=== PATIENT | female | born 1955 | race Caucasian/White ===

== ENCOUNTER 2017-05-23 03:43 | Inpatient (IN) | payer MEDICARE, BC ==
[2017-05-23] MEDS ORDERED: PROVENTIL 2.5 MG/3 ML NEB IH ONE ×2 (04:10→04:13)
[2017-05-23] MEDS ORDERED: Zithromax 500 MG/ 250 ML NaCl Premix 500 MG/250 ML IVPB IV STA (04:13)
[2017-05-23] MEDS ORDERED: Robitussin-Dm Syrup PO ONE (04:13)
[2017-05-23] MEDS ORDERED: Sodium Chloride 0.9% 1000 ML 1,000 ML IV SCH (04:15)
--- NOTE | 2017-05-23 04:19 | ERPHSYRPT ---
- History of Present Illness Time Seen by Provider: 05/23/17 04:05 Source: patient Exam Limitations: no limitations Physician History: FOR THE PAST 4 DAYS PT HAS HAD A NON-PRODUCTIVE COUGH; FOR THE PAST 2 DAYS SHORTNESS OF AIR, NAUSEA, DECREASED APPETITE, SINUS PRESSURE AND EARACHES. Allergies/Adverse Reactions: codeine Allergy (Verified 05/23/17 04:52) Nausea ceftriaxone [From Rocephin] Adverse Reaction (Verified 05/23/17 04:39) states it made her go out of her head Home Medications: Aspirin 81 mg PO DAILY 03/19/14 [History] Atenolol [Tenormin] 0 mg PO BID 03/19/14 [History] Olmesartan Medoxomil [Benicar] 0 mg PO DAILY 03/19/14 [History] Pregabalin [Lyrica] 75 mg PO DAILY 03/19/14 [History] Simvastatin [Zocor] 40 mg PO DAILY 03/19/14 [History] Clonidine HCl 0.1 mg [Catapres 0.1 MG] 0.1 mg PO BID 02/04/16 [History] Hx Tetanus, Diphtheria Vaccination/Date Given: No Hx Influenza Vaccination/Date Given: No Hx Pneumococcal Vaccination/Date Given: No - Review of Systems Ears, Nose, & Throat: Ear Pain, Other (SINUS PRESSURE) Respiratory: Cough, Dyspnea Abdominal/Gastrointestinal: Nausea, Appetite Changes (DECREASED) Endocrine: No Excessive Sweating All Other Systems: Reviewed and Negative - Past Medical History Pertinent Past Medical History: Yes Neurological History: Peripheral Neuropathy, Other ENT History: Cataracts Cardiac History: High Cholesterol, Hypertension Respiratory History: COPD Endocrine Medical History: No Pertinent History Musculoskeletal History: Arthritis GI Medical History: No Pertinent History History: No Pertinent History Psycho-Social History: Depression Female Reproductive Disorders: No Pertinent History Other Medical History: BRAIN ANURISM, skin cancers - Past Surgical History Past Surgical History: Yes Neuro Surgical History: Brain Shunt Cardiac: No Pertinent History Respiratory: No Pertinent History Gastrointestinal: Cholecystectomy Genitourinary: No Pertinent History Musculoskeletal: No Pertinent History Female Surgical History: Hysterectomy - Social History Smoking Status: Current every day smoker How long have you smoked: YRS Exposure to second hand smoke: Yes Drug Use: none Patient Lives Alone: No - Nursing Vital Signs Nursing Vital Signs: Initial Vital Signs Temperature 98.2 F 05/23/17 04:07 Pulse Rate 78 05/23/17 04:07 Respiratory Rate 24 05/23/17 04:07 Blood Pressure 130/77 05/23/17 04:07 O2 Sat by Pulse Oximetry 95 05/23/17 04:07 Pain Scale Pain Intensity 0 - Physical Exam General Appearance: alert Eye Exam: PERRL/EOMI Ears, Nose, Throat Exam: hearing grossly normal, normal pharynx Neck Exam: normal inspection Respiratory Exam: respiratory distress (MILD), wheezing Cardiovascular/Chest Exam: normal heart sounds Abdominal/Gastrointestinal Exam: soft, normal bowel sounds Extremity Exam: normal inspection, No pedal edema Peripheral Pulses Exam: dorsalis-pedis (R): 2+, dorsalis-pedis (L): 2+ Neurologic Exam: alert, cooperative Skin Exam: warm, dry SpO2 Interpretation: normal SpO2: 95 Oxygen Delivery: Room Air - Course Nursing assessment & vital signs reviewed: Yes EKG Interpreted by Me: RATE (72), Sinus Rhythm, Left [place] Deviation, NORMAL INTERVALS - Radiology Exams Chest X-ray Interpretation: Interpreted by me, No Pneumonia Ordered Tests: Active Orders 24 hr Category Date Time Status Car Stower STAT Care 05/23/17 04:12 Active EKG-ER Only STAT Care 05/23/17 04:11 Active IV Insertion STAT Care 05/23/17 04:11 Active Oxygen-ED Only NASAL CANNULA 2 lpm Care 05/23/17 04:11 Active Pulse Oximetry (ED) STAT Care 05/23/17 04:11 Active CHEST 2 VIEWS (PA AND LAT) Stat Exams 05/23/17 04:11 Taken AMYLASE Stat Lab 05/23/17 04:20 Completed BLOOD CULTURE Stat Lab 05/23/17 04:36 Received CBC W DIFF Stat Lab 05/23/17 04:20 Completed CMP Stat Lab 05/23/17 04:20 Completed CULTURE,SPUTUM Stat Lab 05/23/17 04:13 Uncollected D-DIMER QUANTITATION Stat Lab 05/23/17 04:50 Completed LIPASE Stat Lab 05/23/17 04:20 Completed MAGNESIUM Stat Lab 05/23/17 04:20 Completed NT PRO BNP Stat Lab 05/23/17 04:20 Completed TROPONIN Q3H Lab 05/23/17 04:20 Completed TROPONIN Q3H Lab 05/23/17 07:15 Ordered TROPONIN Q3H Lab 05/23/17 10:15 Ordered TROPONIN Q3H Lab 05/23/17 13:15 Ordered TROPONIN Q3H Lab 05/23/17 16:15 Ordered Respiratory Nebulizer STAT RT 05/23/17 04:14 Active Medication Summary Generic Name Dose Route Start Last Admin Trade Name Freq PRN Reason Stop Dose Admin Sodium Chloride 1,000 mls @ 100 mls/hr 05/23/17 04:15 05/23/17 04:33 Sodium Chloride 0.9% 1000 Ml IV 06/22/17 04:14 100 mls/hr .Q10H ESTELA Administration Discontinued Medications Generic Name Dose Route Start Last Admin Trade Name Freq PRN Reason Stop Dose Admin Albuterol Sulfate Confirm 05/23/17 04:10 Proventil 2.5 Mg/3 Ml Neb Administered 05/23/17 04:11 Dose 2.5 mg IH .STK-MED ONE Albuterol Sulfate 2.5 mg 05/23/17 04:13 05/23/17 04:10 Proventil 2.5 Mg/3 Ml Neb IH 05/23/17 04:14 2.5 mg STAT ONE Administration Guaifenesin/Dextromethorphan 10 ml 05/23/17 04:13 05/23/17 04:48 Robitussin-Dm Syrup PO 05/23/17 04:14 10 ml STAT ONE Administration Ceftriaxone Sodium/Dextrose 1 g in 50 mls @ 100 mls/hr 05/23/17 04:13 04:41 Rocephin 1 Gm-D5w 50 Ml Bag IV 05/23/17 04:42 Not Given STAT STA Azithromycin 500 mg in 250 mls @ 250 mls/hr 05/23/17 04:13 05/23/17 04:33 Zithromax 500 Mg/ 250 Ml Nacl Premix IV 05/23/17 05:12 250 mls/hr STAT STA Administration Azithromycin Confirm 05/23/17 04:23 Zithromax 500 Mg/ 250 Ml Nacl Premix Administered 05/23/17 04:24 Dose 500 mg in 250 mls @ ud IV .STK-MED ONE Ceftriaxone Sodium/Dextrose Confirm 05/23/17 04:24 Rocephin 1 Gm-D5w 50 Ml Bag Administered 05/23/17 04:25 Dose 1 g in 50 mls @ ud IV .STK-MED ONE Magnesium Sulfate/Dextrose 100 mls @ 200 mls/hr 05/23/17 05:36 05/23/17 05:53 Magnesium 1 Gm / 100 Ml D5w IV 05/23/17 06:05 200 mls/hr STAT ONE Administration Magnesium Sulfate/Dextrose Confirm 05/23/17 05:48 Magnesium 1 Gm / 100 Ml D5w Administered 05/23/17 05:49 Dose 100 mls @ ud IV .STK-MED ONE Levalbuterol HCl 1.25 mg 05/23/17 05:53 05/23/17 05:55 Xopenex 1.25 Mg/0.5 Ml Ud Nebule IH 05/23/17 05:54 1.25 mg STAT ONE Administration Levalbuterol HCl Confirm 05/23/17 05:54 Xopenex 1.25 Mg/0.5 Ml Ud Nebule Administered 05/23/17 05:55 Dose 1.25 mg IH .STK-MED ONE Methylprednisolone Sodium Succinate 125 mg 05/23/17 05:33 05/23/17 05:39 Solu-Medrol 125 Mg IV 05/23/17 05:34 125 mg STAT ONE Administration Methylprednisolone Sodium Succinate Confirm 05/23/17 05:36 Solu-Medrol 125 Mg Administered 05/23/17 05:37 Dose 125 mg .ROUTE .STK-MED ONE Sodium Chloride Confirm 05/23/17 05:54 Sodium Chloride 3 Ml Ud Nebules Administered 05/23/17 05:55 Dose 3 ml IH .STK-MED ONE Lab/Rad Data: Laboratory Result Diagrams 05/23/17 04:20 05/23/17 04:20 Laboratory Results 05/23/17 05/23/17 05/23/17 Range/Units 04:50 04:20 04:20 WBC (4.0-10.5) K/mm3 RBC (4.1-5.4) M/mm3 Hgb (12.0-16.0) gm/dl Hct (35-47) % MCV (78-100) fl MCH (26-32) pg MCHC (32-36) g/dl RDW (11.5-14.0) % Plt Count (150-450) K/mm3 MPV (6-9.5) fl Gran % (36.0-66.0) % Lymphocytes % (24.0-44.0) % Monocytes % (0.0-12.0) % Eosinophils % (0.00-5.0) % Basophils % (0.0-0.4) % Basophils # (0-0.4) D-Dimer 346 (0-500) ng/mL Sodium 132 L (136-145) mEq/L Potassium 3.7 (3.5-5.1) mEq/L Chloride 96 L (98-107) mEq/L Carbon Dioxide 23.8 (21-32) mEq/L Anion Gap 15.6 H (5-15) MEQ/L BUN 13 (9-20) mg/dL Creatinine 1.06 (0.55-1.30) mg/dl Estimated GFR 56 ML/MIN Glucose 114 H (70-110) MG/DL Calcium 9.4 (8.5-10.1) mg/dL Magnesium 1.6 L (1.8-2.4) mg/dL Total Bilirubin 0.30 (0.2-1.0) mg/dL AST 32 (15-37) U/L ALT 31 (12-78) U/L Alkaline Phosphatase 128 H (46-116) U/L Troponin I < 0.017 (0.000-0.056) ng/ml NT-Pro-B Natriuret Pep 82 (0-125) pg/ml Serum Total Protein 8.1 (6.4-8.2) gm/dL Albumin 3.9 (3.4-5.0) g/dL Amylase 43 (25-115) U/L Lipase 103 (73-393) U/L 05/23/ Range/Units 04:20 WBC 12.5 H (4.0-10.5) K/mm3 RBC 4.53 (4.1-5.4) M/mm3 Hgb 13.8 (12.0-16.0) gm/dl Hct 40.6 (35-47) % MCV 89.6 (78-100) fl MCH 30.5 (26-32) pg MCHC 34.0 (32-36) g/dl RDW 13.2 (11.5-14.0) % Plt Count 234 (150-450) K/mm3 MPV 10.5 H (6-9.5) fl Gran % 78.3 H (36.0-66.0) % Lymphocytes % 11.8 L (24.0-44.0) % Monocytes % 9.5 (0.0-12.0) % Eosinophils % 0.2 (0.00-5.0) % Basophils % 0.2 (0.0-0.4) % Basophils # 0.02 (0-0.4) D-Dimer (0-500) ng/mL Sodium (136-145) mEq/L Potassium (3.5-5.1) mEq/L Chloride (98-107) mEq/L Carbon Dioxide (21-32) mEq/L Anion Gap (5-15) MEQ/L BUN (9-20) mg/dL Creatinine (0.55-1.30) mg/dl Estimated GFR ML/MIN Glucose (70-110) MG/DL Calcium (8.5-10.1) mg/dL Magnesium (1.8-2.4) mg/dL Total Bilirubin (0.2-1.0) mg/dL AST (15-37) U/L ALT (12-78) U/L Alkaline Phosphatase (46-116) U/L Troponin I (0.000-0.056) ng/ml NT-Pro-B Natriuret Pep (0-125) pg/ml Serum Total Protein (6.4-8.2) gm/dL Albumin (3.4-5.0) g/dL Amylase (25-115) U/L Lipase (73-393) U/L - Progress Discussed with Dr.: Graces (OBS - [id number]) - Departure Time of Disposition: 06:34 Departure Disposition: Home Clinical Impression: BRONCHITIS, COPD, PN, HTN, ARTHRITIS, DEPRESSION, HX BRAIN ANEURYSM Condition: Stable Critical Care Time: No Referrals: MARY GRACE BARRY, [facility]AR[facility] ATTENDANT [Primary Care Provider] -
[2017-05-23] MEDS ORDERED: Sodium Chloride 0.9% 1000 ML 1,000 ML ONE (04:23)
[2017-05-23] MEDS ORDERED: Zithromax 500 MG/ 250 ML NaCl Premix 500 MG/250 ML IVPB IV ONE (04:23)
[2017-05-23] MEDS ORDERED: ROCEPHIN 1 Gm-D5w 50 ml Bag** 1 G/50 ML IVPB IV ONE (04:24)
[2017-05-23] MEDS: ROCEPHIN 1 Gm-D5w 50 ml Bag** 1 G/50 ML IVPB IV STA ×2 (04:33→04:41)
[2017-05-23 04:39] LABS: BASOPHIL % 0.2 % (0.0-0.4); Eosinophil % 0.2 % (0.00-5.0); Granulocytes % 78.3 % (36.0-66.0); Lymphocytes % 11.8 % (24.0-44.0); Mean Cell Volume 89.6 fl (78-100); Mean Corpuscular Hemoglobin 30.5 pg (26-32); Mean Platelet Volume 10.5 fl (6-9.5); Monocytes % 9.5 % (0.0-12.0); Platelet Count 234 K/mm3 (150-450); Red Blood Count 4.53 M/mm3 (4.1-5.4); Red Cell Distribution Width 13.2 % (11.5-14.0); White Blood Count 12.5 K/mm3 (4.0-10.5)
[2017-05-23 05:12] LABS: ALBUMIN 3.9 g/dL (3.4-5.0); ANION GAP 15.6 MEQ/L (5-15); BILIRUBIN,TOTAL 0.3 mg/dL (0.2-1.0); Carbon Dioxide 23.8 mEq/L (21-32); MAGNESIUM 1.6 mg/dL (1.8-2.4); Potassium 3.7 mEq/L (3.5-5.1); Total Protein 8.1 gm/dL (6.4-8.2)
[2017-05-23] MEDS ORDERED: solu-MEDROL 125 MG IV ONE (05:33)
[2017-05-23] MEDS ORDERED: solu-MEDROL 125 MG ONE (05:36)
[2017-05-23] MEDS ORDERED: Magnesium 1 Gm / 100 Ml D5W*** 100 ML IV ONE ×2 (05:36→05:48)
[2017-05-23] MEDS ORDERED: Xopenex 1.25 MG/0.5 ML UD NEBULE IH ONE ×2 (05:53→05:54)
[2017-05-23] MEDS ORDERED: Sodium Chloride 3 ML UD NEBULES IH ONE (05:54)
[2017-05-23] MEDS ORDERED: PROVENTIL 2.5 MG/3 ML NEB IH PRN (08:04)
[2017-05-23] MEDS ORDERED: Phenergan 25 MG INJ IV PRN (08:04)
[2017-05-23] MEDS ORDERED: solu-MEDROL 125 MG IV SCH (08:04)
[2017-05-23] MEDS ORDERED: TYLENOL 325 MG PO PRN (08:04)
--- NOTE | 2017-05-23 09:11 | XRAY ---
Indication: Short of breath. Comparison: None PA/lateral chest hyperinflated and clear. Heart and mediastinal structures within normal limits. Bony thorax intact with minimal degenerative changes. Query left sided ventricular shunt catheter versus external tubing. Impression: Nonacute hyperinflated chest.
[2017-05-23] MEDS: Levofloxacin 500MG/100ML D5W 500 MG/100 ML BAG IV SCH (09:32)
[2017-05-23] MEDS: Lyrica 25 MG PO SCH (09:33)
[2017-05-23] MEDS: ECOTRIN 81 MG PO SCH (09:33)
[2017-05-23] MEDS: Benicar 20 MG PO SCH (09:34)
[2017-05-23] MEDS: Catapres 0.1 MG PO SCH (09:34)
[2017-05-23] MEDS: MAG-OX 400 PO SCH (09:34)
[2017-05-23] MEDS: TENORMIN 50 MG PO SCH ×2 (09:38→21:06)
[2017-05-23] MEDS ORDERED: Zithromax 500 MG/ 250 ML NaCl Premix 500 MG/250 ML IVPB IV SCH (10:00)
[2017-05-23] MEDS ORDERED: ATENOLOL 25 MG PO SCH (10:00)
[2017-05-23] MEDS ORDERED: NON-FORMULARY ITEM (Aspirin [Aspirin] 81 MG) PO SCH (10:00)
[2017-05-23] MEDS ORDERED: OLMESARTAN MEDOXOMIL 5 MG PO SCH (10:00)
[2017-05-23] MEDS: DUONEB 0.5-3 MG/3 ml Neb IH SCH ×5 (10:30→23:08)
[2017-05-23] MEDS: solu-MEDROL 40 MG IV SCH ×2 (12:15→17:36)
--- NOTE | 2017-05-23 15:57 | PCM.HP ---
History of Present Illness - Chief Complaint Chief Complaint: Bronchitis, COPD History of Present Illness: is a 62 year old female who sees a provider in [place] who was admitted through the ER for COPD exacerbation. She had 3 days of dry cough and subjective fever with appetite decrease. She does smoke 1 PPD. - Review of Systems Constitutional: Fever Respiratory: Cough, Short Of Breath Abdominal/Gastrointestinal: Appetite Changes Musculoskeletal: Joint Pain (arthritis hx) Psychological: No Anxiety, No Depression, No Suicidal Ideations All Other Systems: Reviewed and Negative Medications & Allergies Home Medications: Home Medication List Aspirin 81 mg PO DAILY 03/19/14 [History Confirmed 05/23/17] Atenolol [Tenormin] 25 mg PO BID 03/19/14 [History Confirmed 05/23/17] Olmesartan Medoxomil [Benicar] 5 mg PO DAILY 03/19/14 [History Confirmed ] Pregabalin [Lyrica] 75 mg PO DAILY 03/19/14 [History Confirmed 05/23/17] Simvastatin [Zocor] 40 mg PO HS 03/19/14 [History Confirmed 05/23/17] Clonidine HCl 0.1 mg [Catapres 0.1 MG] 0.1 mg PO DAILY 02/04/16 [History Confirmed 05/23/17] Allergies/Adverse Reactions: Allergies Allergy/AdvReac Type Severity Reaction Status Date / Time codeine Allergy Nausea Verified 05/23/17 04:52 ceftriaxone [From Rocephin] AdvReac Verified 05/23/17 04:39 - Past Medical History Past Medical History: Yes Neurological History: Peripheral Neuropathy, Other ENT History: Cataracts Cardiac History: High Cholesterol, Hypertension Respiratory History: COPD Endocrine Medical History: No Pertinent History Musculoskelatal History: Arthritis GI Medical History: No Pertinent History History: No Pertinent History Pyscho-Social History: Depression Reproductive Disorders: No Pertinent History Comment: BRAIN ANEURYSM, skin cancers - Female History Hx Last Menstrual Period: menopause Are you now?: No - Past Surgical History Past Surgical History: Yes Neuro Surgical History: Brain Shunt Cardiac History: No Pertinent History Respiratory Surgery: No Pertinent History GI Surgical History: Cholecystectomy Genitourinary Surgical Hx: No Pertinent History Musculskeletal Surgical Hx: No Pertinent History Female Surgical History: Hysterectomy - Social History Smoking Status: Current every day smoker How long have you smoked: YRS Exposure to second hand smoke: Yes Alcohol: None Drug Use: none - Physical Exam Vital Signs: Vital Signs - 24 hr Temp Pulse Resp BP BP Pulse Ox 05/23/17 13:52 85 22 94 L 05/23/17 12:10 93 L 05/23/17 11:25 98.1 F 82 18 99/57 93 L 05/23/17 11:00 93 L 05/23/17 10:48 72 24 90 L 05/23/17 09:38 89 133/80 05/23/17 08:13 98.3 F 89 18 133/80 90 L 05/23/17 08:04 98.3 F 89 18 133/80 90 L 05/23/17 07:16 76 18 118/80 92 L 05/23/17 06:58 78 16 108/78 93 L 05/23/17 06:34 95 05/23/17 06:21 76 24 110/70 92 L 05/23/17 06:08 84 36 H 110/70 93 L 05/23/17 06:05 85 36 H 94 L 05/23/17 05:55 36 H 92 L 05/23/17 05:19 72 24 120/68 94 L 05/23/17 05:18 93 L 05/23/17 04:20 24 93 L 05/23/17 04:14 75 26 H 93 L 05/23/17 04:07 98.2 F 78 24 130/77 95 Oxygen-Last 24 hours O2 Percentage 2 Liters = 28% O2 Percentage 2 Liters = 28% O2 Percentage 2 Liters = 28% O2 Percentage 2 Liters = 28% O2 Percentage 2 Liters = 28% O2 Percentage 2 Liters = 28% O2 Percentage 2 Liters = 28% O2 Percentage 2 Liters = 28% General Appearance: no apparent distress, alert Neurologic Exam: oriented x 3, cooperative Eye Exam: eyes nml inspection Ears, Nose, Throat Exam: moist mucous membranes Neck Exam: normal inspection, non-tender, No lymphadenopathy Respiratory Exam: rhonchi (scattered bilat), wheezing (throughout) Cardiovascular Exam: regular rate/rhythm, normal heart sounds, No murmur Extremity Exam: No pedal edema, No swelling Skin Exam: normal color, warm, dry Results - Labs Lab/Micro Results: Lab Results-Last 24 Hours 05/23/17 05/23/17 Range/Units 10:10 13:22 Troponin I < 0.017 < 0.017 (0.000-0.056) ng/ml - Other Procedures and Tests Respiratory Therapy 05/23/17 10:34 Respiratory Nebulizer UD 05/23/17 11:00 Respiratory Nebulizer Q4H 05/23/17 15:00 Flutter Therapy UD Assessment/Plan (1) COPD exacerbation Current Visit: Yes Status: Acute Assessment & Plan: On IV levaquin. Will add IV steroid as she is wheezing. She has no nebulizer medicine at home, will keep this in mind at discharge. Code(s): J44.1 - CHRONIC OBSTRUCTIVE PULMONARY DISEASE W (ACUTE) EXACERBATION (2) Tobacco abuse Current Visit: Yes Status: Acute Assessment & Plan: she refused nicotine patch. Code(s): Z72.0 - TOBACCO USE
[2017-05-23] MEDS: Sodium Chloride 0.9% 1000 ML 1,000 ML IV SCH (16:31)
[2017-05-23] MEDS: ZOCOR 20MG PO SCH (21:06)
[2017-05-23] MEDS ORDERED: NON-FORMULARY ITEM (Simvastatin [Zocor] 40 MG) PO SCH (22:00)
[2017-05-24] MEDS: solu-MEDROL 40 MG IV SCH ×5 (00:17→23:30)
[2017-05-24] MEDS: Sodium Chloride 0.9% 1000 ML 1,000 ML IV SCH ×3 (00:32→21:02)
[2017-05-24] MEDS: DUONEB 0.5-3 MG/3 ml Neb IH SCH ×6 (03:37→22:37)
[2017-05-24 06:06] LABS: Mean Cell Volume 91.3 fl (78-100); Mean Corpuscular Hemoglobin 31.2 pg (26-32); Mean Platelet Volume 10.4 fl (6-9.5); Platelet Count 248 K/mm3 (150-450); Red Blood Count 3.91 M/mm3 (4.1-5.4); Red Cell Distribution Width 13.5 % (11.5-14.0)
[2017-05-24 06:24] LABS: ALBUMIN 3.2 g/dL (3.4-5.0); ALKALINE PHOSPHATASE 100 U/L (46-116); ANION GAP 15.4 MEQ/L (5-15); BLOOD UREA NITROGEN 9 mg/dL (9-20); CHLORIDE 104 mEq/L (98-107); Carbon Dioxide 22.8 mEq/L (21-32); Glucose 150 MG/DL (70-110); MAGNESIUM 1.9 mg/dL (1.8-2.4); SGOT/AST 22 U/L (15-37); SGPT/ALT 27 U/L (12-78); SODIUM 138 mEq/L (136-145); Total Protein 7.1 gm/dL (6.4-8.2)
[2017-05-24 06:28] LABS: White Blood Count 25.7 K/mm3 (4.0-10.5)
--- NOTE | 2017-05-24 08:40 | PCM.NOTE ---
Date and Time: 05/24/17833 Subjective Assessment: Pt feeling much better. Still coughing and on 3 L O2 per NC. breathing is better. roopa po. - Review of Systems Constitutional: No Fever Ears, Nose, & Throat: Throat Pain Respiratory: Cough Objective Exam General Appearance: no apparent distress, alert Neurologic Exam: oriented x 3, cooperative Skin Exam: normal color, warm, dry Respiratory Exam: diminished breath sounds, No crackles/rales, No rhonchi, No wheezing Cardiovascular Exam: regular rate/rhythm, normal heart sounds, No murmur Extremity Exam: No pedal edema, No swelling Back Exam: normal inspection OBJECTIVE DATA Vital Signs: Vital Signs - 24 hr Temp Pulse Resp BP BP Pulse Ox 05/24/17 08:00 22 05/24/17 07:16 97.7 F 95 H 22 117/59 95 05/24/17 07:00 95 05/24/17 06:40 91 H 24 94 L 05/24/17 04:00 97.9 F 87 34 H 106/53 90 L 05/24/17 03:30 80 18 98 05/24/17 00:00 97.8 F 83 34 H 110/63 92 L 05/23/17 23:00 89 20 95 05/23/17 21:06 101 H 108/57 05/23/17 20:10 98.3 F 105 H 24 108/59 95 05/23/17 20:00 95 05/23/17 19:17 97 H 20 95 05/23/17 16:51 96 H 24 92 L 05/23/17 16:00 98.2 F 90 16 113/62 94 L 05/23/17 13:52 85 22 94 L 05/23/17 12:10 93 L 05/23/17 11:25 98.1 F 82 18 99/57 93 L 05/23/17 11:00 93 L 05/23/17 10:48 72 24 90 L 05/23/17 09:38 89 133/80 Oxygen-Last 24 hours O2 Percentage 3 Liters = 32% O2 Percentage 3 Liters = 32% O2 Percentage 3 Liters = 32% Oxygen Flowrate (L/min)-RT 3 Oxygen Flowrate (L/min)-RT 3 Oxygen Flowrate (L/min)-RT 4 Pain Assessment - Last Documented Pain Scale Used 0-10 Pain Scale Intake and Output: Intake & Output 05/21/17 05/22/17 05/23/17 05/24/17 11:59 11:59 11:59 11:59 Intake Total 0 2574 Output Total 900 Balance 0 1674 Weight 81.873 kg 84.368 kg Lab Results: Lab Results-Last 24 Hours 05/23/17 05/23/17 05/23/17 Range/Units 10:10 13:22 16:10 WBC (4.0-10.5) K/mm3 RBC (4.1-5.4) M/mm3 Hgb (12.0-16.0) gm/dl Hct (35-47) % MCV (78-100) fl MCH (26-32) pg MCHC (32-36) g/dl RDW (11.5-14.0) % Plt Count (150-450) K/mm3 MPV (6-9.5) fl Sodium (136-145) mEq/L Potassium (3.5-5.1) mEq/L Chloride (98-107) mEq/L Carbon Dioxide (21-32) mEq/L Anion Gap (5-15) MEQ/L BUN (9-20) mg/dL Creatinine (0.55-1.30) mg/dl Estimated GFR ML/MIN Glucose (70-110) MG/DL Calcium (8.5-10.1) mg/dL Magnesium (1.8-2.4) mg/dL Total Bilirubin (0.2-1.0) mg/dL AST (15-37) U/L ALT (12-78) U/L Alkaline Phosphatase (46-116) U/L Troponin I < 0.017 < 0.017 < 0.017 (0.000-0.056) ng/ml Serum Total Protein (6.4-8.2) gm/dL Albumin (3.4-5.0) g/dL 05/24/17 05/24/17 Range/Units 05:42 05:42 WBC 25.7 H* (4.0-10.5) K/mm3 RBC 3.91 L (4.1-5.4) M/mm3 Hgb 12.2 (12.0-16.0) gm/dl Hct 35.7 (35-47) % MCV 91.3 (78-100) fl MCH 31.2 (26-32) pg MCHC 34.2 (32-36) g/dl RDW 13.5 (11.5-14.0) % Plt Count 248 (150-450) K/mm3 MPV 10.4 H (6-9.5) fl Sodium 138 (136-145) mEq/L Potassium 4.0 (3.5-5.1) mEq/L Chloride 104 (98-107) mEq/L Carbon Dioxide 22.8 (21-32) mEq/L Anion Gap 15.4 H (5-15) MEQ/L BUN 9 (9-20) mg/dL Creatinine 0.96 (0.55-1.30) mg/dl Estimated GFR > 60 ML/MIN Glucose 150 H (70-110) MG/DL Calcium 9.3 (8.5-10.1) mg/dL Magnesium 1.9 (1.8-2.4) mg/dL Total Bilirubin 0.20 (0.2-1.0) mg/dL AST 22 (15-37) U/L ALT 27 (12-78) U/L Alkaline Phosphatase 100 (46-116) U/L Troponin I (0.000-0.056) ng/ml Serum Total Protein 7.1 (6.4-8.2) gm/dL Albumin 3.2 L (3.4-5.0) g/dL Assessment/Plan (1) COPD exacerbation Current Visit: Yes Status: Acute Assessment & Plan: Doing better. Still on O2, will need continued IV abx and O2 - if can wean off oxygen may get to go home tomorrow or Sunday. Code(s): J44.1 - CHRONIC OBSTRUCTIVE PULMONARY DISEASE W (ACUTE) EXACERBATION (2) Tobacco abuse Current Visit: Yes Status: Acute Code(s): Z72.0 - TOBACCO USE
[2017-05-24] MEDS: Lyrica 25 MG PO SCH (09:06)
[2017-05-24] MEDS: TENORMIN 50 MG PO SCH ×2 (09:08→21:03)
[2017-05-24] MEDS: Benicar 20 MG PO SCH (09:10)
[2017-05-24] MEDS: MAG-OX 400 PO SCH (09:11)
[2017-05-24] MEDS: Catapres 0.1 MG PO SCH (09:11)
[2017-05-24] MEDS: ECOTRIN 81 MG PO SCH (09:11)
[2017-05-24] MEDS: Levofloxacin 500MG/100ML D5W 500 MG/100 ML BAG IV SCH (09:13)
[2017-05-24 09:31] LABS: BAND 11 % (0.0-2.0); Platelet Estimate NORMAL (NORMAL); Total Cells Counted 100
[2017-05-24] MEDS ORDERED: FLUCELVAX QUAD 2017-2018 SYR IM ONE (10:00)
[2017-05-24] MEDS ORDERED: Robitussin-Dm Syrup PO PRN (13:26)
[2017-05-24] MEDS: ZOCOR 20MG PO SCH (21:03)
[2017-05-25] MEDS: DUONEB 0.5-3 MG/3 ml Neb IH SCH ×6 (02:39→23:24)
[2017-05-25] MEDS: solu-MEDROL 40 MG IV SCH ×3 (05:40→18:27)
--- NOTE | 2017-05-25 06:31 | PCM.NOTE ---
Date and Time: 05/25/17627 Subjective Assessment: is feeling much better but breathing still very tight can't cough anything up she tried to go off the O2 but dropped last night and was short of breath and had to put back on today no vomiting tolerating po wel. Objective Exam General Appearance: no apparent distress Neurologic Exam: alert, oriented x 3, cooperative Skin Exam: warm, dry, No rash Ears, Nose, Throat Exam: moist mucous membranes Neck Exam: non-tender, supple Respiratory Exam: diminished breath sounds, prolonged expirations, wheezing Cardiovascular Exam: regular rate/rhythm, normal heart sounds Gastrointestinal/Abdomen Exam: soft, normal bowel sounds, tenderness, No distention Extremity Exam: normal inspection, No pedal edema OBJECTIVE DATA Vital Signs: Vital Signs - 24 hr Temp Pulse Resp BP BP Pulse Ox 05/25/17 04:00 98.1 F 87 18 132/62 89 L 05/25/17 03:00 91 L 05/25/17 02:39 84 18 97 05/25/17 00:00 20 05/24/17 23:58 97.8 F 89 20 116/55 92 L 05/24/17 23:00 91 L 05/24/17 22:39 87 20 93 L 05/24/17 21:03 87 130/60 05/24/17 19:59 26 H 05/24/17 19:51 97.8 F 87 20 130/60 93 L 05/24/17 19:00 92 L 05/24/17 18:38 78 20 93 L 05/24/17 16:00 97.5 F 86 20 124/62 96 05/24/17 15:15 84 20 94 L 05/24/17 14:58 93 L 05/24/17 12:48 97.7 F 84 18 118/62 93 L 05/24/17 12:00 97.7 F 88 22 117/59 93 L 05/24/17 11:11 88 22 93 L 05/24/17 11:00 95 05/24/17 09:41 68 20 95 05/24/17 09:08 95 H 117/59 05/24/17 08:00 22 05/24/17 07:16 97.7 F 95 H 22 117/59 95 05/24/17 07:00 95 05/24/17 06:40 91 H 24 94 L Oxygen-Last 24 hours O2 Percentage 2 Liters = 28% O2 Percentage 2 Liters = 28% O2 Percentage 3 Liters = 32% Pain Assessment - Last Documented Pain Scale Used 0-10 Pain Scale Intake and Output: Intake & Output 05/22/17 05/23/17 05/24/17 05/25/17 11:59 11:59 11:59 11:59 Intake Total 0 2814 3132 Output Total 1500 350 Balance 0 1314 2782 Weight 81.873 kg 84.368 kg Lab Results: Lab Results-Last 24 Hours 05/24/17 Range/Units 05:42 WBC 25.7 H* (4.0-10.5) K/mm3 RBC 3.91 L (4.1-5.4) M/mm3 Hgb 12.2 (12.0-16.0) gm/dl Hct 35.7 (35-47) % MCV 91.3 (78-100) fl MCH 31.2 (26-32) pg MCHC 34.2 (32-36) g/dl RDW 13.5 (11.5-14.0) % Plt Count 248 (150-450) K/mm3 MPV 10.4 H (6-9.5) fl Segmented Neutrophils 76 H (36.0-66.0) % Band Neutrophils 11 H (0.0-2.0) % Lymphocytes (Manual) 9 L (24-44) % Monocytes (Manual) 4 (0.0-12.0) % Differential Comment NORMAL Platelet Estimate NORMAL (NORMAL) Multi-Disciplinary Progress Notes: Multi-Disciplinary Progress Notes 05/24/17 09:00 (created 05/24/17 09:46) Case Management Note by Dee Sorto CONTINUES TO PLAN TO RETURN HOME TO PRE EPISODIC LEVEL OF FNX. INDEPENDENT WITH ALL ADL'S. AT HOME TO ASSIST IF NEEDED. WILL FOLLOW FOR ALL DC NEEDS. Initialized on 05/24/17 09:46 - END OF NOTE Assessment/Plan (1) COPD exacerbation Current Visit: Yes Status: Acute Assessment & Plan: still requiring O2 she doesnt want to have to be on at home very tight lungs with very little airmovement still continue iv steroid continue levoquin stop the iv fluids wean O2 as tolerated discussed if unable could trial short coarse of home O2 Code(s): J44.1 - CHRONIC OBSTRUCTIVE PULMONARY DISEASE W (ACUTE) EXACERBATION (2) Acute hypoxemic respiratory failure Current Visit: Yes Status: Acute Code(s): J96.01 - ACUTE RESPIRATORY FAILURE WITH HYPOXIA (3) Essential hypertension Current Visit: Yes Status: Acute Code(s): I10 - ESSENTIAL (PRIMARY) HYPERTENSION
[2017-05-25 06:49] LABS: Mean Cell Volume 92.6 fl (78-100); Mean Platelet Volume 11.3 fl (6-9.5); Platelet Count 215 K/mm3 (150-450); Red Blood Count 3.77 M/mm3 (4.1-5.4); Red Cell Distribution Width 14.1 % (11.5-14.0)
[2017-05-25 06:56] LABS: Mean Corpuscular Hemoglobin 30.7 pg (26-32)
[2017-05-25 06:57] LABS: White Blood Count 29.2 K/mm3 (4.0-10.5)
[2017-05-25 07:05] LABS: ANION GAP 15.6 MEQ/L (5-15); BLOOD UREA NITROGEN 11 mg/dL (9-20); CHLORIDE 108 mEq/L (98-107); Carbon Dioxide 21.3 mEq/L (21-32); Glucose 135 MG/DL (70-110); SODIUM 141 mEq/L (136-145)
[2017-05-25 07:25] LABS: ANISOCYTOSIS 1+; BAND 14 % (0.0-2.0); Metamyelocyte 2 %; Platelet Estimate NORMAL (NORMAL); Polychromasia RARE; Total Cells Counted 100
[2017-05-25] MEDS: TENORMIN 50 MG PO SCH ×2 (09:49→21:19)
[2017-05-25] MEDS: Lyrica 25 MG PO SCH (09:49)
[2017-05-25] MEDS: ECOTRIN 81 MG PO SCH (09:49)
[2017-05-25] MEDS: Levofloxacin 500MG/100ML D5W 500 MG/100 ML BAG IV SCH (09:49)
[2017-05-25] MEDS: Catapres 0.1 MG PO SCH (09:52)
[2017-05-25] MEDS: Benicar 20 MG PO SCH (09:52)
[2017-05-25] MEDS: MAG-OX 400 PO SCH (09:52)
[2017-05-25] MEDS: ZOCOR 20MG PO SCH (21:20)
[2017-05-26] MEDS: solu-MEDROL 40 MG IV SCH ×2 (00:19→05:23)
[2017-05-26] MEDS: DUONEB 0.5-3 MG/3 ml Neb IH SCH ×2 (03:14→06:40)
[2017-05-26 07:28] VITALS: BP 139/79; PULSE 84
[2017-05-26 07:44] VITALS: O2SAT 92
[2017-05-26] MEDS: Levofloxacin 500MG/100ML D5W 500 MG/100 ML BAG IV SCH (08:20)
[2017-05-26] MEDS: Lyrica 25 MG PO SCH (08:21)
[2017-05-26] MEDS: TENORMIN 50 MG PO SCH (08:21)
[2017-05-26] MEDS: MAG-OX 400 PO SCH (08:22)
[2017-05-26] MEDS: ECOTRIN 81 MG PO SCH (08:22)
[2017-05-26] MEDS: Benicar 20 MG PO SCH (08:22)
[2017-05-26] MEDS: Catapres 0.1 MG PO SCH (08:22)
[2017-05-26 08:41] LABS: BASOPHIL % 0.1 % (0.0-0.4); Granulocytes % 93.5 % (36.0-66.0); Lymphocytes % 3.5 % (24.0-44.0); Mean Cell Volume 92.4 fl (78-100); Mean Corpuscular Hemoglobin 30.7 pg (26-32); Mean Platelet Volume 10.2 fl (6-9.5); Monocytes % 2.9 % (0.0-12.0); Platelet Count 259 K/mm3 (150-450); Red Blood Count 3.94 M/mm3 (4.1-5.4)
[2017-05-26 08:47] LABS: Carbon Dioxide 23.9 mEq/L (21-32)
[2017-05-26 09:08] LABS: White Blood Count 26.6 K/mm3 (4.0-10.5)
[2017-05-26 09:13] LABS: BAND 1 % (0.0-2.0); Total Cells Counted 100
[2017-05-26 09:15] LABS: Platelet Estimate NORMAL (NORMAL); Toxic Granulation 1+
[2017-05-26 09:16] LABS: Poikilocytosis 1+
--- NOTE | 2017-05-26 09:56 | PCM.DS ---
Discharge Summary Date of Admission: 05/24/17 08:34 Date of Discharge: 05/26/17 Admitting Physician: YANCI MOCK Primary Care Provider: MARY GRACE BARRY Allergies Allergies codeine Allergy (Verified 05/23/17 04:52) Nausea ceftriaxone [From Rocephin] Adverse Reaction (Verified 05/23/17 04:39) states it made her go out of her head Hospital Summary - Hospital Course Hospital Course: she presented with acute copd exacerbation and acute hypoxemic respiratory failure and significant luekocytosis and bandemia. She was treated with nebs, levoquin and iv steroids. She continued to require O2 and weaned slowly on the iv steroids with severity of symptoms. She was feeling better ambulating well tolerating at times without O2 but still needing with exertion and she had overnight pulse ox with desaturations qualified for HOme O2 that she may not need once improved further. WIll complete steroids and levoquin as outpatient. Instruction on proper use of albuterol inhaler as well. follow up as outpatient. Discussed repeat cbc with the significant leukocytosis but despite this is clinically much improved. - Vitals & Intake/Output Vital Signs: Vital Signs Temperature 98.9 F 05/26/17 07:00 Pulse Rate 84 05/26/17 07:00 Respiratory Rate 18 05/26/17 07:00 Blood Pressure 139/79 05/26/17 07:00 O2 Sat by Pulse Oximetry 92 L 05/26/17 07:00 Oxygen-Last Documented O2 Percentage 2 Liters = 28% Intake & Output: Intake & Output 05/23/17 05/24/17 05/25/17 05/26/17 11:59 11:59 11:59 11:59 Intake Total 240 3132 1590 Output Total 600 1050 750 Balance -360 2082 840 Weight 88.451 kg - Lab Result Diagrams: 05/26/17 08:30 05/26/17 08:30 Lab Results-Last 24 Hrs: Lab Results-Last 24 Hours 05/26/17 05/26/17 Range/Units 08:30 08:30 WBC 26.6 H* (4.0-10.5) K/mm3 RBC 3.94 L (4.1-5.4) M/mm3 Hgb 12.1 (12.0-16.0) gm/dl Hct 36.4 (35-47) % MCV 92.4 (78-100) fl MCH 30.7 (26-32) pg MCHC 33.2 (32-36) g/dl RDW 14.0 (11.5-14.0) % Plt Count 259 (150-450) K/mm3 MPV 10.2 H (6-9.5) fl Gran % 93.5 H (36.0-66.0) % Lymphocytes % 3.5 L (24.0-44.0) % Monocytes % 2.9 (0.0-12.0) % Eosinophils % 0.0 (0.00-5.0) % Basophils % 0.1 (0.0-0.4) % Segmented Neutrophils 89 H (36.0-66.0) % Band Neutrophils 1 (0.0-2.0) % Lymphocytes (Manual) 7 L (24-44) % Monocytes (Manual) 3 (0.0-12.0) % Basophils # 0.02 (0-0.4) Differential Comment ABNORMAL Toxic Granulation 1+ Platelet Estimate NORMAL (NORMAL) Poikilocytosis 1+ Rouleaux 1+ Sodium 139 (136-145) mEq/L Potassium 4.0 (3.5-5.1) mEq/L Chloride 104 (98-107) mEq/L Carbon Dioxide 23.9 (21-32) mEq/L Anion Gap 15.0 (5-15) MEQ/L BUN 14 (9-20) mg/dL Creatinine 1.05 (0.55-1.30) mg/dl Estimated GFR 57 ML/MIN Glucose 150 H (70-110) MG/DL Calcium 9.8 (8.5-10.1) mg/dL Discharge Exam General Appearance: no apparent distress, alert Neurologic Exam: alert, oriented x 3, cooperative, normal mood/affect, nml cerebellar function, sensation nml, No motor deficits Skin Exam: normal color, warm, dry Eye Exam: PERRL, EOMI, eyes nml inspection Ears, Nose, Throat Exam: normal ENT inspection, pharynx normal, moist mucous membranes Neck Exam: normal inspection, non-tender, supple, full range of motion Respiratory Exam: wheezing, No respiratory distress, No crackles/rales Cardiovascular Exam: regular rate/rhythm, normal heart sounds Gastrointestinal/Abdomen Exam: soft, No tenderness, No mass Extremity Exam: normal inspection, normal range of motion Back Exam: normal inspection, normal range of motion, No CVA tenderness, No vertebral tenderness Pelvic Exam: deferred Rectal Exam: deferred Final Diagnosis/Problem List - Final Discharge Diagnosis/Problem (1) COPD exacerbation Status: Acute (2) Acute hypoxemic respiratory failure Status: Acute (3) Essential hypertension Status: Acute - Discharge Disposition: Home, Self-Care Condition: Stable Prescriptions: New Prednisone 20 mg [Deltasone 20 mg] 20 mg PO DAILY #10 tablet Levofloxacin 500 mg PO DAILY #4 tablet Albuterol Sulfate [Proair Hfa] 2 gm IH Q4H PRN #1 [id number] PRN Reason: Shortness Of Breath Continue Olmesartan Medoxomil [Benicar] 5 mg PO DAILY Simvastatin [Zocor] 40 mg PO HS Atenolol [Tenormin] 25 mg PO BID Aspirin 81 mg PO DAILY Pregabalin [Lyrica] 75 mg PO DAILY Clonidine HCl 0.1 mg [Catapres 0.1 MG] 0.1 mg PO DAILY Instructions: Chronic Obstructive Pulmonary Disease Additional Instructions: home O2 at night 2L nc and in day as needed Follow up with: YANCI MOCK [ACTIVE STAFF] - 06/08/17 11:15 am Forms: Discharge Instructions
== END 2017-05-26 11:00 | disposition home or self-care (01) | DRG 190 ==
LOC: ED 03:43 → MED SURG 08:02 → OBSVTOIN 05-24 08:34
PROVIDERS: ADMIT Family Medicine; ATTEND Family Medicine
DX: J44.1 Chronic obstructive pulmonary disease with (acute) exacerbation (principal); J96.01 Acute respiratory failure with hypoxia; I10 Essential (primary) hypertension; G62.9 Polyneuropathy, unspecified; M19.90 Unspecified osteoarthritis, unspecified site; Z85.828 Personal history of other malignant neoplasm of skin; Z72.0 Tobacco use
CPT/HCPCS: 36000; 36415; 71020; 80048; 80053; 82150; 83690; 83735; 83880; 84484; 85025; 85379; 87040; 87070; 93005; 93041; 93268; 94640; 94667; 94760; 94762; 96360; 96361; 96365; 96374; 99285; G0008; G0378; J0456; J0696; J1956; J2920; J2930; J3475; A9270-GY

== ENCOUNTER 2017-05-27 05:24 | Emergency (ER) | payer MEDICARE, BC ==
[2017-05-27] MEDS ORDERED: DUONEB 0.5-3 MG/3 ml Neb IH ONE ×4 (05:47→08:00)
[2017-05-27] MEDS ORDERED: solu-MEDROL 125 MG IV ONE (05:51)
[2017-05-27] MEDS ORDERED: Zosyn 3.375GM/100 Ml D5W 3.375 GM/100 ML IVPB IV STA (05:51)
--- NOTE | 2017-05-27 05:51 | ERPHSYRPT ---
- History of Present Illness Source: patient, family Exam Limitations: no limitations Timing/Duration: today Activities at Onset: none Severity of Dyspnea-Max: moderate Severity of Dyspnea-Current: moderate Possible Cause: chronic episodes Modifying Factors: Improves With: albuterol nebulizer Associated Symptoms: anxiety, cough, wheezing Hx Tetanus, Diphtheria Vaccination/Date Given: No Hx Influenza Vaccination/Date Given: No Hx Pneumococcal Vaccination/Date Given: No <LEEANN RENAE - Last Filed: 05/27/17 07:01> <MILKA MOYER - Last Filed: 05/27/17 09:03> - History of Present Illness Time Seen by Provider: 05/27/17 05:47 Physician History: pt is 62 year old female who just got out of hospital here for COPD exacerbation with wheezing - denies hx of heart problems; (LEEANN RENAE) Allergies/Adverse Reactions: codeine Allergy (Verified 05/27/17 05:53) Nausea ceftriaxone [From Rocephin] Adverse Reaction (Verified 05/27/17 05:53) states it made her go out of her head Home Medications: Aspirin 81 mg PO DAILY 03/19/14 [History] Atenolol [Tenormin] 25 mg PO BID 03/19/14 [History] Olmesartan Medoxomil [Benicar] 5 mg PO DAILY 03/19/14 [History] Pregabalin [Lyrica] 75 mg PO DAILY 03/19/14 [History] Simvastatin [Zocor] 40 mg PO HS 03/19/14 [History] Clonidine HCl 0.1 mg [Catapres 0.1 MG] 0.1 mg PO DAILY 02/04/16 [History] - Review of Systems Constitutional: No Fever, No Chills Eyes: No Symptoms Ears, Nose, & Throat: No Symptoms Respiratory: Cough, Dyspnea, Wheezing Cardiac: No Chest Pain, No Edema, No Syncope Abdominal/Gastrointestinal: No Abdominal Pain, No Nausea, No Vomiting, No Diarrhea Genitourinary Symptoms: No Dysuria Musculoskeletal: No Back Pain, No Neck Pain Skin: No Symptoms, No Rash Neurological: No Dizziness, No Focal Weakness, No Sensory Changes Psychological: No Symptoms Endocrine: No Symptoms All Other Systems: Reviewed and Negative <LEEANN RENAE - Last Filed: 05/27/17 07:01> - Past Medical History Pertinent Past Medical History: Yes Neurological History: Peripheral Neuropathy, Other ENT History: Cataracts Cardiac History: High Cholesterol, Hypertension Respiratory History: COPD Endocrine Medical History: No Pertinent History Musculoskeletal History: Arthritis GI Medical History: No Pertinent History History: No Pertinent History Psycho-Social History: Depression Female Reproductive Disorders: No Pertinent History Other Medical History: BRAIN ANEURYSM, skin cancers - Past Surgical History Past Surgical History: Yes Neuro Surgical History: Brain Shunt Cardiac: No Pertinent History Respiratory: No Pertinent History Gastrointestinal: Cholecystectomy Genitourinary: No Pertinent History Musculoskeletal: No Pertinent History Female Surgical History: Hysterectomy - Social History Smoking Status: Current every day smoker How long have you smoked: YRS Exposure to second hand smoke: Yes Drug Use: none Patient Lives Alone: No <LEEANN RENAE - Last Filed: 05/27/17 07:01> - Physical Exam General Appearance: mild distress, alert Eye Exam: PERRL/EOMI Neck Exam: normal inspection, supple Respiratory Exam: airway intact, rhonchi, wheezing Cardiovascular/Chest Exam: normal heart sounds, regular rate/rhythm Abdominal/Gastrointestinal Exam: soft, No tenderness, No distention, No mass Rectal Exam: deferred Extremity Exam: non-tender, normal range of motion, normal inspection, no calf tenderness, no pedal edema Neurologic Exam: alert, oriented x 3, cooperative, spinner iron II-XII nml as tested, sensation nml, No motor deficits Skin Exam: normal color, warm, No dry <LEEANN RENAE - Last Filed: 05/27/17 07:01> - Physical Exam SpO2 Interpretation: normal <JOÃOMILKA - Last Filed: 05/27/17 09:03> - Nursing Vital Signs Nursing Vital Signs: Initial Vital Signs Temperature 97.9 F 05/27/17 05:40 Pulse Rate 86 05/27/17 05:40 Respiratory Rate 24 05/27/17 05:40 Blood Pressure 155/87 05/27/17 05:40 O2 Sat by Pulse Oximetry 96 05/27/17 05:40 Pain Scale Pain Intensity 0 - Course Nursing assessment & vital signs reviewed: Yes EKG Interpreted by Me: Sinus Rhythm, NORMAL AXIS, Non-specific ST Changes, Other (poor r wavwe progression) - Radiology Exams Chest X-ray Interpretation: Reviewed by me, Infiltrates <LEEANN RENAE - Last Filed: 05/27/17 07:01> Ordered Tests: Active Orders 24 hr Category Date Time Status Weight Tester STAT Care 05/27/17 05:52 Active Clean Catch Urine Specimen STAT Care 05/27/17 05:51 Active EKG-ER Only STAT Care 05/27/17 05:51 Active IV Insertion STAT Care 05/27/17 05:51 Active IV Insertion-2nd Peripheral STAT Care 05/27/17 07:21 Active Oxygen-ED Only NASAL CANNULA 5 lpm Care 05/27/17 05:51 Active CHEST 1 VIEW (PORTABLE) Stat Exams 05/27/17 05:52 Taken CHEST WITH CONTRAST [CT] Stat Exams 05/27/17 06:34 Taken CBC W DIFF Stat Lab 05/27/17 05:55 Completed CMP Stat Lab 05/27/17 05:55 Completed D-DIMER QUANTITATION Stat Lab 05/27/17 05:55 Completed Lactic Acid Stat Lab 05/27/17 06:00 Completed Manual Differential NC Stat Lab 05/27/17 05:55 Completed NT PRO BNP Stat Lab 05/27/17 05:55 Completed TROPONIN Q3H Lab 05/27/17 05:55 Completed TROPONIN Q3H Lab 05/27/17 09:00 Ordered TROPONIN Q3H Lab 05/27/17 12:00 Ordered TROPONIN Q3H Lab 05/27/17 15:00 Ordered TROPONIN Q3H Lab 05/27/17 18:00 Ordered UA W/ MICROSCOPIC Stat Lab 05/27/17 07:15 Completed Respiratory Nebulizer STAT RT 05/27/17 05:57 Completed Respiratory Nebulizer STAT RT 05/27/17 07:58 Completed Medication Summary Generic Name Dose Route Start Last Admin Trade Name Freq PRN Reason Stop Dose Admin Albuterol/Ipratropium 3 ml 05/27/17 11:00 05/27/17 08:55 Duoneb 0.5-3 Mg/3 Ml Neb IH 06/26/17 10:59 3 ml Q4HRT ESTELA Administration Magnesium Sulfate/Dextrose 100 mls @ 100 mls/hr 05/27/17 06:00 05/27/17 06:20 Magnesium 1 Gm / 100 Ml D5w IV 05/27/17 07:59 100 mls/hr Q1H ESTELA Administration Sodium Chloride 1,000 mls @ 50 mls/hr 05/27/17 06:00 05/27/17 06:05 Sodium Chloride 0.9% 1000 Ml IV 06/26/17 05:59 50 mls/hr .Q20H ESTELA Administration Discontinued Medications Generic Name Dose Route Start Last Admin Trade Name Ayush PRN Reason Stop Dose Admin Albuterol/Ipratropium Confirm 05/27/17 05:47 Duoneb 0.5-3 Mg/3 Ml Neb Administered 05/27/17 05:48 Dose 3 ml IH .STK-MED ONE Albuterol/Ipratropium 3 ml 05/27/17 05:51 05/27/17 05:50 Duoneb 0.5-3 Mg/3 Ml Neb IH 05/27/17 05:52 3 ml STAT ONE Administration Albuterol/Ipratropium Confirm 05/27/17 07:47 Duoneb 0.5-3 Mg/3 Ml Neb Administered 05/27/17 07:48 Dose 3 ml IH .STK-MED ONE Albuterol/Ipratropium 3 ml 05/27/17 08:00 05/27/17 08:01 Duoneb 0.5-3 Mg/3 Ml Neb IH 05/27/17 08:01 3 ml STAT ONE Administration Budesonide 0.5 mg 05/27/17 07:58 05/27/17 07:59 Pulmicort 0.5 Mg/2 Ml Respules IH 05/27/17 07:59 0.5 mg STAT ONE Administration Piperacillin Sod/Tazobactam Sod 3.375 gm in 100 mls @ 200 mls/hr 05/27/17 05: 51 05/27/17 06:06 Zosyn 3.375gm/100 Ml D5w IV 05/27/17 06:20 200 mls/hr STAT STA Administration Piperacillin Sod/Tazobactam Sod Confirm 05/27/17 06:02 Zosyn 3.375gm/100 Ml D5w Administered 05/27/17 06:03 Dose 3.375 gm in 100 mls @ ud IV .STK-MED ONE Lorazepam 1 mg 05/27/17 06:18 05/27/17 06:22 Ativan 1 Mg PO 05/27/17 06:19 1 mg STAT ONE Administration Lorazepam Confirm 05/27/17 06:21 Ativan 1 Mg Administered 05/27/17 06:22 Dose 1 mg .ROUTE .STK-MED ONE Methylprednisolone Sodium Succinate 125 mg 05/27/17 05:51 05/27/17 06:06 Solu-Medrol 125 Mg IV 05/27/17 05:52 125 mg STAT ONE Administration Methylprednisolone Sodium Succinate Confirm 05/27/17 06:03 Solu-Medrol 125 Mg Administered 05/27/17 06:04 Dose 125 mg .ROUTE .STK-MED ONE Lab/Rad Data: Laboratory Result Diagrams 05/27/17 05:55 05/27/17 05:55 Laboratory Results 05/27/17 05/27/17 05/27/17 Range/Units 07:15 06:00 05:55 WBC (4.0-10.5) K/mm3 RBC (4.1-5.4) M/mm3 Hgb (12.0-16.0) gm/dl Hct (35-47) % MCV (78-100) fl MCH (26-32) pg MCHC (32-36) g/dl RDW (11.5-14.0) % Plt Count (150-450) K/mm3 MPV (6-9.5) fl Segmented Neutrophils (36.0-66.0) % Lymphocytes (Manual) (24-44) % Monocytes (Manual) (0.0-12.0) % Differential Comment Platelet Estimate (NORMAL) Poikilocytosis D-Dimer 785 H* (0-500) ng/mL Sodium (136-145) mEq/L Potassium (3.5-5.1) mEq/L Chloride (98-107) mEq/L Carbon Dioxide (21-32) mEq/L Anion Gap (5-15) MEQ/L BUN (9-20) mg/dL Creatinine (0.55-1.30) mg/dl Estimated GFR ML/MIN Glucose (70-110) MG/DL Lactic Acid 1.2 (0.4-2.0) Calcium (8.5-10.1) mg/dL Total Bilirubin (0.2-1.0) mg/dL AST (15-37) U/L ALT (12-78) U/L Alkaline Phosphatase (46-116) U/L Troponin I (0.000-0.056) ng/ml NT-Pro-B Natriuret Pep (0-125) pg/ml Serum Total Protein (6.4-8.2) gm/dL Albumin (3.4-5.0) g/dL Ur Collection Type CCMS Urine Color YELLOW (YELLOW) Urine Appearance CLEAR (CLEAR) Urine pH 5.0 (5-6) Ur Specific [place] 1.010 (1.005-1.025) Urine Protein NEGATIVE (Negative) Urine Ketones NEGATIVE (NEGATIVE) Urine Blood 5-10 (0-5) Jeremy/ul Urine Nitrite NEGATIVE (NEGATIVE) Urine Bilirubin NEGATIVE (NEGATIVE) Urine Urobilinogen NORMAL (0-1) mg/dL Ur Leukocyte Esterase NEGATIVE (NEGATIVE) Urine Microscopic RBC 0-2 (0-2) /HPF Urine Microscopic WBC 0-2 (0-5) /HPF Ur Epithelial Cells FEW (FEW) /HPF Urine Bacteria RARE (NEGATIVE) /HPF Urine Mucus SLIGHT (NEGATIVE) /HPF Urine Culture Reflexed NO (NO) Urine Glucose NEGATIVE (NEGATIVE) mg/dL Specimen Received 0715 05/27/17 05/27/17 05/27/17 05/27/17 Range/Units 05:55 05:55 05:55 WBC 18.0 H (4.0-10.5) K/mm3 RBC 4.09 L (4.1-5.4) M/mm3 Hgb 12.6 (12.0-16.0) gm/dl Hct 37.4 (35-47) % MCV 91.4 (78-100) fl MCH 30.8 (26-32) pg MCHC 33.7 (32-36) g/dl RDW 13.8 (11.5-14.0) % Plt Count 265 (150-450) K/mm3 MPV 10.2 H (6-9.5) fl Segmented Neutrophils 86 H (36.0-66.0) % Lymphocytes (Manual) 8 L (24-44) % Monocytes (Manual) 6 (0.0-12.0) % Differential Comment ABNORMAL Platelet Estimate NORMAL (NORMAL) Poikilocytosis 1+ D-Dimer (0-500) ng/mL Sodium 140 (136-145) mEq/L Potassium 3.3 L (3.5-5.1) mEq/L Chloride 103 (98-107) mEq/L Carbon Dioxide 29.0 (21-32) mEq/L Anion Gap 10.8 (5-15) MEQ/L BUN 17 (9-20) mg/dL Creatinine 0.98 (0.55-1.30) mg/dl Estimated GFR > 60 ML/MIN Glucose 83 (70-110) MG/DL Lactic Acid (0.4-2.0) Calcium 10.1 (8.5-10.1) mg/dL Total Bilirubin 0.40 (0.2-1.0) mg/dL AST 32 (15-37) U/L ALT 40 (12-78) U/L Alkaline Phosphatase 108 (46-116) U/L Troponin I < 0.017 (0.000-0.056) ng/ml NT-Pro-B Natriuret Pep 1798 H (0-125) pg/ml Serum Total Protein 7.0 (6.4-8.2) gm/dL Albumin 3.3 L (3.4-5.0) g/dL Ur Collection Type Urine Color (YELLOW) Urine Appearance (CLEAR) Urine pH (5-6) Ur Specific [place] (1.005-1.025) Urine Protein (Negative) Urine Ketones (NEGATIVE) Urine Blood (0-5) Jeremy/ul Urine Nitrite (NEGATIVE) Urine Bilirubin (NEGATIVE) Urine Urobilinogen (0-1) mg/dL Ur Leukocyte Esterase (NEGATIVE) Urine Microscopic RBC (0-2) /HPF Urine Microscopic WBC (0-5) /HPF Ur Epithelial Cells (FEW) /HPF Urine Bacteria (NEGATIVE) /HPF Urine Mucus (NEGATIVE) /HPF Urine Culture Reflexed (NO) Urine Glucose (NEGATIVE) mg/dL Specimen Received - Progress Progress: improved, re-examined Air Movement: good Blood Culture(s) Obtained: No Antibiotics given: Yes Counseled pt/family regarding: lab results, diagnosis, need for follow-up, rad results <LEEANN RENAE - Last Filed: 05/27/17 07:01> <MILKA MOYER - Last Filed: 05/27/17 09:03> - Progress Progress Note: 05/27/17 07:01 pt improved after initiation of treatment- discussed pending results - CT PE prot with Dr. Moyer who is assuming care and will make final dispo - (LEEANN RENAE) 05/27/17 08:34 Patient CAT scan of the chest for pulmonary embolism protocol is negative, but it is showing remain soft pneumonia. Patient is already on antibiotic at home, which she was prescribed just yesterday when she was discharged from this hospital. Patient was given pro-air inhaler and oxygen at home. But it appears that patient is benefiting more from the bronchodilator treatments with the nebulizer, so we will make an arrangements with nebulizer machine and DuoNeb nebulizer solution which she should use every 4 hours for next 24 hours and then every 6 hours. She is strongly advised to quit smoking and use oxygen at home. Verbalize instructions understood and family is also made aware of patient condition and laboratory data as well as the CAT scan report. (MILKA MOYER) - Departure Critical Care Time: No <LEEANN RENAE - Last Filed: 05/27/17 07:01> - Departure Time of Disposition: 08:45 Departure Disposition: Home Critical Care Time: Yes Critical Care Time(excluding separately billable procedures): 30-74 minutes <MILKA MOYER - Last Filed: 05/27/17 09:03> - Departure Clinical Impression: COPD exacerbation Pneumonia Qualifiers: Pneumonia type: due to unspecified organism Laterality: unspecified laterality Lung location: unspecified part of lung Qualified Code(s): J18.9 - Pneumonia, unspecified organism Condition: Stable Referrals: MARY GRACE BARRY FNP [Primary Care Provider] - Instructions: Chronic Obstructive Pulmonary Disease, Pneumonia -- Adult, Quit Smoking Additional Instructions: Patient CAT scan of the chest for pulmonary embolism protocol is negative, but it is showing remains of pneumonia. Patient is already on antibiotic at home, which she was prescribed just yesterday when she was discharged from this hospital. Patient was given pro-air inhaler and oxygen at home. But it appears that patient is benefiting more from the bronchodilator treatments with the nebulizer, so we will make an arrangements with nebulizer machine and DuoNeb nebulizer solution which she should use every 4 hours for next 24 hours and then every 6 hours. She is strongly advised to quit smoking and use oxygen at home. Verbalize instructions understood and family is also made aware of patient condition and laboratory data as well as the CAT scan report. Please follow the instructions given to you. Please take your medication as prescribed if given. If symptoms recur or get worse, come back to the emergency room if you cannot reach your primary care physician, or call your primary care physician for an appointment. Again if your symptoms get worse, come back to the emergency room. Thanks for visiting emergency room, and let us take care of you. Prescriptions: Lorazepam 1 mg [Ativan 1 MG] 1 mg PO QIDPRN PRN #30 tablet PRN Reason: Anxiety Albuterol/Ipratropium 3ml Neb* [DUONEB 0.5-3 MG/3 ml Neb] 3 ml IH Q4H #60 ampul.neb Nebulizer and Compressor [Easy Air Compressor Nebulizer] 1 each UD #1 each
[2017-05-27] MEDS ORDERED: Sodium Chloride 0.9% 1000 ML 1,000 ML IV SCH (06:00)
[2017-05-27] MEDS ORDERED: Sodium Chloride 0.9% 1000 ML 1,000 ML ONE (06:02)
[2017-05-27] MEDS ORDERED: Zosyn 3.375GM/100 Ml D5W 3.375 GM/100 ML IVPB IV ONE (06:02)
[2017-05-27] MEDS ORDERED: Magnesium 1 Gm / 100 Ml D5W*** 100 ML IV ONE ×2 (06:03→06:12)
[2017-05-27] MEDS ORDERED: solu-MEDROL 125 MG ONE (06:03)
[2017-05-27] MEDS: Magnesium 1 Gm / 100 Ml D5W*** 100 ML IV SCH ×2 (06:05→06:20)
[2017-05-27 06:07] LABS: Mean Cell Volume 91.4 fl (78-100); Mean Corpuscular Hemoglobin 30.8 pg (26-32); Mean Platelet Volume 10.2 fl (6-9.5); Platelet Count 265 K/mm3 (150-450); Red Blood Count 4.09 M/mm3 (4.1-5.4); Red Cell Distribution Width 13.8 % (11.5-14.0)
[2017-05-27] MEDS ORDERED: Ativan 1 MG PO ONE (06:18)
[2017-05-27 06:21] LABS: Total Cells Counted 100
[2017-05-27] MEDS ORDERED: Ativan 1 MG ONE (06:21)
[2017-05-27 06:22] LABS: Platelet Estimate NORMAL (NORMAL); Poikilocytosis 1+
[2017-05-27 06:30] LABS: ALBUMIN 3.3 g/dL (3.4-5.0); ALKALINE PHOSPHATASE 108 U/L (46-116); ANION GAP 10.8 MEQ/L (5-15); BLOOD UREA NITROGEN 17 mg/dL (9-20); CHLORIDE 103 mEq/L (98-107); Glucose 83 MG/DL (70-110); Potassium 3.3 mEq/L (3.5-5.1); SGOT/AST 32 U/L (15-37); SGPT/ALT 40 U/L (12-78); SODIUM 140 mEq/L (136-145)
[2017-05-27 07:31] LABS: Bilirubin NEGATIVE (NEGATIVE); Collection Type CCMS; Glucose NEGATIVE (NEGATIVE); Leukocyte Esterase NEGATIVE (NEGATIVE)
[2017-05-27 07:32] LABS: COMPLETE URINE MICROSCOPIC? YES
[2017-05-27] MEDS ORDERED: PULMICORT 0.5 MG/2 ML RESPULES IH ONE (07:58)
[2017-05-27 08:27] LABS: ADD URINE CULTURE? NO (NO); Bacteria RARE /HPF (NEGATIVE); Epithelial Cells FEW /HPF (FEW); Mucus SLIGHT /HPF (NEGATIVE); WBC 0-2 /HPF (0-5)
--- NOTE | 2017-05-27 09:00 | XRAY ---
Indication: Short of breath and cough. Elevated d-dimer. Multiple contiguous axial images obtained through the chest using 80 cc Isovue 370 contrast and PE protocol. Comparison: None There is satisfactory opacification of the pulmonary arteries. However respiration artifact limits evaluation of the more distal lobar/segmental branches. No filling defect or pulmonary embolus in the central pulmonary arteries. Heart is not enlarged. Aorta minimally calcified without aneurysm/dissection. No pathologic mediastinal/hilar lymphadenopathy. Examination of the lung parenchyma demonstrates mild diffuse patchy air space opacities bilaterally. No consolidation or effusion. Incidental right lower lobe bullae. Bony thorax intact with minimal degenerative changes throughout the spine. There is incompletely visualized left-sided anterior ventricular shunt catheter. Limited upper abdomen demonstrates mild fatty liver and cholecystectomy. Impression: 1. Respiration artifact. No large central PE. 2. Diffuse bilateral patchy airspace disease. 3. Fatty liver. Comment: Preliminary interpretation was made by C. No discrepancy. CTDI 22.48
--- NOTE | 2017-05-27 09:02 | XRAY ---
Indication: Short of breath. Comparison: May 23, 2017. Portable chest now demonstrates subtle diffuse patchy bilateral airspace disease without consolidation or large effusion. Heart is not enlarged. Stable left-sided shunt catheter.
[2017-05-27 09:22] VITALS: BP 147/98; PULSE 97; O2SAT 98
[2017-05-27] MEDS ORDERED: DUONEB 0.5-3 MG/3 ml Neb IH SCH (11:00)
== END 2017-05-27 09:28 | disposition home or self-care (01) ==
LOC: ED 05:24
DX: J18.9 Pneumonia, unspecified organism (principal); J44.1 Chronic obstructive pulmonary disease with (acute) exacerbation; I10 Essential (primary) hypertension; E78.00 Pure hypercholesterolemia, unspecified; Z79.899 Other long term (current) drug therapy
CPT/HCPCS: 36000; 36415; 71010; 71260; 80053; 81000; 83605; 83880; 84484; 85025; 85379; 93005; 93041; 94640; 96360; 96361; 96365; 96366; 96367; 96374; 99284; J2543; J2930; J3475; A9270-GY

== ENCOUNTER 2019-08-04 10:02 | Observation (INO) | payer MEDICARE, BC ==
[2019-08-04] MEDS ORDERED: DUONEB 0.5-3 MG/3 ml Neb IH ONE ×2 (10:21→10:25)
[2019-08-04] MEDS ORDERED: TYLENOL 325 MG PO ONE (10:24)
[2019-08-04] MEDS ORDERED: Levofloxacin 500MG/100ML D5W 500 MG/100 ML BAG IV STA (10:24)
[2019-08-04] MEDS ORDERED: solu-MEDROL 125 MG IV ONE (10:28)
[2019-08-04] MEDS ORDERED: Magnesium Sulfate 1 GM/2 ML VIAL IV ONE (10:30)
--- NOTE | 2019-08-04 10:34 | ERPHSYRPT ---
- History of Present Illness Time Seen by Provider: 08/04/19 10:22 Source: patient Exam Limitations: no limitations Patient Subjective Stated Complaint: Pt states "I have been having trouble breathing for a couple of days, I went to [facility] care because I have been coughing up stuff and they sent me here." Triage Nursing Assessment: Pt presented alert and oriented X 3, skin pwd Pt ambulates with an upright steady gait, able to speak in clear full sentneces pt tachypneic, audible wheezes, lung sounds, rhonchi, wheezes throughout bilat. Physician History: kknown case of COPD, continues to smoke pack a day. Complains of cough with shortness of breath and fever over the last 2-3 days. Went to urgent care and they sent her here. Timing/Duration: day(s) (3) Activities at Onset: none Severity of Dyspnea-Max: mild Severity of Dyspnea-Current: moderate Possible Cause: frequent episodes Modifying Factors: Improves With: activity, coughing, deep breath, exertion, lying down Associated Symptoms: fever, wheezing, painful breathing, productive cough, tightness, No muscle spasms hands International travel in last 2 weeks: No Allergies/Adverse Reactions: codeine Allergy (Verified 05/27/17 05:53) Nausea ceftriaxone [From Rocephin] Adverse Reaction (Verified 05/27/17 05:53) states it made her go out of her head Home Medications: Aspirin 81 mg PO DAILY 03/19/14 [History] Atenolol [Tenormin] 25 mg PO BID 03/19/14 [History] Pregabalin [Lyrica] 75 mg PO DAILY 03/19/14 [History] Simvastatin [Zocor] 40 mg PO HS 03/19/14 [History] Clonidine HCl 0.1 mg [Catapres 0.1 MG] 0.1 mg PO DAILY 02/04/16 [History] Hx Tetanus, Diphtheria Vaccination/Date Given: Yes Hx Influenza Vaccination/Date Given: Yes Hx Pneumococcal Vaccination/Date Given: No Immunizations Up to Date: Yes - Review of Systems Constitutional: Fever, Chills, Malaise Eyes: No Symptoms Ears, Nose, & Throat: No Symptoms Respiratory: Cough, Dyspnea, Dyspnea on Exertion (ZAPATA), Wheezing Cardiac: No Chest Pain, No Edema, No Syncope Abdominal/Gastrointestinal: No Abdominal Pain, No Nausea, No Vomiting, No Diarrhea Genitourinary Symptoms: No Dysuria Musculoskeletal: No Back Pain, No Neck Pain Skin: No Rash Neurological: No Dizziness, No Focal Weakness, No Sensory Changes Psychological: No Symptoms Endocrine: No Symptoms All Other Systems: Reviewed and Negative - Past Medical History Pertinent Past Medical History: Yes Neurological History: Peripheral Neuropathy, Other ENT History: Cataracts Cardiac History: High Cholesterol, Hypertension Respiratory History: COPD Endocrine Medical History: No Pertinent History Musculoskeletal History: Arthritis GI Medical History: No Pertinent History History: No Pertinent History Psycho-Social History: Depression Female Reproductive Disorders: No Pertinent History Other Medical History: BRAIN ANEURYSM, skin cancers - Past Surgical History Past Surgical History: Yes Neuro Surgical History: Brain Shunt Cardiac: No Pertinent History Respiratory: No Pertinent History Gastrointestinal: Cholecystectomy Genitourinary: No Pertinent History Musculoskeletal: No Pertinent History Female Surgical History: Hysterectomy - Social History Smoking Status: Current every day smoker How long have you smoked: years Exposure to second hand smoke: Yes Drug Use: none Patient Lives Alone: No - Female History Hx Now: No - Nursing Vital Signs Nursing Vital Signs: Initial Vital Signs Temperature 99.1 F 08/04/19 10:12 Pulse Rate 86 08/04/19 10:12 Respiratory Rate 26 H 08/04/19 10:12 Blood Pressure 164/108 08/04/19 10:12 O2 Sat by Pulse Oximetry 88 L 08/04/19 10:12 Pain Scale Pain Intensity 0 - Physical Exam General Appearance: no apparent distress, alert Eye Exam: PERRL/EOMI Neck Exam: normal inspection, supple Respiratory Exam: diminished breath sounds, accessory muscle use, rhonchi, wheezing Cardiovascular/Chest Exam: normal heart sounds, regular rate/rhythm Abdominal/Gastrointestinal Exam: soft, No tenderness, No distention, No mass Extremity Exam: non-tender, normal range of motion, normal inspection, no calf tenderness, no pedal edema Neurologic Exam: alert, oriented x 3, cooperative, manager wealth management II-XII nml as tested, sensation nml, No motor deficits Skin Exam: normal color, warm, No dry SpO2 Interpretation: hypoxic SpO2: 88 O2 Delivery: Room Air Ordered Tests: Active Orders 24 hr Category Date Time Status Cardiographer STAT Care 08/04/19 10:24 Active EKG-ER Only STAT Care 08/04/19 10:24 Active Oxygen-ED Only Nasal Cannula 4 lpm Care 08/04/19 10:24 Active CHEST 1 VIEW (PORTABLE) Stat Exams 08/04/19 10:24 Completed BLOOD CULTURE Stat Lab 08/04/19 10:24 Ordered CBC W DIFF Stat Lab 08/04/19 10:40 Completed CMP Stat Lab 08/04/19 10:40 Completed CULTURE,SPUTUM Stat Lab 08/04/19 Uncollected Lactic Acid Stat Lab 08/04/19 10:44 Completed MAGNESIUM Stat Lab 08/04/19 10:40 Completed TROPONIN Q3H Lab 08/04/19 10:40 Completed TROPONIN Q3H Lab 08/04/19 13:30 Ordered TROPONIN Q3H Lab 08/04/19 16:30 Ordered TROPONIN Q3H Lab 08/04/19 19:30 Ordered TROPONIN Q3H Lab 08/04/19 22:30 Ordered Peak Expiratory Flow Rate ONCE RT 08/04/19 10:27 Active Respiratory Therapy Assessment DAILY RT 08/04/19 10:27 Active Medication Summary Discontinued Medications Generic Name Dose Route Start Last Admin Trade Name Freq PRN Reason Stop Dose Admin Acetaminophen 650 mg 08/04/19 10:24 08/04/19 11:17 Tylenol 325 Mg PO 08/04/19 10:25 650 mg STAT ONE Administration Acetaminophen Confirm 08/04/19 11:13 Tylenol 325 Mg Administered 08/04/19 11:14 Dose 650 mg .ROUTE .STK-MED ONE Albuterol/Ipratropium 3 ml 08/04/19 10:21 08/04/19 10:26 Duoneb 0.5-3 Mg/3 Ml Neb IH 08/04/19 10:22 3 ml STAT ONE Administration Albuterol/Ipratropium Confirm 08/04/19 10:25 Duoneb 0.5-3 Mg/3 Ml Neb Administered 08/04/19 10:26 Dose 3 ml IH .STK-MED ONE Levofloxacin/Dextrose 500 mg in 100 mls @ 100 mls/hr 08/04/19 10:24 08/04/19 11:17 Levofloxacin 500mg/100ml D5w IV 08/04/19 11:23 100 mls/hr STAT STA 100 mls/hr Administration Levofloxacin/Dextrose Confirm 08/04/19 11:13 Levofloxacin 500mg/100ml D5w Administered 08/04/19 11:14 Dose 500 mg in 100 mls @ ud IV .STK-MED ONE Sodium Chloride Confirm 08/04/19 11:24 Sodium Chloride 0.9% 50 Ml Administered 08/04/19 11:25 Dose 50 mls @ ud IV .STK-MED ONE Magnesium Sulfate 1 gm 08/04/19 10:30 08/04/19 11:18 Magnesium Sulfate 1 Gm/2 Ml Vial IV 08/04/19 10:31 1 gm ONCE ONE Administration Magnesium Sulfate Confirm 08/04/19 11:13 Magnesium Sulfate 1 Gm/2 Ml Vial Administered 08/04/19 11:14 Dose 1 gm .ROUTE .STK-MED ONE Methylprednisolone Sodium Succinate 125 mg 08/04/19 10:28 08/04/19 11:17 Solu-Medrol 125 Mg IV 08/04/19 10:29 125 mg STAT ONE Administration Methylprednisolone Sodium Succinate Confirm 08/04/19 11:13 Solu-Medrol 125 Mg Administered 08/04/19 11:14 Dose 125 mg .ROUTE .STK-MED ONE Lab/Rad Data: Laboratory Result Diagrams 08/04/19 10:40 08/04/19 10:40 Laboratory Results 08/04/19 08/04/19 08/04/19 Range/Units 10:44 10:40 10:40 WBC (4.0-10.5) K/mm3 RBC (4.1-5.4) M/mm3 Hgb (12.0-16.0) gm/dl Hct (35-47) % MCV (78-100) fl MCH (26-32) pg MCHC (32-36) g/dl RDW (11.5-14.0) % Plt Count (150-450) K/mm3 MPV (6-9.5) fl Gran % (36.0-66.0) % Eos # (Auto) (0-0.5) Absolute Lymphs (auto) (1.0-4.6) Absolute Monos (auto) (0.0-1.3) Lymphocytes % (24.0-44.0) % Monocytes % (0.0-12.0) % Eosinophils % (0.00-5.0) % Basophils % (0.0-0.4) % Absolute Granulocytes (1.4-6.9) Basophils # (0-0.4) Sodium (137-145) mmol/L Potassium (3.5-5.1) mmol/L Chloride (98-107) mmol/L Carbon Dioxide (22-30) mmol/L Anion Gap (5-15) MEQ/L BUN (7-17) mg/dL Creatinine (0.52-1.04) mg/dL Estimated GFR ML/MIN Glucose (74-106) mg/dL Lactic Acid 1.0 (0.4-2.0) Calcium (8.4-10.2) mg/dL Magnesium (1.6-2.3) mg/dL Total Bilirubin (0.2-1.3) mg/dL AST (14-36) U/L ALT (0-35) U/L Alkaline Phosphatase (38-126) U/L Troponin I 0.016 (0.000-0.034) ng/mL Serum Total Protein (6.3-8.2) g/dL Albumin (3.5-5.0) g/dL Group A Strep Antibody NEGATIVE (NEGATIVE) 08/04/19 08/04/19 Range/Units 10:40 10:40 WBC 22.7 H (4.0-10.5) K/mm3 RBC 4.21 (4.1-5.4) M/mm3 Hgb 13.3 (12.0-16.0) gm/dl Hct 39.3 (35-47) % MCV 93.3 (78-100) fl MCH 31.6 (26-32) pg MCHC 33.8 (32-36) g/dl RDW 13.3 (11.5-14.0) % Plt Count 269 (150-450) K/mm3 MPV 10.4 H (6-9.5) fl Gran % 86.3 H (36.0-66.0) % Eos # (Auto) 0.02 (0-0.5) Absolute Lymphs (auto) 1.69 (1.0-4.6) Absolute Monos (auto) 1.36 H (0.0-1.3) Lymphocytes % 7.5 L (24.0-44.0) % Monocytes % 6.0 (0.0-12.0) % Eosinophils % 0.1 (0.00-5.0) % Basophils % 0.1 (0.0-0.4) % Absolute Granulocytes 19.56 H (1.4-6.9) Basophils # 0.02 (0-0.4) Sodium 137 (137-145) mmol/L Potassium 3.3 L (3.5-5.1) mmol/L Chloride 100 (98-107) mmol/L Carbon Dioxide 30 (22-30) mmol/L Anion Gap 10.2 (5-15) MEQ/L BUN 13 (7-17) mg/dL Creatinine 0.85 (0.52-1.04) mg/dL Estimated GFR > 60.0 ML/MIN Glucose 117 H (74-106) mg/dL Lactic Acid (0.4-2.0) Calcium 10.2 (8.4-10.2) mg/dL Magnesium 1.4 L (1.6-2.3) mg/dL Total Bilirubin 0.40 (0.2-1.3) mg/dL AST 22 (14-36) U/L ALT 17 (0-35) U/L Alkaline Phosphatase 121 (38-126) U/L Troponin I (0.000-0.034) ng/mL Serum Total Protein 8.2 (6.3-8.2) g/dL Albumin 4.3 (3.5-5.0) g/dL Group A Strep Antibody (NEGATIVE) - Progress Progress: improved Air Movement: fair Progress Note: Admitted Blood Culture(s) Obtained: Yes Antibiotics given: Yes Discussed with : Other (Dr. Pacheco) Will see patient in: hospital (observation) Counseled pt/family regarding: lab results, diagnosis, need for follow-up, rad results, smoking cessation - Departure Departure Disposition: Observation Clinical Impression: COPD exacerbation Condition: Fair Critical Care Time: No Referrals: SHAW MORALES [Primary Care Provider] -
--- NOTE | 2019-08-04 10:58 | XRAY ---
Indication: Fever and cough. Comparison: May 27, 2017. Portable chest is clear. Heart is not enlarged. Bony thorax intact again with mild degenerative changes, minimal scoliosis, and left-sided shunt catheter. Impression: Nonacute chest with chronic features.
[2019-08-04 10:59] LABS: Absolute Neutrophil Ct (ANC) 19.56 (1.4-6.9); BASOPHIL % 0.1 % (0.0-0.4); Basophil (Absolute #) 0.02 (0-0.4); Eosinophil % 0.1 % (0.00-5.0); Eosinophil (Absolute #) 0.02 (0-0.5); Hematocrit 39.3 % (35-47); Hemoglobin 13.3 gm/dl (12.0-16.0); Lymphocyte (Absolute #) 1.69 (1.0-4.6); Lymphocytes % 7.5 % (24.0-44.0); Mean Cell Volume 93.3 fl (78-100); Mean Corpuscular Hemoglobin 31.6 pg (26-32); Mean Corpuscular Hgb Concent. 33.8 g/dl (32-36); Mean Platelet Volume 10.4 fl (6-9.5); Monocyte (Absolute #) 1.36 (0.0-1.3); Neutrophil % 86.3 % (36.0-66.0); Platelet Count 269 K/mm3 (150-450); Red Blood Count 4.21 M/mm3 (4.1-5.4); Red Cell Distribution Width 13.3 % (11.5-14.0); White Blood Count 22.7 K/mm3 (4.0-10.5)
[2019-08-04 11:11] LABS: ALBUMIN 4.3 g/dL (3.5-5.0); ALKALINE PHOSPHATASE 121 U/L (38-126); ANION GAP 10.2 MEQ/L (5-15); BLOOD UREA NITROGEN 13 mg/dL (7-17); CHLORIDE 100 mmol/L (98-107); Calcium 10.2 mg/dL (8.4-10.2); Carbon Dioxide 30 mmol/L (22-30); Creatinine 1 0.85 mg/dL (0.52-1.04); Glucose 117 mg/dL (74-106); MAGNESIUM 1.4 mg/dL (1.6-2.3); Potassium 3.3 mmol/L (3.5-5.1); SGOT/AST 22 U/L (14-36); SGPT/ALT 17 U/L (0-35); SODIUM 137 mmol/L (137-145); Total Protein 8.2 g/dL (6.3-8.2)
[2019-08-04] MEDS ORDERED: Magnesium Sulfate 1 GM/2 ML VIAL ONE (11:13)
[2019-08-04] MEDS ORDERED: TYLENOL 325 MG ONE (11:13)
[2019-08-04] MEDS ORDERED: solu-MEDROL 125 MG ONE (11:13)
[2019-08-04] MEDS ORDERED: Levofloxacin 500MG/100ML D5W 500 MG/100 ML BAG IV ONE (11:13)
[2019-08-04] MEDS: DUONEB 0.5-3 MG/3 ml Neb IH SCH ×2 (14:19→19:14)
[2019-08-04] MEDS: solu-MEDROL 125 MG IV SCH ×2 (19:46→23:55)
[2019-08-04] MEDS ORDERED: DUONEB 0.5-3 MG/3 ml Neb IH PRN (21:02)
[2019-08-04] MEDS ORDERED: PROVENTIL COMMON CANISTER IH PRN (21:05)
[2019-08-04] MEDS ORDERED: PRISTIQ ER PO SCH (22:00)
[2019-08-04] MEDS ORDERED: Catapres 0.1 MG PO SCH (22:00)
[2019-08-04] MEDS: TENORMIN 50 MG PO SCH (22:25)
[2019-08-05] MEDS: solu-MEDROL 125 MG IV SCH ×2 (05:52→11:59)
[2019-08-05] MEDS: DUONEB 0.5-3 MG/3 ml Neb IH SCH ×3 (06:54→14:54)
[2019-08-05] MEDS: TENORMIN 50 MG PO SCH (09:54)
[2019-08-05] MEDS ORDERED: LEVOFLOXACIN 750MG/150ML D5W 750 MG/150 ML BAG IV SCH (10:00)
[2019-08-05] MEDS ORDERED: THERAGRAN MULTIVITAMIN PO SCH (10:00)
[2019-08-05] MEDS ORDERED: ZYLOPRIM 100 MG PO SCH (10:00)
[2019-08-05] MEDS ORDERED: hydroDIURIL 25 MG PO SCH (10:00)
[2019-08-05] MEDS ORDERED: Cozaar 50 MG PO SCH (10:00)
[2019-08-05] MEDS ORDERED: ECOTRIN 81 MG PO SCH (10:00)
[2019-08-05] MEDS ORDERED: MEDICATION INTERVENTION MC SCH (11:30)
[2019-08-05] MEDS ORDERED: LYRICA 75 MG CAP PO SCH (11:30)
--- NOTE | 2019-08-05 16:42 | PCM.SSS ---
History of Present Illness - Chief Complaint Chief Complaint: COPD exac History of Present Illness: is a 64 year old female is a current smoker with Hx COPD,HTN, remote Hx brain aneurysm and brain shunt and Depression presented to ER with SOB and cough x 2-3 days. She is a current smoker and has a nebulizer and inhalers at home but wheezing and cough were not improving. CXR showed presence of shunt , no infiltrate. WBC 22,000 but negative influenza A&B and negative Strep screen. - Review of Systems Constitutional: Chills, Weakness Eyes: No Symptoms Ears, Nose, & Throat: Other (nasal congestion) Respiratory: Cough, Short Of Breath, Wheezing Cardiac: No Symptoms Abdominal/Gastrointestinal: No Symptoms Genitourinary Symptoms: No Symptoms Musculoskeletal: No Symptoms Skin: No Symptoms Neurological: No Symptoms Psychological: No Symptoms Endocrine: No Symptoms Medications & Allergies Home Medications: Home Medication List Aspirin 81 mg PO DAILY 03/19/14 [History Confirmed 08/04/19] Atenolol [Tenormin] 50 mg PO BID 03/19/14 [History Confirmed 08/04/19] Pregabalin [Lyrica] 75 mg PO DAILY 03/19/14 [History Confirmed 08/04/19] Clonidine HCl 0.1 mg [Catapres 0.1 MG] 0.1 mg PO QHS 02/04/16 [History Confirmed 08/04/19] Albuterol Sulfate [Proair Hfa] 2 gm IH Q4H PRN #1 hfa.aer.ad 05/26/17 [Rx Confirmed 08/04/19] Allopurinol 100 mg [Zyloprim 100 mg] 100 mg PO DAILY 08/04/19 [History Confirmed 08/04/19] Aripiprazole [Abilify] 2 mg PO QHS 08/04/19 [History Confirmed 08/04/19] Calcium Carbonate [Calcium] 600 mg PO QHS 08/04/19 [History Confirmed 08/04/19] Desvenlafaxine Succinate [Pristiq] 100 mg PO QHS 08/04/19 [History Confirmed ] Hydrochlorothiazide 25 mg [hydroDIURIL 25 MG] 12.5 mg PO DAILY 08/04/19 [ History Confirmed 08/04/19] Losartan Potassium [Cozaar] 100 mg PO DAILY 08/04/19 [History Confirmed 08/04/19 ] Multivitamin [Multivitamins] 1 each PO DAILY 08/04/19 [History Confirmed ] Albuterol/Ipratropium 3ml Neb* [DUONEB 0.5-3 MG/3 ml Neb] 3 ml IH Q4H #60 ampul.neb 08/05/19 [Rx] Levofloxacin [Levaquin] 500 mg PO DAILY 5 Days #5 tablet 08/05/19 [Rx] Methylprednisolone Packet [Medrol Dosepack] 4 mg PO DAILY 6 Days #1 packet 08/05/19 [Rx] Allergies/Adverse Reactions: Allergies Allergy/AdvReac Type Severity Reaction Status Date / Time codeine Allergy Nausea Verified 05/27/17 05:53 ceftriaxone [From Rocephin] AdvReac Verified 05/27/17 05:53 - Past Medical History Past Medical History: Yes Neurological History: Peripheral Neuropathy, Other ENT History: Cataracts Cardiac History: High Cholesterol, Hypertension Respiratory History: Bronchitis, COPD, Pneumonia Endocrine Medical History: No Pertinent History Musculoskelatal History: Arthritis GI Medical History: No Pertinent History History: No Pertinent History Pyscho-Social History: Depression Reproductive Disorders: No Pertinent History Comment: BRAIN ANEURYSM, skin cancer-- nose - Female History Are you now?: No - Past Surgical History Past Surgical History: Yes Neuro Surgical History: Brain Shunt Cardiac History: No Pertinent History Respiratory Surgery: No Pertinent History GI Surgical History: Cholecystectomy Genitourinary Surgical Hx: No Pertinent History Musculskeletal Surgical Hx: No Pertinent History Female Surgical History: Hysterectomy - Social History Smoking Status: Current every day smoker How long have you smoked: years Exposure to second hand smoke: Yes Alcohol: None Drug Use: none - Physical Exam Vital Signs: Vital Signs - 24 hr Temp Pulse Resp BP BP Pulse Ox 08/05/19 14:55 80 16 08/05/19 13:43 98 08/05/19 13:00 97.6 F 73 18 127/58 94 L 08/05/19 11:24 94 L 08/05/19 10:47 84 24 97 08/05/19 09:54 72 08/05/19 06:57 67 18 97 08/05/19 05:00 97.6 F 76 20 115/55 94 L 08/05/19 00:57 98 F 86 22 137/64 96 08/05/19 00:35 75 18 95 08/04/19 22:25 80 102/56 08/04/19 21:00 98.3 F 80 20 101/55 93 L 08/04/19 19:19 77 20 94 L Oxygen-Last 24 hours O2 Percentage 4 Liters = 36% O2 Percentage 4 Liters = 36% O2 Percentage 4 Liters = 36% Results - Labs Lab/Micro Results: Lab Results-Last 24 Hours 08/04/19 08/04/19 08/04/19 Range/Units 16:30 19:30 22:30 Troponin I 0.012 < 0.012 0.014 (0.000-0.034) ng/mL Microbiology 08/04/19 11:30 Gram Stain - Final Sputum - Expectorant Sputum Culture - Preliminary POSSIBLE HAEMOPHILUS SPECIES. SENT TO REFERENCE LAB FOR IDENTIFICATION FINAL REPORT TO FOLLOW - Radiology Impressions Radiology Exams & Impressions: Radiology Procedures Category Date Time Status CHEST 1 VIEW (PORTABLE) Stat Exams 08/04/19 10:24 Completed - Other Procedures and Tests Respiratory Therapy 08/04/19 19:00 Respiratory MDI UD 08/04/19 19:43 Flutter Therapy UD Assessment/Plan (1) COPD exacerbation Current Visit: Yes Status: Acute Assessment & Plan: improved on IV Levaquin and IV solumedrol-will continue po. Code(s): J44.1 - CHRONIC OBSTRUCTIVE PULMONARY DISEASE W (ACUTE) EXACERBATION (2) Essential hypertension Current Visit: No Status: Chronic Assessment & Plan: continue present meds Code(s): I10 - ESSENTIAL (PRIMARY) HYPERTENSION (3) Hypomagnesemia Current Visit: No Status: Acute Assessment & Plan: OTC 200mg tab daily Code(s): E83.42 - HYPOMAGNESEMIA Hospital Summary - Hospital Course Hospital Course: Patient was admitted with acute exacerbation COPD and responded quickly to IV solumedrol and IV Levofloxin and neb treatments with Duoneb. She was weaned off O2 and able to walk without desaturating ,O2 remained at 98% with ambulation.She is discharged to follow up with her PCP but can call if any problems over the Holiday. - Vitals & Intake/Output Vital Signs: Vital Signs Temperature 97.6 F 08/05/19 13:00 Pulse Rate 80 08/05/19 14:55 Respiratory Rate 16 08/05/19 14:55 Blood Pressure 127/58 08/05/19 13:00 O2 Sat by Pulse Oximetry 98 08/05/19 13:43 Oxygen-Last Documented O2 Percentage 4 Liters = 36% Intake & Output: Intake & Output 08/03/19 08/04/19 08/05/19 08/06/19 11:59 11:59 11:59 11:59 Intake Total 1200 240 Output Total 1500 200 Balance -300 40 Weight 77.111 kg 76 kg - Lab Result Diagrams: 08/04/19 10:40 08/04/19 10:40 Lab Results-Last 24 Hrs: Lab Results-Last 24 Hours 08/04/19 08/04/19 08/04/19 Range/Units 16:30 19:30 22:30 Troponin I 0.012 < 0.012 0.014 (0.000-0.034) ng/mL Micro Results-Entire Visit: Microbiology 08/04/19 11:30 Gram Stain - Final Sputum - Expectorant Sputum Culture - Preliminary POSSIBLE HAEMOPHILUS SPECIES. SENT TO REFERENCE LAB FOR IDENTIFICATION FINAL REPORT TO FOLLOW - Radiology Exams Ordered Rad Exams-Entire Visit: Radiology Procedures Category Date Time Status CHEST 1 VIEW (PORTABLE) Stat Exams 08/04/19 10:24 Completed - Procedures and Test Procedures and Tests throughout Hospitalization: Therapy Orders & Screens 08/04/19 10:27 Peak Expiratory Flow Rate ONCE Comment: Reason For Exam: Respiratory Therapy Assessment DAILY Comment: 08/04/19 12:57 Oxygen Nasal Cannula 3 lpm Comment: Respiratory Therapy Consult ROUTINE Comment: Reason For Exam: 08/04/19 14:41 Smoking Cessation Education ONCE Comment: Diagnosis: COPD exac Smoking Status: Current every day smoker How long have you smoked: years Approximately how many cigarettes per day: 1 PPD Do you dip or chew tobacco: No 08/04/19 19:00 Respiratory MDI UD Comment: JEVON 100/25 HS Diagnosis: COPD exac 08/04/19 19:43 Flutter Therapy UD Comment: Diagnosis: COPD exac - Discharge Disposition: Home, Self-Care Condition: Good Prescriptions: New Levofloxacin [Levaquin] 500 mg PO DAILY 5 Days #5 tablet Methylprednisolone Packet [Medrol Dosepack] 4 mg PO DAILY 6 Days #1 packet Continue Atenolol [Tenormin] 50 mg PO BID Aspirin 81 mg PO DAILY Pregabalin [Lyrica] 75 mg PO DAILY Clonidine HCl 0.1 mg [Catapres 0.1 MG] 0.1 mg PO QHS Albuterol Sulfate [Proair Hfa] 2 gm IH Q4H PRN #1 hfa.aer.ad PRN Reason: Shortness Of Breath Hydrochlorothiazide 25 mg [hydroDIURIL 25 MG] 12.5 mg PO DAILY Multivitamin [Multivitamins] 1 each PO DAILY Losartan Potassium [Cozaar] 100 mg PO DAILY Desvenlafaxine Succinate [Pristiq] 100 mg PO QHS Calcium Carbonate [Calcium] 600 mg PO QHS Aripiprazole [Abilify] 2 mg PO QHS Allopurinol 100 mg [Zyloprim 100 mg] 100 mg PO DAILY Albuterol/Ipratropium 3ml Neb* [DUONEB 0.5-3 MG/3 ml Neb] 3 ml IH Q4H #60 ampul.neb Instructions: Exacerbation of COPD (DC) Additional Instructions: MAKE A 1 WEEK FOLLOW UP WITH FAMILY DR Jt MORALES. Follow up with: SHAW MORALES [Primary Care Provider] - 1 Week
--- NOTE | 2019-08-05 17:26 | PCM.DCORD ---
- Discharge Disposition: Home, Self-Care Condition: Good Prescriptions: New Levofloxacin [Levaquin] 500 mg PO DAILY 5 Days #5 tablet Methylprednisolone Packet [Medrol Dosepack] 4 mg PO DAILY 6 Days #1 packet Continue Atenolol [Tenormin] 50 mg PO BID Aspirin 81 mg PO DAILY Pregabalin [Lyrica] 75 mg PO DAILY Clonidine HCl 0.1 mg [Catapres 0.1 MG] 0.1 mg PO QHS Albuterol Sulfate [Proair Hfa] 2 gm IH Q4H PRN #1 hfa.aer.ad PRN Reason: Shortness Of Breath Hydrochlorothiazide 25 mg [hydroDIURIL 25 MG] 12.5 mg PO DAILY Multivitamin [Multivitamins] 1 each PO DAILY Losartan Potassium [Cozaar] 100 mg PO DAILY Desvenlafaxine Succinate [Pristiq] 100 mg PO QHS Calcium Carbonate [Calcium] 600 mg PO QHS Aripiprazole [Abilify] 2 mg PO QHS Allopurinol 100 mg [Zyloprim 100 mg] 100 mg PO DAILY Albuterol/Ipratropium 3ml Neb* [DUONEB 0.5-3 MG/3 ml Neb] 3 ml IH Q4H #60 ampul.neb Additional Instructions: MAKE A 1 WEEK FOLLOW UP WITH FAMILY DR Jt MORALES. Follow up with: SHAW MORALES [Primary Care Provider] - 1 Week
[2019-08-05 17:46] VITALS: BP 111/56; PULSE 77; O2SAT 93
[2019-08-05] MEDS ORDERED: Calcium 500MG W/Vit D Tablet PO SCH (22:00)
[2019-08-05] MEDS ORDERED: NON-FORMULARY ITEM (Aripiprazole [Abilify] 2 MG) PO SCH (22:00)
[2019-08-05] MEDS ORDERED: PATIENT OWN MEDICATION IH SCH (22:00)
[2019-08-05] MEDS ORDERED: NON-FORMULARY ITEM (Calcium Carbonate [Calcium] 600 MG) PO SCH (22:00)
[2019-08-06] MEDS ORDERED: Lyrica 25 MG PO SCH (10:00)
== END 2019-08-05 17:51 | disposition home or self-care (01) ==
LOC: ED 10:02 → MED SURG 12:50
PROVIDERS: ADMIT Family Medicine; ATTEND Family Medicine
DX: J44.1 Chronic obstructive pulmonary disease with (acute) exacerbation (principal); I10 Essential (primary) hypertension; E83.42 Hypomagnesemia; E78.00 Pure hypercholesterolemia, unspecified; Z79.899 Other long term (current) drug therapy
CPT/HCPCS: 36000; 36415; 71045; 80053; 83605; 83735; 84484; 85025; 87040; 87070; 87077; 87651; 93005; 93041; 94150; 94640; 94667; 94760; 96365; 96374; 96375; 99285; G0378; J1956; J2930; J3475; A9270-GY

== ENCOUNTER 2020-03-22 02:15 | Inpatient (IN) | payer MEDICARE, BC ==
--- NOTE | 2020-03-22 02:20 | ERPHSYRPT ---
- History of Present Illness Time Seen by Provider: 03/22/20 02:20 Source: patient Exam Limitations: no limitations Physician History: This is a 64-year-old female who was discharged from [facility] today after having a ileostomy takedown and re-anastomosis. Patient has no cardiac history but noticed her heart racing today and some chest pressure that is mild. Patient does have a history of hypertension. She states that she did not receive any of her blood pressure medicine during her hospitalization. She has no primary cardiac disease as far she knows. She does not have significant abdominal pain. Her abdominal pain is only mild postsurgical abdominal pain. Timing/Duration: today Activities at Onset: none Quality: pressure Location: substernal, central Chest Pain Radiation: no radiation Severity of Pain-Max: none Severity of Pain-Current: none Nitro Today/Relief: no nitro taken today Aspirin Treatment Today: no aspirin today Associated Symptoms: shortness of breath (Mild) Prior Chest Pain/Cardiac Workup: no prior chest pain, recently seen/treated, recent hospitalization Allergies/Adverse Reactions: codeine Allergy (Verified 03/22/20 03:22) Nausea ceftriaxone [From Rocephin] Adverse Reaction (Verified 03/22/20 03:22) states it made her go out of her head Home Medications: Aspirin 81 mg PO DAILY 03/19/14 [History] Atenolol [Tenormin] 50 mg PO BID 03/19/14 [History] Pregabalin [Lyrica] 75 mg PO DAILY 03/19/14 [History] Clonidine HCl 0.1 mg [Catapres 0.1 MG] 0.1 mg PO QHS 02/04/16 [History] Allopurinol 100 mg [Zyloprim 100 mg] 100 mg PO DAILY 08/04/19 [History] Aripiprazole [Abilify] 2 mg PO QHS 08/04/19 [History] Calcium Carbonate [Calcium] 600 mg PO QHS 08/04/19 [History] Desvenlafaxine Succinate [Pristiq] 100 mg PO QHS 08/04/19 [History] Hydrochlorothiazide 25 mg [hydroDIURIL 25 MG] 12.5 mg PO DAILY 08/04/19 [History] Losartan Potassium [Cozaar] 100 mg PO DAILY 08/04/19 [History] Multivitamin [Multivitamins] 1 each PO DAILY 08/04/19 [History] Hx Tetanus, Diphtheria Vaccination/Date Given: Yes Hx Influenza Vaccination/Date Given: Yes Hx Pneumococcal Vaccination/Date Given: No Travel Risk - International Travel Have you traveled outside of the country in past 3 weeks: No - Coronavirus Screening Are you exhibiting any of the following symptoms?: No Close contact with a COVID-19 positive Pt in past 14-21 Days: No - Review of Systems Constitutional: No Symptoms Eyes: No Symptoms Ears, Nose, & Throat: No Symptoms Respiratory: Dyspnea (Mild) Cardiac: Palpitations, No Chest Pain Abdominal/Gastrointestinal: Abdominal Pain (Mild postsurgical), No Nausea, No Vomiting, No Diarrhea Genitourinary Symptoms: No Symptoms Musculoskeletal: No Symptoms Skin: No Symptoms Neurological: No Symptoms Psychological: No Symptoms Endocrine: No Symptoms Hematologic/Lymphatic: No Symptoms Immunological/Allergic: No Symptoms All Other Systems: Reviewed and Negative - Past Medical History Pertinent Past Medical History: Yes Neurological History: Peripheral Neuropathy, Other ENT History: Cataracts Cardiac History: High Cholesterol, Hypertension Respiratory History: Bronchitis, COPD, Pneumonia Endocrine Medical History: No Pertinent History Musculoskeletal History: Arthritis GI Medical History: No Pertinent History History: No Pertinent History Psycho-Social History: Depression Female Reproductive Disorders: No Pertinent History Other Medical History: BRAIN ANEURYSM, skin cancer-- nose - Past Surgical History Past Surgical History: Yes Neuro Surgical History: Brain Shunt Cardiac: No Pertinent History Respiratory: No Pertinent History Gastrointestinal: Cholecystectomy Genitourinary: No Pertinent History Musculoskeletal: No Pertinent History Female Surgical History: Hysterectomy - Social History Smoking Status: Current every day smoker How long have you smoked: years Exposure to second hand smoke: Yes Drug Use: none Patient Lives Alone: No - Nursing Vital Signs Nursing Vital Signs: Initial Vital Signs Temperature 98.8 F 03/22/20 02:31 Pulse Rate 119 H 03/22/20 02:31 Respiratory Rate 18 03/22/20 02:31 Blood Pressure 114/85 03/22/20 02:31 O2 Sat by Pulse Oximetry 98 03/22/20 02:31 Pain Scale Pain Intensity 5 - Physical Exam General Appearance: mild distress, alert, anxiety Eye Exam: PERRL/EOMI, eyes nml inspection Ears, Nose, Throat Exam: normal ENT inspection, moist mucous membranes Neck Exam: normal inspection, non-tender, supple, full range of motion Respiratory Exam: normal breath sounds, lungs clear, airway intact, No chest tenderness, No respiratory distress Cardiovascular Exam: tachycardia Gastrointestinal/Abdomen Exam: soft, normal bowel sounds, tenderness (Mild at incision site) Pelvic Exam: not done Rectal Exam: not done Back Exam: normal inspection, normal range of motion, No CVA tenderness, No vertebral tenderness Extremity Exam: normal inspection Neurologic Exam: alert, oriented x 3, cooperative, mathematical technician II-XII nml as tested, normal mood/affect, nml cerebellar function, nml station & gait, sensation nml Skin Exam: normal color, warm, dry Lymphatic Exam: No adenopathy SpO2 Interpretation: normal O2 Delivery: Room Air - Course Nursing assessment & vital signs reviewed: Yes EKG Interpreted by Me: RATE (120), Sinus Tach, NORMAL AXIS, NORMAL INTERVALS, N ORMAL QRS, Other (Comparison EKG May 2017 shows normal sinus rhythm. Today's EKG there is sinus tachycardia which is new.) Ordered Tests: Active Orders 24 hr Category Date Time Status Director Of Outreach STAT Care 03/22/20 02:32 Active EKG-ER Only STAT Care 03/22/20 02:31 Active IV Insertion STAT Care 03/22/20 02:31 Active Pulse Oximetry (ED) STAT Care 03/22/20 02:31 Active CHEST WITH CONTRAST [CT] Stat Exams 03/22/20 03:22 Taken AMYLASE Stat Lab 03/22/20 02:45 Completed AMYLASE Stat Lab 03/22/20 06:09 Ordered BLOOD CULTURE Stat Lab 03/22/20 06:55 Ordered CBC W DIFF Stat Lab 03/22/20 02:45 Completed CMP Stat Lab 03/22/20 02:45 Completed D-DIMER QUANTITATIVE Stat Lab 03/22/20 02:45 Completed LIPASE Stat Lab 03/22/20 02:45 Completed LIPASE Stat Lab 03/22/20 06:09 Ordered Lactic Acid Stat Lab 03/22/20 02:31 Completed MAGNESIUM Stat Lab 03/22/20 02:45 Completed NT PRO BNP Stat Lab 03/22/20 02:45 Completed PROTIME WITH INR Stat Lab 03/22/20 02:45 Completed TROPONIN Q3H Lab 03/22/20 02:45 Completed TROPONIN Q3H Lab 03/22/20 05:33 Completed TROPONIN Q3H Lab 03/22/20 08:45 Ordered TROPONIN Q3H Lab 03/22/20 11:45 Ordered TROPONIN Q3H Lab 03/22/20 14:45 Ordered UA W/RFX UR CULTURE Stat Lab 03/22/20 03:45 Completed Respiratory Therapy Assessment DAILY RT 03/22/20 03:52 Active Transfer Order Routine Transfer 03/22/20 Ordered Medication Summary Generic Name Dose Route Start Last Admin Trade Name Ayush PRN Reason Stop Dose Admin Meropenem 1 g/ Sodium Chloride 100 mls @ 200 mls/hr 03/22/20 06:55 IV 03/22/20 07:24 STAT ONE Discontinued Medications Generic Name Dose Route Start Last Admin Trade Name Ayush PRN Reason Stop Dose Admin Acetaminophen 650 mg 03/22/20 05:03 03/22/20 05:18 Tylenol 325 Mg PO 03/22/20 05:04 650 mg STAT STA Administration Acetaminophen Confirm 03/22/20 05:17 Tylenol 325 Mg Administered 03/22/20 05:18 Dose 650 mg .ROUTE .STK-MED ONE Albuterol/Ipratropium 3 ml 03/22/20 03:23 03/22/20 03:30 Duoneb 0.5-3 Mg/3 Ml Neb IH 03/22/20 03:24 3 ml STAT ONE Administration Albuterol/Ipratropium Confirm 03/22/20 03:27 Duoneb 0.5-3 Mg/3 Ml Neb Administered 03/22/20 03:28 Dose 3 ml IH .STK-MED ONE Furosemide 40 mg 03/22/20 03:28 03/22/20 03:30 Lasix 40 Mg/4 Ml IV 03/22/20 03:29 40 mg STAT ONE Administration Furosemide Confirm 03/22/20 03:28 Lasix 40 Mg/4 Ml Administered 03/22/20 03:29 Dose 40 mg .ROUTE .STK-MED ONE Sodium Chloride 1,000 mls @ 999 mls/hr 03/22/20 02:31 03/22/20 04:16 Sodium Chloride 0.9% 1000 Ml IV 03/22/20 03:31 0 mls/hr .Q1H1M STA Infusion Sodium Chloride Confirm 03/22/20 02:43 Sodium Chloride 0.9% 1000 Ml Administered 03/22/20 02:44 Dose 1,000 mls @ ud .ROUTE .STK-MED ONE Magnesium Sulfate/Dextrose 100 mls @ 200 mls/hr 03/22/20 03:24 03/22/20 03:30 Magnesium 1 Gm / 100 Ml D5w IV 03/22/20 03:53 200 mls/hr STAT ONE Administration Magnesium Sulfate/Dextrose Confirm 03/22/20 03:28 Magnesium 1 Gm / 100 Ml D5w Administered 03/22/20 03:29 Dose 100 mls @ ud IV .STK-MED ONE Metoprolol Tartrate 2.5 mg 03/22/20 06:09 03/22/20 06:19 Lopressor 5 Mg/5 Ml Injection IV 03/22/20 06:10 2.5 mg STAT ONE Administration Metoprolol Tartrate Confirm 03/22/20 06:18 Lopressor 5 Mg/5 Ml Injection Administered 03/22/20 06:19 Dose 5 mg IV .STK-MED ONE Lab/Rad Data: Laboratory Result Diagrams 03/22/20 02:45 03/22/20 02:45 Laboratory Results 03/22/20 03/22/20 03/22/20 Range/Units 05:33 05:32 03:45 WBC (4.0-10.5) K/mm3 RBC (4.1-5.4) M/mm3 Hgb (12.0-16.0) gm/dl Hct (35-47) % MCV (78-100) fl MCH (26-32) pg MCHC (32-36) g/dl RDW (11.5-14.0) % Plt Count (150-450) K/mm3 MPV (7.5-11.0) fl Gran % (36.0-66.0) % Eos # (Auto) (0-0.5) Absolute Lymphs (auto) (1.0-4.6) Absolute Monos (auto) (0.0-1.3) Lymphocytes % (24.0-44.0) % Monocytes % (0.0-12.0) % Eosinophils % (0.00-5.0) % Basophils % (0.0-0.4) % Absolute Granulocytes (1.4-6.9) Basophils # (0-0.4) PT (9.95-12.35) SECONDS INR (0.8-3.0) D-Dimer (215-500) ng/mL Sodium (137-145) mmol/L Potassium (3.5-5.1) mmol/L Chloride (98-107) mmol/L Carbon Dioxide (22-30) mmol/L Anion Gap (5-15) MEQ/L BUN (7-17) mg/dL Creatinine (0.52-1.04) mg/dL Estimated GFR ML/MIN Glucose (74-106) mg/dL Lactic Acid (0.4-2.0) Calcium (8.4-10.2) mg/dL Magnesium (1.6-2.3) mg/dL Total Bilirubin (0.2-1.3) mg/dL AST (14-36) U/L ALT (0-35) U/L Alkaline Phosphatase (38-126) U/L Troponin I 0.025 (0.000-0.034) ng/mL NT-Pro-B Natriuret Pep (0-900) pg/mL Serum Total Protein (6.3-8.2) g/dL Albumin (3.5-5.0) g/dL Amylase (30-110) U/L Lipase (23-300) U/L Urine Color YELLOW (YELLOW) Urine Appearance SLIGHTLY CLOUDY (CLEAR) Urine pH 5.0 (5-6) Ur Specific [place] 1.006 (1.005-1.025) Urine Protein NEGATIVE (Negative) Urine Ketones NEGATIVE (NEGATIVE) Urine Blood SMALL (0-5) Jeremy/ul Urine Nitrite NEGATIVE (NEGATIVE) Urine Bilirubin NEGATIVE (NEGATIVE) Urine Urobilinogen NEGATIVE (0-1) mg/dL Ur Leukocyte Esterase NEGATIVE (NEGATIVE) Urine WBC (Auto) NONE (0-5) /HPF Urine RBC (Auto) NONE (0-2) /HPF U Epithel Cells (Auto) NONE (FEW) /HPF Urine Bacteria (Auto) NONE (NEGATIVE) /HPF Urine Culture Reflexed NO (NO) Urine Glucose NEGATIVE (NEGATIVE) mg/dL SARS-CoV-2 (PCR) NEGATIVE (NEGATIVE) 03/22/20 03/22/20 03/22/20 Range/Units 02:45 02:45 02:45 WBC (4.0-10.5) K/mm3 RBC (4.1-5.4) M/mm3 Hgb (12.0-16.0) gm/dl Hct (35-47) % MCV (78-100) fl MCH (26-32) pg MCHC (32-36) g/dl RDW (11.5-14.0) % Plt Count (150-450) K/mm3 MPV (7.5-11.0) fl Gran % (36.0-66.0) % Eos # (Auto) (0-0.5) Absolute Lymphs (auto) (1.0-4.6) Absolute Monos (auto) (0.0-1.3) Lymphocytes % (24.0-44.0) % Monocytes % (0.0-12.0) % Eosinophils % (0.00-5.0) % Basophils % (0.0-0.4) % Absolute Granulocytes (1.4-6.9) Basophils # (0-0.4) PT 14.2 H (9.95-12.35) SECONDS INR 1.25 (0.8-3.0) D-Dimer 4633 H* (215-500) ng/mL Sodium 132 L (137-145) mmol/L Potassium 3.8 (3.5-5.1) mmol/L Chloride 107 (98-107) mmol/L Carbon Dioxide 20 L (22-30) mmol/L Anion Gap 9.4 (5-15) MEQ/L BUN 13 (7-17) mg/dL Creatinine 0.81 (0.52-1.04) mg/dL Estimated GFR > 60.0 ML/MIN Glucose 107 H (74-106) mg/dL Lactic Acid (0.4-2.0) Calcium 9.6 (8.4-10.2) mg/dL Magnesium 1.5 L (1.6-2.3) mg/dL Total Bilirubin 0.50 (0.2-1.3) mg/dL AST 34 (14-36) U/L ALT 17 (0-35) U/L Alkaline Phosphatase 86 (38-126) U/L Troponin I 0.020 (0.000-0.034) ng/mL NT-Pro-B Natriuret Pep 1940 H (0-900) pg/mL Serum Total Protein 6.1 L (6.3-8.2) g/dL Albumin 3.3 L (3.5-5.0) g/dL Amylase 60 (30-110) U/L Lipase 37 (23-300) U/L Urine Color (YELLOW) Urine Appearance (CLEAR) Urine pH (5-6) Ur Specific [place] (1.005-1.025) Urine Protein (Negative) Urine Ketones (NEGATIVE) Urine Blood (0-5) Jeremy/ul Urine Nitrite (NEGATIVE) Urine Bilirubin (NEGATIVE) Urine Urobilinogen (0-1) mg/dL Ur Leukocyte Esterase (NEGATIVE) Urine WBC (Auto) (0-5) /HPF Urine RBC (Auto) (0-2) /HPF U Epithel Cells (Auto) (FEW) /HPF Urine Bacteria (Auto) (NEGATIVE) /HPF Urine Culture Reflexed (NO) Urine Glucose (NEGATIVE) mg/dL SARS-CoV-2 (PCR) (NEGATIVE) 03/22/20 03/22/20 Range/Units 02:45 02:31 WBC 19.8 H (4.0-10.5) K/mm3 RBC 3.28 L (4.1-5.4) M/mm3 Hgb 10.0 L (12.0-16.0) gm/dl Hct 29.8 L (35-47) % MCV 90.9 (78-100) fl MCH 30.5 (26-32) pg MCHC 33.6 (32-36) g/dl RDW 14.2 H (11.5-14.0) % Plt Count 266 (150-450) K/mm3 MPV 9.8 (7.5-11.0) fl Gran % 85.1 H (36.0-66.0) % Eos # (Auto) 0.13 (0-0.5) Absolute Lymphs (auto) 1.42 (1.0-4.6) Absolute Monos (auto) 1.34 H (0.0-1.3) Lymphocytes % 7.2 L (24.0-44.0) % Monocytes % 6.8 (0.0-12.0) % Eosinophils % 0.7 (0.00-5.0) % Basophils % 0.2 (0.0-0.4) % Absolute Granulocytes 16.86 H (1.4-6.9) Basophils # 0.03 (0-0.4) PT (9.95-12.35) SECONDS INR (0.8-3.0) D-Dimer (215-500) ng/mL Sodium (137-145) mmol/L Potassium (3.5-5.1) mmol/L Chloride (98-107) mmol/L Carbon Dioxide (22-30) mmol/L Anion Gap (5-15) MEQ/L BUN (7-17) mg/dL Creatinine (0.52-1.04) mg/dL Estimated GFR ML/MIN Glucose (74-106) mg/dL Lactic Acid 0.9 (0.4-2.0) Calcium (8.4-10.2) mg/dL Magnesium (1.6-2.3) mg/dL Total Bilirubin (0.2-1.3) mg/dL AST (14-36) U/L ALT (0-35) U/L Alkaline Phosphatase (38-126) U/L Troponin I (0.000-0.034) ng/mL NT-Pro-B Natriuret Pep (0-900) pg/mL Serum Total Protein (6.3-8.2) g/dL Albumin (3.5-5.0) g/dL Amylase (30-110) U/L Lipase (23-300) U/L Urine Color (YELLOW) Urine Appearance (CLEAR) Urine pH (5-6) Ur Specific [place] (1.005-1.025) Urine Protein (Negative) Urine Ketones (NEGATIVE) Urine Blood (0-5) Jeremy/ul Urine Nitrite (NEGATIVE) Urine Bilirubin (NEGATIVE) Urine Urobilinogen (0-1) mg/dL Ur Leukocyte Esterase (NEGATIVE) Urine WBC (Auto) (0-5) /HPF Urine RBC (Auto) (0-2) /HPF U Epithel Cells (Auto) (FEW) /HPF Urine Bacteria (Auto) (NEGATIVE) /HPF Urine Culture Reflexed (NO) Urine Glucose (NEGATIVE) mg/dL SARS-CoV-2 (PCR) (NEGATIVE) - Progress Progress: improved, re-examined Air Movement: good Progress Note: 03/22/20 06:[address] Willett who is covering for hospitalist admission. I reviewed the patient history, condition, laboratory data, CAT scan reviewed results with him. He accepts the patient for admission. We will give a dose of intravenous antibiotics low rate IV fluids. We will place her on a monitored bed 03/22/20 06:52 CAT scan of the chest with intravenous contrast reveals no pulmonary emboli and no pneumonia present. Blood Culture(s) Obtained: Yes Antibiotics given: Yes Discussed with : David Will see patient in: hospital (full admit) Counseled pt/family regarding: lab results, diagnosis, need for follow-up, rad results - Departure Departure Disposition: In-patient Admission Clinical Impression: Congestive heart failure, Leukocytosis, Shortness of breath, Hypomagnesemia Condition: Fair Critical Care Time: Yes Critical Care Time(excluding separately billable procedures): Critical 30-74 mins Referrals: SHAW MORALES [Primary Care Provider] - Instructions: Heart Failure
[2020-03-22] MEDS ORDERED: Sodium Chloride 0.9% 1000 ML 1,000 ML IV STA (02:31)
[2020-03-22] MEDS ORDERED: Sodium Chloride 0.9% 1000 ML 1,000 ML ONE (02:43)
[2020-03-22 02:53] LABS: Absolute Neutrophil Ct (ANC) 16.86 (1.4-6.9); BASOPHIL % 0.2 % (0.0-0.4); Basophil (Absolute #) 0.03 (0-0.4); Eosinophil % 0.7 % (0.00-5.0); Eosinophil (Absolute #) 0.13 (0-0.5); Hematocrit 29.8 % (35-47); Lymphocyte (Absolute #) 1.42 (1.0-4.6); Lymphocytes % 7.2 % (24.0-44.0); Mean Cell Volume 90.9 fl (78-100); Mean Corpuscular Hemoglobin 30.5 pg (26-32); Mean Corpuscular Hgb Concent. 33.6 g/dl (32-36); Mean Platelet Volume 9.8 fl (7.5-11.0); Monocyte (Absolute #) 1.34 (0.0-1.3); Monocytes % 6.8 % (0.0-12.0); Neutrophil % 85.1 % (36.0-66.0); Platelet Count 266 K/mm3 (150-450); Red Blood Count 3.28 M/mm3 (4.1-5.4); Red Cell Distribution Width 14.2 % (11.5-14.0); White Blood Count 19.8 K/mm3 (4.0-10.5)
[2020-03-22 03:00] LABS: INR 1.25 (0.8-3.0); PROTIME 14.2 SECONDS (9.95-12.35)
[2020-03-22 03:13] LABS: ALBUMIN 3.3 g/dL (3.5-5.0); ALKALINE PHOSPHATASE 86 U/L (38-126); AMYLASE 60 U/L (30-110); ANION GAP 9.4 MEQ/L (5-15); BLOOD UREA NITROGEN 13 mg/dL (7-17); CHLORIDE 107 mmol/L (98-107); Calcium 9.6 mg/dL (8.4-10.2); Carbon Dioxide 20 mmol/L (22-30); Creatinine 1 0.81 mg/dL (0.52-1.04); Glucose 107 mg/dL (74-106); LIPASE 37 U/L (23-300); MAGNESIUM 1.5 mg/dL (1.6-2.3); NT PRO BNP 1940 pg/mL (0-900); Potassium 3.8 mmol/L (3.5-5.1); SGOT/AST 34 U/L (14-36); SGPT/ALT 17 U/L (0-35); SODIUM 132 mmol/L (137-145); Total Protein 6.1 g/dL (6.3-8.2)
[2020-03-22] MEDS ORDERED: DUONEB 0.5-3 MG/3 ml Neb IH ONE ×2 (03:23→03:27)
[2020-03-22] MEDS ORDERED: Magnesium 1 Gm / 100 Ml D5W*** 100 ML IV ONE ×2 (03:24→03:28)
[2020-03-22] MEDS ORDERED: Lasix 40 MG/4 ML IV ONE ×2 (03:28→09:00)
[2020-03-22] MEDS ORDERED: Lasix 40 MG/4 ML ONE (03:28)
[2020-03-22 04:07] LABS: Appearance SLIGHTLY CLOUDY (CLEAR); Bilirubin NEGATIVE (NEGATIVE); Blood SMALL Ery/ul (0-5); Glucose NEGATIVE (NEGATIVE); Ketones NEGATIVE (NEGATIVE); Leukocyte Esterase NEGATIVE (NEGATIVE); Nitrite NEGATIVE (NEGATIVE); Protein,Urine Dip NEGATIVE (Negative); Specific Gravity 1.006 (1.005-1.025); Urobilinogen NEGATIVE mg/dL (0-1)
[2020-03-22] MEDS ORDERED: TYLENOL 325 MG PO STA (05:03)
[2020-03-22] MEDS ORDERED: TYLENOL 325 MG ONE (05:17)
[2020-03-22] MEDS ORDERED: LOPRESSOR 5 MG/5 ML INJECTION IV ONE ×2 (06:09→06:18)
[2020-03-22] MEDS ORDERED: Merrem 1 GM 1 G in Sodium Chloride 100ML MINI-BAG PLUS 100 ML IV ONE (06:55)
[2020-03-22 07:06] LABS: AMYLASE 61 U/L (30-110); LIPASE 28 U/L (23-300)
[2020-03-22] MEDS ORDERED: Zofran 4 MG/2 ML VIAL IV PRN (08:08)
[2020-03-22] MEDS ORDERED: TYLENOL 325 MG PO PRN (08:08)
--- NOTE | 2020-03-22 08:45 | XRAY ---
Indication: Shoulder breath and tachycardia. Status post bowel surgery March 21, 2020. Elevated d-dimer. Multiple contiguous axial images obtained through the chest using 80 cc Isovue 370 contrast and PE protocol. Comparison: May 27, 2017. There is satisfactory opacification of the pulmonary arteries to include the lobar and segmental branches. Mild respiration artifact limits evaluation of the more distal lobar and segmental branches. No filling defect or pulmonary embolus. Heart is not enlarged. Aorta is normal in course and caliber again with minimal calcifications. No pathologic mediastinal/hilar lymphadenopathy. Lungs inflated with new minimal bibasilar subsegmental atelectasis/scarring. Stable right lower lobe bullae. No suspicious pulmonary mass, infiltrate, or effusion. Bony thorax intact again with mild degenerative changes throughout the spine. Limited upper abdomen now demonstrates mild air distended small/large bowel loops with fluid leveling either enterocolitis versus postoperative ileus. New tiny fluid left abdomen with stranding presumed related to recent surgery. New 1 cm left mid renal cortical cyst. Stable mild fatty liver, cholecystectomy, and ventricular shunt catheter. Impression: 1. Negative pulmonary embolus. No acute cardiopulmonary abnormalities. 2. New mild air distended bowel loops with fluid leveling, enterocolitis versus postoperative ileus. 3. New tiny left abdomen free fluid/stranding presumed related to recent surgery. 4. New left renal cyst. 5. Stable right lower lobe bullae and fatty liver. Comment: Preliminary interpretation was made by [facility]. No critical discrepancy.
[2020-03-22] MEDS: Merrem 1 GM 1 G in Sodium Chloride 100ML MINI-BAG PLUS 100 ML IV SCH ×3 (08:47→21:19)
[2020-03-22] MEDS: Sodium Chloride 0.9% 1000 ML 1,000 ML IV SCH (08:48)
[2020-03-22] MEDS: ENOXAPARIN SODIUM SQ SCH (09:16)
[2020-03-22] MEDS: Lasix 20 MG/2 ML IV SCH ×2 (09:18→16:40)
[2020-03-22] MEDS ORDERED: Ventolin Hfa MDI IH PRN (10:06)
[2020-03-22] MEDS ORDERED: VENTOLIN COMMON CANISTER IH PRN (10:09)
[2020-03-22] MEDS: DUONEB 0.5-3 MG/3 ml Neb IH SCH ×3 (10:16→19:01)
--- NOTE | 2020-03-22 11:31 | XRAY ---
Indication: Status post large bowel resection March 21, 2020. Multiple contiguous axial images obtained through the abdomen and pelvis without contrast as ordered. Comparison: None. CT PE study reported earlier today. Noncontrasted stomach and bowel loops appear nonobstructed. Partial resection of the ascending colon with adjacent mesenteric induration/stranding presumed postoperative. Anastomosis appears grossly intact. There is also overlying right lower quadrant abdominal postsurgical changes with cutaneous brandt. Very tiny abdomen/pelvic free fluid either postsurgical or related to ventricular shunt catheter terminating right midabdomen. No walled off fluid collection or free air. Residual contrast in the system related to CT PE study performed earlier in the day. No suspicious renal mass, hydronephrosis, or hydroureter. [place] balloon catheter tip in the urinary bladder. Previous cholecystectomy and hysterectomy. Remaining liver, pancreas, spleen, adrenal glands, kidneys, ureters, and bladder are unremarkable. Moderate scattered aortoiliac calcifications. No AAA or pathologic retroperitoneal lymphadenopathy. Osseous structures intact with mild degenerative changes throughout the thoracolumbar spine including 1-2 mm L5 spondylolisthesis. Impression: 1. Status post partial resection ascending colon with adjacent mesenteric and abdominal wall postsurgical changes. 2. Tiny abdomen/pelvic free fluid either postsurgical or related to ventricular shunt catheter in situ. No walled off fluid collection or free air. 3. Incidental mild multilevel degenerative spondylosis and minimal grade 1 L5 spondylolisthesis.
[2020-03-22] MEDS: ECOTRIN 81 MG PO SCH (11:39)
--- NOTE | 2020-03-22 15:36 | HP ---
CHIEF COMPLAINT: Shortness of breath. HISTORY OF PRESENT ILLNESS: The patient is a 65 year old white female who presented to the emergency room complaining of shortness of breath. The patient had recently been in [facility] in [place] for colostomy takedown. She apparently was discharged from the hospital within the last 24 hours. She presented to our emergency room with the above complaints. The patient was found to be tachycardic and dyspneic on her initial presentation. She did have a COVID test which was negative. PAST MEDICAL/SURGICAL HISTORY: Significant for peripheral neuropathy, hyperlipidemia, hypertension, chronic obstructive pulmonary disease, depression. She previously had a brain aneurysm approximately ten years ago. She had a hysterectomy. HOME MEDICATIONS: Include Albuterol PRN, Allopurinol 100 mg a day, Abilify 2 mg at night, aspirin 81 mg a day, Tenormin 50 mg b.i.d., calcium 600 mg at night, clonidine 0.1 mg at night, Pristiq 100 mg a night, hydroDIURIL 27 mg daily, losartan 100 mg daily, MVI daily, Lyrica 75 mg daily, Crestor 20 mg a day. ALLERGIES: CODEINE. CEFTRIAXONE. SOCIAL HISTORY: Smoker. She is and living with her presently who she reports has macular degeneration. PHYSICAL EXAMINATION: The patient's vital signs in the emergency room on admission showed temperature 98.8F, pulse 119, blood pressure 114/85, respiratory rate was noted to be 18. O2 saturation was 98%. HEENT: Normocephalic, atraumatic. Pupils equal round reactive to light. Extraocular movements intact. Oropharynx is pink and moist. NECK: Supple without lymphadenopathy, thyromegaly or JVD. CHEST: Revealed bibasilar crackles otherwise is clear. HEART: Currently regular rate and rhythm without significant murmurs, rubs or gallops. ABDOMEN: Soft, evidence of recent surgery. There are still brandt in the right lower quadrant of her abdomen from the recent colostomy takedown. Her original surgery was for history of diverticulosis. EXTREMITIES: Currently without cyanosis, clubbing or edema. NEUROLOGIC: The patient is somewhat slow in answering questions. Reports that she has short term memory problems. There are no focal deficits noted. LAB DATA AND TESTS: COVID-19 test was negative. Amylase and lipase were normal. Lactic acid 0.9. Her white count was noted to be 19,800, hemoglobin 10.0, PLT count 266,000. There was left shift with 85.1% granulocytes. D-dimer was significantly elevated at 4,633. CT of the chest was negative. Troponin was 0.020. She had a metabolic panel showing glucose of 107, BUN 13, creatinine 0.81. Sodium slightly low at 132. Her total protein was somewhat low at 6.1. Magnesium 1.5. Her ProBNP was elevated at 1,940. Repeat troponin was 0.025. UA was essentially normal with specific gravity 1.006. Her reported CT of the chest was negative for pulmonary emboli, mild air distended loops of the bowel with fluid leveling, tiny left abdominal free fluid likely related to recent surgery. ASSESSMENT: A patient with dyspnea, appears to be in heart failure currently. She received Lasix in the emergency room and had 1400 cc out. The patient also has elevated white count concerning for possible developing infection. She will be placed on IV antibiotics empirically. Blood cultures have already been obtained. We will also obtain tele-cardiology consult. The patient's EKG showed sinus tachycardia, a lot of baseline interference is present but no obvious acute ST-T wave changes are noted. Her axis appears to be borderline with left axis deviation but no interventricular conduction delay.
[2020-03-22 19:15] LABS: 027 TOX PROD PRESUMPTIVE NEGATIVE (NEGATIVE); TOXIGENIC C. DIFF ORG NEGATIVE (NEGATIVE)
[2020-03-22] MEDS: PRISTIQ ER PO SCH (21:18)
[2020-03-22] MEDS: Abilify 10 MG PO SCH (21:19)
[2020-03-22] MEDS: TENORMIN 50 MG PO SCH (21:33)
[2020-03-22] MEDS ORDERED: NON-FORMULARY ITEM (Aripiprazole [Abilify] 2 MG) PO SCH (22:00)
[2020-03-22] MEDS ORDERED: NON-FORMULARY ITEM (Desvenlafaxine Succinate [Pristiq] 100 MG) PO SCH (22:00)
[2020-03-23 04:29] LABS: Absolute Neutrophil Ct (ANC) 12.08 (1.4-6.9); BASOPHIL % 0.2 % (0.0-0.4); Basophil (Absolute #) 0.03 (0-0.4); Eosinophil % 1.2 % (0.00-5.0); Eosinophil (Absolute #) 0.18 (0-0.5); Hematocrit 28.2 % (35-47); Hemoglobin 9.4 gm/dl (12.0-16.0); Lymphocyte (Absolute #) 1.42 (1.0-4.6); Lymphocytes % 9.6 % (24.0-44.0); Mean Cell Volume 90.7 fl (78-100); Mean Corpuscular Hemoglobin 30.2 pg (26-32); Mean Corpuscular Hgb Concent. 33.3 g/dl (32-36); Mean Platelet Volume 9.8 fl (7.5-11.0); Monocyte (Absolute #) 1.02 (0.0-1.3); Monocytes % 6.9 % (0.0-12.0); Neutrophil % 82.1 % (36.0-66.0); Platelet Count 265 K/mm3 (150-450); Red Blood Count 3.11 M/mm3 (4.1-5.4); Red Cell Distribution Width 14.6 % (11.5-14.0); White Blood Count 14.7 K/mm3 (4.0-10.5)
[2020-03-23 04:51] LABS: ALBUMIN 3.4 g/dL (3.5-5.0); ALKALINE PHOSPHATASE 90 U/L (38-126); ANION GAP 10.2 MEQ/L (5-15); BLOOD UREA NITROGEN 12 mg/dL (7-17); CHLORIDE 105 mmol/L (98-107); Calcium 9.3 mg/dL (8.4-10.2); Carbon Dioxide 24 mmol/L (22-30); Creatinine 1 0.89 mg/dL (0.52-1.04); Glucose 97 mg/dL (74-106); NT PRO BNP 2080 pg/mL (0-900); SGOT/AST 25 U/L (14-36); SGPT/ALT 16 U/L (0-35); SODIUM 136 mmol/L (137-145); Total Protein 6.3 g/dL (6.3-8.2)
[2020-03-23] MEDS: Merrem 1 GM 1 G in Sodium Chloride 100ML MINI-BAG PLUS 100 ML IV SCH ×3 (05:58→21:14)
[2020-03-23] MEDS: POTASSIUM CHLORIDE 20 mEq IN WATER 100ML 20 MEQ/100 ML BAG IV SCH ×2 (06:58→08:46)
[2020-03-23] MEDS: TENORMIN 50 MG PO SCH ×3 (07:16→21:15)
[2020-03-23] MEDS: Sodium Chloride 0.9% 1000 ML 1,000 ML IV SCH ×2 (07:48→21:14)
[2020-03-23] MEDS: DUONEB 0.5-3 MG/3 ml Neb IH SCH ×4 (08:12→18:37)
[2020-03-23] MEDS: ECOTRIN 81 MG PO SCH (09:29)
[2020-03-23] MEDS: Lasix 20 MG/2 ML IV SCH ×2 (09:29→16:11)
[2020-03-23] MEDS: ENOXAPARIN SODIUM SQ SCH (09:29)
[2020-03-23] MEDS ORDERED: NON-FORMULARY ITEM (Aspirin [Aspirin] 81 MG) PO SCH (10:00)
--- NOTE | 2020-03-23 13:39 | ECHO ---
Transthoracic echocardiographic examination and color Doppler was done on 03/22/2020. INDICATION: Shortness of breath. IMPRESSION: 1) NO REGIONAL WALL MOTION ABNORMALITY. ESTIMATED GLOBAL LEFT VENTRICULAR EJECTION FRACTION BETWEEN 60 AND 70%. 2) TRACE TRICUSPID REGURGITATION. RIGHT VENTRICULAR SYSTOLIC PRESSURE OF 17 MM OF MERCURY. 3) LEFT VENTRICULAR HYPERTROPHY. The left ventricle is visualized and demonstrated adequate motion of all the segments. Estimated global left ventricular ejection fraction around 60-70%. There is concentric left ventricular hypertrophy. The mitral valve is seen and this opens adequately. There is no significant mitral regurgitation. Left atrium is normal. The aortic valve opens adequately. There is no significant gradient across the left ventricular outflow tract. The right side chambers are normal. There is trace tricuspid regurgitation. The right ventricular systolic pressure of 17 mm of [place].
--- NOTE | 2020-03-23 14:08 | CONS ---
CONSULT DATE: 03/22/2020 HISTORY: This is a 64 year old female who was seen because of acute shortness of breath. The patient was admitted on 03/22/2020 with her presenting with acute shortness of breath. The patient recently had a colostomy takedown at [facility]. A few hours after discharge while at home she started to become very short of breath for which reason she presented to the emergency room of [facility]. She was given IV Lasix which resulted in prompt resolution of most of her congestive symptoms. She remained tachycardic. Her D-dimer was elevated and CT scan of the chest with pulmonary embolism protocol was negative for pulmonary embolism. Her serial troponin I are within normal limits. She states she had some chest tightness during the episodes of shortness of breath. She has never had myocardial infarction or previous heart failure. 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 She denies any paroxysmal nocturnal dyspnea. No orthopnea. No peripheral edema. No syncopal attacks. CARDIAC RISK FACTORS: Negative for diabetes. Positive for hypertension. She smokes. She has hyperlipidemia. FAMILY HISTORY: Negative for premature coronary artery disease. PAST SURGICAL HISTORY: Colostomy and colostomy takedown. Hysterectomy. Cholecystectomy. She also had coiling of a brain aneurysm down about eleven years ago. REVIEW OF SYSTEMS: POUNDMASTER: She has history of brain aneurysm. No chronic headache. RESPIRATORY: She has chronic obstructive lung disease. GI: No history of peptic ulcer. She has a history of diverticulitis. : Negative for dysuria or hematuria. PERIPHERAL VASCULAR: No history of deep venous thrombosis. No claudication. MUSCULOSKELETAL: She has some joint disorder. SKIN: No active dermatological problems. HEMATOLOGY: No blood dyscrasia. ALLERGIES: CODEINE. CEFTRIAXONE. ROCEPHIN. MEDICATIONS: DuoNeb, aspirin, Pritiq, subcu Lovenox, Meropenem. Her home medications included Allopurinol, Abilify, Atenolol, clonidine, hydrochlorothiazide/losartan, multivitamin, Lyrica, rosuvastatin. 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 She has no significant alcohol intake. PHYSICAL EXAMINATION: Her blood pressure is 115/85 with heart rate of 119, respirations about 18. GENERAL: The patient is an elderly female who is alert, oriented, who is not in any form of distress. HEENT: Unremarkable. NECK: No significant JVD. No carotid bruits. CHEST: The breath sounds are diminished. No significant rhonchi or wheezing. CARDIAC: Heart tones are somewhat distant. The rhythm is regular. There is audible gallop. ABDOMEN: Soft with normal bowel sounds. EXTREMITIES: There is no significant edema with decreased distal pulses. LAB DATA AND DIAGNOSTIC TESTS: The GFR is greater than 60. ProBNP is 1,940. Troponin I is 0.02. CBC showed white count of 19,000 with hemoglobin 10.0, PLT 266,000. Lactic acid is 0.9. ASSESSMENT AND PLAN: 1) Acute shortness of breath possibilities include acute diastolic heart failure, COPD exacerbation, sepsis. 2) Need to rule out ischemic event although the troponin I has been in the normal range. We are going to go ahead and schedule her for coronary calcium score to assess plaque burden as she as multiple cardiac risk factors. So far there has been no evidence of any acute ischemic events. EKG did not show any significant ST-T segment changes. Will resume her beta blockers titrated to control heart rate and blood pressure. I will follow up with you.
[2020-03-23] MEDS: PRISTIQ ER PO SCH (21:14)
[2020-03-23] MEDS: Abilify 10 MG PO SCH (21:15)
[2020-03-24] MEDS: DUONEB 0.5-3 MG/3 ml Neb IH SCH ×2 (05:29→10:20)
[2020-03-24 05:30] LABS: Hematocrit 29.5 % (35-47); Hemoglobin 9.7 gm/dl (12.0-16.0); Mean Cell Volume 91.6 fl (78-100); Mean Corpuscular Hemoglobin 30.1 pg (26-32); Mean Corpuscular Hgb Concent. 32.9 g/dl (32-36); Platelet Count 326 K/mm3 (150-450); Red Blood Count 3.22 M/mm3 (4.1-5.4); Red Cell Distribution Width 14.7 % (11.5-14.0); White Blood Count 11.2 K/mm3 (4.0-10.5)
[2020-03-24 05:44] LABS: ANION GAP 8.4 MEQ/L (5-15); BLOOD UREA NITROGEN 10 mg/dL (7-17); CHLORIDE 104 mmol/L (98-107); Calcium 9.4 mg/dL (8.4-10.2); Carbon Dioxide 28 mmol/L (22-30); Creatinine 1 0.76 mg/dL (0.52-1.04); Glucose 87 mg/dL (74-106); SODIUM 138 mmol/L (137-145)
[2020-03-24] MEDS: Merrem 1 GM 1 G in Sodium Chloride 100ML MINI-BAG PLUS 100 ML IV SCH (06:18)
[2020-03-24] MEDS: POTASSIUM CHLORIDE 20 mEq IN WATER 100ML 20 MEQ/100 ML BAG IV SCH ×2 (08:03→10:56)
[2020-03-24] MEDS ORDERED: TENORMIN 50 MG PO SCH (10:00)
[2020-03-24] MEDS: ECOTRIN 81 MG PO SCH (10:11)
[2020-03-24] MEDS: Lasix 20 MG/2 ML IV SCH (10:13)
[2020-03-24] MEDS: ENOXAPARIN SODIUM SQ SCH (10:20)
[2020-03-24 12:35] VITALS: BP 109/60; PULSE 83; O2SAT 96
--- NOTE | 2020-03-24 13:21 | DS ---
DISCHARGE DIAGNOSES: 1) CONGESTIVE HEART FAILURE. 2) LEUKOCYTOSIS. 3) HYPOKALEMIA. 4) RECENT BOWEL SURGERY. HISTORY: The patient is a 64 year old white female who presented to the emergency room with increasing shortness of breath. She was diagnosed with congestive heart failure and admitted to our facility. HOSPITAL COURSE: The patient was admitted. After IV Lasix the patient diuresed nicely. She received a second dose which continued her diuresis. Her shortness of breath resolved. The patient was noted to have a significantly elevated white count. She had been released within the past couple of days from [facility] in [place] for reanastomosis surgery. 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 During the patient's hospital stay she was somewhat hypokalemic and received IV potassium on a couple different occasions. She was seen in consultation by Dr. Loving our storeperson who suggested she start on Atenolol and to get a calcium score done. The patient's labs did show her ProBNP to be elevated. By the day of discharge her glucose was 87, BUN 10, creatinine 0.76, potassium 3.0 prior to a potassium rider of 40 mEq. Her liver enzymes were normal. Her white count initially greater than 19,000 was down to 11,200 on IV Merrem. At the time of discharge was placed on Augmentin 875 twice a day to complete a seven day course. She has been placed on Atenolol 25 mg daily by the storeperson. She will receive potassium 10 mEq t.i.d. due to her tendency to be hypokalemia with her Lasix to 40 mg daily. She is to continue use of her home medications and be seen by her primary care physician in the next week. She has a follow up to see Dr. Loving who wished her to have a calcium score as an outpatient. She did have CT-angiography of the chest due to elevated D-dimer during her stay which was negative but they could not use this for the calcium score. The patient also had echocardiogram during her stay showing ejection fraction of 60-70% and left ventricular hypertrophy otherwise appeared to be normal.
== END 2020-03-24 13:56 | disposition home or self-care (01) | DRG 293 ==
LOC: ED 02:15 → MED SURG 07:52
PROVIDERS: ADMIT Family Medicine; ATTEND Family Medicine
DX: I50.9 Heart failure, unspecified (principal); I10 Essential (primary) hypertension; E78.5 Hyperlipidemia, unspecified; J44.9 Chronic obstructive pulmonary disease, unspecified; Z98.890 Other specified postprocedural states; D72.829 Elevated white blood cell count, unspecified; E87.6 Hypokalemia; E78.00 Pure hypercholesterolemia, unspecified; I51.7 Cardiomegaly; I95.9 Hypotension, unspecified; Z79.899 Other long term (current) drug therapy
CPT/HCPCS: 36415; 51702; 71260; 74176; 80048; 80053; 81001; 82150; 83605; 83690; 83735; 83880; 84132; 84484; 85025; 85027; 85379; 85610; 87040; 87493; 93005; 93041; 93306; 94150; 94640; 94762; 96360; 96365; 96374; 96375; 99291; U0003; 36000; 94760; 99285; J1650; J1940; J3475; J3480; A9270-GY

== ENCOUNTER 2020-12-11 05:47 | Inpatient (IN) | payer MEDICARE, BC ==
[2020-12-11] MEDS ORDERED: solu-MEDROL 125 MG IV ONE (05:51)
[2020-12-11] MEDS ORDERED: PROVENTIL 2.5 MG/3 ML NEB IH ONE ×4 (05:51→08:33)
[2020-12-11] MEDS ORDERED: Sodium Chloride 0.9% 1000 ML 1,000 ML IV SCH (06:00)
[2020-12-11 06:21] LABS: Absolute Neutrophil Ct (ANC) 8.24 (1.4-6.9); BASOPHIL % 0.1 % (0.0-0.4); Basophil (Absolute #) 0.01 (0-0.4); Eosinophil % 0.1 % (0.00-5.0); Eosinophil (Absolute #) 0.01 (0-0.5); Hematocrit 41.7 % (35-47); Lymphocyte (Absolute #) 1.27 (1.0-4.6); Mean Cell Volume 94.3 fl (78-100); Mean Corpuscular Hemoglobin 31.7 pg (26-32); Mean Corpuscular Hgb Concent. 33.6 g/dl (32-36); Mean Platelet Volume 10.5 fl (7.5-11.0); Monocyte (Absolute #) 1.02 (0.0-1.3); Monocytes % 9.7 % (0.0-12.0); Neutrophil % 78.1 % (36.0-66.0); Platelet Count 191 K/mm3 (150-450); Red Blood Count 4.42 M/mm3 (4.1-5.4); Red Cell Distribution Width 13.4 % (11.5-14.0); White Blood Count 10.6 K/mm3 (4.0-10.5)
[2020-12-11 06:27] LABS: INR 1.14 (0.8-3.0); PROTIME 12.9 SECONDS (9.95-12.35)
[2020-12-11] MEDS ORDERED: DUONEB 0.5-3 MG/3 ml Neb IH ONE (06:28)
[2020-12-11] MEDS ORDERED: solu-MEDROL 125 MG ONE (06:28)
[2020-12-11] MEDS ORDERED: Sodium Chloride 0.9% 1000 ML 1,000 ML ONE (06:28)
--- NOTE | 2020-12-11 06:35 | ERPHSYRPT ---
- History of Present Illness Source: patient Exam Limitations: no limitations Patient Subjective Stated Complaint: pt c/o sob, can't catch breath Triage Nursing Assessment: pt c/o sob, "having trouble catching my breath". Pt states been sob x3 days off and on, but got much worse at 5am this morning. Pt sleeps in reclining chair. Pt took albuterol neb tx at home prior to coming to ER. Wheezes and rhonchi noted to lungs bilat ant and post. Timing/Duration: day(s) (2) Activities at Onset: activity Severity of Dyspnea-Max: moderate Severity of Dyspnea-Current: moderate Possible Cause: frequent episodes Modifying Factors: Improves With: albuterol nebulizer, exertion, lying down Associated Symptoms: cough, wheezing, chills, productive cough, tightness Hx Tetanus, Diphtheria Vaccination/Date Given: No Hx Influenza Vaccination/Date Given: Yes Hx Pneumococcal Vaccination/Date Given: Yes Immunizations Up to Date: No <LEONARDA LANGSTON - Last Filed: 12/11/20 06:39> <MINNIE RODRIGUES - Last Filed: 12/11/20 12:06> - History of Present Illness Time Seen by Provider: 12/11/20 06:00 Physician History: Patient is a 65-year-old female who has COPD and continues to smoke. She is not on home O2 she became more short of breath 2 days ago her shortness of breath is much worse at night she cannot lay flat she does have a history of CHF as well as her COPD. She has noticed no increase in her body weight she had chills yesterday but no definite fever or sweats she has increased sputum production and coughing. (LEONARDA LANGSTON) Allergies/Adverse Reactions: codeine Allergy (Verified 12/11/20 06:00) Nausea ceftriaxone [From Rocephin] Adverse Reaction (Verified 12/11/20 06:00) states it made her go out of her head Home Medications: Aspirin 81 mg PO DAILY 03/19/14 [History] Pregabalin [Lyrica] 75 mg PO DAILY 03/19/14 [History] Clonidine HCl 0.1 mg [Catapres 0.1 MG] 0.1 mg PO QHS 02/04/16 [History] Allopurinol 100 mg [Zyloprim 100 mg] 100 mg PO DAILY 08/04/19 [History] Aripiprazole [Abilify] 2 mg PO QHS 08/04/19 [History] Calcium Carbonate [Calcium] 600 mg PO QHS 08/04/19 [History] Multivitamin [Multivitamins] 1 each PO DAILY 08/04/19 [History] Rosuvastatin Calcium [Crestor] 20 mg PO QHS 03/22/20 [History] Atenolol 25 mg PO BID 12/11/20 [History] Venlafaxine HCl ER 75 mg [Effexor XR 75 MG] 150 mg PO DAILY 12/11/20 [History] Travel Risk - International Travel Have you traveled outside of the country in past 3 weeks: No - Coronavirus Screening Are you exhibiting any of the following symptoms?: Yes Symptoms: Cough: New Onset, Shortness of Breath Close contact with a COVID-19 positive Pt in past 14-21 Days: No - Vaccine Status Have you recieved a Covid-19 vaccination: Yes 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 - Vaccination Dates Date of 2cond Vaccination (if applicable): 11/16/20 <LEONARDA LANGSTON - Last Filed: 12/11/20 06:39> - Review of Systems Constitutional: Chills, No Fever Eyes: No Symptoms Ears, Nose, & Throat: No Symptoms Respiratory: Cough, Dyspnea, Other (Orthopnea) Cardiac: Orthopnea, No Chest Pain, No Edema, No Syncope Abdominal/Gastrointestinal: No Abdominal Pain, No Nausea, No Vomiting, No Diarrhea Genitourinary Symptoms: No Dysuria Musculoskeletal: No Back Pain, No Neck Pain Skin: No Rash Neurological: No Dizziness, No Focal Weakness, No Sensory Changes Psychological: No Symptoms Endocrine: No Symptoms All Other Systems: Reviewed and Negative <LEONARDA LANGSTON - Last Filed: 12/11/20 06:39> - Past Medical History Pertinent Past Medical History: Yes Neurological History: Peripheral Neuropathy, Other ENT History: Cataracts Cardiac History: High Cholesterol, Hypertension Respiratory History: Bronchitis, COPD, Pneumonia Endocrine Medical History: No Pertinent History Musculoskeletal History: Arthritis GI Medical History: Diverticulitis, Diverticulosis, Gallbladder Disease History: No Pertinent History Psycho-Social History: Depression Female Reproductive Disorders: No Pertinent History Other Medical History: BRAIN ANEURYSM, skin cancer-- nose - Past Surgical History Past Surgical History: Yes Neuro Surgical History: Brain Shunt Cardiac: No Pertinent History Respiratory: No Pertinent History Gastrointestinal: Bowel Surgery, Cholecystectomy Genitourinary: No Pertinent History Musculoskeletal: No Pertinent History Female Surgical History: Hysterectomy Other Surgical History: ileostomy and ileostomy reversal - Social History Smoking Status: Current every day smoker How long have you smoked: 47 yrs Exposure to second hand smoke: Yes Drug Use: none Patient Lives Alone: No <RUSSELLMARIA ANTONIALEONARDA - Last Filed: 12/11/20 06:39> - Physical Exam General Appearance: moderate distress Eye Exam: PERRL/EOMI Ears, Nose, Throat Exam: hearing grossly normal, normal ENT inspection Neck Exam: normal inspection, supple Respiratory Exam: respiratory distress, accessory muscle use, prolonged e xpirations, crackles/rales, rhonchi, wheezing Cardiovascular/Chest Exam: normal heart sounds, regular rate/rhythm Abdominal/Gastrointestinal Exam: soft, normal bowel sounds, No tenderness, No guarding Rectal Exam: deferred Extremity Exam: non-tender, normal range of motion, normal inspection, no calf tenderness, no pedal edema Peripheral Pulses Exam: carotid (R): 2+, carotid (L): 2+ Neurologic Exam: alert, oriented x 3, cooperative, 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 nml as tested, sensation nml, No motor deficits Skin Exam: normal color, warm, No dry SpO2 Interpretation: normal SpO2: 94 O2 Delivery: Room Air <LEONARDA LANGSTON - Last Filed: 12/11/20 06:39> - Nursing Vital Signs Nursing Vital Signs: Initial Vital Signs Temperature 98.0 F 12/11/20 05:50 Pulse Rate 102 H 12/11/20 05:50 Respiratory Rate 24 12/11/20 05:50 Blood Pressure 127/81 12/11/20 05:50 O2 Sat by Pulse Oximetry 93 L 12/11/20 05:50 Pain Scale Pain Intensity 2 - Course Nursing assessment & vital signs reviewed: Yes EKG Interpreted by Me: RATE (90), Sinus Rhythm, Left Hazen Deviation, NORMAL QRS, Non-specific ST Changes <RUSSELLMARIA ANTONIALEONARDA Last Filed: 12/11/20 06:39> Ordered Tests: Active Orders 24 hr Category Date Time Status EKG-ER Only STAT Care 12/11/20 05:51 Active IV Insertion STAT Care 12/11/20 05:51 Active Pulse Oximetry (ED) STAT Care 12/11/20 05:51 Active CHEST 1 VIEW (PORTABLE) Stat Exams 12/11/20 05:52 Completed CHEST WITH CONTRAST [CT] Stat Exams 12/11/20 06:41 Completed CBC W DIFF Stat Lab 12/11/20 06:10 Completed CMP Stat Lab 12/11/20 06:10 Completed D-DIMER QUANTITATIVE Stat Lab 12/11/20 06:10 Completed INFLUENZA A+B MIKE Stat Lab 12/11/20 06:10 Completed Lactic Acid Stat Lab 12/11/20 05:51 Completed MAGNESIUM Stat Lab 12/11/20 06:10 Completed NT PRO BNP Stat Lab 12/11/20 06:10 Completed PROTIME WITH INR Stat Lab 12/11/20 06:10 Completed TROPONIN Q3H Lab 12/11/20 06:10 Completed TROPONIN Q3H Lab 12/11/20 09:05 Completed TROPONIN Q3H Lab 12/11/20 12:00 Ordered TROPONIN Q3H Lab 12/11/20 15:00 Ordered TROPONIN Q3H Lab 12/11/20 18:00 Ordered UA W/RFX UR CULTURE Stat Lab 12/11/20 10:50 Completed Respiratory Therapy Assessment DAILY RT 12/11/20 06:48 Active Transfer Order Routine Transfer 12/11/20 Ordered Medication Summary Generic Name Dose Route Start Last Admin Trade Name Freq PRN Reason Stop Dose Admin Sodium Chloride 1,000 mls @ 50 mls/hr 12/11/20 06:00 12/11/20 06:31 Sodium Chloride 0.9% 1000 Ml IV 01/10/21 05:59 50 mls/hr .Q20H ESTELA Administration Discontinued Medications Generic Name Dose Route Start Last Admin Trade Name Freq PRN Reason Stop Dose Admin Albuterol Sulfate 2.5 mg 12/11/20 05:51 12/11/20 06:40 Proventil 2.5 Mg/3 Ml Neb IH 12/11/20 05:52 2.5 mg STAT ONE Administration Albuterol Sulfate Confirm 12/11/20 06:29 Proventil 2.5 Mg/3 Ml Neb Administered 12/11/20 06:30 Dose 2.5 mg IH .STK-MED ONE Albuterol Sulfate Confirm 12/11/20 08:16 Proventil 2.5 Mg/3 Ml Neb Administered 12/11/20 08:17 Dose 2.5 mg IH .STK-MED ONE Albuterol Sulfate 2.5 mg 12/11/20 08:33 12/11/20 08:20 Proventil 2.5 Mg/3 Ml Neb IH 12/11/20 08:34 2.5 mg STAT ONE Administration Albuterol/Ipratropium Confirm 12/11/20 06:28 Duoneb 0.5-3 Mg/3 Ml Neb Administered 12/11/20 06:29 Dose 3 ml IH .STK-MED ONE Methylprednisolone Sodium Succinate 125 mg 12/11/20 05:51 12/11/20 06:30 Solu-Medrol 125 Mg IV 12/11/20 05:52 125 mg STAT ONE Administration Methylprednisolone Sodium Succinate Confirm 12/11/20 06:28 Solu-Medrol 125 Mg Administered 12/11/20 06:29 Dose 125 mg .ROUTE .STK-MED ONE Lab/Rad Data: Laboratory Result Diagrams 12/11/20 06:10 12/11/20 06:10 Laboratory Results 12/11/20 12/11/20 12/11/20 Range/Units 10:50 09:39 09:05 WBC (4.0-10.5) K/mm3 RBC (4.1-5.4) M/mm3 Hgb (12.0-16.0) gm/dl Hct (35-47) % MCV (78-100) fl MCH (26-32) pg MCHC (32-36) g/dl RDW (11.5-14.0) % Plt Count (150-450) K/mm3 MPV (7.5-11.0) fl Gran % (36.0-66.0) % Eos # (Auto) (0-0.5) Absolute Lymphs (auto) (1.0-4.6) Absolute Monos (auto) (0.0-1.3) Lymphocytes % (24.0-44.0) % Monocytes % (0.0-12.0) % Eosinophils % (0.00-5.0) % Basophils % (0.0-0.4) % Absolute Granulocytes (1.4-6.9) Basophils # (0-0.4) PT (9.95-12.35) SECONDS INR (0.8-3.0) D-Dimer (215-500) ng/mL Sodium (137-145) mmol/L Potassium (3.5-5.1) mmol/L Chloride (98-107) mmol/L Carbon Dioxide (22-30) mmol/L Anion Gap (5-15) MEQ/L BUN (7-17) mg/dL Creatinine (0.52-1.04) mg/dL Estimated GFR ML/MIN Glucose (74-106) mg/dL Lactic Acid (0.4-2.0) Calcium (8.4-10.2) mg/dL Magnesium (1.6-2.3) mg/dL Total Bilirubin (0.2-1.3) mg/dL AST (14-36) U/L ALT (0-35) U/L Alkaline Phosphatase (38-126) U/L Troponin I < 0.012 (0.000-0.034) ng/mL NT-Pro-B Natriuret Pep (0-900) pg/mL Serum Total Protein (6.3-8.2) g/dL Albumin (3.5-5.0) g/dL Urine Color YELLOW Urine Appearance CLEAR Urine pH 5.0 Ur Specific [place] >1.060 Urine Protein NEGATIVE Urine Ketones TRACE Urine Blood NEGATIVE Urine Nitrite NEGATIVE Urine Bilirubin NEGATIVE Urine Urobilinogen NEGATIVE Ur Leukocyte Esterase NEGATIVE Urine WBC (Auto) 0-2 Urine RBC (Auto) 0-2 U Hyaline Cast (Auto) U Epithel Cells (Auto) RARE Urine Bacteria (Auto) NONE SEEN U Non-Squamous Epi Cells Calcium Oxalate [place] Leucine Crystals Cystine Crystals Uric Acid Cryst (Auto) Triple Phos Crystals Amorphous Crystals Fatty Casts Granular Casts (Auto) Waxy Casts (Auto) RBC Casts (Auto) WBC Casts Urine Mucus (Auto) SLIGHT U Trichomonas (Auto) Urine Yeast (Auto) Ur Yeast w Hyphae Urine Yeast (Budding) Urine Sperm (Auto) Ur Oval Fat Bodies Auto Urine Culture Reflexed NO Urine Glucose NEGATIVE Influenza Type A Ag NEGATIVE (NEGATIVE) Influenza Type B Ag NEGATIVE (NEGATIVE) RSV (PCR) NEGATIVE (Negative) SARS-CoV-2 (PCR) NEGATIVE (NEGATIVE) 12/11/20 12/11/20 12/11/20 Range/Units 06:25 06:10 06:10 WBC (4.0-10.5) K/mm3 RBC (4.1-5.4) M/mm3 Hgb (12.0-16.0) gm/dl Hct (35-47) % MCV (78-100) fl MCH (26-32) pg MCHC (32-36) g/dl RDW (11.5-14.0) % Plt Count (150-450) K/mm3 MPV (7.5-11.0) fl Gran % (36.0-66.0) % Eos # (Auto) (0-0.5) Absolute Lymphs (auto) (1.0-4.6) Absolute Monos (auto) (0.0-1.3) Lymphocytes % (24.0-44.0) % Monocytes % (0.0-12.0) % Eosinophils % (0.00-5.0) % Basophils % (0.0-0.4) % Absolute Granulocytes (1.4-6.9) Basophils # (0-0.4) PT 12.9 H (9.95-12.35) SECONDS INR 1.14 (0.8-3.0) D-Dimer 625 H* (215-500) ng/mL Sodium (137-145) mmol/L Potassium (3.5-5.1) mmol/L Chloride (98-107) mmol/L Carbon Dioxide (22-30) mmol/L Anion Gap (5-15) MEQ/L BUN (7-17) mg/dL Creatinine (0.52-1.04) mg/dL Estimated GFR ML/MIN Glucose (74-106) mg/dL Lactic Acid (0.4-2.0) Calcium (8.4-10.2) mg/dL Magnesium (1.6-2.3) mg/dL Total Bilirubin (0.2-1.3) mg/dL AST (14-36) U/L ALT (0-35) U/L Alkaline Phosphatase (38-126) U/L Troponin I 0.014 (0.000-0.034) ng/mL NT-Pro-B Natriuret Pep (0-900) pg/mL Serum Total Protein (6.3-8.2) g/dL Albumin (3.5-5.0) g/dL Urine Color Cancelled Urine Appearance Cancelled Urine pH Cancelled Ur Specific [place] Cancelled Urine Protein Cancelled Urine Ketones Cancelled Urine Blood Cancelled Urine Nitrite Cancelled Urine Bilirubin Cancelled Urine Urobilinogen Cancelled Ur Leukocyte Esterase Cancelled Urine WBC (Auto) Cancelled Urine RBC (Auto) Cancelled U Hyaline Cast (Auto) Cancelled U Epithel Cells (Auto) Cancelled Urine Bacteria (Auto) Cancelled U Non-Squamous Epi Cells Cancelled Calcium Oxalate [place] Cancelled Leucine Crystals Cancelled Cystine Crystals Cancelled Uric Acid Cryst (Auto) Cancelled Triple Phos Crystals Cancelled Amorphous Crystals Cancelled Fatty Casts Cancelled Granular Casts (Auto) Cancelled Waxy Casts (Auto) Cancelled RBC Casts (Auto) Cancelled WBC Casts Cancelled Urine Mucus (Auto) Cancelled U Trichomonas (Auto) Cancelled Urine Yeast (Auto) Cancelled Ur Yeast w Hyphae Cancelled Urine Yeast (Budding) Cancelled Urine Sperm (Auto) Cancelled Ur Oval Fat Bodies Auto Cancelled Urine Culture Reflexed Cancelled Urine Glucose Cancelled Influenza Type A Ag (NEGATIVE) Influenza Type B Ag (NEGATIVE) RSV (PCR) (Negative) SARS-CoV-2 (PCR) (NEGATIVE) 12/11/20 12/11/20 12/11/20 Range/Units 06:10 06:10 06:10 WBC 10.6 H (4.0-10.5) K/mm3 RBC 4.42 (4.1-5.4) M/mm3 Hgb 14.0 (12.0-16.0) gm/dl Hct 41.7 (35-47) % MCV 94.3 (78-100) fl MCH 31.7 (26-32) pg MCHC 33.6 (32-36) g/dl RDW 13.4 (11.5-14.0) % Plt Count 191 (150-450) K/mm3 MPV 10.5 (7.5-11.0) fl Gran % 78.1 H (36.0-66.0) % Eos # (Auto) 0.01 (0-0.5) Absolute Lymphs (auto) 1.27 (1.0-4.6) Absolute Monos (auto) 1.02 (0.0-1.3) Lymphocytes % 12.0 L (24.0-44.0) % Monocytes % 9.7 (0.0-12.0) % Eosinophils % 0.1 (0.00-5.0) % Basophils % 0.1 (0.0-0.4) % Absolute Granulocytes 8.24 H (1.4-6.9) Basophils # 0.01 (0-0.4) PT (9.95-12.35) SECONDS INR (0.8-3.0) D-Dimer (215-500) ng/mL Sodium 135 L (137-145) mmol/L Potassium 3.8 (3.5-5.1) mmol/L Chloride 103 (98-107) mmol/L Carbon Dioxide 24 (22-30) mmol/L Anion Gap 11.6 (5-15) MEQ/L BUN 19 H (7-17) mg/dL Creatinine 1.13 H (0.52-1.04) mg/dL Estimated GFR 51.7 ML/MIN Glucose 117 H (74-106) mg/dL Lactic Acid (0.4-2.0) Calcium 9.6 (8.4-10.2) mg/dL Magnesium 1.9 (1.6-2.3) mg/dL Total Bilirubin 0.30 (0.2-1.3) mg/dL AST 36 (14-36) U/L ALT 23 (0-35) U/L Alkaline Phosphatase 121 (38-126) U/L Troponin I (0.000-0.034) ng/mL NT-Pro-B Natriuret Pep 140 (0-900) pg/mL Serum Total Protein 7.7 (6.3-8.2) g/dL Albumin 4.4 (3.5-5.0) g/dL Urine Color Urine Appearance Urine pH Ur Specific [place] Urine Protein Urine Ketones Urine Blood Urine Nitrite Urine Bilirubin Urine Urobilinogen Ur Leukocyte Esterase Urine WBC (Auto) Urine RBC (Auto) U Hyaline Cast (Auto) U Epithel Cells (Auto) Urine Bacteria (Auto) U Non-Squamous Epi Cells Calcium Ox[place] Leucine Crystals Cystine Crystals Uric Acid Cryst (Auto) Triple Phos Crystals Amorphous Crystals Fatty Casts Granular Casts (Auto) Waxy Casts (Auto) RBC Casts (Auto) WBC Casts Urine Mucus (Auto) U Trichomonas (Auto) Urine Yeast (Auto) Ur Yeast w Hyphae Urine Yeast (Budding) Urine Sperm (Auto) Ur Oval Fat Bodies Auto Urine Culture Reflexed Urine Glucose Influenza Type A Ag NEGATIVE (NEGATIVE) Influenza Type B Ag NEGATIVE (NEGATIVE) RSV (PCR) (Negative) SARS-CoV-2 (PCR) (NEGATIVE) 12/11/20 Range/Units 05:51 WBC (4.0-10.5) K/mm3 RBC (4.1-5.4) M/mm3 Hgb (12.0-16.0) gm/dl Hct (35-47) % MCV (78-100) fl MCH (26-32) pg MCHC (32-36) g/dl RDW (11.5-14.0) % Plt Count (150-450) K/mm3 MPV (7.5-11.0) fl Gran % (36.0-66.0) % Eos # (Auto) (0-0.5) Absolute Lymphs (auto) (1.0-4.6) Absolute Monos (auto) (0.0-1.3) Lymphocytes % (24.0-44.0) % Monocytes % (0.0-12.0) % Eosinophils % (0.00-5.0) % Basophils % (0.0-0.4) % Absolute Granulocytes (1.4-6.9) Basophils # (0-0.4) PT (9.95-12.35) SECONDS INR (0.8-3.0) D-Dimer (215-500) ng/mL Sodium (137-145) mmol/L Potassium (3.5-5.1) mmol/L Chloride (98-107) mmol/L Carbon Dioxide (22-30) mmol/L Anion Gap (5-15) MEQ/L BUN (7-17) mg/dL Creatinine (0.52-1.04) mg/dL Estimated GFR ML/MIN Glucose (74-106) mg/dL Lactic Acid 1.2 (0.4-2.0) Calcium (8.4-10.2) mg/dL Magnesium (1.6-2.3) mg/dL Total Bilirubin (0.2-1.3) mg/dL AST (14-36) U/L ALT (0-35) U/L Alkaline Phosphatase (38-126) U/L Troponin I (0.000-0.034) ng/mL NT-Pro-B Natriuret Pep (0-900) pg/mL Serum Total Protein (6.3-8.2) g/dL Albumin (3.5-5.0) g/dL Urine Color Urine Appearance Urine pH Ur Specific [place] Urine Protein Urine Ketones Urine Blood Urine Nitrite Urine Bilirubin Urine Urobilinogen Ur Leukocyte Esterase Urine WBC (Auto) Urine RBC (Auto) U Hyaline Cast (Auto) U Epithel Cells (Auto) Urine Bacteria (Auto) U Non-Squamous Epi Cells Calcium [place] Leucine Crystals Cystine Crystals Uric Acid Cryst (Auto) Triple Phos Crystals Amorphous Crystals Fatty Casts Granular Casts (Auto) Waxy Casts (Auto) RBC Casts (Auto) WBC Casts Urine Mucus (Auto) U Trichomonas (Auto) Urine Yeast (Auto) Ur Yeast w Hyphae Urine Yeast (Budding) Urine Sperm (Auto) Ur Oval Fat Bodies Auto Urine Culture Reflexed Urine Glucose Influenza Type A Ag (NEGATIVE) Influenza Type B Ag (NEGATIVE) RSV (PCR) (Negative) SARS-CoV-2 (PCR) (NEGATIVE) - Progress Progress: improved, re-examined Air Movement: fair Blood Culture(s) Obtained: No Antibiotics given: No Discussed with DrJohnny: Chente Counseled pt/family regarding: lab results, diagnosis, need for follow-up, rad results <MINNIE RODRIGUES - Last Filed: 12/11/20 12:06> - Progress Progress Note: 12/11/20 08:42 CAT scan of the chest with contrast shows no pulmonary emboli. There is moderate patchy groundglass opacities scattered throughout both lungs especially in the upper lobes. Medical decision making: This patient presents with shortness of breath. Her room air oxygen saturation levels are running 89 to 90 to 93%. After treatments she still states that she is a little short of breath but improved. The CAT scan of the chest with contrast shows patchy groundglass opacities scattered throughout the lungs. My plan for her is to contact our hospitalist and place her in observation. We will obtain a rapid Covid test to determine if her condition and radiographic findings might be related to COVID-19 infection. I will contact Dr. Nazario and discuss with him further. He is the hospitalist on- call. 12/11/20 09:[address] Nazario. I reviewed the patient history, condition, radiographic and laboratory results. He agrees with placing the patient in observation. Will wait for the rapid Covid test result to determine which floor the patient is placed on 2. (MINNIE RODRIGUES) <LEONARDA LANGSTON - Last Filed: 12/11/20 06:39> - Departure Departure Disposition: Observation Critical Care Time: No <MINNIE RODRIGUES - Last Filed: 12/11/20 12:06> - Departure Clinical Impression: Bilateral pulmonary infiltrates on chest x-ray, Shortness of breath, Hypoxia Condition: Stable Referrals: SHAW MORALES [Primary Care Provider] -
[2020-12-11 06:39] LABS: INFLUENZA A NEGATIVE (NEGATIVE); INFLUENZA B NEGATIVE (NEGATIVE)
[2020-12-11 06:40] LABS: ALBUMIN 4.4 g/dL (3.5-5.0); ANION GAP 11.6 MEQ/L (5-15); BILIRUBIN,TOTAL 0.3 mg/dL (0.2-1.3); Calcium 9.6 mg/dL (8.4-10.2); Creatinine 1 1.13 mg/dL (0.52-1.04); EST GLOMERULAR FILTRATION RATE 51.7 ML/MIN; MAGNESIUM 1.9 mg/dL (1.6-2.3); Potassium 3.8 mmol/L (3.5-5.1); Total Protein 7.7 g/dL (6.3-8.2)
--- NOTE | 2020-12-11 08:40 | XRAY ---
Indication: Short of breath. Comparison: August 04, 2019. Portable chest remains clear. Heart and mediastinal structures within normal limits. Bony thorax intact again with left-sided shunt tubing. Impression: Continued nonacute chest with chronic features.
--- NOTE | 2020-12-11 08:48 | XRAY ---
Indication: Short of breath. Elevated d-dimer. CHF and COPD. Multiple contiguous images obtained through the chest using 80 cc Isovue 370 contrast and PE protocol. Comparison: March 22, 2020. There is satisfactory opacification of the pulmonary arteries to include the lobar and segmental branches. No pulmonary embolus. Heart is not enlarged. Aorta remains minimally arteriosclerotic without aneurysm/dissection. No pathologic mediastinal/hilar lymphadenopathy. Lungs demonstrates new subtle patchy groundglass airspace opacities bilaterally without consolidation/effusion. Elsewhere stable scattered fibrosis/scarring and right lower lobe bullae. Bony thorax intact again with mild degenerative changes throughout the spine and left ventriculoperitoneal shunt tubing. Limited upper abdomen again demonstrates mild fatty liver, small left renal cyst, and cholecystectomy clips. Impression: 1. Continued negative pulmonary embolus. 2. New diffuse bilateral patchy groundglass airspace disease. 3. Again chronic findings including right lower lobe bullae, fatty liver, left renal cyst, and chronic bony findings. Comment: Preliminary interpretation was made by [facility]. No critical discrepancy.
[2020-12-11 10:58] LABS: INFLUENZA A NEGATIVE (NEGATIVE); INFLUENZA B NEGATIVE (NEGATIVE); RESPIRATORY SYNCTIAL VIRUS NEGATIVE (Negative)
[2020-12-11 11:25] LABS: Appearance CLEAR (CLEAR); Bilirubin NEGATIVE (NEGATIVE); Blood NEGATIVE Ery/ul (0-5); Epithelial Cells RARE /HPF (FEW); Glucose NEGATIVE (NEGATIVE); Ketones TRACE (NEGATIVE); Leukocyte Esterase NEGATIVE (NEGATIVE); Mucus SLIGHT /HPF (NEGATIVE); Nitrite NEGATIVE (NEGATIVE); Protein,Urine Dip NEGATIVE (Negative); RBC 0-2 /HPF (0-2); Specific Gravity >1.060 (1.005-1.025); Urobilinogen NEGATIVE mg/dL (0-1); WBC 0-2 /HPF (0-5)
[2020-12-11 11:28] LABS: Bacteria NONE SEEN /HPF (NEGATIVE)
[2020-12-11] MEDS ORDERED: Zofran 4 MG/2 ML VIAL IV PRN (12:30)
[2020-12-11] MEDS ORDERED: Levofloxacin 500MG/100ML D5W 500 MG/100 ML BAG IV STA (12:30)
[2020-12-11] MEDS ORDERED: TYLENOL 325 MG PO PRN (12:30)
[2020-12-11] MEDS: DUONEB 0.5-3 MG/3 ml Neb IH SCH ×3 (14:18→23:16)
[2020-12-11] MEDS: solu-MEDROL 125 MG IV SCH ×2 (14:47→21:18)
[2020-12-11] MEDS ORDERED: MEDICATION INTERVENTION MC SCH (15:15)
[2020-12-11] MEDS: Klor Con 10 MEQ PO SCH ×2 (15:29→21:22)
[2020-12-11] MEDS: ECOTRIN 81 MG PO SCH (15:29)
[2020-12-11] MEDS: LYRICA 75 MG CAP PO SCH (15:30)
[2020-12-11] MEDS: Acidophilus TABLET PO SCH (15:30)
[2020-12-11] MEDS: Effexor XR 75 MG PO SCH (15:30)
[2020-12-11] MEDS: TENORMIN 50 MG PO SCH ×2 (15:31→21:19)
[2020-12-11] MEDS: Lasix 40 MG PO SCH (15:32)
[2020-12-11] MEDS: ZYLOPRIM 100 MG PO SCH (15:32)
[2020-12-11] MEDS: ENOXAPARIN SODIUM SQ SCH (15:39)
[2020-12-11] MEDS: ZOCOR 20MG PO SCH (21:18)
[2020-12-11] MEDS: Catapres 0.1 MG PO SCH (21:19)
[2020-12-11] MEDS: Calcium 500MG W/Vit D Tablet PO SCH (21:19)
[2020-12-11] MEDS ORDERED: NON-FORMULARY ITEM (Calcium Carbonate [Calcium] 600 MG) PO SCH (22:00)
[2020-12-11] MEDS ORDERED: NON-FORMULARY ITEM (Aripiprazole [Abilify] 2 MG) PO SCH (22:00)
[2020-12-11] MEDS ORDERED: NON-FORMULARY ITEM (Atenolol [Atenolol] 25 MG) PO SCH (22:00)
[2020-12-11] MEDS ORDERED: NON-FORMULARY ITEM (Rosuvastatin Calcium [Crestor] 20 MG) PO SCH (22:00)
[2020-12-12] MEDS: DUONEB 0.5-3 MG/3 ml Neb IH SCH ×5 (03:19→23:34)
[2020-12-12] MEDS: Sodium Chloride 0.9% 1000 ML 1,000 ML IV SCH ×2 (03:23→20:11)
[2020-12-12] MEDS ORDERED: Lasix 40 MG/4 ML IV ONE ×2 (03:36→23:49)
[2020-12-12] MEDS: solu-MEDROL 125 MG IV SCH ×4 (05:56→23:35)
[2020-12-12 06:43] LABS: Absolute Neutrophil Ct (ANC) 13.71 (1.4-6.9); Basophil (Absolute #) 0 (0-0.4); Eosinophil (Absolute #) 0 (0-0.5); Hematocrit 39.3 % (35-47); Hemoglobin 13.1 gm/dl (12.0-16.0); Lymphocyte (Absolute #) 0.43 (1.0-4.6); Lymphocytes % 2.9 % (24.0-44.0); Mean Cell Volume 94.5 fl (78-100); Mean Corpuscular Hemoglobin 31.5 pg (26-32); Mean Corpuscular Hgb Concent. 33.3 g/dl (32-36); Monocytes % 4.1 % (0.0-12.0); Platelet Count 206 K/mm3 (150-450); Red Blood Count 4.16 M/mm3 (4.1-5.4); Red Cell Distribution Width 13.4 % (11.5-14.0); White Blood Count 14.7 K/mm3 (4.0-10.5)
[2020-12-12 06:58] LABS: ALBUMIN 4.1 g/dL (3.5-5.0); ANION GAP 13.9 MEQ/L (5-15); BILIRUBIN,TOTAL 0.1 mg/dL (0.2-1.3); Calcium 9.9 mg/dL (8.4-10.2); Creatinine 1 1.12 mg/dL (0.52-1.04); EST GLOMERULAR FILTRATION RATE 52.2 ML/MIN; Potassium 3.6 mmol/L (3.5-5.1); Total Protein 7.2 g/dL (6.3-8.2)
[2020-12-12] MEDS ORDERED: Lyrica 25 MG PO SCH (10:00)
[2020-12-12] MEDS ORDERED: NON-FORMULARY ITEM (Multivitamin [Multivitamins] 1 EACH) PO SCH (10:00)
[2020-12-12] MEDS ORDERED: NON-FORMULARY ITEM (Aspirin [Aspirin] 81 MG) PO SCH (10:00)
[2020-12-12] MEDS ORDERED: LACTOBACILLUS ACIDOPHILUS PO SCH (10:00)
[2020-12-12] MEDS: Effexor XR 75 MG PO SCH (10:58)
[2020-12-12] MEDS: Klor Con 10 MEQ PO SCH ×2 (10:59→21:34)
[2020-12-12] MEDS: Acidophilus TABLET PO SCH (10:59)
[2020-12-12] MEDS: Lasix 40 MG PO SCH (10:59)
[2020-12-12] MEDS: THERAGRAN MULTIVITAMIN PO SCH (10:59)
[2020-12-12] MEDS: TENORMIN 50 MG PO SCH ×2 (10:59→21:32)
[2020-12-12] MEDS: ECOTRIN 81 MG PO SCH (11:00)
[2020-12-12] MEDS: LYRICA 75 MG CAP PO SCH (11:00)
[2020-12-12] MEDS: ZYLOPRIM 100 MG PO SCH (11:01)
[2020-12-12 11:35] LABS: Slide Review 1 YES
[2020-12-12] MEDS: PROVENTIL 2.5 MG/3 ML NEB IH PRN (11:36)
[2020-12-12] MEDS: LEVOFLOXACIN 750MG/150ML D5W 750 MG/150 ML BAG IV SCH (12:37)
[2020-12-12] MEDS: ENOXAPARIN SODIUM SQ SCH (16:18)
[2020-12-12] MEDS: Calcium 500MG W/Vit D Tablet PO SCH (21:32)
[2020-12-12] MEDS: ZOCOR 20MG PO SCH (21:32)
[2020-12-12] MEDS: PATIENT OWN MEDICATION PO SCH (21:34)
[2020-12-12] MEDS: Catapres 0.1 MG PO SCH (21:34)
[2020-12-13] MEDS: DUONEB 0.5-3 MG/3 ml Neb IH SCH ×4 (04:48→19:13)
[2020-12-13] MEDS: solu-MEDROL 125 MG IV SCH ×3 (05:05→18:27)
[2020-12-13 05:41] LABS: Hematocrit 39.5 % (35-47); Hemoglobin 13.1 gm/dl (12.0-16.0); Mean Cell Volume 94.7 fl (78-100); Mean Corpuscular Hemoglobin 31.4 pg (26-32); Mean Corpuscular Hgb Concent. 33.2 g/dl (32-36); Mean Platelet Volume 11.5 fl (7.5-11.0); Platelet Count 216 K/mm3 (150-450); Red Blood Count 4.17 M/mm3 (4.1-5.4); Red Cell Distribution Width 13.6 % (11.5-14.0); White Blood Count 23.3 K/mm3 (4.0-10.5)
[2020-12-13 05:57] LABS: ANION GAP 14.4 MEQ/L (5-15); Creatinine 1 1.2 mg/dL (0.52-1.04); EST GLOMERULAR FILTRATION RATE 48.2 ML/MIN; Potassium 3.8 mmol/L (3.5-5.1)
--- NOTE | 2020-12-13 09:02 | XRAY ---
Indication: COPD. Comparison: December 11, 2020. Portable chest unchanged again hyperinflated and clear with left shunt tubing. Heart not enlarged. No new/acute abnormalities.
[2020-12-13] MEDS: TENORMIN 50 MG PO SCH ×2 (09:51→21:12)
[2020-12-13] MEDS: THERAGRAN MULTIVITAMIN PO SCH (09:52)
[2020-12-13] MEDS: ZYLOPRIM 100 MG PO SCH (09:52)
[2020-12-13] MEDS: LYRICA 75 MG CAP PO SCH (09:52)
[2020-12-13] MEDS: Lasix 40 MG PO SCH (09:53)
[2020-12-13] MEDS: Klor Con 10 MEQ PO SCH ×2 (09:53→21:12)
[2020-12-13] MEDS: ECOTRIN 81 MG PO SCH (09:53)
[2020-12-13] MEDS: Effexor XR 75 MG PO SCH (09:53)
[2020-12-13] MEDS: Acidophilus TABLET PO SCH (09:53)
[2020-12-13] MEDS: LEVOFLOXACIN 750MG/150ML D5W 750 MG/150 ML BAG IV SCH (14:28)
[2020-12-13] MEDS: ENOXAPARIN SODIUM SQ SCH (14:31)
[2020-12-13] MEDS: Mucinex 600MG ER Tabs PO SCH (21:11)
[2020-12-13] MEDS: ZOCOR 20MG PO SCH (21:11)
[2020-12-13] MEDS: Calcium 500MG W/Vit D Tablet PO SCH (21:12)
[2020-12-13] MEDS: PATIENT OWN MEDICATION PO SCH (21:13)
[2020-12-13] MEDS: Catapres 0.1 MG PO SCH (21:13)
[2020-12-14] MEDS: solu-MEDROL 125 MG IV SCH ×2 (00:01→05:58)
[2020-12-14] MEDS: DUONEB 0.5-3 MG/3 ml Neb IH SCH ×3 (00:44→13:17)
[2020-12-14] MEDS: PROVENTIL 2.5 MG/3 ML NEB IH PRN ×2 (03:44→11:04)
[2020-12-14] MEDS: Effexor XR 75 MG PO SCH (09:06)
[2020-12-14] MEDS: Mucinex 600MG ER Tabs PO SCH (09:06)
[2020-12-14] MEDS: Lasix 40 MG PO SCH (09:06)
[2020-12-14] MEDS: ECOTRIN 81 MG PO SCH (09:06)
[2020-12-14] MEDS: Acidophilus TABLET PO SCH (09:06)
[2020-12-14] MEDS: THERAGRAN MULTIVITAMIN PO SCH (09:06)
[2020-12-14] MEDS: Klor Con 10 MEQ PO SCH (09:06)
[2020-12-14] MEDS: LYRICA 75 MG CAP PO SCH (09:06)
[2020-12-14] MEDS: ZYLOPRIM 100 MG PO SCH (09:06)
[2020-12-14] MEDS: TENORMIN 50 MG PO SCH (09:10)
[2020-12-14] MEDS ORDERED: DELTASONE 20 MG PO SCH (10:00)
[2020-12-14] MEDS: LEVOFLOXACIN 750MG/150ML D5W 750 MG/150 ML BAG IV SCH (13:37)
[2020-12-14] MEDS: ENOXAPARIN SODIUM SQ SCH (15:11)
[2020-12-14 16:12] VITALS: BP 129/71; PULSE 76; O2SAT 96
== END 2020-12-14 16:20 | disposition home or self-care (01) | DRG 192 ==
LOC: ED 05:47 → MED SURG 12:24 → OBSVTOIN 12-12 10:30
PROVIDERS: ADMIT Family Medicine; ATTEND Family Medicine
DX: J44.1 Chronic obstructive pulmonary disease with (acute) exacerbation (principal); I10 Essential (primary) hypertension; E78.00 Pure hypercholesterolemia, unspecified; F17.200 Nicotine dependence, unspecified, uncomplicated; Z79.899 Other long term (current) drug therapy; Z20.828 Contact with and (suspected) exposure to other viral communicable diseases
CPT/HCPCS: 0241U; 36000; 36415; 71045; 71046; 71260; 80048; 80053; 81001; 83605; 83735; 83880; 84484; 85025; 85027; 85379; 85610; 87400; 93005; 93041; 94640; 94667; 94668; 94760; 96374; 99285; G0378; J1940; J1956; J2930; J7609; A9270-GY

== ENCOUNTER 2022-12-29 06:00 | Day surgery (SDC) | payer MEDICARE ==
[2022-12-29] MEDS ORDERED: DUONEB 0.5-3 MG/3 ml Neb IH ONE ×2 (07:04→07:08)
[2022-12-29] MEDS ORDERED: Lactated Ringers 1,000 ML IV ONE (07:08)
[2022-12-29] MEDS ORDERED: Lactated Ringers 1,000 ML IV SCH (07:30)
[2022-12-29] MEDS ORDERED: DIPRIVAN 200 MG/20 ML IV ONE (07:54)
[2022-12-29] MEDS ORDERED: Xylocaine-Mpf 2% 5 Ml Vial ONE (07:54)
[2022-12-29] MEDS ORDERED: Ephedrine Sulfate 50 MG/ML ONE (08:17)
[2022-12-29 09:05] VITALS: BP 110/67; PULSE 74; O2SAT 92
--- NOTE | 2022-12-29 09:05 | OP ---
SURGERY DATE/TIME: 12/29/2022 0811 PREOPERATIVE DIAGNOSIS: History of colon polyps and partial sigmoid colectomy for diverticulosis. POSTOPERATIVE DIAGNOSIS: Small polyp in the transverse colon and normal exam otherwise status post partial sigmoid colectomy. PROCEDURE: Colonoscopy with cold forceps biopsy. SURGEON: Dr. Willett. ANESTHESIA: MAC. Medications given by anesthesia department. HISTORY: The patient is a 67-year-old white female who presents now for repeat colonoscopy. She reports she had polyps removed previously. She also reports history of sigmoid colectomy for diverticulosis. The patient was felt the need to have re-evaluation due to history of polyps. She otherwise understands the procedure and decided to have the procedure performed. The patient was appraised of the risks of the procedure including the risk of perforation, phlebitis, untoward reaction to medication, bleeding and missed lesions. DESCRIPTION OF PROCEDURE: The patient was given the medications by the anesthesia department. She had continuous pulse oximetry, ECG monitoring and intermittent blood pressure monitoring during the examination. She was placed in the left lateral decubitus position. A digital rectal examination was performed and revealed normal anal sphincter tone and no masses. The flexible Olympus pediatric colonoscope was used to intubate the rectum. A view of the colon was developed sequentially to the cecum. Upon insertion and withdrawal, there was one small polyp in the transverse colon which was biopsied and destroyed using passage of cold forceps. There was also noted scattered diverticula in the area of anastomosis where it was evaluated and found to be normal in the low sigmoid colon area. The scope was removed from the patient who tolerated the procedure well and sent back to OP recovery in good condition. The prep was noted to be fair to good.
== END 2022-12-29 09:08 | disposition home or self-care (01) ==
LOC: SDC 06:00
PROVIDERS: ATTEND Family Medicine
DX: Z09 Encounter for follow-up examination after completed treatment for conditions other than malignant neoplasm (principal); Z90.49 Acquired absence of other specified parts of digestive tract; K57.30 Diverticulosis of large intestine without perforation or abscess without bleeding; D12.3 Benign neoplasm of transverse colon
CPT/HCPCS: 93005; 94640; J2704; A9270-GY

== ENCOUNTER 2023-05-27 07:30 | Inpatient (IN) | payer MEDICARE ==
--- NOTE | 2023-05-27 07:52 | ERPHSYRPT ---
- History of Present Illness Time Seen by Provider: 05/27/23 07:52 Source: patient, EMS Exam Limitations: no limitations Patient Subjective Stated Complaint: C/O SOB that started yesterday morning up waking up that has progessively become worse. Patient states she has a pr oductive cough at home; yellow sputum. Triage Nursing Assessment: Patient arrived by ambulance. 02 sats on 02 @ 2L per N/C 92%, oxygen increased to 3L per N/C and 02 sats increased to 95%. She is alert and oriented. SOB noted. Cough is moist and non-productive during assessm ent. Lungs sound coarse with inspiration and rhonchi noted with expiration; RT called to assess patient. No dependent edema noted; patient reports history of CHF. MONICA ADAN. Physician History: The patient presents with a recent exacerbation of shortness of breath, which began on Sunday morning after spending time outdoors and being exposed to coughing grandchildren. The patient describes feeling "raunchy" upon waking up on Sunday and has experienced increasing shortness of breath since then. The patient denies any swelling in her legs and reports no fever or chills, but does mention having a cough that produces a small amount of yellow phlegm. The patient has a history of COPD and has been using albuterol at least twice a day, which is more frequent than their usual usage. They have been monitoring their oxygen levels at home, which have been running at 88-89, lower than their typical low 90s range. The patient uses supplemental oxygen at night due to drop ping oxygen levels during sleep. She does still smoke cigarettes. No CP reported today. Timing/Duration: yesterday Activities at Onset: rest Severity of Dyspnea-Max: moderate Severity of Dyspnea-Current: moderate Possible Cause: illness exposure Modifying Factors: Improves With: albuterol inhaler, coughing, oxygen. Worsens With: activity, exertion Associated Symptoms: constant, cough, wheezing, productive cough, No chest pain/discomfort, No edema, No fever, No ankle swelling, No chills, No hemoptysis, No heart racing, No leg swelling Allergies/Adverse Reactions: codeine Allergy (Mild, Verified 05/27/23 07:35) Nausea ceftriaxone [From Rocephin] Adverse Reaction (Intermediate, Verified 05/27/23 07:35) states it made her go out of her head vancomycin Adverse Reaction (Unknown, Verified 05/27/23 07:35) confusion Home Medications: Aspirin 81 mg PO DAILY 03/19/14 [History] Pregabalin [Lyrica] 75 mg PO DAILY 03/19/14 [History] Clonidine HCl 0.1 mg [Clonidine 0.1 mg Tablet] 0.1 mg PO QHS 02/04/16 [History] Allopurinol 100 mg [Zyloprim 100 mg] 100 mg PO DAILY 08/04/19 [History] Calcium Carbonate [Calcium] 600 mg PO QHS 08/04/19 [History] Multivitamin [Multivitamins] 1 each PO DAILY 08/04/19 [History] Rosuvastatin Calcium [Crestor] 20 mg PO QHS 03/22/20 [History] Potassium Chloride [Klor-Con 10] 10 meq PO BID 12/11/20 [History] Venlafaxine HCl ER 75 mg [Effexor XR 75 MG] 150 mg PO DAILY 12/11/20 [History] ARIPiprazole [Abilify] 5 mg PO QHS 12/12/20 [History] Buspirone HCl 5 mg [Buspar 5 mg] 15 mg PO BID 12/28/22 [History] Famotidine 20 mg [Pepcid 20 MG] 40 mg PO HS 12/28/22 [History] Losartan Potassium [Cozaar] 25 mg PO DAILY 12/28/22 [History] Albuterol 8 gm Mdi Hfa [Ventolin Hfa MDI] 1 puff PO Q4HPRN PRN 05/27/23 [History] Fluticasone/Umeclidin/Vilanter [Trelegy Ellipta 100-62.5-25] 1 puff PO DAILY [History] Metoprolol Succinate 100 mg [Toprol Xl 100 MG] 1 tab PO HS 05/27/23 [History] Varenicline Tartrate [Chantix] 1 tab PO BID 05/27/23 [History] Hx Tetanus, Diphtheria Vaccination/Date Given: Yes Hx Influenza Vaccination/Date Given: Yes Hx Pneumococcal Vaccination/Date Given: Yes Immunizations Up to Date: Yes Travel Risk - International Travel Have you traveled outside of the country in past 3 weeks: No - Coronavirus Screening Are you exhibiting any of the following symptoms?: Yes Symptoms: Cough: New Onset, Shortness of Breath - Vaccine Status Have you recieved a Covid-19 vaccination: Yes [employer]: Moderna - Vaccination Dates Date of 2cond Vaccination (if applicable): 11/16/20 - Review of Systems All Other Systems: Reviewed and Negative (Per HPI) - Past Medical History Pertinent Past Medical History: Yes Neurological History: Stroke ENT History: Cataracts Cardiac History: High Cholesterol, Hypertension Respiratory History: CHF, COPD Endocrine Medical History: No Pertinent History Musculoskeletal History: Osteoarthritis GI Medical History: Diverticulitis, Diverticulosis, Gallbladder Disease, Other History: No Pertinent History Psycho-Social History: Depression Female Reproductive Disorders: No Pertinent History Other Medical History: BRAIN ANEURYSM 2009, STM LOSS. - Past Surgical History Past Surgical History: Yes Neuro Surgical History: Brain Shunt Cardiac: No Pertinent History Respiratory: No Pertinent History Gastrointestinal: Bowel Surgery, Cholecystectomy Genitourinary: No Pertinent History Musculoskeletal: No Pertinent History Female Surgical History: Hysterectomy Other Surgical History: ileostomy and ileostomy reversal - Social History Smoking Status: Current every day smoker How long have you smoked: 40 years Exposure to second hand smoke: Yes Drug Use: none Patient Lives Alone: No - Nursing Vital Signs Nursing Vital Signs: Initial Vital Signs Temperature 98.4 F 05/27/23 07:31 Pulse Rate 86 05/27/23 07:31 Respiratory Rate 29 H 05/27/23 07:31 Blood Pressure 176/88 05/27/23 07:31 O2 Sat by Pulse Oximetry 92 L 05/27/23 07:31 Pain Scale Pain Intensity 0 - Physical Exam General Appearance: mild distress Eye Exam: eyes nml inspection Ears, Nose, Throat Exam: hearing grossly normal, normal ENT inspection, nasal congestion Neck Exam: normal inspection, supple, full range of motion Respiratory Exam: airway intact, rhonchi, wheezing, No respiratory distress Cardiovascular/Chest Exam: normal heart sounds, regular rate/rhythm, No murmur, No edema Extremity Exam: normal inspection, normal capillary refill, no pedal edema, No swelling Neurologic Exam: alert, oriented x 3, cooperative Skin Exam: normal color, warm, dry SpO2 Interpretation: borderline oxygenation SpO2: 95 O2 Delivery: Nasal Cannula (3L) - Course Nursing assessment & vital signs reviewed: Yes EKG Interpreted by Me: RATE (83), Sinus Rhythm, NORMAL INTERVALS, NORMAL ST-T - Radiology Exams Chest X-ray Interpretation: Interpreted by me, No Pneumonia, No Pneumothorax, No Infiltrates, Other (HORSE TRAINER shunt noted) Ordered Tests: Medication Summary Generic Name Dose Route Start Last Admin Trade Name Freq PRN Reason Stop Dose Admin Acetaminophen 325 mg 05/27/23 13:20 Acetaminophen 325 Mg Tablet PO 06/26/23 13:19 Q4H PRN PRN PAIN, FEVER, HEADACHE Albuterol Sulfate 2.5 mg 05/27/23 12:54 05/28/23 08:45 Albuterol Sulfate 2.5 Mg/3 Ml Neb 06/26/23 12:53 2.5 mg Q4H PRN PRN Administration SHORTNESS OF BREATH/WHEEZING Albuterol/Ipratropium 3 ml 05/27/23 15:00 05/28/23 18:48 Ipratropium/Albuterol Sulfate 3 Ml Ampul.Neb 06/26/23 14:59 3 ml Q4HRT ESTELA Administration Allopurinol 100 mg 05/28/23 10:00 05/28/23 08:42 Allopurinol 100 Mg Tablet PO 06/27/23 09:59 100 mg DAILY ESTELA Administration Aripiprazole 5 mg 05/27/23 22:00 05/27/23 21:42 Aripiprazole 10 Mg Tablet PO 06/26/23 21:59 5 mg QHS ESTELA Administration Aspirin 81 mg 05/28/23 10:00 05/28/23 08:41 Aspirin 81 Mg Tablet.Ec PO 06/27/23 09:59 81 mg DAILY ESTELA Administration Budesonide 0.5 mg 05/29/23 07:00 05/28/23 18:49 Budesonide 0.5 Mg/2 Ml Ampul.Neb. 06/28/23 06:59 0.5 mg BIDRT ESTELA Administration Buspirone HCl 15 mg 05/27/23 22:00 05/28/23 08:41 Buspirone Hcl 5 Mg Tablet PO 06/26/23 21:59 15 mg BID ESTELA Administration Calcium Carbonate/Glycine 750 mg 05/27/23 22:00 05/27/23 21:43 Calcium Carbonate 750 Mg 750 Mg Tab.Chew PO 06/26/23 21:59 750 mg QHS ESTELA Administration Clonidine 0.1 mg 05/27/23 22:00 05/27/23 21:42 Clonidine Hcl 0.1 Mg Tablet PO 06/26/23 21:59 0.1 mg QHS ESTELA Administration Methylprednisolone Sodium 0 mg 05/28/23 18:00 05/28/23 17:47 Succinate 60 mg/ Sterile Water IV 06/27/23 17:59 60 mg 2 ml Q6HT ESTELA Administration Enoxaparin Sodium 80 mg 05/28/23 14:00 05/28/23 15:19 Enoxaparin Sodium 80 Mg/0.8 Ml Syringe SQ 06/27/23 13:59 80 mg DAILY ESTELA Administration Famotidine 40 mg 05/27/23 22:00 05/27/23 21:41 Famotidine 20 Mg Tablet PO 06/26/23 21:59 40 mg HS ESTELA Administration Furosemide 40 mg 05/28/23 10:00 05/28/23 08:41 Furosemide 40 Mg Tablet PO 06/27/23 09:59 40 mg DAILY ESTELA Administration Guaifenesin 1,200 mg 05/28/23 10:00 05/28/23 10:20 Guaifenesin 600 Mg Tablet Er PO 06/27/23 09:59 1,200 mg BID ESTELA Administration Levofloxacin/Dextrose 750 mg in 150 mls @ 100 mls/hr 05/28/23 10:00 05/28/23 08:38 Levofloxacin 750mg/150ml D5w IV 06/27/23 09:59 100 mls/hr Q48H ESTELA Administration Aminophylline 500 mg/ Sodium 500 mls @ 30 mls/hr 05/28/23 18:00 05/28/23 17:47 Chloride IV 06/27/23 17:59 30 mls/hr .[id number] ESTELA 30 mls/hr Administration Lorazepam 0.5 mg 05/28/23 09:47 05/28/23 10:20 Lorazepam 0.5 Mg Tablet PO 06/27/23 09:46 0.5 mg BID PRN PRN Administration ANXIETY Losartan Potassium 25 mg 05/28/23 10:00 05/28/23 08:43 Losartan Potassium 50 Mg Tablet PO 06/27/23 09:59 25 mg DAILY ESTELA Administration Metoprolol Succinate 100 mg 05/27/23 22:00 05/27/23 21:41 Metoprolol Succinate 100 Mg Tablet.Sa PO 06/26/23 21:59 100 mg HS ESTELA Administration Miscellaneous Information 1 each 05/27/23 14:30 Medication Intervention 1 Each Each 06/26/23 14:29 .RN TO CHECK ESTELA Multivitamins Therapeutic 1 tab 05/28/23 10:00 05/28/23 08:42 Multivitamins,Therapeutic 1 Tab Tab PO 06/27/23 09:59 1 tab DAILY ESTELA Administration Nicotine 21 mg 05/28/23 10:00 05/28/23 10:20 Nicotine 21 Mg/Patch Patch TOP 06/27/23 09:59 21 mg Q24H ESTELA Administration Ondansetron HCl 4 mg 05/27/23 13:22 Ondansetron Hcl 4 Mg/2 Ml Vial IV 06/26/23 13:21 Q6H PRN PRN NAUSEA/VOMITING Potassium Chloride 10 meq 05/27/23 22:00 05/28/23 08:41 Potassium Chloride Tab 10 Meq Tab PO 06/26/23 21:59 10 meq BID ESTELA Administration Pregabalin 75 mg 05/28/23 10:00 05/28/23 08:40 Pregabalin 75 Mg Capsule PO 06/27/23 09:59 75 mg DAILY ESTELA Administration Simvastatin 40 mg 05/27/23 22:00 05/27/23 21:42 Simvastatin 20 Mg Tablet PO 06/26/23 21:59 40 mg QHS ESTELA Administration Venlafaxine HCl 150 mg 05/28/23 10:00 05/28/23 08:40 Venlafaxine Hcl 75 Mg Extended Release Capsule PO 06/27/23 09:59 150 mg DAILY ESTELA Administration Discontinued Medications Generic Name Dose Route Start Last Admin Trade Name Freq PRN Reason Stop Dose Admin Acetylcysteine 600 mg 05/28/23 13:00 05/28/23 15:58 Acetylcysteine 200 Mg/Ml 30 Ml Vial 06/27/23 12:59 Not Given TIDRT [facility] Acetylcysteine 600 mg 05/28/23 19:00 Acetylcysteine 200 Mg/Ml 30 Ml Vial 06/27/23 18:59 BIDRT ESTELA Albuterol Sulfate 10 mg 05/28/23 10:42 05/28/23 11:25 Albuterol Sulfate 2.5 Mg/3 Ml Neb 05/28/23 10:43 10 mg STAT ONE Administration Albuterol Sulfate Confirm 05/28/23 11:20 Albuterol Sulfate 2.5 Mg/3 Ml Neb Administered 05/28/23 11:21 Dose 10 mg IH .STK-MED ONE Albuterol/Ipratropium 3 ml 05/27/23 07:57 05/27/23 08:02 Ipratropium/Albuterol Sulfate 3 Ml Ampul.Neb IH 05/27/23 07:58 3 ml STAT ONE Administration Albuterol/Ipratropium Confirm 05/27/23 08:01 Ipratropium/Albuterol Sulfate 3 Ml Ampul.Neb Administered 05/27/23 08:02 Dose 3 ml IH .STK-MED ONE Albuterol/Ipratropium 3 ml 05/27/23 10:05 05/27/23 10:14 Ipratropium/Albuterol Sulfate 3 Ml Ampul.Neb IH 05/27/23 10:06 3 ml STAT ONE Administration Albuterol/Ipratropium Confirm 05/27/23 10:12 Ipratropium/Albuterol Sulfate 3 Ml Ampul.Neb Administered 05/27/23 10:13 Dose 3 ml IH .STK-MED ONE Albuterol/Ipratropium Confirm 05/27/23 12:48 Ipratropium/Albuterol Sulfate 3 Ml Ampul.Neb Administered 05/27/23 12:49 Dose 3 ml IH .STK-MED ONE Budesonide 1.5 mg 05/28/23 13:00 05/28/23 11:29 Budesonide 0.5 Mg/2 Ml Ampul.Neb. IH 06/27/23 12:59 1.5 mg Q6HRT ESTELA Administration Budesonide Confirm 05/28/23 18:36 Budesonide 0.5 Mg/2 Ml Ampul.Neb. Administered 05/28/23 18:37 Dose 0.5 mg IH .STK-MED ONE Methylprednisolone Sodium 0 mg 05/27/23 07:57 05/27/23 08:15 Succinate 125 mg/ Sterile IV 05/27/23 07:58 125 mg Water 2 ml STAT ONE Administration Methylprednisolone Sodium 0 mg 05/27/23 12:00 05/28/23 11:53 Succinate 60 mg/ Sterile Water IV 06/26/23 11:59 60 mg 2 ml Q6HT ESTELA Administration Methylprednisolone Sodium 0 mg 10/23/23 22:00 Succinate 40 mg/ Sterile Water IV 06/27/23 21:59 1 ml Q12HT ESTELA Guaifenesin 600 mg 05/28/23 01:38 05/28/23 01:45 Guaifenesin 600 Mg Tablet Er PO 06/27/23 09:59 600 mg BID PRN Administration COUGH Guaifenesin 600 mg 05/28/23 06:46 Guaifenesin 600 Mg Tablet Er PO 06/27/23 06:45 BID PRN PRN COUGH Sodium Chloride 1,000 mls @ 999 mls/hr 05/27/23 07:57 05/27/23 10:04 Sodium Chloride 0.9% 1000 Ml IV 05/27/23 08:57 Infused .Q1H1M STA Infusion Sodium Chloride Confirm 05/27/23 08:13 Sodium Chloride 0.9% 1000 Ml Administered 05/27/23 08:14 Dose 1,000 mls @ ud .ROUTE .STK-MED ONE Azithromycin 500 mg in 250 mls @ 250 mls/hr 05/27/23 11:19 05/27/23 11:22 Zithromax 500 Mg/ 250 Ml Nacl Premix IV 05/27/23 12:18 250 mls/hr STAT ONE Administration Azithromycin Confirm 05/27/23 11:21 Zithromax 500 Mg/ 250 Ml Nacl Premix Administered 05/27/23 11:22 Dose 500 mg in 250 mls @ ud IV .STK-MED ONE Azithromycin / Sodium Chloride 250 mls @ 250 mls/hr 05/28/23 10:00 IV 06/27/23 09:59 Q24H10 ESTELA Azithromycin 500 mg in 250 mls @ 250 mls/hr 05/28/23 10:00 Zithromax 500 Mg/ 250 Ml Nacl Premix IV 06/27/23 09:59 DAILY ESTELA Azithromycin 500 mg in 250 mls @ 250 mls/hr 05/28/23 10:00 Zithromax 500 Mg/ 250 Ml Nacl Premix IV 05/30/23 09:59 Q24H10 ESTELA Methylprednisolone Sodium Succinate Confirm 05/27/23 08:13 Methylprednis Sod Succ 125 Mg/2 Ml Vial Administered 05/27/23 08:14 Dose 125 mg .ROUTE .STK-MED ONE Sterile Water Confirm 10/22/23 08:13 Water For Injection,Sterile 10 Ml Vial Administered 05/27/23 08:14 Dose 10 ml IJ .[employer]-MED ONE Lab/Rad Data: Laboratory Result Diagrams 05/27/23 08:05 05/27/23 08:05 Laboratory Results 05/27/23 05/27/23 05/27/23 Range/Units 08:40 08:40 08:05 WBC (4.0-10.5) x10^3/uL RBC (4.1-5.4) x10^6/uL Hgb (12.0-16.0) g/dL Hct (35-47) % MCV (78-100) fL MCH (26-32) pg MCHC (32-36) g/dL RDW (11.5-14.0) % Plt Count (150-450) x10^3/uL MPV (7.5-11.0) fL Gran % (36.0-66.0) % Immature Gran % (Auto) (0.00-0.4) % Nucleat RBC Rel Count (0.00-0.1) % Eos # (Auto) (0-0.5) x10^3/uL Immature Gran # (Auto) (0.00-0.03) x10^3u/L Absolute Lymphs (auto) (1.0-4.6) x10^3/uL Absolute Monos (auto) (0.0-1.3) x10^3/uL Absolute Nucleated RBC (0.00-0.01) x10^3u/L Lymphocytes % (24.0-44.0) % Monocytes % (0.0-12.0) % Eosinophils % (0.00-5.0) % Basophils % (0.0-0.4) % Absolute Granulocytes (1.4-6.9) x10^3/uL Basophils # (0-0.4) x10^3/uL D-Dimer (0.0-0.50) mg/L pO2/FiO2 Ratio 32.0 % VBG pH 7.39 (7.32-7.42) VBG pCO2 at Pat Temp 48 (42-55) mm/Hg VBG pO2 at Pat Temp 46 H (25-40) mm/Hg VBG HCO3 29.1 H* (22-28) meq/L VBG O2 Sat (Anabell) 81.1 L (95-100) VBG Base Excess 3.2 H (-2.0-2.0) VBG Hemoglobin 13.8 VBG Carboxyhemoglobin 6.3 (0.0-6.9) % T HGB POC Potassium 4.3 (3.5-5.1) Sodium (137-145) mmol/L Potassium (3.5-5.1) mmol/L Chloride (98-107) mmol/L Carbon Dioxide (22-30) mmol/L Anion Gap (5-15) MEQ/L BUN (7-17) mg/dL Creatinine (0.52-1.04) mg/dL Estimated GFR ML/MIN Glucose (74-106) mg/dL Lactic Acid 1.6 (0.4-2.0) Calcium (8.4-10.2) mg/dL Magnesium (1.6-2.3) mg/dL Total Bilirubin (0.2-1.3) mg/dL AST (14-36) U/L ALT (0-35) U/L Alkaline Phosphatase (38-126) U/L Troponin I (0.000-0.034) ng/mL NT-Pro-B Natriuret Pep (<300) pg/mL Serum Total Protein (6.3-8.2) g/dL Albumin (3.5-5.0) g/dL Influenza Type A Ag NEGATIVE (NEGATIVE) Influenza Type B Ag NEGATIVE (NEGATIVE) RSV (PCR) NEGATIVE (NEGATIVE) SARS-CoV-2 (PCR) NEGATIVE (NEGATIVE) 05/27/23 05/27/23 05/27/23 Range/Units 08:05 08:05 08:05 WBC (4.0-10.5) x10^3/uL RBC (4.1-5.4) x10^6/uL Hgb (12.0-16.0) g/dL Hct (35-47) % MCV (78-100) fL MCH (26-32) pg MCHC (32-36) g/dL RDW (11.5-14.0) % Plt Count (150-450) x10^3/uL MPV (7.5-11.0) fL Gran % (36.0-66.0) % Immature Gran % (Auto) (0.00-0.4) % Nucleat RBC Rel Count (0.00-0.1) % Eos # (Auto) (0-0.5) x10^3/uL Immature Gran # (Auto) (0.00-0.03) x10^3u/L Absolute Lymphs (auto) (1.0-4.6) x10^3/uL Absolute Monos (auto) (0.0-1.3) x10^3/uL Absolute Nucleated RBC (0.00-0.01) x10^3u/L Lymphocytes % (24.0-44.0) % Monocytes % (0.0-12.0) % Eosinophils % (0.00-5.0) % Basophils % (0.0-0.4) % Absolute Granulocytes (1.4-6.9) x10^3/uL Basophils # (0-0.4) x10^3/uL D-Dimer 0.90 H* (0.0-0.50) mg/L pO2/FiO2 Ratio % VBG pH (7.32-7.42) VBG pCO2 at Pat Temp (42-55) mm/Hg VBG pO2 at Pat Temp (25-40) mm/Hg VBG HCO3 (22-28) meq/L VBG O2 Sat (Anabell) (95-100) VBG Base Excess (-2.0-2.0) VBG Hemoglobin VBG Carboxyhemoglobin (0.0-6.9) % T HGB POC Potassium (3.5-5.1) Sodium (137-145) mmol/L Potassium (3.5-5.1) mmol/L Chloride (98-107) mmol/L Carbon Dioxide (22-30) mmol/L Anion Gap (5-15) MEQ/L BUN (7-17) mg/dL Creatinine (0.52-1.04) mg/dL Estimated GFR ML/MIN Glucose (74-106) mg/dL Lactic Acid (0.4-2.0) Calcium (8.4-10.2) mg/dL Magnesium (1.6-2.3) mg/dL Total Bilirubin (0.2-1.3) mg/dL AST (14-36) U/L ALT (0-35) U/L Alkaline Phosphatase (38-126) U/L Troponin I < 0.012 (0.000-0.034) ng/mL NT-Pro-B Natriuret Pep 460 (<300) pg/mL Serum Total Protein (6.3-8.2) g/dL Albumin (3.5-5.0) g/dL Influenza Type A Ag (NEGATIVE) Influenza Type B Ag (NEGATIVE) RSV (PCR) (NEGATIVE) SARS-CoV-2 (PCR) (NEGATIVE) 05/27/23 05/27/23 Range/Units 08:05 08:05 WBC 10.7 H (4.0-10.5) x10^3/uL RBC 4.22 (4.1-5.4) x10^6/uL Hgb 13.2 (12.0-16.0) g/dL Hct 39.5 (35-47) % MCV 93.6 (78-100) fL MCH 31.3 (26-32) pg MCHC 33.4 (32-36) g/dL RDW 12.8 (11.5-14.0) % Plt Count 229 (150-450) x10^3/uL MPV 10.4 (7.5-11.0) fL Gran % 80.1 H (36.0-66.0) % Immature Gran % (Auto) 0.5 H (0.00-0.4) % Nucleat RBC Rel Count 0.0 (0.00-0.1) % Eos # (Auto) 0.05 (0-0.5) x10^3/uL Immature Gran # (Auto) 0.05 H (0.00-0.03) x10^3u/L Absolute Lymphs (auto) 1.09 (1.0-4.6) x10^3/uL Absolute Monos (auto) 0.88 (0.0-1.3) x10^3/uL Absolute Nucleated RBC 0.00 (0.00-0.01) x10^3u/L Lymphocytes % 10.2 L (24.0-44.0) % Monocytes % 8.3 (0.0-12.0) % Eosinophils % 0.5 (0.00-5.0) % Basophils % 0.4 (0.0-0.4) % Absolute Granulocytes 8.54 H (1.4-6.9) x10^3/uL Basophils # 0.04 (0-0.4) x10^3/uL D-Dimer (0.0-0.50) mg/L pO2/FiO2 Ratio % VBG pH (7.32-7.42) VBG pCO2 at Pat Temp (42-55) mm/Hg VBG pO2 at Pat Temp (25-40) mm/Hg VBG HCO3 (22-28) meq/L VBG O2 Sat (Anabell) (95-100) VBG Base Excess (-2.0-2.0) VBG Hemoglobin VBG Carboxyhemoglobin (0.0-6.9) % T HGB POC Potassium (3.5-5.1) Sodium 137 (137-145) mmol/L Potassium 4.2 (3.5-5.1) mmol/L Chloride 103 (98-107) mmol/L Carbon Dioxide 25 (22-30) mmol/L Anion Gap 12.9 (5-15) MEQ/L BUN 19 H (7-17) mg/dL Creatinine 0.86 (0.52-1.04) mg/dL Estimated GFR > 60.0 ML/MIN Glucose 104 (74-106) mg/dL Lactic Acid (0.4-2.0) Calcium 9.6 (8.4-10.2) mg/dL Magnesium 1.9 (1.6-2.3) mg/dL Total Bilirubin 0.40 (0.2-1.3) mg/dL AST 34 (14-36) U/L ALT 26 (0-35) U/L Alkaline Phosphatase 112 (38-126) U/L Troponin I (0.000-0.034) ng/mL NT-Pro-B Natriuret Pep (<300) pg/mL Serum Total Protein 7.3 (6.3-8.2) g/dL Albumin 4.3 (3.5-5.0) g/dL Influenza Type A Ag (NEGATIVE) Influenza Type B Ag (NEGATIVE) RSV (PCR) (NEGATIVE) SARS-CoV-2 (PCR) (NEGATIVE) - Progress Progress: improved Air Movement: good Progress Note: -Vitals notable for tachypnea, borderline hypoxia, improved with 3L NC to 95- 97%. Will attempt to wean with goal of 89-92% due to her longstanding COPD. -Overall sick but non-toxic with coarse breath sounds and wheezes bilaterally. Mild respiratory distress. Clinical picture is consistent with COPD, especially with known history. Other diagnoses such as PE, PNA, ACS, CHF, allergic reaction seem less likely. -Starting on nebs and steroids with basic workup and will re-assess. CBC, CMP unremarkable. Mg wnl. Troponin neg x 1, BNP 460. VBG pH 7.39, pCO2 48, pO2 46, HCO3 29.1 D-dimer 0.90, CTA chest ordered w/ PE protocol COVID, Flu, RSV neg CXR unremarkable After multiple nebs, the patients respiratory status has not improved to the point I feel comfortable sending them home. They still have labored respirations and wheezes. I think scheduled nebs and steroids in the hospital are necessary. I still think other more malignant processes are possible but seem unlikely. Labs and imaging were without major abnormality. Still overall stable on NC. Continuing supplemental O2, nebs, fluids. I have discussed the case with the hospitalist and they agree with plan for admission. Patient accepted for admission by Dr. Martinez at 1115. Blood Culture(s) Obtained: Yes Antibiotics given: Yes Discussed with Dr.: Other (Justin Martinez) Will see patient in: hospital (observation) Counseled pt/family regarding: lab results, diagnosis, rad results Medical Desision Making - Discussion of managment Care discussed with:: hospitalist Reviewed:: Test results Agreed on:: Treatment plan, place in obs Will see patient: in hospital - Diagnostic Testing Diagnostic test were ordered, analyzed, and reviewed by me: Yes Radiological Interpretation: Interpreted by me - Risk of complications The pt has a mod risk of morbidity or mortality based on: Need for prescription drug management The pt has a high risk of morbidity or mortality based on: Decision regarding hospitilization or escalation of hosp level of care - Departure Departure Disposition: Observation Clinical Impression: COPD exacerbation, Atypical pneumonia, Acute hypoxemic respiratory failure, Shortness of breath Condition: Stable Critical Care Time: No
[2023-05-27] MEDS ORDERED: DUONEB 0.5-3 MG/3 ml Neb IH ONE ×5 (07:57→12:48)
[2023-05-27] MEDS ORDERED: Sodium Chloride 0.9% 1000 ML 1,000 ML IV STA (07:57)
[2023-05-27] MEDS ORDERED: solu-MEDROL 125 MG, Sterile H2O 10 ml 2 ML IV ONE ×2 (07:57)
[2023-05-27 08:10] LABS: Absolute Neutrophil Ct (ANC) 8.54 x10^3/uL (1.4-6.9); BASOPHIL % 0.4 % (0.0-0.4); Basophil (Absolute #) 0.04 x10^3/uL (0-0.4); Eosinophil % 0.5 % (0.00-5.0); Eosinophil (Absolute #) 0.05 x10^3/uL (0-0.5); Hematocrit 39.5 % (35-47); Hemoglobin 13.2 g/dL (12.0-16.0); IMMATURE GRAN # 0.05 x10^3u/L (0.00-0.03); IMMATURE GRAN % 0.5 % (0.00-0.4); Lymphocyte (Absolute #) 1.09 x10^3/uL (1.0-4.6); Lymphocytes % 10.2 % (24.0-44.0); Mean Cell Volume 93.6 fL (78-100); Mean Corpuscular Hemoglobin 31.3 pg (26-32); Mean Corpuscular Hgb Concent. 33.4 g/dL (32-36); Mean Platelet Volume 10.4 fL (7.5-11.0); Monocyte (Absolute #) 0.88 x10^3/uL (0.0-1.3); Monocytes % 8.3 % (0.0-12.0); Neutrophil % 80.1 % (36.0-66.0); Platelet Count 229 x10^3/uL (150-450); Red Blood Count 4.22 x10^6/uL (4.1-5.4); Red Cell Distribution Width 12.8 % (11.5-14.0); White Blood Count 10.7 x10^3/uL (4.0-10.5)
[2023-05-27] MEDS ORDERED: solu-MEDROL ONE (08:13)
[2023-05-27] MEDS ORDERED: Sodium Chloride 0.9% 1000 ML 1,000 ML ONE (08:13)
[2023-05-27] MEDS ORDERED: Sterile H2O 10 ml IJ ONE (08:13)
[2023-05-27 08:25] LABS: ALBUMIN 4.3 g/dL (3.5-5.0); ALKALINE PHOSPHATASE 112 U/L (38-126); ANION GAP 12.9 MEQ/L (5-15); BLOOD UREA NITROGEN 19 mg/dL (7-17); CHLORIDE 103 mmol/L (98-107); Calcium 9.6 mg/dL (8.4-10.2); Carbon Dioxide 25 mmol/L (22-30); Creatinine 1 0.86 mg/dL (0.52-1.04); EST GLOMERULAR FILTRATION RATE > 60.0 ML/MIN; Glucose 104 mg/dL (74-106); MAGNESIUM 1.9 mg/dL (1.6-2.3); Potassium 4.2 mmol/L (3.5-5.1); SGOT/AST 34 U/L (14-36); SGPT/ALT 26 U/L (0-35); SODIUM 137 mmol/L (137-145); Total Protein 7.3 g/dL (6.3-8.2)
[2023-05-27 08:46] LABS: INFLUENZA A NEGATIVE (NEGATIVE); INFLUENZA B NEGATIVE (NEGATIVE); RESPIRATORY SYNCTIAL VIRUS NEGATIVE (NEGATIVE); SARS-CoV-2 Xpert Express NEGATIVE (NEGATIVE)
[2023-05-27 08:47] LABS: VBG BASE EXCESS 3.2 (-2.0-2.0); VBG CARBOXYHEMOGLOBIN 6.3 % T HGB (0.0-6.9); VBG HCO3- 29.1 meq/L (22-28); VBG HEMOGLOBIN 13.8; VBG O2 SATURATION 81.1 (95-100); VBG POTASSIUM 4.3 (3.5-5.1); VBG pH 7.39 (7.32-7.42)
--- NOTE | 2023-05-27 08:51 | XRAY ---
Indication: Short of breath. Comparison: March 01, 2022 Portable chest remains clear of infiltrate, consolidation, and large effusion. Heart and mediastinal structures within normal limits. Bony thorax intact again with osteopenia, mild degenerative changes, and left shunt catheter. Impression: Continued nonacute chest with chronic features.
--- NOTE | 2023-05-27 10:59 | XRAY ---
CLINICAL HISTORY:Dyspnea COMPARISON:None. TECHNIQUE:CT chest with IV contrast was performed and the images were obtained in axial sections with coronal and sagittal reconstructions. FINDINGS: Lines/devices: A subcutaneous tissue catheter is seen traversing over the thorax and entering the peritoneum, likely [employer] shunt catheter. Central airway: Patent. Lungs: A thin-walled cyst is seen in superior segment right lower lobe (3/28). Patchy ground-glass attenuation within interlobular septal thickening is noted in both lungs, mainly in bilateral upper, right middle and left lower lobes. No lung nodules/mass or consolidation seen. Pleura: No pleural effusion. No pneumothorax. No enlarged axillary, supraclavicular or mediastinal lymph nodes. No obvious thyroid nodules in the visualized gland. Unremarkable esophagus. No mediastinal mass or pneumomediastinum. Heart and vessels: No pericardial effusion. No thoracic aortic aneurysm. Mild coronary artery calcifications. The no obvious filling defect in the central pulmonary arterial tree on this non-dedicated study. Soft tissue: Unremarkable. Bones: Degenerative changes in the thoracic spine. No significant bone lesion. Upper abdomen: Visualized liver and spleen show no obvious focal lesion. IMPRESSION: 1. Patchy ground-glass attenuation with thickened interlobular septa in both lungs with resultant mosaic attenuation. Differentials include pneumonia (viral pneumonia like COVID-19/atypical pulmonary infections). 2. Right lower lobe pneumatocele. Electronically Signed by: Rolo Ramírez MD. (05/27/2023 09:57:27 [employer])
[2023-05-27] MEDS ORDERED: Zithromax 500 MG/ 250 ML NaCl Premix 500 MG/250 ML IVPB IV ONE ×2 (11:19→11:21)
--- NOTE | 2023-05-27 12:45 | PCM.HP ---
History of Present Illness - Chief Complaint Chief Complaint: Exac COPD, Atypical PNE, Acute Hypoxic Resp Failure Date: 05/27/23 History of Present Illness: is a 68 year old female with a pmhx of stroke, HLD, HTN, CHF, COPD (baseline oxygen HS), OA, Diverticulosis, depression, and brain aneurysm in 2008 ([employer] shunt) who presents 05/27/23 via ambulance with complaints of increased shortness of breath with oxygen desaturation at home with spo2 88-89% on RA, baseline around 95-97% on RA. [place] grandchildren who were coughing with congestion. She woke up Sunday with head and chest congestion, increased shortness of breath, and a productive cough with yellow sputum. She does have home oxygen for which she uses 2L at night. She also has a home nebulizer which she does not use routinely but did use three times yesterday. She has recently been trying to quit smoking with Chantix, she has completed three weeks and is on the 1mg dose. She does not want to continue this med while in the hospital. Denies fever, cp, abdominal pain, LARES, dizziness, N/V/D. In ED patient was afebrile, tachpneic, hypertensive, borderline hypoxia with spo2 @ 92% on 2L of oxygen. CT Chest showing Patchy ground-glass attenuation with thickened interlobular septa in both lungs with resultant mosaic attenuation. Differentials include pneumonia (viral pneumonia like COVID- 19/atypical pulmonary infections). Right lower lobe pneumatocele. Lab findings remarkable for WBC at 10.7 and DDimer at 0.90. Bun is slightly elevated at 19. Respiratory viral panel is negative. Patient was given Azithromycn, Solu-medrol, IVF bolus, and DuoNebs. PCP: Aravind Cardiology: Fabienne - Review of Systems Constitutional: Fatigue, Weakness Eyes: No Symptoms Ears, Nose, & Throat: Nose Congestion, Sinus Drainage Respiratory: Cough, Short Of Breath, Wheezing Abdominal/Gastrointestinal: No Symptoms Genitourinary Symptoms: No Symptoms Musculoskeletal: No Symptoms Skin: No Symptoms Neurological: No Symptoms Psychological: No Symptoms Endocrine: No Symptoms Hematologic/Lymphatic: No Symptoms Immunological/Allergic: No Symptoms Medications & Allergies Home Medications: Home Medication List Aspirin 81 mg PO DAILY 03/19/14 [History Confirmed 05/27/23] Pregabalin [Lyrica] 75 mg PO DAILY 03/19/14 [History Confirmed 05/27/23] Clonidine HCl 0.1 mg [Clonidine 0.1 mg Tablet] 0.1 mg PO QHS 02/04/16 [History Confirmed 05/27/23] Allopurinol 100 mg [Zyloprim 100 mg] 100 mg PO DAILY 08/04/19 [History Confirmed 05/27/23] Calcium Carbonate [Calcium] 600 mg PO QHS 08/04/19 [History Confirmed 05/27/23] Multivitamin [Multivitamins] 1 each PO DAILY 08/04/19 [History Confirmed 05/27/23] Rosuvastatin Calcium [Crestor] 20 mg PO QHS 03/22/20 [History Confirmed 05/27/23] Furosemide 40 mg [Lasix 40 MG] 40 mg PO DAILY 14 Days #14 tablet 03/23/20 [Rx Confirmed 05/27/23] Potassium Chloride [Klor-Con 10] 10 meq PO BID 12/11/20 [History Confirmed 05/27/23] Venlafaxine HCl ER 75 mg [Effexor XR 75 MG] 150 mg PO DAILY 12/11/20 [History Confirmed 05/27/23] ARIPiprazole [Abilify] 5 mg PO QHS 12/12/20 [History Confirmed 05/27/23] Buspirone HCl 5 mg [Buspar 5 mg] 15 mg PO BID 12/28/22 [History Confirmed 05/27/23] Famotidine 20 mg [Pepcid 20 MG] 40 mg PO HS 12/28/22 [History Confirmed 05/27/23] Losartan Potassium [Cozaar] 25 mg PO DAILY 12/28/22 [History Confirmed 05/27/23] Albuterol 8 gm Mdi Hfa [Ventolin Hfa MDI] 1 puff PO Q4HPRN PRN 05/27/23 [History Confirmed 05/27/23] Fluticasone/Umeclidin/Vilanter [Trelegy Ellipta 100-62.5-25] 1 puff PO DAILY 05/27/23 [History Confirmed 05/27/23] Metoprolol Succinate 100 mg [Toprol Xl 100 MG] 1 tab PO HS 05/27/23 [History Confirmed 05/27/23] Varenicline Tartrate [Chantix] 1 tab PO BID 05/27/23 [History Confirmed 05/27/23] Allergies/Adverse Reactions: Allergies Allergy/AdvReac Type Severity Reaction Status Date / Time codeine Allergy Mild Nausea Verified 05/27/23 07:35 ceftriaxone [From Rocephin] AdvReac Intermediate Verified 05/27/23 07:35 vancomycin AdvReac Unknown Verified 05/27/23 07:35 - Past Medical History Past Medical History: Yes Neurological History: Stroke ENT History: Cataracts Cardiac History: High Cholesterol, Hypertension Respiratory History: CHF, COPD Endocrine Medical History: No Pertinent History Musculoskelatal History: Osteoarthritis GI Medical History: Diverticulitis, Diverticulosis, Gallbladder Disease, Other History: No Pertinent History Pyscho-Social History: Depression Reproductive Disorders: No Pertinent History Comment: BRAIN ANEURYSM 2009, STM LOSS. - Female History Are you now?: No - Past Surgical History Past Surgical History: Yes Neuro Surgical History: Brain Shunt Cardiac History: No Pertinent History Respiratory Surgery: No Pertinent History GI Surgical History: Bowel Surgery, Cholecystectomy Genitourinary Surgical Hx: No Pertinent History Musculskeletal Surgical Hx: No Pertinent History Female Surgical History: Hysterectomy Other Surgical History: ileostomy and ileostomy reversal - Social History Smoking Status: Current every day smoker How long have you smoked: 40 years Exposure to second hand smoke: Yes Alcohol: None Drug Use: none - Physical Exam Vital Signs: Vital Signs - 24 hr Temp Pulse Resp BP BP Pulse Ox 05/27/23 11:54 98.4 F 89 18 176/88 95 05/27/23 11:24 95 05/27/23 11:00 89 31 H 185/116 94 L 05/27/23 10:30 94 H 29 H 145/82 92 L 05/27/23 10:16 85 30 H 93 L 05/27/23 10:03 89 36 H 146/86 91 L 05/27/23 09:43 84 27 H 115/44 91 L 05/27/23 09:42 79 35 H 95 05/27/23 09:40 79 38 H 97 05/27/23 09:38 82 38 H 96 05/27/23 08:30 84 30 H 144/83 95 05/27/23 08:05 85 40 H 95 05/27/23 08:01 84 38 H 143/73 96 05/27/23 07:57 95 05/27/23 07:35 81 41 H 176/88 95 05/27/23 07:31 98.4 F 86 29 H 176/88 92 L General Appearance: no apparent distress Neurologic Exam: alert, oriented x 3, cooperative Eye Exam: PERRL/EOMI Ears, Nose, Throat Exam: moist mucous membranes Neck Exam: normal inspection Respiratory Exam: accessory muscle use, crackles/rales, wheezing Cardiovascular Exam: regular rate/rhythm, normal heart sounds Gastrointestinal/Abdomen Exam: soft, normal bowel sounds Pelvic Exam: not done Rectal Exam: deferred Back Exam: normal inspection Extremity Exam: normal inspection Skin Exam: pale Results - Labs Lab/Micro Results: Lab Results-Last 24 Hours 05/27/23 05/27/23 05/27/23 Range/Units 08:05 08:05 08:05 WBC 10.7 H (4.0-10.5) x10^3/uL RBC 4.22 (4.1-5.4) x10^6/uL Hgb 13.2 (12.0-16.0) g/dL Hct 39.5 (35-47) % MCV 93.6 (78-100) fL MCH 31.3 (26-32) pg MCHC 33.4 (32-36) g/dL RDW 12.8 (11.5-14.0) % Plt Count 229 (150-450) x10^3/uL MPV 10.4 (7.5-11.0) fL Gran % 80.1 H (36.0-66.0) % Immature Gran % (Auto) 0.5 H (0.00-0.4) % Nucleat RBC Rel Count 0.0 (0.00-0.1) % Eos # (Auto) 0.05 (0-0.5) x10^3/uL Immature Gran # (Auto) 0.05 H (0.00-0.03) x10^3u/L Absolute Lymphs (auto) 1.09 (1.0-4.6) x10^3/uL Absolute Monos (auto) 0.88 (0.0-1.3) x10^3/uL Absolute Nucleated RBC 0.00 (0.00-0.01) x10^3u/L Lymphocytes % 10.2 L (24.0-44.0) % Monocytes % 8.3 (0.0-12.0) % Eosinophils % 0.5 (0.00-5.0) % Basophils % 0.4 (0.0-0.4) % Absolute Granulocytes 8.54 H (1.4-6.9) x10^3/uL Basophils # 0.04 (0-0.4) x10^3/uL D-Dimer 0.90 H* (0.0-0.50) mg/L pO2/FiO2 Ratio % VBG pH (7.32-7.42) VBG pCO2 at Pat Temp (42-55) mm/Hg VBG pO2 at Pat Temp (25-40) mm/Hg VBG HCO3 (22-28) meq/L VBG O2 Sat (Anabell) (95-100) VBG Base Excess (-2.0-2.0) VBG Hemoglobin VBG Carboxyhemoglobin (0.0-6.9) % T HGB POC Potassium (3.5-5.1) Sodium 137 (137-145) mmol/L Potassium 4.2 (3.5-5.1) mmol/L Chloride 103 (98-107) mmol/L Carbon Dioxide 25 (22-30) mmol/L Anion Gap 12.9 (5-15) MEQ/L BUN 19 H (7-17) mg/dL Creatinine 0.86 (0.52-1.04) mg/dL Estimated GFR > 60.0 ML/MIN Glucose 104 (74-106) mg/dL Lactic Acid (0.4-2.0) Calcium 9.6 (8.4-10.2) mg/dL Magnesium 1.9 (1.6-2.3) mg/dL Total Bilirubin 0.40 (0.2-1.3) mg/dL AST 34 (14-36) U/L ALT 26 (0-35) U/L Alkaline Phosphatase 112 (38-126) U/L Troponin I (0.000-0.034) ng/mL NT-Pro-B Natriuret Pep (<300) pg/mL Serum Total Protein 7.3 (6.3-8.2) g/dL Albumin 4.3 (3.5-5.0) g/dL Influenza Type A Ag (NEGATIVE) Influenza Type B Ag (NEGATIVE) RSV (PCR) (NEGATIVE) SARS-CoV-2 (PCR) (NEGATIVE) 05/27/23 05/27/23 05/27/23 Range/Units 08:05 08:05 08:05 WBC (4.0-10.5) x10^3/uL RBC (4.1-5.4) x10^6/uL Hgb (12.0-16.0) g/dL Hct (35-47) % MCV (78-100) fL MCH (26-32) pg MCHC (32-36) g/dL RDW (11.5-14.0) % Plt Count (150-450) x10^3/uL MPV (7.5-11.0) fL Gran % (36.0-66.0) % Immature Gran % (Auto) (0.00-0.4) % Nucleat RBC Rel Count (0.00-0.1) % Eos # (Auto) (0-0.5) x10^3/uL Immature Gran # (Auto) (0.00-0.03) x10^3u/L Absolute Lymphs (auto) (1.0-4.6) x10^3/uL Absolute Monos (auto) (0.0-1.3) x10^3/uL Absolute Nucleated RBC (0.00-0.01) x10^3u/L Lymphocytes % (24.0-44.0) % Monocytes % (0.0-12.0) % Eosinophils % (0.00-5.0) % Basophils % (0.0-0.4) % Absolute Granulocytes (1.4-6.9) x10^3/uL Basophils # (0-0.4) x10^3/uL D-Dimer (0.0-0.50) mg/L pO2/FiO2 Ratio % VBG pH (7.32-7.42) VBG pCO2 at Pat Temp (42-55) mm/Hg VBG pO2 at Pat Temp (25-40) mm/Hg VBG HCO3 (22-28) meq/L VBG O2 Sat (Anabell) (95-100) VBG Base Excess (-2.0-2.0) VBG Hemoglobin VBG Carboxyhemoglobin (0.0-6.9) % T HGB POC Potassium (3.5-5.1) Sodium (137-145) mmol/L Potassium (3.5-5.1) mmol/L Chloride (98-107) mmol/L Carbon Dioxide (22-30) mmol/L Anion Gap (5-15) MEQ/L BUN (7-17) mg/dL Creatinine (0.52-1.04) mg/dL Estimated GFR ML/MIN Glucose (74-106) mg/dL Lactic Acid (0.4-2.0) Calcium (8.4-10.2) mg/dL Magnesium (1.6-2.3) mg/dL Total Bilirubin (0.2-1.3) mg/dL AST (14-36) U/L ALT (0-35) U/L Alkaline Phosphatase (38-126) U/L Troponin I < 0.012 (0.000-0.034) ng/mL NT-Pro-B Natriuret Pep 460 (<300) pg/mL Serum Total Protein (6.3-8.2) g/dL Albumin (3.5-5.0) g/dL Influenza Type A Ag NEGATIVE (NEGATIVE) Influenza Type B Ag NEGATIVE (NEGATIVE) RSV (PCR) NEGATIVE (NEGATIVE) SARS-CoV-2 (PCR) NEGATIVE (NEGATIVE) 05/27/23 05/27/23 05/27/23 Range/Units 08:40 08:40 11:59 WBC (4.0-10.5) x10^3/uL RBC (4.1-5.4) x10^6/uL Hgb (12.0-16.0) g/dL Hct (35-47) % MCV (78-100) fL MCH (26-32) pg MCHC (32-36) g/dL RDW (11.5-14.0) % Plt Count (150-450) x10^3/uL MPV (7.5-11.0) fL Gran % (36.0-66.0) % Immature Gran % (Auto) (0.00-0.4) % Nucleat RBC Rel Count (0.00-0.1) % Eos # (Auto) (0-0.5) x10^3/uL Immature Gran # (Auto) (0.00-0.03) x10^3u/L Absolute Lymphs (auto) (1.0-4.6) x10^3/uL Absolute Monos (auto) (0.0-1.3) x10^3/uL Absolute Nucleated RBC (0.00-0.01) x10^3u/L Lymphocytes % (24.0-44.0) % Monocytes % (0.0-12.0) % Eosinophils % (0.00-5.0) % Basophils % (0.0-0.4) % Absolute Granulocytes (1.4-6.9) x10^3/uL Basophils # (0-0.4) x10^3/uL D-Dimer (0.0-0.50) mg/L pO2/FiO2 Ratio 32.0 % VBG pH 7.39 (7.32-7.42) VBG pCO2 at Pat Temp 48 (42-55) mm/Hg VBG pO2 at Pat Temp 46 H (25-40) mm/Hg VBG HCO3 29.1 H* (22-28) meq/L VBG O2 Sat (Anabell) 81.1 L (95-100) VBG Base Excess 3.2 H (-2.0-2.0) VBG Hemoglobin 13.8 VBG Carboxyhemoglobin 6.3 (0.0-6.9) % T HGB POC Potassium 4.3 (3.5-5.1) Sodium (137-145) mmol/L Potassium (3.5-5.1) mmol/L Chloride (98-107) mmol/L Carbon Dioxide (22-30) mmol/L Anion Gap (5-15) MEQ/L BUN (7-17) mg/dL Creatinine (0.52-1.04) mg/dL Estimated GFR ML/MIN Glucose (74-106) mg/dL Lactic Acid 1.6 (0.4-2.0) Calcium (8.4-10.2) mg/dL Magnesium (1.6-2.3) mg/dL Total Bilirubin (0.2-1.3) mg/dL AST (14-36) U/L ALT (0-35) U/L Alkaline Phosphatase (38-126) U/L Troponin I 0.013 (0.000-0.034) ng/mL NT-Pro-B Natriuret Pep (<300) pg/mL Serum Total Protein (6.3-8.2) g/dL Albumin (3.5-5.0) g/dL Influenza Type A Ag (NEGATIVE) Influenza Type B Ag (NEGATIVE) RSV (PCR) (NEGATIVE) SARS-CoV-2 (PCR) (NEGATIVE) - Radiology Impressions Radiology Exams & Impressions: Radiology Procedures Category Date Time Status CHEST 1 VIEW (PORTABLE) Stat Exams 05/27/23 07:58 Completed CHEST WITH CONTRAST [CT] Stat Exams 05/27/23 08:53 Completed - Other Procedures and Tests Respiratory Therapy 05/27/23 11:42 Respiratory Therapy Consult ONCE 05/27/23 12:07 RT Screen per Nursing Assess ONCE Smoking Cessation Education ONCE Assessment/Plan (1) Atypical pneumonia Current Visit: Yes Status: Acute Assessment & Plan: - suggested by cough, sputum, wheezing, rales - CT chest as stated in HPI - Blood Cx, Sputum Cx with gram stain, urine antigen for strep pneumo and legionella - CURB-65 score - 2 (need for admission) - in the setting of chronic comorbidity (CHF, COPD) will start on Levofloxacin (patient has allergy to ceftriaxone) and Azithromycin - Consider ability to switch to oral therapy once afebrile for 48-72 hours and HR<100, RR<24, SBP <90, Art sat >90 or pO2>60 on room air, and normal mentation Code(s): J18.9 - PNEUMONIA, UNSPECIFIED ORGANISM (2) Acute hypoxemic respiratory failure Current Visit: Yes Status: Acute Assessment & Plan: -see COPD Code(s): J96.01 - ACUTE RESPIRATORY FAILURE WITH HYPOXIA (3) COPD exacerbation Current Visit: Yes Status: Acute Assessment & Plan: - Duonebs Q4 - Albuterol Q2 PRN - Solumedrol 40mg BID +/- Azithromycin (for anti-inflammatory properties) - Mucinex - Incentive Spirometry - Flutter therapy +/- Smoking Cessation discussion +/- Flu shot/Prevnar/ Pneumovax shot Code(s): J44.1 - CHRONIC OBSTRUCTIVE PULMONARY DISEASE W (ACUTE) EXACERBATION (4) HLD (hyperlipidemia) Current Visit: Yes Status: Acute Assessment & Plan: -continue home meds Code(s): E78.5 - HYPERLIPIDEMIA, UNSPECIFIED (5) Smoker Current Visit: Yes Status: Acute Assessment & Plan: -Advise smoking cesstion -Nicotine patch, does not wish to continue Chantix Code(s): F17.200 - NICOTINE DEPENDENCE, UNSPECIFIED, UNCOMPLICATED (6) Shortness of breath Current Visit: Yes Status: Acute Assessment & Plan: -see COPD Code(s): R06.02 - SHORTNESS OF BREATH (7) Congestive heart failure Current Visit: No Status: Acute Assessment & Plan: HFpEF vs HFrEF -NYHA Class 3 -Baseline Weight: 81.7kg -proBNP 460 -Will resume home meds lasix, does not appear in exacerbation -Monitor daily weight and document Strict I/Os -ECHO from 03/22/20 showing EF of 60-70% IMPRESSION: 1) NO REGIONAL WALL MOTION ABNORMALITY. ESTIMATED GLOBAL LEFT VENTRICULAR EJECTION FRACTION BETWEEN 60 AND 70%. 2) TRACE TRICUSPID REGURGITATION. RIGHT VENTRICULAR SYSTOLIC PRESSURE OF 17 MM OF MERCURY. 3) LEFT VENTRICULAR HYPERTROPHY. -consider obtaining new ECHO -Daily CMP to monitor renal function Code(s): I50.9 - HEART FAILURE, UNSPECIFIED (8) Essential hypertension Current Visit: No Status: Chronic Assessment & Plan: -stable, was hypertensive in ER, will resume home meds Code(s): I10 - ESSENTIAL (PRIMARY) HYPERTENSION
[2023-05-27] MEDS: DUONEB 0.5-3 MG/3 ml Neb IH SCH ×4 (12:56→22:01)
[2023-05-27] MEDS: solu-MEDROL 60 MG, Sterile H2O 10 ml 2 ML IV SCH ×6 (13:05→23:47)
[2023-05-27] MEDS ORDERED: TYLENOL 325 MG PO PRN (13:20)
[2023-05-27] MEDS ORDERED: Zofran 4 MG/2 ML VIAL IV PRN (13:22)
[2023-05-27] MEDS ORDERED: MEDICATION INTERVENTION MC SCH (14:30)
[2023-05-27] MEDS: Pepcid 20 MG PO SCH (21:41)
[2023-05-27] MEDS: Toprol Xl 100 MG PO SCH (21:41)
[2023-05-27] MEDS: Klor Con PO SCH (21:41)
[2023-05-27] MEDS: BUSPAR 5 MG PO SCH (21:42)
[2023-05-27] MEDS: ZOCOR 20MG PO SCH (21:42)
[2023-05-27] MEDS: CLONIDINE 0.1 MG TABLET PO SCH (21:42)
[2023-05-27] MEDS: Abilify 10 MG PO SCH (21:42)
[2023-05-27] MEDS: Tums EX 750 MG PO SCH (21:43)
[2023-05-27] MEDS ORDERED: NON-FORMULARY ITEM (Calcium Carbonate [Calcium] 600 MG Tablet) PO SCH (22:00)
[2023-05-27] MEDS ORDERED: NON-FORMULARY ITEM (Aripiprazole [Abilify] 5 MG Tablet) PO SCH (22:00)
[2023-05-27] MEDS ORDERED: NON-FORMULARY ITEM (Rosuvastatin Calcium [Crestor] 20 MG Tablet) PO SCH (22:00)
[2023-05-28] MEDS: PROVENTIL 2.5 MG/3 ML NEB IH PRN ×2 (01:08→08:45)
[2023-05-28] MEDS ORDERED: Mucinex 600MG ER Tabs PO PRN ×2 (01:38→06:46)
[2023-05-28] MEDS: DUONEB 0.5-3 MG/3 ml Neb IH SCH ×6 (03:35→22:10)
[2023-05-28 04:34] LABS: Absolute Neutrophil Ct (ANC) 18.24 x10^3/uL (1.4-6.9); BASOPHIL % 0.2 % (0.0-0.4); Basophil (Absolute #) 0.03 x10^3/uL (0-0.4); Eosinophil (Absolute #) 0 x10^3/uL (0-0.5); Hematocrit 37.6 % (35-47); Hemoglobin 12.8 g/dL (12.0-16.0); IMMATURE GRAN # 0.15 x10^3u/L (0.00-0.03); IMMATURE GRAN % 0.8 % (0.00-0.4); Lymphocyte (Absolute #) 0.49 x10^3/uL (1.0-4.6); Lymphocytes % 2.5 % (24.0-44.0); Mean Cell Volume 92.4 fL (78-100); Mean Corpuscular Hemoglobin 31.4 pg (26-32); Mean Platelet Volume 10.3 fL (7.5-11.0); Monocyte (Absolute #) 0.39 x10^3/uL (0.0-1.3); Neutrophil % 94.5 % (36.0-66.0); Platelet Count 243 x10^3/uL (150-450); Red Blood Count 4.07 x10^6/uL (4.1-5.4); Red Cell Distribution Width 13.2 % (11.5-14.0); White Blood Count 19.3 x10^3/uL (4.0-10.5)
[2023-05-28 05:20] LABS: ALBUMIN 4.3 g/dL (3.5-5.0); ALKALINE PHOSPHATASE 115 U/L (38-126); ANION GAP 14.5 MEQ/L (5-15); BLOOD UREA NITROGEN 13 mg/dL (7-17); CHLORIDE 105 mmol/L (98-107); Calcium 10.3 mg/dL (8.4-10.2); Carbon Dioxide 20 mmol/L (22-30); Creatinine 1 0.69 mg/dL (0.52-1.04); EST GLOMERULAR FILTRATION RATE > 60.0 ML/MIN; Glucose 170 mg/dL (74-106); Potassium 3.5 mmol/L (3.5-5.1); SGOT/AST 38 U/L (14-36); SODIUM 136 mmol/L (137-145); Total Protein 7.4 g/dL (6.3-8.2)
[2023-05-28] MEDS: solu-MEDROL 60 MG, Sterile H2O 10 ml 2 ML IV SCH ×8 (05:50→23:16)
[2023-05-28 06:04] LABS: SGPT/ALT 28 U/L (0-35)
[2023-05-28 07:13] LABS: Slide Review 1 YES
[2023-05-28] MEDS: LEVOFLOXACIN 750MG/150ML D5W 750 MG/150 ML BAG IV SCH (08:38)
[2023-05-28] MEDS: LYRICA 75 MG CAP PO SCH (08:40)
[2023-05-28] MEDS: Effexor XR 75 MG PO SCH (08:40)
[2023-05-28] MEDS: ECOTRIN 81 MG PO SCH (08:41)
[2023-05-28] MEDS: Klor Con PO SCH ×2 (08:41→21:08)
[2023-05-28] MEDS: BUSPAR 5 MG PO SCH ×2 (08:41→21:07)
[2023-05-28] MEDS: Lasix 40 MG PO SCH (08:41)
[2023-05-28] MEDS: ZYLOPRIM 100 MG PO SCH (08:42)
[2023-05-28] MEDS: THERAGRAN MULTIVITAMIN PO SCH (08:42)
[2023-05-28] MEDS: Cozaar 50 MG PO SCH (08:43)
[2023-05-28] MEDS ORDERED: NON-FORMULARY ITEM (Aspirin [Aspirin] 81 MG Tablet) PO SCH (10:00)
[2023-05-28] MEDS ORDERED: ZITHROMAX IV*** 0 MG in Sodium Chloride 0.9% 250 ML 250 ML IV SCH (10:00)
[2023-05-28] MEDS ORDERED: NON-FORMULARY ITEM (Multivitamin [Multivitamins] 1 EACH Capsule) PO SCH (10:00)
[2023-05-28] MEDS ORDERED: NON-FORMULARY ITEM (Losartan Potassium [Cozaar] 25 MG Tablet) PO SCH (10:00)
[2023-05-28] MEDS ORDERED: NON-FORMULARY ITEM (Fluticasone/Umeclidin/Vilanter [Trelegy Ellipta 100-62.5-25] 1 EACH Bl PO SCH (10:00)
[2023-05-28] MEDS ORDERED: Zithromax 500 MG/ 250 ML NaCl Premix 500 MG/250 ML IVPB IV SCH ×2 (10:00)
[2023-05-28] MEDS ORDERED: Lyrica 25 MG PO SCH (10:00)
[2023-05-28] MEDS: Mucinex 600MG ER Tabs PO SCH ×2 (10:20→21:08)
[2023-05-28] MEDS: Ativan 0.5 MG PO PRN ×2 (10:20→23:48)
[2023-05-28] MEDS: Nicoderm CQ 21 MG TOP SCH (10:20)
[2023-05-28] MEDS ORDERED: PROVENTIL 2.5 MG/3 ML NEB IH ONE ×2 (10:42→11:20)
[2023-05-28] MEDS ORDERED: PULMICORT 0.5 MG/2 ML RESPULES IH SCH (13:00)
[2023-05-28] MEDS ORDERED: Mucomyst 200 MG/ML IH SCH ×2 (13:00→19:00)
--- NOTE | 2023-05-28 13:03 | PCM.NOTE ---
Date and Time: 05/28/23 1257 Subjective Assessment: 05/27/23 is a 68 year old female with a pmhx of stroke, HLD, HTN, CHF, COPD (baseline oxygen HS), OA, Diverticulosis, depression, and brain aneurysm in 2008 ([employer] shunt) who presents 05/27/23 via ambulance with complaints of increased shortness of breath with oxygen desaturation at home with spo2 88-89% on RA, baseline around 95-97% on RA. She reports that over the weekend she visited covered [facility] and was with her grandchildren who were coughing with congestion. She woke up Sunday with head and chest congestion, increased shortness of breath, and a productive cough with yellow sputum. She does have home oxygen for which she uses 2L at night. She also has a home nebulizer which she does not use routinely but did use three times yesterday. She has recently been trying to quit smoking with Chantix, she has completed three weeks and is on the 1mg dose. She does not want to continue this med while in the hospital. Denies fever, cp, abdominal pain, LARES, dizziness, N/V/D. In ED patient was afebrile, tachpneic, hypertensive, borderline hypoxia with spo2 @ 92% on 2L of oxygen. CT Chest showing Patchy ground-glass attenuation with thickened interlobular septa in both lungs with resultant mosaic attenuation. Differentials include pneumonia (viral pneumonia like COVID- 19/atypical pulmonary infections). Right lower lobe pneumatocele. Lab findings remarkable for WBC at 10.7 and DDimer at 0.90. Bun is slightly elevated at 19. Respiratory viral panel is negative. Patient was given Azithromycn, Solu-medrol, IVF bolus, and DuoNebs. PCP: Aravind Cardiology: Fabienne 05/28/23 Pt resting in bed. Continues to be SOB with increased anxiety. Dr. Ervin consulted. Medications added and discussed with RT. She continues to require 4LNC. Baseline is 2LNC at bedtime. Continue Levaquin, steroids, breathing txs, anxiety medication. Pt requested nicotine patch. Mucinex increased. Denies CP, Ad. pain, N/V/D. - Review of Systems Constitutional: No Fever, No Chills Eyes: No Symptoms Ears, Nose, & Throat: No Symptoms Respiratory: Short Of Breath, No Cough Cardiac: No Chest Pain, No Edema, No Syncope Abdominal/Gastrointestinal: No Abdominal Pain, No Nausea, No Vomiting, No Diarrhea Genitourinary Symptoms: No Dysuria Musculoskeletal: No Back Pain, No Neck Pain Skin: No Rash Neurological: No Dizziness, No Focal Weakness, No Sensory Changes Psychological: No Symptoms, Anxiety Endocrine: No Symptoms Hematologic/Lymphatic: No Symptoms Immunological/Allergic: No Symptoms Objective Exam General Appearance: no apparent distress, moderate distress, alert, anxiety Neurologic Exam: alert, oriented x 3, cooperative, normal mood/affect, nml cerebellar function, sensation nml, No motor deficits Skin Exam: normal color, warm, dry Eye Exam: PERRL, EOMI, eyes nml inspection Ears, Nose, Throat Exam: normal ENT inspection, pharynx normal, moist mucous membranes Neck Exam: normal inspection, non-tender, supple, full range of motion Respiratory Exam: respiratory distress, crackles/rales (throughout) Cardiovascular Exam: regular rate/rhythm, normal heart sounds Gastrointestinal/Abdomen Exam: soft, No tenderness, No mass Extremity Exam: normal inspection, normal range of motion Back Exam: normal inspection, normal range of motion, No CVA tenderness, No vertebral tenderness Pelvic Exam: deferred Rectal Exam: deferred OBJECTIVE DATA Vital Signs: Vital Signs - 24 hr Temp Pulse Resp BP Pulse Ox 05/28/23 11:31 100 H 36 H 94 L 05/28/23 11:12 97.7 F 103 H 34 H 141/90 97 05/28/23 08:49 105 H 32 H 95 05/28/23 06:49 91 H 24 95 05/28/23 06:42 97.9 F 97 H 16 140/79 92 L 05/28/23 03:45 97.1 F 92 H 28 H 131/61 93 L 05/28/23 03:35 93 H 26 H 96 05/28/23 01:08 89 30 H 96 05/27/23 23:47 96.9 F 98 H 32 H 136/69 93 L 05/27/23 22:01 99 H 24 92 L 05/27/23 19:36 97.8 F 102 H 28 H 126/66 93 L 05/27/23 18:10 99 H 30 H 93 L 05/27/23 16:00 98.4 F 90 28 H 139/80 93 L 05/27/23 15:40 90 28 H 93 L 05/27/23 14:00 93 L Pain Assessment - Last Documented Pain Intensity 0 Intake and Output: Intake & Output 05/26/23 05/27/23 05/28/23 05/29/23 11:59 11:59 11:59 11:59 Intake Total 2019 Output Total 550 Balance 1470 Weight 81 kg Lab Results: Lab Results-Last 24 Hours 05/27/23 05/28/23 05/28/23 Range/Units 16:15 04:20 04:20 WBC 19.3 H (4.0-10.5) x10^3/uL RBC 4.07 L (4.1-5.4) x10^6/uL Hgb 12.8 (12.0-16.0) g/dL Hct 37.6 (35-47) % MCV 92.4 (78-100) fL MCH 31.4 (26-32) pg MCHC 34.0 (32-36) g/dL RDW 13.2 (11.5-14.0) % Plt Count 243 (150-450) x10^3/uL MPV 10.3 (7.5-11.0) fL Gran % 94.5 H (36.0-66.0) % Immature Gran % (Auto) 0.8 H (0.00-0.4) % Nucleat RBC Rel Count 0.0 (0.00-0.1) % Eos # (Auto) 0 (0-0.5) x10^3/uL Immature Gran # (Auto) 0.15 H (0.00-0.03) x10^3u/L Absolute Lymphs (auto) 0.49 L (1.0-4.6) x10^3/uL Absolute Monos (auto) 0.39 (0.0-1.3) x10^3/uL Absolute Nucleated RBC 0.00 (0.00-0.01) x10^3u/L Lymphocytes % 2.5 L (24.0-44.0) % Monocytes % 2.0 (0.0-12.0) % Eosinophils % 0.0 (0.00-5.0) % Basophils % 0.2 (0.0-0.4) % Absolute Granulocytes 18.24 H (1.4-6.9) x10^3/uL Basophils # 0.03 (0-0.4) x10^3/uL Sodium 136 L (137-145) mmol/L Potassium 3.5 (3.5-5.1) mmol/L Chloride 105 (98-107) mmol/L Carbon Dioxide 20 L (22-30) mmol/L Anion Gap 14.5 (5-15) MEQ/L BUN 13 (7-17) mg/dL Creatinine 0.69 (0.52-1.04) mg/dL Estimated GFR > 60.0 ML/MIN Glucose 170 H (74-106) mg/dL Calcium 10.3 H (8.4-10.2) mg/dL Total Bilirubin 0.30 (0.2-1.3) mg/dL AST 38 H (14-36) U/L ALT 28 (0-35) U/L Alkaline Phosphatase 115 (38-126) U/L Troponin I 0.013 (0.000-0.034) ng/mL Serum Total Protein 7.4 (6.3-8.2) g/dL Albumin 4.3 (3.5-5.0) g/dL Slides for Path Review YES Radiology Exams: Radiology Procedures Category Date Time Status CHEST 1 VIEW (PORTABLE) Stat Exams 05/27/23 07:58 Completed CHEST WITH CONTRAST [CT] Stat Exams 05/27/23 08:53 Completed Multi-Disciplinary Progress Notes: Multi-Disciplinary Progress Notes 05/28/23 12:53 Respiratory Note by Geraldine Sanchez I spoke with Dr. Ervin and he will be by to see this patient late afternoon when he finishes office hours here. Initialized on 05/28/23 12:53 - END OF NOTE Assessment/Plan (1) Atypical pneumonia Current Visit: Yes Status: Acute Assessment & Plan: - suggested by cough, sputum, wheezing, rales - CT chest as stated in HPI - Blood Cx, Sputum Cx with gram stain, urine antigen for strep pneumo and legionella - CURB-65 score - 2 (need for admission) - in the setting of chronic comorbidity (CHF, COPD) will start on Levofloxacin (patient has allergy to ceftriaxone) and Azithromycin - Chest XR 05/27: Impression: Continued nonacute chest with chronic features. -Chest CT 05/27 IMPRESSION: 1. Patchy ground-glass attenuation with thickened interlobular septa in both lungs with resultant mosaic attenuation. Differentials include pneumonia (viral pneumonia like COVID-19/atypical pulmonary infections). 2. Right lower lobe pneumatocele. Code(s): J18.9 - PNEUMONIA, UNSPECIFIED ORGANISM (2) Acute hypoxemic respiratory failure Current Visit: Yes Status: Acute Assessment & Plan: -see COPD Code(s): J96.01 - ACUTE RESPIRATORY FAILURE WITH HYPOXIA (3) COPD exacerbation Current Visit: Yes Status: Acute Assessment & Plan: - Duonebs Q4 - Albuterol Q2 PRN - Solumedrol 40mg BID - Mucinex- increased - Incentive Spirometry - Flutter therapy +/- Smoking Cessation discussion +/- Flu shot/Prevnar/ Pneumovax shot - Acetylcysteine - Budesonide - Pulmonology consult _ RT eval and treat Code(s): J44.1 - CHRONIC OBSTRUCTIVE PULMONARY DISEASE W (ACUTE) EXACERBATION (4) HLD (hyperlipidemia) Current Visit: Yes Status: Acute Assessment & Plan: - Continue statin Code(s): E78.5 - HYPERLIPIDEMIA, UNSPECIFIED (5) Shortness of breath Current Visit: Yes Status: Acute Assessment & Plan: - see COPD Code(s): R06.02 - SHORTNESS OF BREATH (6) Smoker Current Visit: Yes Status: Acute Assessment & Plan: - Nicotine patch - advised cessation Code(s): F17.200 - NICOTINE DEPENDENCE, UNSPECIFIED, UNCOMPLICATED (7) Congestive heart failure Current Visit: No Status: Acute Assessment & Plan: HFpEF vs HFrEF -NYHA Class 3 -Baseline Weight: 81.7kg -proBNP 460 -Will resume home meds lasix, does not appear in exacerbation -Monitor daily weight and document Strict I/Os -ECHO from 03/22/20 showing EF of 60-70% IMPRESSION: 1) NO REGIONAL WALL MOTION ABNORMALITY. ESTIMATED GLOBAL LEFT VENTRICULAR EJECTION FRACTION BETWEEN 60 AND 70%. 2) TRACE TRICUSPID REGURGITATION. RIGHT VENTRICULAR SYSTOLIC PRESSURE OF 17 MM OF MERCURY. 3) LEFT VENTRICULAR HYPERTROPHY. -consider obtaining new ECHO -Daily CMP to monitor renal function Code(s): I50.9 - HEART FAILURE, UNSPECIFIED (8) Essential hypertension Current Visit: No Status: Chronic Assessment & Plan: -stable,resume home meds VTE: lovenox D/C plan: 1-2 days Next of Kin: Spouse- Chuy Dejesus, Code status: Full Code(s): I10 - ESSENTIAL (PRIMARY) HYPERTENSION
[2023-05-28] MEDS: ENOXAPARIN SODIUM SQ SCH (15:19)
[2023-05-28] MEDS: Aminophylline 500 MG/20 ML*** 500 MG in Sodium Chloride 0.9% 500 ML 480 ML IV SCH (17:47)
[2023-05-28] MEDS ORDERED: solu-MEDROL 60 MG, Sterile H2O 10 ml 2 ML IV SCH ×2 (18:00)
[2023-05-28] MEDS ORDERED: PULMICORT 0.5 MG/2 ML RESPULES IH ONE (18:36)
[2023-05-28] MEDS: PULMICORT 0.5 MG/2 ML RESPULES IH SCH (18:49)
[2023-05-28] MEDS: ZOCOR 20MG PO SCH (21:07)
[2023-05-28] MEDS: Pepcid 20 MG PO SCH (21:08)
[2023-05-28] MEDS: CLONIDINE 0.1 MG TABLET PO SCH (21:08)
[2023-05-28] MEDS: Abilify 10 MG PO SCH (21:08)
[2023-05-28] MEDS: Tums EX 750 MG PO SCH (21:08)
[2023-05-28] MEDS: Toprol Xl 100 MG PO SCH (21:08)
[2023-05-28] MEDS ORDERED: solu-MEDROL 40 MG, Sterile H2O 10 ml 1 ML IV SCH ×2 (22:00)
[2023-05-29] MEDS: DUONEB 0.5-3 MG/3 ml Neb IH SCH ×6 (01:56→22:10)
[2023-05-29 05:03] LABS: Absolute Neutrophil Ct (ANC) 24.21 x10^3/uL (1.4-6.9); BASOPHIL % 0.2 % (0.0-0.4); Basophil (Absolute #) 0.04 x10^3/uL (0-0.4); Eosinophil (Absolute #) 0 x10^3/uL (0-0.5); Hematocrit 37.5 % (35-47); Hemoglobin 12.8 g/dL (12.0-16.0); IMMATURE GRAN # 0.29 x10^3u/L (0.00-0.03); IMMATURE GRAN % 1.1 % (0.00-0.4); Lymphocytes % 2.7 % (24.0-44.0); Mean Cell Volume 91.7 fL (78-100); Mean Corpuscular Hemoglobin 31.3 pg (26-32); Mean Corpuscular Hgb Concent. 34.1 g/dL (32-36); Mean Platelet Volume 10.3 fL (7.5-11.0); Monocyte (Absolute #) 0.88 x10^3/uL (0.0-1.3); Monocytes % 3.4 % (0.0-12.0); Neutrophil % 92.6 % (36.0-66.0); Platelet Count 274 x10^3/uL (150-450); Red Blood Count 4.09 x10^6/uL (4.1-5.4); Red Cell Distribution Width 13.3 % (11.5-14.0)
[2023-05-29 05:09] LABS: White Blood Count 26.1 x10^3/uL (4.0-10.5)
[2023-05-29 05:24] LABS: ALBUMIN 4.1 g/dL (3.5-5.0); ALKALINE PHOSPHATASE 104 U/L (38-126); ANION GAP 9.7 MEQ/L (5-15); BLOOD UREA NITROGEN 16 mg/dL (7-17); CHLORIDE 101 mmol/L (98-107); Calcium 10.1 mg/dL (8.4-10.2); Carbon Dioxide 26 mmol/L (22-30); EST GLOMERULAR FILTRATION RATE > 60.0 ML/MIN; Glucose 152 mg/dL (74-106); Potassium 3.9 mmol/L (3.5-5.1); SGOT/AST 44 U/L (14-36); SGPT/ALT 32 U/L (0-35); SODIUM 133 mmol/L (137-145); Total Protein 7.1 g/dL (6.3-8.2)
[2023-05-29 05:35] LABS: BAND 1 % (0.0-2.0); Lymphocytes 2 % (24-44); Monocyte 1 % (0.0-12.0); Neutrophils 96 % (36.0-66.0); Platelet Estimate NORMAL (NORMAL); Total Cells Counted 100
[2023-05-29] MEDS: solu-MEDROL 60 MG, Sterile H2O 10 ml 2 ML IV SCH ×8 (05:52→23:42)
[2023-05-29] MEDS: PULMICORT 0.5 MG/2 ML RESPULES IH SCH ×2 (06:28→19:08)
[2023-05-29] MEDS: Mucinex 600MG ER Tabs PO SCH ×2 (08:09→21:22)
[2023-05-29] MEDS: Cozaar 50 MG PO SCH (08:09)
[2023-05-29] MEDS: BUSPAR 5 MG PO SCH ×2 (08:09→21:22)
[2023-05-29] MEDS: Effexor XR 75 MG PO SCH (08:10)
[2023-05-29] MEDS: ECOTRIN 81 MG PO SCH (08:10)
[2023-05-29] MEDS: THERAGRAN MULTIVITAMIN PO SCH (08:10)
[2023-05-29] MEDS: ZYLOPRIM 100 MG PO SCH (08:10)
[2023-05-29] MEDS: LYRICA 75 MG CAP PO SCH (08:10)
[2023-05-29] MEDS: Klor Con PO SCH ×2 (08:10→21:22)
[2023-05-29] MEDS: Lasix 40 MG PO SCH (08:11)
[2023-05-29] MEDS: ENOXAPARIN SODIUM SQ SCH (08:11)
[2023-05-29] MEDS: Nicoderm CQ 21 MG TOP SCH (08:11)
[2023-05-29] MEDS: MARY'S MOUTHWASH PO SCH ×4 (10:28→21:23)
[2023-05-29] MEDS: Aminophylline 500 MG/20 ML*** 500 MG in Sodium Chloride 0.9% 500 ML 480 ML IV SCH (11:37)
--- NOTE | 2023-05-29 11:45 | PCM.NOTE ---
Date and Time: 05/29/23 1138 Subjective Assessment: 05/27/23 is a 68 year old female with a pmhx of stroke, HLD, HTN, CHF, COPD (baseline oxygen HS), OA, Diverticulosis, depression, and brain aneurysm in 2008 ([employer] shunt) who presents 05/27/23 via ambulance with complaints of increased shortness of breath with oxygen desaturation at home with spo2 88-89% on RA, baseline around 95-97% on RA. She reports that [facility] the [facility] and was with her grandchildren who were coughing with congestion. She woke up Sunday with head and chest congestion, increased shortness of breath, and a productive cough with yellow sputum. She does have home oxygen for which she uses 2L at night. She also has a home nebulizer which she does not use routinely but did use three times yesterday. She has recently been trying to quit smoking with Chantix, she has completed three weeks and is on the 1mg dose. She does not want to continue this med while in the hospital. Denies fever, cp, abdominal pain, LARES, dizziness, N/V/D. In ED patient was afebrile, tachpneic, hypertensive, borderline hypoxia with spo2 @ 92% on 2L of oxygen. CT Chest showing Patchy ground-glass attenuation with thickened interlobular septa in both lungs with resultant mosaic attenuation. Differentials include pneumonia (viral pneumonia like COVID- 19/atypical pulmonary infections). Right lower lobe pneumatocele. Lab findings remarkable for WBC at 10.7 and DDimer at 0.90. Bun is slightly elevated at 19. Respiratory viral panel is negative. Patient was given Azithromycn, Solu-medrol, IVF bolus, and DuoNebs. PCP: Aravind Cardiology: Fabienne 05/28/23 Pt resting in bed. Continues to be SOB with increased anxiety. Dr. Ervin consulted. Medications added and discussed with RT. She continues to require 4LNC. Baseline is 2LNC at bedtime. Continue Levaquin, steroids, breathing txs, anxiety medication. Pt requested nicotine patch. Mucinex increased. Denies CP, Ad. pain, N/V/D. 05/29/23 Pt sitting up on side of bed. She explains she is feeling much better. She continues to have wheezing and remains on 4LNC. She was started on Aminophylline gtt last night by Pulmonology. Steriods increased by Pulm as well. WBC is elevated today and most likely related to increase in dose of steriods. Her anxiety has improved with the addition of Ativan. She is c/o sore mouth and tongue today. Will add Danette's magic mouthwash. Pt denies CP, Abd. pain, N/V/D. - Review of Systems Constitutional: No Fever, No Chills Eyes: No Symptoms Ears, Nose, & Throat: No Symptoms Respiratory: Short Of Breath, Wheezing, No Cough Cardiac: No Chest Pain, No Edema, No Syncope Abdominal/Gastrointestinal: No Abdominal Pain, No Nausea, No Vomiting, No Diarrhea Genitourinary Symptoms: No Dysuria Musculoskeletal: No Back Pain, No Neck Pain Skin: No Rash Neurological: No Dizziness, No Focal Weakness, No Sensory Changes Psychological: No Symptoms Endocrine: No Symptoms Hematologic/Lymphatic: No Symptoms Immunological/Allergic: No Symptoms Objective Exam General Appearance: no apparent distress, alert Neurologic Exam: alert, oriented x 3, cooperative, normal mood/affect, nml cerebellar function, sensation nml, No motor deficits Skin Exam: normal color, warm, dry Eye Exam: PERRL, EOMI, eyes nml inspection Ears, Nose, Throat Exam: normal ENT inspection, pharynx normal, moist mucous membranes Neck Exam: normal inspection, non-tender, supple, full range of motion Respiratory Exam: wheezing, No respiratory distress Cardiovascular Exam: regular rate/rhythm, normal heart sounds Gastrointestinal/Abdomen Exam: soft, No tenderness, No mass Extremity Exam: normal inspection, normal range of motion Back Exam: normal inspection, normal range of motion, No CVA tenderness, No vertebral tenderness Pelvic Exam: deferred Rectal Exam: deferred OBJECTIVE DATA Vital Signs: Vital Signs - 24 hr Temp Pulse Resp BP Pulse Ox 05/29/23 11:25 95 H 30 H 98 05/29/23 07:16 97.7 F 90 43 H 140/80 94 L 05/29/23 06:31 90 32 H 94 L 05/29/23 04:00 97.5 F 100 H 34 H 157/97 96 05/29/23 01:56 96 H 28 H 96 05/28/23 23:19 97.3 F 101 H 36 H 118/86 96 05/28/23 22:10 96 H 24 99 05/28/23 20:22 95 05/28/23 19:40 97.7 F 100 H 36 H 147/87 94 L 05/28/23 18:50 102 H 24 96 05/28/23 16:02 103 H 34 H 99 05/28/23 16:00 97.6 F 96 H 32 H 150/78 96 Pain Assessment - Last Documented Pain Intensity 0 Intake and Output: Intake & Output 05/26/23 05/27/23 05/28/23 05/29/23 11:59 11:59 11:59 11:59 Intake Total 2019 2142 Output Total 550 2080 Balance 1470 63 Weight 81 kg Lab Results: Lab Results-Last 24 Hours 05/29/23 05/29/23 05/29/23 Range/Units 04:40 04:40 04:41 WBC 26.1 H* (4.0-10.5) x10^3/uL RBC 4.09 L (4.1-5.4) x10^6/uL Hgb 12.8 (12.0-16.0) g/dL Hct 37.5 (35-47) % MCV 91.7 (78-100) fL MCH 31.3 (26-32) pg MCHC 34.1 (32-36) g/dL RDW 13.3 (11.5-14.0) % Plt Count 274 (150-450) x10^3/uL MPV 10.3 (7.5-11.0) fL Gran % 92.6 H (36.0-66.0) % Immature Gran % (Auto) 1.1 H (0.00-0.4) % Nucleat RBC Rel Count 0.0 (0.00-0.1) % Eos # (Auto) 0 (0-0.5) x10^3/uL Immature Gran # (Auto) 0.29 H (0.00-0.03) x10^3u/L Absolute Lymphs (auto) 0.70 L (1.0-4.6) x10^3/uL Absolute Monos (auto) 0.88 (0.0-1.3) x10^3/uL Absolute Nucleated RBC 0.00 (0.00-0.01) x10^3u/L Lymphocytes % 2.7 L (24.0-44.0) % Monocytes % 3.4 (0.0-12.0) % Eosinophils % 0.0 (0.00-5.0) % Basophils % 0.2 (0.0-0.4) % Absolute Granulocytes 24.21 H (1.4-6.9) x10^3/uL Segmented Neutrophils 96 H (36.0-66.0) % Band Neutrophils 1 (0.0-2.0) % Lymphocytes (Manual) 2 L (24-44) % Monocytes (Manual) 1 (0.0-12.0) % Basophils # 0.04 (0-0.4) x10^3/uL Platelet Estimate NORMAL (NORMAL) RBC Morphology NORMAL Smear Path Review Pending Sodium 133 L (137-145) mmol/L Potassium 3.9 (3.5-5.1) mmol/L Chloride 101 (98-107) mmol/L Carbon Dioxide 26 (22-30) mmol/L Anion Gap 9.7 (5-15) MEQ/L BUN 16 (7-17) mg/dL Creatinine 0.80 (0.52-1.04) mg/dL Estimated GFR > 60.0 ML/MIN Glucose 152 H (74-106) mg/dL Calcium 10.1 (8.4-10.2) mg/dL Total Bilirubin 0.30 (0.2-1.3) mg/dL AST 44 H (14-36) U/L ALT 32 (0-35) U/L Alkaline Phosphatase 104 (38-126) U/L Serum Total Protein 7.1 (6.3-8.2) g/dL Albumin 4.1 (3.5-5.0) g/dL Theophylline 8.8 L (10-20) ug/mL Multi-Disciplinary Progress Notes: Multi-Disciplinary Progress Notes 05/28/23 17:30 Respiratory Note by Radha Beal Rounded with Dr. Ervin. New orders. D/C Mucomyst and change Pulmicort to 0.5mg BID. Initialized on 05/28/23 17:30 - END OF NOTE 05/28/23 12:53 Respiratory Note by Geraldine Sanchez I spoke with Dr. Ervin and he will be by to see this patient late afternoon when he finishes office hours here. Initialized on 05/28/23 12:53 - END OF NOTE Assessment/Plan (1) Atypical pneumonia Current Visit: Yes Status: Acute Assessment & Plan: - suggested by cough, sputum, wheezing, rales - CT chest as stated in HPI - Blood Cx, Sputum Cx with gram stain, urine antigen for strep pneumo and legionella - CURB-65 score - 2 (need for admission) - in the setting of chronic comorbidity (CHF, COPD) will start on Levofloxacin (patient has allergy to ceftriaxone) and Azithromycin - Chest XR 05/27: Impression: Continued nonacute chest with chronic features. -Chest CT 05/27 IMPRESSION: 1. Patchy ground-glass attenuation with thickened interlobular septa in both lungs with resultant mosaic attenuation. Differentials include pneumonia (viral pneumonia like COVID-19/atypical pulmonary infections). 2. Right lower lobe pneumatocele. 05/28 - Aminophylline gtt started and steroids increased by pulmonology - Levaquin, proventil, trelegy (if can bring from home), Duonebs, Solumedrol, pulmicort 05/29 - BC X2 negative, sputum culture pending Code(s): J18.9 - PNEUMONIA, UNSPECIFIED ORGANISM (2) Acute hypoxemic respiratory failure Current Visit: Yes Status: Acute Assessment & Plan: -see COPD Code(s): J96.01 - ACUTE RESPIRATORY FAILURE WITH HYPOXIA (3) COPD exacerbation Current Visit: Yes Status: Acute Assessment & Plan: - Duonebs Q4 - Albuterol Q2 PRN - Solumedrol 40mg BID - Mucinex- increased - Incentive Spirometry - Flutter therapy +/- Smoking Cessation discussion +/- Flu shot/Prevnar/ Pneumovax shot - Acetylcysteine - Budesonide - Pulmonology consult -RT eval and treat Code(s): J44.1 - CHRONIC OBSTRUCTIVE PULMONARY DISEASE W (ACUTE) EXACERBATION (4) HLD (hyperlipidemia) Current Visit: Yes Status: Acute Assessment & Plan: - Continue statin Code(s): E78.5 - HYPERLIPIDEMIA, UNSPECIFIED (5) Shortness of breath Current Visit: Yes Status: Acute Assessment & Plan: - see COPD Code(s): R06.02 - SHORTNESS OF BREATH (6) Smoker Current Visit: Yes Status: Acute Assessment & Plan: - Nicotine patch - advised cessation Code(s): F17.200 - NICOTINE DEPENDENCE, UNSPECIFIED, UNCOMPLICATED (7) Congestive heart failure Current Visit: No Status: Acute Assessment & Plan: HFpEF vs HFrEF -NYHA Class 3 -Baseline Weight: 81.7kg -proBNP 460 -Will resume home meds lasix, does not appear in exacerbation -Monitor daily weight and document Strict I/Os -ECHO from 03/22/20 showing EF of 60-70% IMPRESSION: 1) NO REGIONAL WALL MOTION ABNORMALITY. ESTIMATED GLOBAL LEFT VENTRICULAR EJECTION FRACTION BETWEEN 60 AND 70%. 2) TRACE TRICUSPID REGURGITATION. RIGHT VENTRICULAR SYSTOLIC PRESSURE OF 17 MM OF MERCURY. 3) LEFT VENTRICULAR HYPERTROPHY. -consider obtaining new ECHO -Daily CMP to monitor renal function Code(s): I50.9 - HEART FAILURE, UNSPECIFIED (8) Essential hypertension Current Visit: No Status: Chronic Assessment & Plan: -stable,resume home meds Code(s): I10 - ESSENTIAL (PRIMARY) HYPERTENSION (9) Anxiety Current Visit: Yes Status: Acute Assessment & Plan: - Ativan BID PRN - controlled Code(s): F41.9 - ANXIETY DISORDER, UNSPECIFIED (10) Mouth pain Current Visit: Yes Status: Acute Assessment & Plan: - Danette's magic mouthwash QID VTE: lovenox D/C plan: 1-2 days Next of Kin: Spouse- Chuy Dejesus, Code status: Full Code(s): K13.79 - OTHER LESIONS OF ORAL MUCOSA
--- NOTE | 2023-05-29 12:28 | CONS ---
CONSULT DATE: 05/28/2023 HISTORY: Lilian Dejesus is a 68-year-old woman with history of chronic obstructive pulmonary disease who has been admitted from the emergency room with complaints of shortness of breath. The patient reportedly attended [place] [email or web address] where she ended up walking a lot. On coming home she was exposed to her grandchildren who were apparently sick. The patient started experiencing cough and increasing shortness of breath. She was brought to the emergency room from where she was hospitalized. I received a call earlier today reporting the patient's significant bronchospasm and advised regarding management. At the time of my evaluation, the patient is sitting in a chair. She is awake. She is able to carry out a conversation. She does report feeling better since morning. The patient has history of chronic obstructive pulmonary disease. She has been on supplemental oxygen however she uses this only at night. She has cough which has been minimally productive. She denies any chest pain. PAST MEDICAL HISTORY: Positive for history of chronic obstructive pulmonary disease, chronic hypoxemia, hyperlipidemia, anxiety, depression, gastroesophageal reflux disease, hypertension along with gout. PAST SURGICAL HISTORY: No recent surgery. PERSONAL AND SOCIAL HISTORY: The patient is a smoker. MEDICATIONS: Home and current medications are reviewed. ALLERGIES: CODEINE. ROCEPHIN. VANCOMYCIN. PHYSICAL EXAMINATION: This is an elderly woman sitting in chair comfortable, able to carry out a conversation. Vital signs noted. HEENT: Normocephalic. Oral exam shows small oropharynx. NECK: Supple, accessory muscles are prominent. CVS: First and second heart sounds are normal, regular, rhythmic. RESPIRATORY: Shows diminished breath sounds, bilaterally diffuse rhonchi are heard. ABDOMEN: Soft. Obese. EXTREMITIES: No significant edema is noted. LABORATORY DATA AND TESTS: Labs and x-rays reviewed. The pH 7.39, pCO2 of 48 and pO2 of 81. D-dimer was 0.9. CT chest reviewed. ASSESSMENT: This is a 68-year-old woman admitted with: 1) Chronic obstructive pulmonary disease with acute exacerbation. 2) Community acquired pneumonia. 3) Acute on chronic hypoxic respiratory failure. 4) Nicotine addiction. RECOMMENDATIONS: 1) The patient continues to have significant clinical bronchospasm. 2) Will benefit from IV aminophylline drip without loading dose, further management per pharmacy. Likely for about 48 hours. 3) Increase Solu-Medrol to 60 mg every six hours. 4) Deep vein thrombosis prophylaxis. 5) Continue bronchodilators. 6) Continue antibiotics. 7) Continue other supportive care. Need for smoking cessation was discussed. I will follow up in outpatient setting. I will be available for additional advice if needed.
[2023-05-29] MEDS: Tums EX 750 MG PO SCH (21:21)
[2023-05-29] MEDS: Abilify 10 MG PO SCH (21:21)
[2023-05-29] MEDS: Pepcid 20 MG PO SCH (21:22)
[2023-05-29] MEDS: Ativan 0.5 MG PO PRN (21:22)
[2023-05-29] MEDS: Toprol Xl 100 MG PO SCH (21:23)
[2023-05-29] MEDS: CLONIDINE 0.1 MG TABLET PO SCH (21:23)
[2023-05-29] MEDS: ZOCOR 20MG PO SCH (21:33)
[2023-05-30] MEDS: DUONEB 0.5-3 MG/3 ml Neb IH SCH ×6 (02:30→22:20)
[2023-05-30 05:26] LABS: Absolute Neutrophil Ct (ANC) 20.65 x10^3/uL (1.4-6.9); BASOPHIL % 0.2 % (0.0-0.4); Basophil (Absolute #) 0.04 x10^3/uL (0-0.4); Eosinophil (Absolute #) 0 x10^3/uL (0-0.5); Hematocrit 37.3 % (35-47); Hemoglobin 12.7 g/dL (12.0-16.0); IMMATURE GRAN # 0.19 x10^3u/L (0.00-0.03); IMMATURE GRAN % 0.9 % (0.00-0.4); Lymphocyte (Absolute #) 0.67 x10^3/uL (1.0-4.6); Mean Cell Volume 92.3 fL (78-100); Mean Corpuscular Hemoglobin 31.4 pg (26-32); Mean Platelet Volume 10.8 fL (7.5-11.0); Monocyte (Absolute #) 0.62 x10^3/uL (0.0-1.3); Monocytes % 2.8 % (0.0-12.0); Neutrophil % 93.1 % (36.0-66.0); Platelet Count 284 x10^3/uL (150-450); Red Blood Count 4.04 x10^6/uL (4.1-5.4); Red Cell Distribution Width 13.2 % (11.5-14.0); White Blood Count 22.2 x10^3/uL (4.0-10.5)
[2023-05-30] MEDS: PULMICORT 0.5 MG/2 ML RESPULES IH SCH ×2 (05:34→18:25)
[2023-05-30] MEDS: solu-MEDROL 60 MG, Sterile H2O 10 ml 2 ML IV SCH ×4 (05:50→12:19)
[2023-05-30 06:09] LABS: ALBUMIN 3.9 g/dL (3.5-5.0); ALKALINE PHOSPHATASE 106 U/L (38-126); ANION GAP 10.2 MEQ/L (5-15); BLOOD UREA NITROGEN 19 mg/dL (7-17); CHLORIDE 98 mmol/L (98-107); Calcium 9.8 mg/dL (8.4-10.2); Carbon Dioxide 27 mmol/L (22-30); Creatinine 1 0.86 mg/dL (0.52-1.04); EST GLOMERULAR FILTRATION RATE > 60.0 ML/MIN; Glucose 152 mg/dL (74-106); Potassium 3.8 mmol/L (3.5-5.1); SGOT/AST 42 U/L (14-36); SGPT/ALT 33 U/L (0-35); SODIUM 131 mmol/L (137-145)
[2023-05-30 06:39] LABS: Slide Review 1 YES
[2023-05-30] MEDS: Aminophylline 500 MG/20 ML*** 500 MG in Sodium Chloride 0.9% 500 ML 480 ML IV SCH (08:15)
[2023-05-30] MEDS: Mucinex 600MG ER Tabs PO SCH ×2 (08:19→21:20)
[2023-05-30] MEDS: BUSPAR 5 MG PO SCH ×2 (08:19→21:19)
[2023-05-30] MEDS: THERAGRAN MULTIVITAMIN PO SCH (08:20)
[2023-05-30] MEDS: ZYLOPRIM 100 MG PO SCH (08:20)
[2023-05-30] MEDS: Effexor XR 75 MG PO SCH (08:20)
[2023-05-30] MEDS: LYRICA 75 MG CAP PO SCH (08:20)
[2023-05-30] MEDS: Cozaar 50 MG PO SCH (08:20)
[2023-05-30] MEDS: ECOTRIN 81 MG PO SCH (08:20)
[2023-05-30] MEDS: Klor Con PO SCH ×2 (08:20→21:20)
[2023-05-30] MEDS: Lasix 40 MG PO SCH (08:20)
[2023-05-30] MEDS: ENOXAPARIN SODIUM SQ SCH (08:24)
[2023-05-30] MEDS: Nicoderm CQ 21 MG TOP SCH (08:25)
[2023-05-30] MEDS: LEVOFLOXACIN 750MG/150ML D5W 750 MG/150 ML BAG IV SCH (08:28)
[2023-05-30] MEDS: MARY'S MOUTHWASH PO SCH ×4 (08:28→21:18)
[2023-05-30] MEDS: Ativan 0.5 MG PO PRN (09:27)
[2023-05-30] MEDS ORDERED: Lasix 40 MG/4 ML IV ONE (09:55)
[2023-05-30] MEDS ORDERED: PROVENTIL Solution 2.5 MG/0.5 ML IH SCH (10:00)
[2023-05-30] MEDS ORDERED: PROVENTIL Solution 2.5 MG/0.5 ML IH ONE (10:01)
[2023-05-30] MEDS ORDERED: Sodium Chloride 3 ML UD NEBULES IH ONE (10:01)
[2023-05-30] MEDS: PROVENTIL 2.5 MG/3 ML NEB IH PRN (10:10)
--- NOTE | 2023-05-30 10:13 | XRAY ---
Indication: Short of breath. Wheezing. Comparison: May 27, 2023 Portable chest demonstrates interval developing subtle hazy left lung interstitial opacities with new tiny effusion, possible pneumonitis in right clinical setting. Remaining heart and right lung unremarkable again with incidental left shunt catheter.
[2023-05-30] MEDS ORDERED: DULCOLAX 5 MG PO PRN (11:15)
[2023-05-30] MEDS ORDERED: MILK OF MAGNESIA 30 ML PO PRN (11:15)
--- NOTE | 2023-05-30 13:18 | PCM.NOTE ---
Date and Time: 05/30/23 1311 Subjective Assessment: 05/27/23 is a 68 year old female with a pmhx of stroke, HLD, HTN, CHF, COPD (baseline oxygen HS), OA, Diverticulosis, depression, and brain aneurysm in 2008 ([employer] shunt) who presents 05/27/23 via ambulance with complaints of increased shortness of breath with oxygen desaturation at home with spo2 88-89% on RA, baseline around 95-97% on RA. She reports that over the weekend she visited covered [facility] and was with her grandchildren who were coughing with congestion. She woke up Sunday with head and chest congestion, increased shortness of breath, and a productive cough with yellow sputum. She does have home oxygen for which she uses 2L at night. She also has a home nebulizer which she does not use routinely but did use three times yesterday. She has recently been trying to quit smoking with Chantix, she has completed three weeks and is on the 1mg dose. She does not want to continue this med while in the hospital. Denies fever, cp, abdominal pain, LARSE, dizziness, N/V/D. In ED patient was afebrile, tachpneic, hypertensive, borderline hypoxia with spo2 @ 92% on 2L of oxygen. CT Chest showing Patchy ground-glass attenuation with thickened interlobular septa in both lungs with resultant mosaic attenuation. Differentials include pneumonia (viral pneumonia like COVID- 19/atypical pulmonary infections). Right lower lobe pneumatocele. Lab findings remarkable for WBC at 10.7 and DDimer at 0.90. Bun is slightly elevated at 19. Respiratory viral panel is negative. Patient was given Azithromycn, Solu-medrol, IVF bolus, and DuoNebs. PCP: Aravind Cardiology: Fabienne 05/28/23 Pt resting in bed. Continues to be SOB with increased anxiety. Dr. Ervin consulted. Medications added and discussed with RT. She continues to require 4LNC. Baseline is 2LNC at bedtime. Continue Levaquin, steroids, breathing txs, anxiety medication. Pt requested nicotine patch. Mucinex increased. Denies CP, Ad. pain, N/V/D. 05/29/23 Pt sitting up on side of bed. She explains she is feeling much better. She continues to have wheezing and remains on 4LNC. She was started on Aminophylline gtt last night by Pulmonology. Steriods increased by Pulm as well. WBC is elevated today and most likely related to increase in dose of steriods. Her anxiety has improved with the addition of Ativan. She is c/o sore mouth and tongue today. Will add Danette's magic mouthwash. Pt denies CP, Abd. pain, N/V/D. 05/30/23 Pt resting in bed. She is more SOB and wheezing today. She continues to be on the Aminophylline gtt. Chest XR shows possible fluid overload. IV Lasix started. Oral lasix held for now. Cont neb tx ordered. Pulm on case and will contact if sxs do not improve. She is c/o constipation and medication added for this. She denies CP, Abd. pain, N/V/D. - Review of Systems Constitutional: No Fever, No Chills Eyes: No Symptoms Ears, Nose, & Throat: No Symptoms Respiratory: Short Of Breath, Wheezing, No Cough Cardiac: No Chest Pain, No Edema, No Syncope Abdominal/Gastrointestinal: No Abdominal Pain, No Nausea, No Vomiting, No Diarrhea Genitourinary Symptoms: No Dysuria Musculoskeletal: No Back Pain, No Neck Pain Skin: No Rash Neurological: No Dizziness, No Focal Weakness, No Sensory Changes Psychological: No Symptoms Endocrine: No Symptoms Hematologic/Lymphatic: No Symptoms Immunological/Allergic: No Symptoms Objective Exam General Appearance: no apparent distress, moderate distress, alert Neurologic Exam: alert, oriented x 3, cooperative, normal mood/affect, nml cerebellar function, sensation nml, No motor deficits Skin Exam: normal color, warm, dry Eye Exam: PERRL, EOMI, eyes nml inspection Ears, Nose, Throat Exam: normal ENT inspection, pharynx normal, moist mucous membranes Neck Exam: normal inspection, non-tender, supple, full range of motion Respiratory Exam: normal breath sounds, lungs clear, respiratory distress, accessory muscle use, wheezing Cardiovascular Exam: regular rate/rhythm, normal heart sounds Gastrointestinal/Abdomen Exam: soft, No tenderness, No mass Extremity Exam: normal inspection, normal range of motion Back Exam: normal inspection, normal range of motion, No CVA tenderness, No vertebral tenderness Pelvic Exam: deferred Rectal Exam: deferred OBJECTIVE DATA Vital Signs: Vital Signs - 24 hr Temp Pulse Resp BP Pulse Ox 10/25/23 12:00 98.4 F 116 H 32 H 120/85 96 05/30/23 09:40 118 H 30 H 92 L 05/30/23 08:00 96.3 F 108 H 26 H 182/86 92 L 05/30/23 05:35 94 H 28 H 94 L 05/30/23 04:00 98.0 F 108 H 27 H 136/83 90 L 05/30/23 02:30 98 H 24 94 L 05/30/23 00:00 97.4 F 105 H 20 125/74 93 L 05/29/23 22:15 102 H 26 H 95 05/29/23 19:59 97.3 F 110 H 28 H 163/79 93 L 05/29/23 19:08 110 H 24 93 L 05/29/23 16:01 94 H 21 93 L 05/29/23 16:00 97.5 F 107 H 39 H 151/90 96 Pain Assessment - Last Documented Pain Intensity 0 Pain Scale Used 0-10 Pain Scale Intake and Output: Intake & Output 05/28/23 05/29/23 05/30/23 05/31/23 11:59 11:59 11:59 11:59 Intake Total 20193 1420 Output Total 550 2080 3850 Balance 1470 63 -2430 Weight 81 kg Lab Results: Lab Results-Last 24 Hours 05/29/23 05/30/23 05/30/23 Range/Units 04:40 04:24 04:24 WBC 22.2 H (4.0-10.5) x10^3/uL RBC 4.04 L (4.1-5.4) x10^6/uL Hgb 12.7 (12.0-16.0) g/dL Hct 37.3 (35-47) % MCV 92.3 (78-100) fL MCH 31.4 (26-32) pg MCHC 34.0 (32-36) g/dL RDW 13.2 (11.5-14.0) % Plt Count 284 (150-450) x10^3/uL MPV 10.8 (7.5-11.0) fL Gran % 93.1 H (36.0-66.0) % Immature Gran % (Auto) 0.9 H (0.00-0.4) % Nucleat RBC Rel Count 0.0 (0.00-0.1) % Eos # (Auto) 0 (0-0.5) x10^3/uL Immature Gran # (Auto) 0.19 H (0.00-0.03) x10^3u/L Absolute Lymphs (auto) 0.67 L (1.0-4.6) x10^3/uL Absolute Monos (auto) 0.62 (0.0-1.3) x10^3/uL Absolute Nucleated RBC 0.00 (0.00-0.01) x10^3u/L Lymphocytes % 3.0 L (24.0-44.0) % Monocytes % 2.8 (0.0-12.0) % Eosinophils % 0.0 (0.00-5.0) % Basophils % 0.2 (0.0-0.4) % Absolute Granulocytes 20.65 H (1.4-6.9) x10^3/uL Basophils # 0.04 (0-0.4) x10^3/uL Smear Path Review Sodium 131 L (137-145) mmol/L Potassium 3.8 (3.5-5.1) mmol/L Chloride 98 (98-107) mmol/L Carbon Dioxide 27 (22-30) mmol/L Anion Gap 10.2 (5-15) MEQ/L BUN 19 H (7-17) mg/dL Creatinine 0.86 (0.52-1.04) mg/dL Estimated GFR > 60.0 ML/MIN Glucose 152 H (74-106) mg/dL Lactic Acid (0.4-2.0) Calcium 9.8 (8.4-10.2) mg/dL Total Bilirubin 0.30 (0.2-1.3) mg/dL AST 42 H (14-36) U/L ALT 33 (0-35) U/L Alkaline Phosphatase 106 (38-126) U/L Serum Total Protein 7.0 (6.3-8.2) g/dL Albumin 3.9 (3.5-5.0) g/dL Theophylline (10-20) ug/mL Slides for Path Review YES 05/30/23 05/30/23 Range/Units 04:24 12:05 WBC (4.0-10.5) x10^3/uL RBC (4.1-5.4) x10^6/uL Hgb (12.0-16.0) g/dL Hct (35-47) % MCV (78-100) fL MCH (26-32) pg MCHC (32-36) g/dL RDW (11.5-14.0) % Plt Count (150-450) x10^3/uL MPV (7.5-11.0) fL Gran % (36.0-66.0) % Immature Gran % (Auto) (0.00-0.4) % Nucleat RBC Rel Count (0.00-0.1) % Eos # (Auto) (0-0.5) x10^3/uL Immature Gran # (Auto) (0.00-0.03) x10^3u/L Absolute Lymphs (auto) (1.0-4.6) x10^3/uL Absolute Monos (auto) (0.0-1.3) x10^3/uL Absolute Nucleated RBC (0.00-0.01) x10^3u/L Lymphocytes % (24.0-44.0) % Monocytes % (0.0-12.0) % Eosinophils % (0.00-5.0) % Basophils % (0.0-0.4) % Absolute Granulocytes (1.4-6.9) x10^3/uL Basophils # (0-0.4) x10^3/uL Smear Path Review Sodium (137-145) mmol/L Potassium (3.5-5.1) mmol/L Chloride (98-107) mmol/L Carbon Dioxide (22-30) mmol/L Anion Gap (5-15) MEQ/L BUN (7-17) mg/dL Creatinine (0.52-1.04) mg/dL Estimated GFR ML/MIN Glucose (74-106) mg/dL Lactic Acid 2.3 H (0.4-2.0) Calcium (8.4-10.2) mg/dL Total Bilirubin (0.2-1.3) mg/dL AST (14-36) U/L ALT (0-35) U/L Alkaline Phosphatase (38-126) U/L Serum Total Protein (6.3-8.2) g/dL Albumin (3.5-5.0) g/dL Theophylline 15.6 (10-20) ug/mL Slides for Path Review Radiology Exams: Radiology Procedures Category Date Time Status CHEST 1 VIEW (PORTABLE) Stat Exams 05/30/23 09:38 Completed ECHO W/2D AND DOPPLER [US] Routine Exams 05/30/23 09:56 Ordered Multi-Disciplinary Progress Notes: Multi-Disciplinary Progress Notes 05/30/23 11:07 Case Management Note by Pamela Wang PATIENT CONTINUES TO DENY ANY NEW NEEDS AT TIME OF DC. SHE PLANS TO RETURN HOME TO HER PLF AT TIME OF DC Initialized on 05/30/23 11:07 - END OF NOTE 05/30/23 10:23 Pharmacy Note by Feliz Sarmiento Theophylline level 15.6. Will lower rate to 20mg/hr. Initialized on 05/30/23 10:23 - END OF NOTE 05/30/23 10:20 Respiratory Note by Tahira Hopkins rt called to pts room due to increased work of breathing. pts resp rate up to 30 and pt is working to breath. pt is given a 2.5 mg albuterol neb with little relief. rt consulted with BI CONSULTANT and suggested lasix. BI CONSULTANT ordered an hour long 5mg albuterol neb. pt started on the 5mg hour long neb tx. Initialized on 05/30/23 10:20 - END OF NOTE 05/29/23 14:08 Pharmacy Note by Feliz Sarmiento Theophylline level 8.8 after around 12 hrs of infusion. Will decrease from 30mg/hr to 25mg/hr to keep level around 10-12. Initialized on 05/29/23 14:08 - END OF NOTE Assessment/Plan (1) Atypical pneumonia Current Visit: Yes Status: Acute Assessment & Plan: - suggested by cough, sputum, wheezing, rales - CT chest as stated in HPI - Blood Cx, Sputum Cx with gram stain, urine antigen for strep pneumo and legionella - CURB-65 score - 2 (need for admission) - in the setting of chronic comorbidity (CHF, COPD) will start on Levofloxacin (patient has allergy to ceftriaxone) and Azithromycin - Chest XR 05/27: Impression: Continued nonacute chest with chronic features. -Chest CT 05/27 IMPRESSION: 1. Patchy ground-glass attenuation with thickened interlobular septa in both lungs with resultant mosaic attenuation. Differentials include pneumonia (viral pneumonia like COVID-19/atypical pulmonary infections). 2. Right lower lobe pneumatocele. 05/28 - Aminophylline gtt started and steroids increased by pulmonology - Levaquin, proventil, trelegy (if can bring from home), Duonebs, Solumedrol, pulmicort 05/29 - BC X2 negative, 05/30 - sputum culture negative Code(s): J18.9 - PNEUMONIA, UNSPECIFIED ORGANISM (2) Acute hypoxemic respiratory failure Current Visit: Yes Status: Acute Assessment & Plan: -see COPD 05/30 - Oral lasix d/c'd - Start IV lasix 40 TID Code(s): J96.01 - ACUTE RESPIRATORY FAILURE WITH HYPOXIA (3) COPD exacerbation Current Visit: Yes Status: Acute Assessment & Plan: - Duonebs Q4 - Albuterol Q2 PRN - Solumedrol 40mg BID - Mucinex- increased - Incentive Spirometry - Flutter therapy +/- Smoking Cessation discussion +/- Flu shot/Prevnar/ Pneumovax shot - Acetylcysteine - Budesonide - Pulmonology consult -RT eval and treat Code(s): J44.1 - CHRONIC OBSTRUCTIVE PULMONARY DISEASE W (ACUTE) EXACERBATION (4) HLD (hyperlipidemia) Current Visit: Yes Status: Acute Assessment & Plan: - Continue statin Code(s): E78.5 - HYPERLIPIDEMIA, UNSPECIFIED (5) Shortness of breath Current Visit: Yes Status: Acute Assessment & Plan: - see COPD Code(s): R06.02 - SHORTNESS OF BREATH (6) Smoker Current Visit: Yes Status: Acute Assessment & Plan: - Nicotine patch - advised cessation Code(s): F17.200 - NICOTINE DEPENDENCE, UNSPECIFIED, UNCOMPLICATED (7) Congestive heart failure Current Visit: No Status: Acute Assessment & Plan: HFpEF vs HFrEF -NYHA Class 3 -Baseline Weight: 81.7kg -proBNP 460 -Will resume home meds lasix, does not appear in exacerbation -Monitor daily weight and document Strict I/Os -ECHO from 03/22/20 showing EF of 60-70% IMPRESSION: 1) NO REGIONAL WALL MOTION ABNORMALITY. ESTIMATED GLOBAL LEFT VENTRICULAR EJECTION FRACTION BETWEEN 60 AND 70%. 2) TRACE TRICUSPID REGURGITATION. RIGHT VENTRICULAR SYSTOLIC PRESSURE OF 17 MM OF MERCURY. 3) LEFT VENTRICULAR HYPERTROPHY. -consider obtaining new ECHO -Daily CMP to monitor renal function 05/30 - Oral lasix d/c'd - Start IV lasix 40 TID - Bipap - Consider updated echo Code(s): I50.9 - HEART FAILURE, UNSPECIFIED (8) Essential hypertension Current Visit: No Status: Chronic Assessment & Plan: -stable,resume home meds Code(s): I10 - ESSENTIAL (PRIMARY) HYPERTENSION (9) Anxiety Current Visit: Yes Status: Acute Assessment & Plan: - Ativan BID PRN - controlled Code(s): F41.9 - ANXIETY DISORDER, UNSPECIFIED (10) Mouth pain Current Visit: Yes Status: Acute Assessment & Plan: - Danette's magic mouthwash QID VTE: lovenox D/C plan: 1-2 days Next of Kin: Spouse- Chuy Dejesus, Code status: Full Code(s): K13.79 - OTHER LESIONS OF ORAL MUCOSA
[2023-05-30] MEDS: Lasix 40 MG/4 ML IV SCH ×2 (14:56→21:21)
[2023-05-30] MEDS: solu-MEDROL 40 MG, Sterile H2O 10 ml 1 ML IV SCH ×2 (21:19)
[2023-05-30] MEDS: Pepcid 20 MG PO SCH (21:19)
[2023-05-30] MEDS: Abilify 10 MG PO SCH (21:19)
[2023-05-30] MEDS: Tums EX 750 MG PO SCH (21:19)
[2023-05-30] MEDS: CLONIDINE 0.1 MG TABLET PO SCH (21:19)
[2023-05-30] MEDS: ZOCOR 20MG PO SCH (21:20)
[2023-05-30] MEDS: Toprol Xl 100 MG PO SCH (21:20)
[2023-05-31] MEDS: DUONEB 0.5-3 MG/3 ml Neb IH SCH ×4 (03:05→14:48)
[2023-05-31 04:54] LABS: Hematocrit 37.4 % (35-47); Hemoglobin 12.7 g/dL (12.0-16.0); Mean Cell Volume 92.1 fL (78-100); Mean Corpuscular Hemoglobin 31.3 pg (26-32); Red Blood Count 4.06 x10^6/uL (4.1-5.4); White Blood Count 17.6 x10^3/uL (4.0-10.5)
[2023-05-31 04:55] LABS: Absolute Neutrophil Ct (ANC) 15.21 x10^3/uL (1.4-6.9); BASOPHIL % 0.3 % (0.0-0.4); Basophil (Absolute #) 0.05 x10^3/uL (0-0.4); Eosinophil (Absolute #) 0 x10^3/uL (0-0.5); IMMATURE GRAN # 0.28 x10^3u/L (0.00-0.03); IMMATURE GRAN % 1.6 % (0.00-0.4); Lymphocyte (Absolute #) 1.06 x10^3/uL (1.0-4.6); Mean Platelet Volume 10.2 fL (7.5-11.0); Monocytes % 5.7 % (0.0-12.0); Neutrophil % 86.4 % (36.0-66.0); Platelet Count 252 x10^3/uL (150-450)
[2023-05-31 05:17] LABS: ALBUMIN 3.9 g/dL (3.5-5.0); ANION GAP 8.3 MEQ/L (5-15); BILIRUBIN,TOTAL 0.3 mg/dL (0.2-1.3); Calcium 9.6 mg/dL (8.4-10.2); Creatinine 1 1.03 mg/dL (0.52-1.04); Potassium 3.3 mmol/L (3.5-5.1); Total Protein 6.8 g/dL (6.3-8.2)
[2023-05-31] MEDS: solu-MEDROL 40 MG, Sterile H2O 10 ml 1 ML IV SCH ×2 (05:45)
[2023-05-31] MEDS: PULMICORT 0.5 MG/2 ML RESPULES IH SCH (07:00)
[2023-05-31] MEDS ORDERED: Klor Con PO ONE (07:31)
[2023-05-31] MEDS: THERAGRAN MULTIVITAMIN PO SCH (10:41)
[2023-05-31] MEDS: Effexor XR 75 MG PO SCH (10:41)
[2023-05-31] MEDS: Klor Con PO SCH (10:41)
[2023-05-31] MEDS: BUSPAR 5 MG PO SCH (10:41)
[2023-05-31] MEDS: ECOTRIN 81 MG PO SCH (10:41)
[2023-05-31] MEDS: Mucinex 600MG ER Tabs PO SCH (10:41)
[2023-05-31] MEDS: LYRICA 75 MG CAP PO SCH (10:42)
[2023-05-31] MEDS: Cozaar 50 MG PO SCH (10:42)
[2023-05-31] MEDS: ZYLOPRIM 100 MG PO SCH (10:42)
[2023-05-31] MEDS: Lasix 40 MG/4 ML IV SCH (10:51)
[2023-05-31] MEDS: Nicoderm CQ 21 MG TOP SCH (10:51)
[2023-05-31] MEDS: ENOXAPARIN SODIUM SQ SCH (10:51)
[2023-05-31] MEDS: MARY'S MOUTHWASH PO SCH ×2 (10:56→13:07)
--- NOTE | 2023-05-31 11:27 | XRAY ---
Indication: Short of breath. COPD. Comparison: May 30, 2023 PA/lateral chest demonstrates clearing previous left lung hazy interstitial opacities and effusion. Remaining heart and lungs unremarkable again with incidental left shunt catheter. Impression: Nonacute chest.
[2023-05-31 12:15] VITALS: BP 177/85; TEMP 97.3; O2SAT 96
[2023-05-31] MEDS: Aminophylline 500 MG/20 ML*** 500 MG in Sodium Chloride 0.9% 500 ML 480 ML IV SCH (13:11)
[2023-05-31 14:50] VITALS: PULSE 98; RESP 32
--- NOTE | 2023-05-31 15:09 | PCM.DS ---
Discharge Summary Date of Admission: 05/28/23 10:19 Date of Discharge: 05/31/23 Admitting Physician: LASHAWN ARANDA MD Consults: Consults on Case 05/28/23 10:19 Consult Pulmonology ROUTINE Primary Care Provider: MARIA ELENA RUSSO Allergies Allergies codeine Allergy (Mild, Verified 05/27/23 07:35) Nausea ceftriaxone [From Rocephin] Adverse Reaction (Intermediate, Verified 05/27/23 07:35) states it made her go out of her head vancomycin Adverse Reaction (Unknown, Verified 05/27/23 07:35) confusion Hospital Summary - Hospital Course Hospital Course: 05/27/23 is a 68 year old female with a pmhx of stroke, HLD, HTN, CHF, COPD (baseline oxygen HS), OA, Diverticulosis, depression, and brain aneurysm in 2008 ([employer] shunt) who presents 05/27/23 via ambulance with complaints of increased shortness of breath with oxygen desaturation at home with spo2 88-89% on RA, baseline around 95-97% on RA. She reports that over the weekend she visited [facility] and was with her grandchildren who were coughing with congestion. She woke up day with head and chest congestion, increased shortness of breath, and a productive cough with yellow sputum. She does have home oxygen for which she uses 2L at night. She also has a home nebulizer which she does not use routinely but did use three times yesterday. She has recently been trying to quit smoking with Chantix, she has completed three weeks and is on the 1mg dose. She does not want to continue this med while in the hospital. Denies fever, cp, abdominal pain, LARES, dizziness, N/V/D. In ED patient was afebrile, tachpneic, hypertensive, borderline hypoxia with spo2 @ 92% on 2L of oxygen. CT Chest showing Patchy ground-glass attenuation with thickened interlobular septa in both lungs with resultant mosaic attenuation. Differentials include pneumonia (viral pneumonia like COVID- 19/atypical pulmonary infections). Right lower lobe pneumatocele. Lab findings remarkable for WBC at 10.7 and DDimer at 0.90. Bun is slightly elevated at 19. Respiratory viral panel is negative. Patient was given Azithromycn, Solu-medrol, IVF bolus, and DuoNebs. PCP: [facility]: Fabienne 05/28/23 Pt resting in bed. Continues to be SOB with increased anxiety. Dr. Ervin consulted. Medications added and discussed with RT. She continues to require 4LNC. Baseline is 2LNC at bedtime. Continue Levaquin, steroids, breathing txs, anxiety medication. Pt requested nicotine patch. Mucinex increased. Denies CP, Ad. pain, N/V/D. 05/29/23 Pt sitting up on side of bed. She explains she is feeling much better. She continues to have wheezing and remains on 4LNC. She was started on Aminophylline gtt last night by Pulmonology. Steriods increased by Pulm as well. WBC is elevated today and most likely related to increase in dose of steriods. Her anxiety has improved with the addition of Ativan. She is c/o sore mouth and tongue today. Will add Danette's magic mouthwash. Pt denies CP, Abd. pain, N/V/D. 05/30/23 Pt resting in bed. She is more SOB and wheezing today. She continues to be on the Aminophylline gtt. Chest XR shows possible fluid overload. IV Lasix started. Oral lasix held for now. Cont neb tx ordered. Pulm on case and will contact if sxs do not improve. She is c/o constipation and medication added for this. She denies CP, Abd. pain, N/V/D. 05/31/23 Pt resting in bed. She continues to be SOB. Discussed with Dr. Ervin and he would like the pt tx to [facility] for a higher level of care. She is wearing bipap and amniophylline gtt discontinue when bag was complete today. L asix helped to improve sxs and she reports feeling better but continues SOB. Echo reviewed. She denies CP, Abd. pain, N/V/D. - Vitals & Intake/Output Vital Signs: Vital Signs Temperature 97.3 F 05/31/23 12:00 Pulse Rate 98 H 05/31/23 14:49 Respiratory Rate 32 H 05/31/23 14:49 Blood Pressure 177/85 05/31/23 12:00 O2 Sat by Pulse Oximetry 96 05/31/23 14:49 Intake & Output: Intake & Output 10/05/30/23 05/31/23 06/01/23 11:59 11:59 11:59 11:59 Intake Total 2857 1420 1540 360 Output Total 2105 3850 2850 Balance 63 -2430 -1310 360 Weight 81 kg - Lab Result Diagrams: 05/31/23 04:19 05/31/23 04:19 Lab Results-Last 24 Hrs: Lab Results-Last 24 Hours 05/31/23 05/31/23 05/31/23 Range/Units 04:19 04:19 04:19 WBC 17.6 H (4.0-10.5) x10^3/uL RBC 4.06 L (4.1-5.4) x10^6/uL Hgb 12.7 (12.0-16.0) g/dL Hct 37.4 (35-47) % MCV 92.1 (78-100) fL MCH 31.3 (26-32) pg MCHC 34.0 (32-36) g/dL RDW 13.0 (11.5-14.0) % Plt Count 252 (150-450) x10^3/uL MPV 10.2 (7.5-11.0) fL Gran % 86.4 H (36.0-66.0) % Immature Gran % (Auto) 1.6 H (0.00-0.4) % Nucleat RBC Rel Count 0.0 (0.00-0.1) % Eos # (Auto) 0 (0-0.5) x10^3/uL Immature Gran # (Auto) 0.28 H (0.00-0.03) x10^3u/L Absolute Lymphs (auto) 1.06 (1.0-4.6) x10^3/uL Absolute Monos (auto) 1.00 (0.0-1.3) x10^3/uL Absolute Nucleated RBC 0.00 (0.00-0.01) x10^3u/L Lymphocytes % 6.0 L (24.0-44.0) % Monocytes % 5.7 (0.0-12.0) % Eosinophils % 0.0 (0.00-5.0) % Basophils % 0.3 (0.0-0.4) % Absolute Granulocytes 15.21 H (1.4-6.9) x10^3/uL Basophils # 0.05 (0-0.4) x10^3/uL Sodium 130 L (137-145) mmol/L Potassium 3.3 L (3.5-5.1) mmol/L Chloride 91 L (98-107) mmol/L Carbon Dioxide 34 H (22-30) mmol/L Anion Gap 8.3 (5-15) MEQ/L BUN 21 H (7-17) mg/dL Creatinine 1.03 (0.52-1.04) mg/dL Estimated GFR 57.0 ML/MIN Glucose 148 H (74-106) mg/dL Calcium 9.6 (8.4-10.2) mg/dL Magnesium (1.6-2.3) mg/dL Total Bilirubin 0.30 (0.2-1.3) mg/dL AST 41 H (14-36) U/L ALT 37 H (0-35) U/L Alkaline Phosphatase 102 (38-126) U/L Serum Total Protein 6.8 (6.3-8.2) g/dL Albumin 3.9 (3.5-5.0) g/dL Theophylline 11.3 (10-20) ug/mL 05/31/23 Range/Units 04:25 WBC (4.0-10.5) x10^3/uL RBC (4.1-5.4) x10^6/uL Hgb (12.0-16.0) g/dL Hct (35-47) % MCV (78-100) fL MCH (26-32) pg MCHC (32-36) g/dL RDW (11.5-14.0) % Plt Count (150-450) x10^3/uL MPV (7.5-11.0) fL Gran % (36.0-66.0) % Immature Gran % (Auto) (0.00-0.4) % Nucleat RBC Rel Count (0.00-0.1) % Eos # (Auto) (0-0.5) x10^3/uL Immature Gran # (Auto) (0.00-0.03) x10^3u/L Absolute Lymphs (auto) (1.0-4.6) x10^3/uL Absolute Monos (auto) (0.0-1.3) x10^3/uL Absolute Nucleated RBC (0.00-0.01) x10^3u/L Lymphocytes % (24.0-44.0) % Monocytes % (0.0-12.0) % Eosinophils % (0.00-5.0) % Basophils % (0.0-0.4) % Absolute Granulocytes (1.4-6.9) x10^3/uL Basophils # (0-0.4) x10^3/uL Sodium (137-145) mmol/L Potassium (3.5-5.1) mmol/L Chloride (98-107) mmol/L Carbon Dioxide (22-30) mmol/L Anion Gap (5-15) MEQ/L BUN (7-17) mg/dL Creatinine (0.52-1.04) mg/dL Estimated GFR ML/MIN Glucose (74-106) mg/dL Calcium (8.4-10.2) mg/dL Magnesium 2.0 (1.6-2.3) mg/dL Total Bilirubin (0.2-1.3) mg/dL AST (14-36) U/L ALT (0-35) U/L Alkaline Phosphatase (38-126) U/L Serum Total Protein (6.3-8.2) g/dL Albumin (3.5-5.0) g/dL Theophylline (10-20) ug/mL Micro Results-Entire Visit: Microbiology 05/28/23 10:25 Gram Stain - Final Sputum - Expectorant Sputum Culture - Final ORGANISMS ISOLATED ARE CONSISTENT WITH NORMAL RESP CHRISTINE MODERATE GROWTH, NO PREDOMINANT ORGANISM 05/27/23 08:21 Blood Culture - Preliminary Blood 05/27/23 08:26 Blood Culture - Preliminary Blood - Radiology Exams Ordered Rad Exams-Entire Visit: Radiology Procedures Category Date Time Status CHEST 1 VIEW (PORTABLE) Stat Exams 05/30/23 09:38 Completed CHEST 2 VIEWS (PA AND LAT) Routine Exams 05/31/23 09:48 Completed ECHO W/2D AND DOPPLER [US] Routine Exams 05/30/23 09:56 Taken - Procedures and Test Procedures and Tests throughout Hospitalization: Therapy Orders & Screens 05/27/23 11:42 Respiratory Therapy Consult ONCE Comment: Reason For Exam: 05/27/23 12:07 RT Screen per Nursing Assess ONCE Comment: Protocol Order Physician Instructions: Greater than 3 points order RT Admission Screen Reason For Exam: Triggered on Admission Diagnosis: Exac COPD, Atypical PNE, Acute Hypoxic Resp Failure Diagnosis: Exac COPD, Atypical PNE, Acute Hypoxic Resp Failure Pneumonia: Yes Home O2: Yes: 2L HS Asthma: No CHF: Yes Home CPAP/BIPAP: No Home Nebs/MDI: Yes: PRN Total Points: 16 Smoking Cessation Education ONCE Comment: Diagnosis: Exac COPD, Atypical PNE, Acute Hypoxic Resp Failure Smoking Status: Current every day smoker How long have you smoked: 40 years Have you smoked in the past 12 months: Yes Approximately how many cigarettes per day: 1 ppd Do you dip or chew tobacco: No 05/27/23 12:55 Oxygen Nasal Cannula 4 lpm Comment: Diagnosis: Exac COPD, Atypical PNE, Acute Hypoxic Resp Failure 05/30/23 11:05 BiPap/CPAP STAT Comment: Diagnosis: Exac COPD, Atypical PNE, Acute Hypoxic Resp Failure Discharge Exam General Appearance: no apparent distress, alert Neurologic Exam: alert, oriented x 3, cooperative, normal mood/affect, nml cerebellar function, sensation nml, No motor deficits Eye Exam: PERRL, EOMI, eyes nml inspection Ears, Nose, Throat Exam: normal ENT inspection, pharynx normal, moist mucous membranes Neck Exam: normal inspection, non-tender, supple, full range of motion Respiratory Exam: normal breath sounds, lungs clear, crackles/rales (throug hout), rhonchi, wheezing, No respiratory distress Cardiovascular Exam: regular rate/rhythm, normal heart sounds Gastrointestinal/Abdomen Exam: soft, No tenderness, No mass Pelvic Exam: deferred Rectal Exam: deferred Back Exam: normal inspection, normal range of motion, No CVA tenderness, No vertebral tenderness Extremity Exam: normal inspection, normal range of motion Skin Exam: normal color, warm, dry Final Diagnosis/Problem List - Final Discharge Diagnosis/Problem (1) Atypical pneumonia Current Visit: Yes Status: Acute Code(s): J18.9 - PNEUMONIA, UNSPECIFIED ORGANISM (2) Acute hypoxemic respiratory failure Current Visit: Yes Status: Acute Code(s): J96.01 - ACUTE RESPIRATORY FAILURE WITH HYPOXIA (3) COPD exacerbation Current Visit: Yes Status: Acute Code(s): J44.1 - CHRONIC OBSTRUCTIVE PU LMONARY DISEASE W (ACUTE) EXACERBATION (4) HLD (hyperlipidemia) Current Visit: Yes Status: Acute Code(s): E78.5 - HYPERLIPIDEMIA, UNSPECIFIED (5) Shortness of breath Current Visit: Yes Status: Acute Code(s): R06.02 - SHORTNESS OF BREATH (6) Smoker Current Visit: Yes Status: Acute Code(s): F17.200 - NICOTINE DEPENDENCE, UNSPECIFIED, UNCOMPLICATED (7) Congestive heart failure Current Visit: No Status: Acute Code(s): I50.9 - HEART FAILURE, UNSPECIFIED (8) Essential hypertension Current Visit: No Status: Chronic Code(s): I10 - ESSENTIAL (PRIMARY) HYPERTENSION (9) Anxiety Current Visit: Yes Status: Acute Code(s): F41.9 - ANXIETY DISORDER, UNSPECIFIED (10) Mouth pain Current Visit: Yes Status: Acute Assessment & Plan: (1) Atypical pneumonia Current Visit: Yes Status: Acute Assessment & Plan: - suggested by cough, sputum, wheezing, rales - CT chest as stated in HPI - Blood Cx, Sputum Cx with gram stain, urine antigen for strep pneumo and legionella - CURB-65 score - 2 (need for admission) - in the setting of chronic comorbidity (CHF, COPD) will start on Levofloxacin (patient has allergy to ceftriaxone) and Azithromycin - Chest XR 05/27: Impression: Continued nonacute chest with chronic features. -Chest CT 05/27 IMPRESSION: 1. Patchy ground-glass attenuation with thickened interlobular septa in both lungs with resultant mosaic attenuation. Differentials include pneumonia (viral pneumonia like COVID-19/atypical pulmonary infections). 2. Right lower lobe pneumatocele. 05/28 - Aminophylline gtt started and steroids increased by pulmonology - Levaquin, proventil, trelegy (if can bring from home), Duonebs, Solumedrol, pulmicort 05/29 - BC X2 negative, 05/30 - sputum culture negative Code(s): J18.9 - PNEUMONIA, UNSPECIFIED ORGANISM (2) Acute hypoxemic respiratory failure Current Visit: Yes Status: Acute Assessment & Plan: -see COPD 05/30 - Oral lasix d/c'd - Start IV lasix 40 TID - Amniophylline gtt 05/31 - Amniophylline gtt D/C'd - Bipap Code(s): J96.01 - ACUTE RESPIRATORY FAILURE WITH HYPOXIA (3) COPD exacerbation Current Visit: Yes Status: Acute Assessment & Plan: - Duonebs Q4 - Albuterol Q2 PRN - Solumedrol 40mg BID - Mucinex- increased - Incentive Spirometry - Flutter therapy +/- Smoking Cessation discussion +/- Flu shot/Prevnar/ Pneumovax shot - Acetylcysteine - Budesonide - Pulmonology consult -RT eval and treat Code(s): J44.1 - CHRONIC OBSTRUCTIVE PULMONARY DISEASE W (ACUTE) EXACERBATION (4) HLD (hyperlipidemia) Current Visit: Yes Status: Acute Assessment & Plan: - Continue statin Code(s): E78.5 - HYPERLIPIDEMIA, UNSPECIFIED (5) Shortness of breath Current Visit: Yes Status: Acute Assessment & Plan: - see COPD Code(s): R06.02 - SHORTNESS OF BREATH (6) Smoker Current Visit: Yes Status: Acute Assessment & Plan: - Nicotine patch - advised cessation Code(s): F17.200 - NICOTINE DEPENDENCE, UNSPECIFIED, UNCOMPLICATED (7) Congestive heart failure Current Visit: No Status: Acute Assessment & Plan: HFpEF vs HFrEF -NYHA Class 3 -Baseline Weight: 81.7kg -proBNP 460 -Will resume home meds lasix, does not appear in exacerbation -Monitor daily weight and document Strict I/Os -ECHO from 03/22/20 showing EF of 60-70% IMPRESSION: 1) NO REGIONAL WALL MOTION ABNORMALITY. ESTIMATED GLOBAL LEFT VENTRICULAR EJECTION FRACTION BETWEEN 60 AND 70%. 2) TRACE TRICUSPID REGURGITATION. RIGHT VENTRICULAR SYSTOLIC PRESSURE OF 17 MM OF MERCURY. 3) LEFT VENTRICULAR HYPERTROPHY. -consider obtaining new ECHO -Daily CMP to monitor renal function 05/30 - Oral lasix d/c'd - Start IV lasix 40 TID - Bipap - Consider updated echo 05/31 - echo EF 50% Code(s): I50.9 - HEART FAILURE, UNSPECIFIED (8) Essential hypertension Current Visit: No Status: Chronic Assessment & Plan: -stable,resume home meds Code(s): I10 - ESSENTIAL (PRIMARY) HYPERTENSION (9) Anxiety Current Visit: Yes Status: Acute Assessment & Plan: - Ativan BID PRN - controlled Code(s): F41.9 - ANXIETY DISORDER, UNSPECIFIED (10) Mouth pain Current Visit: Yes Status: Acute Assessment & Plan: - Danette's magic mouthwash QID Code(s): K13.79 - OTHER LESIONS OF ORAL MUCOSA - Discharge Disposition: Home, Self-Care Condition: Stable Prescriptions: No Action Aspirin 81 mg PO DAILY Pregabalin [Lyrica] 75 mg PO DAILY Clonidine HCl 0.1 mg [Clonidine 0.1 mg Tablet] 0.1 mg PO QHS Multivitamin [Multivitamins] 1 each PO DAILY Calcium Carbonate [Calcium] 600 mg PO QHS Allopurinol 100 mg [Zyloprim 100 mg] 100 mg PO DAILY Rosuvastatin Calcium [Crestor] 20 mg PO QHS Furosemide 40 mg [Lasix 40 MG] 40 mg PO DAILY 14 Days #14 tablet Venlafaxine HCl ER 75 mg [Effexor XR 75 MG] 150 mg PO DAILY Potassium Chloride [Klor-Con 10] 10 meq PO BID ARIPiprazole [Abilify] 5 mg PO QHS Buspirone HCl 5 mg [Buspar 5 mg] 15 mg PO BID Losartan Potassium [Cozaar] 25 mg PO DAILY Famotidine 20 mg [Pepcid 20 MG] 40 mg PO HS Metoprolol Succinate 100 mg [Toprol Xl 100 MG] 1 tab PO HS Fluticasone/Umeclidin/Vilanter [Trelegy Ellipta 100-62.5-25] 1 puff PO DAILY Varenicline Tartrate [Chantix] 1 tab PO BID Albuterol 8 gm Mdi Hfa [Ventolin Hfa MDI] 1 puff PO Q4HPRN PRN PRN Reason: Shortness Of Breath Follow up with: STERLING ERVIN [ACTIVE STAFF] - 06/11/23 3:15 pm ([place] office) MARIA ELENA RUSSO MD [Primary Care Provider] - 06/05/23 3:00 pm
--- NOTE | 2023-06-01 16:13 | ECHO ---
DATE: 05/28/2023 INDICATION: Shortness of breath. The M-mode, 2D, and Doppler echocardiogram including color flow Doppler shows very limited windows. The left ventricle is normal in size. There is no thrombus noted. The wall thickness is normal. There is evidence of impaired left ventricular relaxation. There is normal contractility of the left ventricle. The ejection fraction is estimated to be 55-60%. The right ventricle is not well visualized. The left atrium is normal in size. The aortic valve opens well. The mitral valve is normal. The tricuspid valve is normal. The pulmonic valve is not well visualized. The aortic root is normal. There is no pericardial effusion present. IMPRESSION: 1. NORMAL CONTRACTILITY OF THE LEFT VENTRICLE. 2. POSSIBLE IMPAIRED LEFT VENTRICULAR RELAXATION.
== END 2023-05-31 15:27 | disposition short-term general hospital (02) | DRG 193 ==
LOC: ED 07:30 → MED SURG 11:41 → OBSVTOIN 05-28 10:19
PROVIDERS: ADMIT Internal Medicine; ATTEND Internal Medicine
DX: J18.9 Pneumonia, unspecified organism (principal); J96.01 Acute respiratory failure with hypoxia; J44.1 Chronic obstructive pulmonary disease with (acute) exacerbation; I11.0 Hypertensive heart disease with heart failure; I50.9 Heart failure, unspecified; Z99.81 Dependence on supplemental oxygen; F17.210 Nicotine dependence, cigarettes, uncomplicated; Z79.899 Other long term (current) drug therapy; Z20.828 Contact with and (suspected) exposure to other viral communicable diseases; E78.5 Hyperlipidemia, unspecified; F41.9 Anxiety disorder, unspecified; K13.79 Other lesions of oral mucosa; Z86.73 Personal history of transient ischemic attack (TIA), and cerebral infarction without residual deficits
CPT/HCPCS: 0241U; 36000; 36415; 71045; 71046; 71260; 80053; 80198; 82805; 83605; 83735; 83880; 84484; 85025; 85379; 87040; 87070; 93005; 93041; 93268; 93306; 94002; 94003; 94640; 94760; 94762; 96365; 96374; 99285; G0378; Q3014; J0280; J0456; J1650; J1940; J1956; J2920; J2930; J7609; A9270-GY

== ENCOUNTER 2024-07-30 17:47 | Emergency (ER) | payer MEDICARE ==
[2024-07-30 17:58] VITALS: TEMP 98.9
[2024-07-30] MEDS ORDERED: DUONEB 0.5-3 MG/3 ml Neb IH ONE (17:59)
[2024-07-30] MEDS: DUONEB 0.5-3 MG/3 ml Neb IH ONE (18:00)
[2024-07-30] MEDS ORDERED: Sterile H2O 10 ml IJ ONE (18:36)
[2024-07-30] MEDS ORDERED: Sodium Chloride 0.9% 1000 ML 1,000 ML ONE (18:36)
[2024-07-30] MEDS ORDERED: solu-MEDROL ONE (18:36)
[2024-07-30 18:39] LABS: Hematocrit 39.3 % (34.1-44.9); Hemoglobin 13.5 g/dL (11.2-15.7); Mean Cell Volume 92.3 fL (79.4-94.8); Mean Corpuscular Hemoglobin 31.7 pg (25.6-32.2); Mean Corpuscular Hgb Concent. 34.4 g/dL (32.2-35.5); Mean Platelet Volume 10.9 fL (9.4-12.3); Platelet Count 203 x10^3/uL (182-369); Red Blood Count 4.26 x10^6/uL (3.93-5.22); Red Cell Distribution Width 12.9 % (11.7-14.4); White Blood Count 8.9 x10^3/uL (3.98-10.04)
[2024-07-30] MEDS: Sodium Chloride 0.9% 1000 ML 1,000 ML IV SCH (18:39)
[2024-07-30] MEDS: solu-MEDROL 125 MG, Sterile H2O 10 ml 2 ML IV ONE (18:40)
[2024-07-30 18:52] LABS: ALBUMIN 4.5 g/dL (3.5-5.0); ANION GAP 12.1 MEQ/L (5-15); BILIRUBIN,TOTAL 0.4 mg/dL (0.2-1.3); Calcium 10.2 mg/dL (8.4-10.2); Creatinine 1 1.2 mg/dL (0.52-1.04); EST GLOMERULAR FILTRATION RATE 49.6 ML/MIN; MAGNESIUM 1.6 mg/dL (1.6-2.3); Potassium 4.1 mmol/L (3.5-5.1); Total Protein 7.2 g/dL (6.3-8.2)
--- NOTE | 2024-07-30 18:55 | ERPHSYRPT ---
- History of Present Illness Source: patient, family Exam Limitations: no limitations Patient Subjective Stated Complaint: pt here for sob,cough, she has not had a breathing treatment since this am, she as not used her home o2 today. Triage Nursing Assessment: pt alert, but unsure of her medical hx, resp labored with excertion, has wheezes to upper lobes and diminished lower lobes, occ cought and runny nose, no edema noted Timing/Duration: today Associated Symptoms: cough, wheezing Hx Tetanus, Diphtheria Vaccination/Date Given: Yes Hx Influenza Vaccination/Date Given: Yes Hx Pneumococcal Vaccination/Date Given: Yes Immunizations Up to Date: Yes <MILKA MOYER - Last Filed: 07/30/24 18:56> <EMIR BANDA - Last Filed: 07/30/24 23:55> - History of Present Illness Time Seen by Provider: 07/30/24 18:53 Physician History: Patient is 69-year-old female with significant past medical history of COPD emphysema hypertension started having a shortness of breath cough fever chills for last 2 to 3 days. Her shortness of breath got worse today so she came to the emergency room. Patient usually uses oxygen at home and also use nebulizer treatment at home. (MILKA MOYER) Allergies/Adverse Reactions: codeine Allergy (Mild, Verified 07/30/24 17:50) Nausea ceftriaxone [From Rocephin] Adverse Reaction (Intermediate, Verified 07/30/24 17:50) states it made her go out of her head vancomycin Adverse Reaction (Unknown, Verified 07/30/24 17:50) confusion Home Medications: Aspirin 81 mg PO DAILY 03/19/14 [History] Pregabalin [Lyrica] 75 mg PO DAILY 03/19/14 [History] Clonidine HCl 0.1 mg [Clonidine 0.1 mg Tablet] 0.1 mg PO QHS 02/04/16 [History] Allopurinol 100 mg [Zyloprim 100 mg] 100 mg PO DAILY 08/04/19 [History] Calcium Carbonate [Calcium] 600 mg PO QHS 08/04/19 [History] Multivitamin [Multivitamins] 1 each PO DAILY 08/04/19 [History] Rosuvastatin Calcium [Crestor] 20 mg PO QHS 03/22/20 [History] Potassium Chloride [Klor-Con 10] 10 meq PO BID 12/11/20 [History] Venlafaxine HCl ER 75 mg [Effexor XR 75 MG] 150 mg PO DAILY 12/11/20 [History] ARIPiprazole [Abilify] 5 mg PO QHS 12/12/20 [History] Buspirone HCl 5 mg [Buspar 5 mg] 15 mg PO BID 12/28/22 [History] Famotidine 20 mg [Pepcid 20 MG] 40 mg PO HS 12/28/22 [History] Losartan Potassium [Cozaar] 25 mg PO DAILY 12/28/22 [History] Albuterol 8 gm Mdi Hfa [Ventolin Hfa MDI] 1 puff PO Q4HPRN PRN 05/27/23 [History] Fluticasone/Umeclidin/Vilanter [Trelegy Ellipta 100-62.5-25] 1 puff PO DAILY 05/27/23 [History] Metoprolol Succinate 100 mg [Toprol Xl 100 MG] 1 tab PO HS 05/27/23 [History] Varenicline Tartrate [Chantix] 1 tab PO BID 05/27/23 [History] Travel Risk - International Travel Have you traveled outside of the country in past 3 weeks: No - Emerging Infectious Disease Are you exhibiting symptoms associated with any current EIDs: No <JOÃO,MILKA - Last Filed: 07/30/24 18:56> - Review of Systems Constitutional: No Fever, No Chills Eyes: No Symptoms Ears, Nose, & Throat: No Symptoms Respiratory: Cough, Dyspnea, Dyspnea on Exertion (ZAPATA), Wheezing Cardiac: No Chest Pain, No Edema, No Syncope Abdominal/Gastrointestinal: No Abdominal Pain, No Nausea, No Vomiting, No Diarrhea Genitourinary Symptoms: No Dysuria Musculoskeletal: No Back Pain, No Neck Pain Skin: No Rash Neurological: No Dizziness, No Focal Weakness, No Sensory Changes Psychological: No Symptoms Endocrine: No Symptoms All Other Systems: Reviewed and Negative <JOÃO,MILKA - Last Filed: 07/30/24 18:56> - Past Medical History Pertinent Past Medical History: Yes Neurological History: Stroke ENT History: Cataracts Cardiac History: High Cholesterol, Hypertension Respiratory History: CHF, COPD Endocrine Medical History: No Pertinent History Musculoskeletal History: Osteoarthritis GI Medical History: Diverticulitis, Diverticulosis, Gallbladder Disease, Other History: No Pertinent History Psycho-Social History: Depression Female Reproductive Disorders: No Pertinent History Other Medical History: BRAIN ANEURYSM 2009, STM LOSS. - Past Surgical History Past Surgical History: Yes Neuro Surgical History: Brain Shunt Cardiac: No Pertinent History Respiratory: No Pertinent History Gastrointestinal: Bowel Surgery, Cholecystectomy Genitourinary: No Pertinent History Musculoskeletal: No Pertinent History Female Surgical History: Hysterectomy Other Surgical History: ileostomy and ileostomy reversal - Social History Smoking Status: Current every day smoker How long have you smoked: 40 years Exposure to second hand smoke: Yes Drug Use: none Patient Lives Alone: No - Social Determinants of Health Will the patient participate in the screening: Yes Do you worry about a steady place to live?: No Do you have any problems with any of the following?: No known problems In the past 12 months,have you had to go without utilities?: No Transportation Issues: No Has anyone in your support network made you feel unsafe?: No Have you or anyone in your house had to go without enough: No <MILKA MOYER - Last Filed: 07/30/24 18:56> - Physical Exam General Appearance: no apparent distress, alert Eye Exam: PERRL/EOMI Neck Exam: normal inspection, supple Respiratory Exam: diminished breath sounds, crackles/rales, rhonchi, wheezing Cardiovascular/Chest Exam: normal heart sounds, regular rate/rhythm Abdominal/Gastrointestinal Exam: soft, No tenderness, No distention, No mass Extremity Exam: non-tender, normal range of motion, normal inspection, no calf tenderness, no pedal edema Neurologic Exam: alert, oriented x 3, cooperative, 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, sensation nml, No motor deficits Skin Exam: normal color, warm, No dry SpO2: 94 <MILKA MOYER - Last Filed: 07/30/24 18:56> - Physical Exam SpO2 Interpretation: normal <EMIR BANDA - Last Filed: 07/30/24 23:55> - Nursing Vital Signs Nursing Vital Signs: Initial Vital Signs Respiratory Rate 07/30/24 17:57 O2 Sat by Pulse Oximetry 94 L 07/30/24 17:57 Pain Scale Pain Intensity 4 - Course Nursing assessment & vital signs reviewed: Yes EKG Interpreted by Me: Sinus Rhythm, Non-specific ST Changes - Radiology Exams Chest X-ray Interpretation: Interpreted by me, Reviewed by me, No Pneumonia (COPD changes) <JOÃO,MILKA - Last Filed: 07/30/24 18:56> Ordered Tests: Active Orders 24 hr Category Date Time Status EKG-ER Only STAT Care 07/30/24 18:25 Active CHEST 2 VIEWS (PA AND LAT) Stat Exams 07/30/24 18:25 Taken CBC W DIFF Stat Lab 07/30/24 18:30 Completed CMP Stat Lab 07/30/24 18:30 Completed MAGNESIUM Stat Lab 07/30/24 18:30 Completed Manual Differential NC Stat Lab 07/30/24 18:30 Completed TROPONIN Q4H Lab 07/30/24 20:45 Completed TROPONIN Q4H Lab 07/31/24 00:45 Ordered TROPONIN Q4H Lab 07/31/24 04:45 Ordered Respiratory Therapy Assessment DAILY RT 07/30/24 18:03 Active Medication Summary Generic Name Dose Route Start Last Admin Trade Name Freq PRN Reason Stop Dose Admin Sodium Chloride 1,000 mls @ 100 mls/hr 07/30/24 18:30 07/30/24 18:39 Sodium Chloride 0.9% 1000 Ml IV 08/29/24 18:29 100 mls/hr .Q10H ESTELA Administration Discontinued Medications Generic Name Dose Route Start Last Admin Trade Name Freq PRN Reason Stop Dose Admin Albuterol Sulfate 2.5 mg 07/30/24 21:36 07/30/24 21:53 Albuterol Sulfate 2.5 Mg/3 Ml Neb IH 07/30/24 21:37 2.5 mg STAT ONE Administration Albuterol Sulfate Confirm 07/30/24 21:44 Albuterol Sulfate 2.5 Mg/3 Ml Neb Administered 07/30/24 21:45 Dose 2.5 mg IH .STK-MED ONE Albuterol/Ipratropium 3 ml 07/30/24 17:58 07/30/24 18:00 Ipratropium/Albuterol Sulfate 3 Ml Ampul.Neb IH 07/30/24 17:59 3 ml STAT ONE Administration Albuterol/Ipratropium Confirm 07/30/24 17:59 Ipratropium/Albuterol Sulfate 3 Ml Ampul.Neb Administered 07/30/24 18:00 Dose 3 ml IH .STK-MED ONE Budesonide 0.5 mg 07/30/24 18:28 07/30/24 19:04 Budesonide 0.5 Mg/2 Ml Ampul.Neb. IH 07/30/24 18:29 0.5 mg ONCE ONE Administration Methylprednisolone Sodium 0 mg 07/30/24 18:25 07/30/24 18:40 Succinate 125 mg/ Sterile IV 07/30/24 18:26 125 mg Water 2 ml STAT ONE Administration Azithromycin 500 mg in 250 mls @ 250 mls/hr 07/30/24 20:46 07/30/24 21:01 Zithromax 500 Mg/ 250 Ml Nacl Premix IV 07/30/24 21:45 250 mls/hr STAT STA 250 mls/hr Administration Azithromycin Confirm 07/30/24 20:58 Zithromax 500 Mg/ 250 Ml Nacl Premix Administered 07/30/24 20:59 Dose 500 mg in 250 mls @ ud IV .STK-MED ONE Methylprednisolone Sodium Succinate Confirm 07/30/24 18:36 Methylprednis Sod Succ 125 Mg/2 Ml Vial Administered 07/30/24 18:37 Dose 125 mg .ROUTE .STK-MED ONE Sterile Water Confirm 07/30/24 18:36 Water For Injection,Sterile 10 Ml Vial Administered 07/30/24 18:37 Dose 10 ml IJ .STK-MED ONE Lab/Rad Data: Laboratory Result Diagrams 07/30/24 18:30 07/30/24 18:30 Laboratory Results 07/30/24 07/30/24 07/30/24 Range/Units 21:55 20:45 18:30 WBC (3.98-10.04) x10^3/uL RBC (3.93-5.22) x10^6/uL Hgb (11.2-15.7) g/dL Hct (34.1-44.9) % MCV (79.4-94.8) fL MCH (25.6-32.2) pg MCHC (32.2-35.5) g/dL RDW (11.7-14.4) % Plt Count (182-369) x10^3/uL MPV (9.4-12.3) fL Sodium (135-145) mmol/L Potassium (3.5-5.1) mmol/L Chloride (98-107) mmol/L Carbon Dioxide (22-30) mmol/L Anion Gap (5-15) MEQ/L BUN (7-17) mg/dL Creatinine (0.52-1.04) mg/dL Estimated GFR ML/MIN Glucose (74-106) mg/dL Calcium (8.4-10.2) mg/dL Magnesium (1.6-2.3) mg/dL Total Bilirubin (0.2-1.3) mg/dL AST (14-36) U/L ALT (0-35) U/L Alkaline Phosphatase (38-126) U/L Troponin I < 0.012 (0.000-0.033) ng/mL Serum Total Protein (6.3-8.2) g/dL Albumin (3.5-5.0) g/dL Influenza Type A Ag POSITIVE A (NEGATIVE) Influenza Type B Ag NEGATIVE (NEGATIVE) RSV (PCR) NEGATIVE (NEGATIVE) SARS-CoV-2 (PCR) NEGATIVE (NEGATIVE) Group A Strep Antibody NOT DETECTED (NEGATIVE) 07/30/24 07/30/24 Range/Units 18:30 18:30 WBC 8.9 (3.98-10.04) x10^3/uL RBC 4.26 (3.93-5.22) x10^6/uL Hgb 13.5 (11.2-15.7) g/dL Hct 39.3 (34.1-44.9) % MCV 92.3 (79.4-94.8) fL MCH 31.7 (25.6-32.2) pg MCHC 34.4 (32.2-35.5) g/dL RDW 12.9 (11.7-14.4) % Plt Count 203 (182-369) x10^3/uL MPV 10.9 (9.4-12.3) fL Sodium 136 (135-145) mmol/L Potassium 4.1 (3.5-5.1) mmol/L Chloride 103 (98-107) mmol/L Carbon Dioxide 25 (22-30) mmol/L Anion Gap 12.1 (5-15) MEQ/L BUN 17 (7-17) mg/dL Creatinine 1.20 H (0.52-1.04) mg/dL Estimated GFR 49.6 ML/MIN Glucose 105 (74-106) mg/dL Calcium 10.2 (8.4-10.2) mg/dL Magnesium 1.6 (1.6-2.3) mg/dL Total Bilirubin 0.40 (0.2-1.3) mg/dL AST 46 H (14-36) U/L ALT 46 H (0-35) U/L Alkaline Phosphatase 97 (38-126) U/L Troponin I (0.000-0.033) ng/mL Serum Total Protein 7.2 (6.3-8.2) g/dL Albumin 4.5 (3.5-5.0) g/dL Influenza Type A Ag (NEGATIVE) Influenza Type B Ag (NEGATIVE) RSV (PCR) (NEGATIVE) SARS-CoV-2 (PCR) (NEGATIVE) Group A Strep Antibody (NEGATIVE) - Progress Progress: improved Counseled pt/family regarding: lab results, diagnosis, need for follow-up, rad results <EMIR BANDA - Last Filed: 07/30/24 23:55> - Progress Progress Note: 07/30/24 20:[address] Banda @ 2033: eomi, TM's not injected, pharynx erythematous, lungs have mild expiratory wheezing over posterior bases, no cardiac rub, abdominal B.S. normal, alert & cooperative. (EMIR BANDA) <JOÃOBEATRIZMILKA - Last Filed: 07/30/24 18:56> - Departure Departure Disposition: Home Critical Care Time: No <EMIR BANDA - Last Filed: 07/30/24 23:55> - Departure Clinical Impression: Influenza A, COPD (chronic obstructive pulmonary disease) Condition: Stable Referrals: MARIA ELENA RUSSO MD [Primary Care Provider] - Follow up/PCP as directed Instructions: Chronic Obstructive Pulmonary Disease, Flu, Adult ED Additional Instructions: Follow up with private doctor tomorrow. Prescriptions: Azithromycin 250 mg [Zithromax 250 MG TABLET] 250 mg PO ZPACK #6 tablet
[2024-07-30] MEDS ORDERED: PULMICORT 0.5 MG/2 ML RESPULES IH ONE (18:58)
[2024-07-30] MEDS: PULMICORT 0.5 MG/2 ML RESPULES IH ONE (19:04)
[2024-07-30 19:18] LABS: INFLUENZA B NEGATIVE (NEGATIVE); RESPIRATORY SYNCTIAL VIRUS NEGATIVE (NEGATIVE); SARS-CoV-2 Xpert Express NEGATIVE (NEGATIVE)
[2024-07-30 19:20] LABS: INFLUENZA A POSITIVE (NEGATIVE)
[2024-07-30] MEDS ORDERED: Zithromax 500 MG/ 250 ML NaCl Premix 500 MG/250 ML IVPB IV ONE (20:58)
[2024-07-30] MEDS: Zithromax 500 MG/ 250 ML NaCl Premix 500 MG/250 ML IVPB IV STA (21:01)
[2024-07-30] MEDS ORDERED: PROVENTIL 2.5 MG/3 ML NEB IH ONE (21:44)
[2024-07-30] MEDS: PROVENTIL 2.5 MG/3 ML NEB IH ONE (21:53)
[2024-07-31 00:02] LABS: BAND 1 % (0.0-2.0); Basophil 1 % (0.1-1.2); Lymphocytes 14 % (19.3-51.7); Monocyte 10 % (4.7-12.5); Neutrophils 74 % (34.0-71.1); Platelet Estimate NORMAL (NORMAL); Total Cells Counted 100
[2024-07-31 00:07] VITALS: BP 129/79; PULSE 90; RESP 20; O2SAT 94
--- NOTE | 2024-07-31 09:05 | XRAY ---
Indication: Cough. Short of breath. Comparison: February 18, 2024 PA/lateral chest again hyperinflated and clear. Heart not enlarged. Bony thorax intact again with osteopenia, degenerative changes, and left shunt catheter. No new/acute findings.
== END 2024-07-31 00:09 | disposition home or self-care (01) ==
LOC: ED 17:47
DX: J10.1 Influenza due to other identified influenza virus with other respiratory manifestations (principal); J44.9 Chronic obstructive pulmonary disease, unspecified; Z99.81 Dependence on supplemental oxygen; Z79.899 Other long term (current) drug therapy
CPT/HCPCS: 0241U; 36415; 71046; 80053; 83735; 84484; 85025; 87651; 93005; 94640; 96374; 99285; 96375; 99284; J0456; J2919; J7609; A9270-GY

== ENCOUNTER 2024-08-01 00:59 | Inpatient (IN) | payer MEDICARE ==
--- NOTE | 2024-08-01 01:07 | ERPHSYRPT ---
- History of Present Illness Time Seen by Provider: 08/01/24 01:06 Source: patient, EMS Exam Limitations: no limitations Physician History: The patient presents with difficulty breathing and increased oxygen requirements. She has been experiencing difficulty breathing throughout the day, requiring an increase in her oxygen use to three to four liters from her usual two liters at night. She has been prescribed Zithromax and uses a nebulizer every four hours since he r visit to ER yesterday. Found to be positive for Influenza A. Her last nebulizer treatment was at midnight, and she received another on the way to the facility. Timing/Duration: day(s) (2), worse Activities at Onset: rest Severity of Dyspnea-Max: severe Severity of Dyspnea-Current: severe Possible Cause: occasional episodes Modifying Factors: Improves With: oxygen. Worsens With: activity, exertion Associated Symptoms: constant, wheezing, productive cough, No edema, No fever Allergies/Adverse Reactions: codeine Allergy (Mild, Verified 08/01/24 01:19) Nausea ceftriaxone [From Rocephin] Adverse Reaction (Intermediate, Verified 08/01/24 01:19) states it made her go out of her head vancomycin Adverse Reaction (Unknown, Verified 08/01/24 01:19) confusion Home Medications: Aspirin 81 mg PO DAILY 03/19/14 [History] Pregabalin [Lyrica] 75 mg PO DAILY 03/19/14 [History] Clonidine HCl 0.1 mg [Clonidine 0.1 mg Tablet] 0.1 mg PO QHS 02/04/16 [History] Allopurinol 100 mg [Zyloprim 100 mg] 100 mg PO DAILY 08/04/19 [History] Calcium Carbonate [Calcium] 600 mg PO QHS 08/04/19 [History] Multivitamin [Multivitamins] 1 each PO DAILY 08/04/19 [History] Rosuvastatin Calcium [Crestor] 20 mg PO QHS 03/22/20 [History] Potassium Chloride [Klor-Con 10] 10 meq PO BID 12/11/20 [History] Venlafaxine HCl ER 75 mg [Effexor XR 75 MG] 150 mg PO DAILY 12/11/20 [History] ARIPiprazole [Abilify] 5 mg PO QHS 12/12/20 [History] Buspirone HCl 5 mg [Buspar 5 mg] 15 mg PO BID 12/28/22 [History] Famotidine 20 mg [Pepcid 20 MG] 40 mg PO HS 12/28/22 [History] Losartan Potassium [Cozaar] 25 mg PO DAILY 12/28/22 [History] Albuterol 8 gm Mdi Hfa [Ventolin Hfa MDI] 1 puff PO Q4HPRN PRN 05/27/23 [History] Fluticasone/Umeclidin/Vilanter [Trelegy Ellipta 100-62.5-25] 1 puff PO DAILY 05/27/23 [History] Metoprolol Succinate 100 mg [Toprol Xl 100 MG] 1 tab PO HS 05/27/23 [History] Varenicline Tartrate [Chantix] 1 tab PO BID 05/27/23 [History] Hx Tetanus, Diphtheria Vaccination/Date Given: Yes Hx Influenza Vaccination/Date Given: Yes Hx Pneumococcal Vaccination/Date Given: Yes Travel Risk - Emerging Infectious Disease Are you exhibiting symptoms associated with any current EIDs: No - Review of Systems All Other Systems: Reviewed and Negative - Past Medical History Pertinent Past Medical History: Yes Neurological History: Stroke ENT History: Cataracts Cardiac History: High Cholesterol, Hypertension Respiratory History: CHF, COPD Endocrine Medical History: No Pertinent History Musculoskeletal History: Osteoarthritis GI Medical History: Diverticulitis, Diverticulosis, Gallbladder Disease, Other History: No Pertinent History Psycho-Social History: Depression Female Reproductive Disorders: No Pertinent History Other Medical History: BRAIN ANEURYSM 2009, STM LOSS. - Past Surgical History Past Surgical History: Yes Neuro Surgical History: Brain Shunt Cardiac: No Pertinent History Respiratory: No Pertinent History Gastrointestinal: Bowel Surgery, Cholecystectomy Genitourinary: No Pertinent History Musculoskeletal: No Pertinent History Female Surgical History: Hysterectomy Other Surgical History: ileostomy and ileostomy reversal - Social History Smoking Status: Current every day smoker How long have you smoked: 40 years Exposure to second hand smoke: Yes Drug Use: none Patient Lives Alone: No - Social Determinants of Health Will the patient participate in the screening: Yes Do you worry about a steady place to live?: No In the past 12 months,have you had to go without utilities?: No Transportation Issues: No Has anyone in your support network made you feel unsafe?: No Have you or anyone in your house had to go without enough: No - Nursing Vital Signs Nursing Vital Signs: Initial Vital Signs Pulse Rate 125 H 08/01/24 01:04 Respiratory Rate 39 H 08/01/24 01:04 Blood Pressure 118/80 08/01/24 01:04 O2 Sat by Pulse Oximetry 94 L 08/01/24 01:04 Pain Scale Pain Intensity 4 - Physical Exam General Appearance: moderate distress Eye Exam: eyes nml inspection, EOM palsy/anisocoria Ears, Nose, Throat Exam: normal ENT inspection Neck Exam: normal inspection, supple, full range of motion Respiratory Exam: respiratory distress, airway intact, rhonchi, wheezing Cardiovascular/Chest Exam: tachycardia, No edema Abdominal/Gastrointestinal Exam: soft, No tenderness, No guarding, No rebound Neurologic Exam: alert, oriented x 3, cooperative Skin Exam: normal color, warm, dry SpO2 Interpretation: borderline oxygenation O2 Delivery: Nasal Cannula (4L) - Course Nursing assessment & vital signs reviewed: Yes EKG Interpreted by Me: RATE ([id number]), Sinus Tach, LAFB, NORMAL INTERVALS, NORMAL ST-T Ordered Tests: Active Orders 24 hr Category Date Time Status 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 STAT Care 08/01/24 01:14 Active CHEST WITH CONTRAST [CT] Stat Exams 08/01/24 02:06 Completed BLOOD CULTURE Stat Lab 08/01/24 01:55 Received CBC W DIFF Stat Lab 08/01/24 01:20 Completed CMP Stat Lab 08/01/24 01:20 Completed Lactic Acid Stat Lab 08/01/24 01:15 Completed Lactic Acid Stat Lab 08/01/24 04:00 Ordered MAGNESIUM Stat Lab 08/01/24 01:20 Completed VENOUS BLOOD GAS Stat Lab 08/01/24 01:15 Completed Transfer Order Routine Transfer 08/01/24 Ordered Medication Summary Generic Name Dose Route Start Last Admin Trade Name Freq PRN Reason Stop Dose Admin Magnesium Sulfate/Dextrose 100 mls @ 100 mls/hr 08/01/24 02:00 08/01/24 01:59 Magnesium 1 Gm / 100 Ml D5w IV 08/01/24 03:59 100 mls/hr Q1H ESTELA Administration Discontinued Medications Generic Name Dose Route Start Last Admin Trade Name Freq PRN Reason Stop Dose Admin Albuterol/Ipratropium 3 ml 08/01/24 04:00 Ipratropium/Albuterol Sulfate 3 Ml Ampul.Neb IH 08/01/24 04:01 STAT ONE Albuterol/Ipratropium Confirm 08/01/24 04:01 Ipratropium/Albuterol Sulfate 3 Ml Ampul.Neb Administered 08/01/24 04:02 Dose 3 ml IH .STK-MED ONE Methylprednisolone Sodium 0 mg 08/01/24 01:13 08/01/24 01:33 Succinate 80 mg/ Sterile Water IV 08/01/24 01:14 125 mg 2 ml STAT ONE Administration Levofloxacin/Dextrose 750 mg in 150 mls @ 100 mls/hr 08/01/24 01:13 08/01/24 03:15 Levofloxacin 750mg/150ml D5w IV 08/01/24 02:42 Infused STAT STA Infusion Sodium Chloride 1,000 mls @ 999 mls/hr 08/01/24 01:13 08/01/24 03:14 Sodium Chloride 0.9% 1000 Ml IV 08/01/24 02:13 Infused .Q1H1M STA Infusion Sodium Chloride Confirm 08/01/24 01:31 Sodium Chloride 0.9% 1000 Ml Administered 08/01/24 01:32 Dose 1,000 mls @ ud .ROUTE .STK-MED ONE Levofloxacin/Dextrose Confirm 08/01/24 01:31 Levofloxacin 750mg/150ml D5w Administered 08/01/24 01:32 Dose 750 mg in 150 mls @ ud IV .STK-MED ONE Sodium Chloride 1,000 mls @ 999 mls/hr 08/01/24 02:35 08/01/24 03:06 Sodium Chloride 0.9% 1000 Ml IV 08/01/24 03:35 999 mls/hr .Q1H1M STA Administration Sodium Chloride Confirm 08/01/24 03:05 Sodium Chloride 0.9% 1000 Ml Administered 08/01/24 03:06 Dose 1,000 mls @ ud .ROUTE .STK-MED ONE Methylprednisolone Sodium Succinate Confirm 08/01/24 01:31 Methylprednis Sod Succ 125 Mg/2 Ml Vial Administered 08/01/24 01:32 Dose 125 mg .ROUTE .STK-MED ONE Sterile Water Confirm 08/01/24 01:30 Water For Injection,Sterile 10 Ml Vial Administered 08/01/24 01:31 Dose 10 ml IJ .STK-MED ONE Lab/Rad Data: Laboratory Result Diagrams 08/01/24 01:20 08/01/24 01:20 Laboratory Results 08/01/24 08/01/24 08/01/24 Range/Units 01:20 01:20 01:15 WBC 13.9 H (3.98-10.04) x10^3/uL RBC 4.31 (3.93-5.22) x10^6/uL Hgb 13.4 (11.2-15.7) g/dL Hct 39.6 (34.1-44.9) % MCV 91.9 (79.4-94.8) fL MCH 31.1 (25.6-32.2) pg MCHC 33.8 (32.2-35.5) g/dL RDW 13.0 (11.7-14.4) % Plt Count 201 (182-369) x10^3/uL MPV 10.6 (9.4-12.3) fL Gran % 84.7 H (34.0-71.1) % Immature Gran % (Auto) 0.4 (0.001-0.429) % Nucleat RBC Rel Count 0.0 (0.00-0.2) % Eos # (Auto) 0 L (0.04-0.36) x10^3/uL Immature Gran # (Auto) 0.06 H (0.001-0.031) x10^3u/L Absolute Lymphs (auto) 1.05 L (1.18-3.74) x10^3/uL Absolute Monos (auto) 1.00 H (0.24-0.86) x10^3/uL Absolute Nucleated RBC 0.00 (0.00-0.012) x10^3u/L Lymphocytes % 7.5 L (19.3-51.7) % Monocytes % 7.2 (4.7-12.5) % Eosinophils % 0.0 L (0.7-5.8) % Basophils % 0.2 (0.1-1.2) % Absolute Granulocytes 11.80 H (1.56-6.13) x10^3/uL Basophils # 0.03 (0.01-0.08) x10^3/uL pO2/FiO2 Ratio % VBG pH (7.32-7.42) VBG pCO2 at Pat Temp (42-55) mm/Hg VBG pO2 at Pat Temp (25-40) mm/Hg VBG HCO3 (22-28) meq/L VBG O2 Sat (Anabell) (95-100) VBG Base Excess (-2.0-2.0) VBG Hemoglobin VBG Carboxyhemoglobin (0.0-6.9) % T HGB POC Potassium (3.5-5.1) Sodium 135 (135-145) mmol/L Potassium 3.4 L (3.5-5.1) mmol/L Chloride 101 (98-107) mmol/L Carbon Dioxide 25 (22-30) mmol/L Anion Gap 12.2 (5-15) MEQ/L BUN 16 (7-17) mg/dL Creatinine 1.17 H (0.52-1.04) mg/dL Estimated GFR 51.1 ML/MIN Glucose 135 H (74-106) mg/dL Lactic Acid 2.9 H (0.4-2.0) Calcium 9.7 (8.4-10.2) mg/dL Magnesium 1.5 L (1.6-2.3) mg/dL Total Bilirubin 0.20 (0.2-1.3) mg/dL AST 57 H (14-36) U/L ALT 48 H (0-35) U/L Alkaline Phosphatase 87 (38-126) U/L Serum Total Protein 7.6 (6.3-8.2) g/dL Albumin 4.4 (3.5-5.0) g/dL 08/01/24 Range/Units 01:15 WBC (3.98-10.04) x10^3/uL RBC (3.93-5.22) x10^6/uL Hgb (11.2-15.7) g/dL Hct (34.1-44.9) % MCV (79.4-94.8) fL MCH (25.6-32.2) pg MCHC (32.2-35.5) g/dL RDW (11.7-14.4) % Plt Count (182-369) x10^3/uL MPV (9.4-12.3) fL Gran % (34.0-71.1) % Immature Gran % (Auto) (0.001-0.429) % Nucleat RBC Rel Count (0.00-0.2) % Eos # (Auto) (0.04-0.36) x10^3/uL Immature Gran # (Auto) (0.001-0.031) x10^3u/L Absolute Lymphs (auto) (1.18-3.74) x10^3/uL Absolute Monos (auto) (0.24-0.86) x10^3/uL Absolute Nucleated RBC (0.00-0.012) x10^3u/L Lymphocytes % (19.3-51.7) % Monocytes % (4.7-12.5) % Eosinophils % (0.7-5.8) % Basophils % (0.1-1.2) % Absolute Granulocytes (1.56-6.13) x10^3/uL Basophils # (0.01-0.08) x10^3/uL pO2/FiO2 Ratio 21.0 % VBG pH 7.41 (7.32-7.42) VBG pCO2 at Pat Temp 46 (42-55) mm/Hg VBG pO2 at Pat Temp 45 H (25-40) mm/Hg VBG HCO3 29.2 H* (22-28) meq/L VBG O2 Sat (Anabell) 81.4 L (95-100) VBG Base Excess 3.8 H (-2.0-2.0) VBG Hemoglobin 13.9 VBG Carboxyhemoglobin 6.1 (0.0-6.9) % T HGB POC Potassium 3.4 L (3.5-5.1) Sodium (135-145) mmol/L Potassium (3.5-5.1) mmol/L Chloride (98-107) mmol/L Carbon Dioxide (22-30) mmol/L Anion Gap (5-15) MEQ/L BUN (7-17) mg/dL Creatinine (0.52-1.04) mg/dL Estimated GFR ML/MIN Glucose (74-106) mg/dL Lactic Acid (0.4-2.0) Calcium (8.4-10.2) mg/dL Magnesium (1.6-2.3) mg/dL Total Bilirubin (0.2-1.3) mg/dL AST (14-36) U/L ALT (0-35) U/L Alkaline Phosphatase (38-126) U/L Serum Total Protein (6.3-8.2) g/dL Albumin (3.5-5.0) g/dL - Progress Progress: improved Air Movement: fair Progress Note: Respiratory distress Experiencing acute and severe respiratory distress with difficulty breathing, requiring increased oxygen supplementation from 2 liters to 3-4 liters at night, and nebulizer use every four hours. Wheezing is present. - Repeat labs - Sepsis screen - Blood cx - Levofloxacin - SoluMedrol 80mg IV - NS 1L bolus - CT chest w/ contrast to r/o PE - Patient will need admission WNC 13.9, lactic 2.9, Mg 1.5 CT showed b/l ground glass opacities, no PE. 2g MgSO4 given. Dr. Dorado accepts for admission at 0400. Blood Culture(s) Obtained: Yes Antibiotics given: Yes Counseled pt/family regarding: lab results, diagnosis, need for follow-up, rad results Medical Desision Making - Diagnostic Testing Diagnostic test were ordered, analyzed, and reviewed by me: Yes Radiological Interpretation: Interpreted by me, Reviewed by me, Teleradiologist Report - Risk of complications The pt has a mod risk of morbidity or mortality based on: Need for prescription drug management The pt has a high risk of morbidity or mortality based on: Decision regarding hospitilization or escalation of hosp level of care - Departure Departure Disposition: In-patient Admission Clinical Impression: COPD exacerbation, Acute hypoxemic respiratory failure, Sepsis, Influenza A, Hypomagnesemia, Transaminitis Condition: Stable Critical Care Time: No Referrals: MARIA ELENA RUSSO MD [Primary Care Provider] - Follow up/PCP as directed Instructions: Exacerbation of COPD (DC), Flu, Adult ED
[2024-08-01 01:24] LABS: VBG BASE EXCESS 3.8 (-2.0-2.0); VBG CARBOXYHEMOGLOBIN 6.1 % T HGB (0.0-6.9); VBG HCO3- 29.2 meq/L (22-28); VBG HEMOGLOBIN 13.9; VBG O2 SATURATION 81.4 (95-100); VBG POTASSIUM 3.4 (3.5-5.1); VBG pH 7.41 (7.32-7.42)
[2024-08-01] MEDS ORDERED: Sterile H2O 10 ml IJ ONE ×2 (01:30→09:44)
[2024-08-01] MEDS ORDERED: Sodium Chloride 0.9% 1000 ML 1,000 ML ONE ×2 (01:31→03:05)
[2024-08-01] MEDS ORDERED: solu-MEDROL ONE (01:31)
[2024-08-01] MEDS ORDERED: LEVOFLOXACIN 750MG/150ML D5W 750 MG/150 ML BAG IV ONE (01:31)
[2024-08-01] MEDS: Sodium Chloride 0.9% 1000 ML 1,000 ML IV STA ×2 (01:33→03:06)
[2024-08-01] MEDS: solu-MEDROL 80 MG, Sterile H2O 10 ml 2 ML IV ONE (01:33)
[2024-08-01] MEDS: LEVOFLOXACIN 750MG/150ML D5W 750 MG/150 ML BAG IV STA (01:34)
[2024-08-01 01:36] LABS: BASOPHIL % 0.2 % (0.1-1.2); Basophil (Absolute #) 0.03 x10^3/uL (0.01-0.08); Eosinophil (Absolute #) 0 x10^3/uL (0.04-0.36); Hematocrit 39.6 % (34.1-44.9); Hemoglobin 13.4 g/dL (11.2-15.7); IMMATURE GRAN # 0.06 x10^3u/L (0.001-0.031); IMMATURE GRAN % 0.4 % (0.001-0.429); Lymphocyte (Absolute #) 1.05 x10^3/uL (1.18-3.74); Lymphocytes % 7.5 % (19.3-51.7); Mean Cell Volume 91.9 fL (79.4-94.8); Mean Corpuscular Hemoglobin 31.1 pg (25.6-32.2); Mean Corpuscular Hgb Concent. 33.8 g/dL (32.2-35.5); Mean Platelet Volume 10.6 fL (9.4-12.3); Monocytes % 7.2 % (4.7-12.5); Neutrophil % 84.7 % (34.0-71.1); Platelet Count 201 x10^3/uL (182-369); Red Blood Count 4.31 x10^6/uL (3.93-5.22); White Blood Count 13.9 x10^3/uL (3.98-10.04)
[2024-08-01 01:52] LABS: ALBUMIN 4.4 g/dL (3.5-5.0); ANION GAP 12.2 MEQ/L (5-15); BILIRUBIN,TOTAL 0.2 mg/dL (0.2-1.3); Calcium 9.7 mg/dL (8.4-10.2); Creatinine 1 1.17 mg/dL (0.52-1.04); EST GLOMERULAR FILTRATION RATE 51.1 ML/MIN; MAGNESIUM 1.5 mg/dL (1.6-2.3); Potassium 3.4 mmol/L (3.5-5.1); Total Protein 7.6 g/dL (6.3-8.2)
[2024-08-01] MEDS ORDERED: Magnesium 1 Gm / 100 Ml D5W*** 100 ML IV ONE ×2 (01:58→04:05)
[2024-08-01] MEDS: Magnesium 1 Gm / 100 Ml D5W*** 100 ML IV SCH (01:59)
--- NOTE | 2024-08-01 02:58 | XRAY ---
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 TECHNIQUE: Contiguous axial images were obtained from the neck base through the upper abdomen following intravenous administration of contrast material. If IV contrast material had not been administered, the likelihood of detecting abnormalities relevant to the patient's condition would have been substantially decreased. In addition, sagittal and coronal reconstructions were performed. CT scan was performed according to ALARA (as low as reasonable achievable). FINDINGS: A thin-walled cyst is seen in superior segment right lower lobe. Patchy ground-glass attenuation within interlobular septal thickening is noted in both lungs, mainly in bilateral upper, right middle and left lower lobes. The lungs are clear, with no focal areas of consolidation. No pulmonary nodules are seen. The central airways are patent. There are no pleural effusions. No pneumothorax is seen. No axillary, hilar, or mediastinal adenopathy is identified. The visualized thyroid is unremarkable. The heart, aorta, and pulmonary arteries are of normal size and configuration. No pericardial effusion is identified. Imaged portions of the upper abdomen are unremarkable. No aggressive appearing osseous lesions are identified. Calcification seen along posterior dura/epidural space in thoracic spinal canal- stable. IMPRESSION: Patchy ground-glass attenuation within interlobular septal thickening is noted in both lungs, mainly in bilateral upper, right middle and left lower lobes. - as compared to prior study left upper lobe ground-glass opacities are slightly increased- appears atypical pneumonitis. Stable right lower lobe pneumatocele. Electronically Signed by: Abdirahman Jara MD. (08/01/2024 02:55:21 EST)
[2024-08-01] MEDS ORDERED: DUONEB 0.5-3 MG/3 ml Neb IH ONE (04:01)
[2024-08-01] MEDS: DUONEB 0.5-3 MG/3 ml Neb IH ONE (04:27)
--- NOTE | 2024-08-01 05:48 | PCM.HP ---
History of Present Illness - Chief Complaint Chief Complaint: Flu A, pneu, COPD exac, resp failure Date: 08/01/24 History of Present Illness: is a 69 year old female.Very pleasant lady with PMH significant for hypertension, COPD, 2 L oxygen only at night, prior history of stroke 15 years ago without any deficient, anxiety/depression, gout who came to ER with worsening shortness of breath and cough. Patient told me that she came to ER 2 days ago for same symptoms but prescribed CPAP to let her go home. Her symptoms keeps getting worse to a point that she was not able to bleed she was using oxygen 3 to 4 L during all day long. She denied having any fever. She told me she is coughing a lot but not able to bring up anything. She is not having any chest pain no other GI/ symptoms reported in the ER the initial blood pressure was 118/80 she was afebrile with pulse of 125. As well as blood workup concern white cell count 13.9 potassium 3.4 otherwise all negative. Her lactic acid reported 2.9 magnesium 1[address] chest with contrast to rule out pulmonary embolism. It did show bilateral groundglass opacities but no PE and is getting worse since the prior exam. Patient received breathing therapy Solu-Medrol levofloxacin ER and admitted for further care - Review of Systems All Other Systems: Reviewed and Negative (14 systems reviewed and marked ve except mentioned in [place]) Medications & Allergies Home Medications: Home Medication List Aspirin 81 mg PO DAILY 03/19/14 [History Confirmed 08/01/24] Pregabalin [Lyrica] 75 mg PO DAILY 03/19/14 [History Confirmed 08/01/24] Clonidine HCl 0.1 mg [Clonidine 0.1 mg Tablet] 0.1 mg PO QHS 02/04/16 [History Confirmed 08/01/24] Allopurinol 100 mg [Zyloprim 100 mg] 100 mg PO DAILY 08/04/19 [History Confirmed 08/01/24] Calcium Carbonate [Calcium] 600 mg PO QHS 08/04/19 [History Confirmed 08/01/24] Multivitamin [Multivitamins] 1 each PO DAILY 08/04/19 [History Confirmed 08/01/24] Rosuvastatin Calcium [Crestor] 20 mg PO QHS 03/22/20 [History Confirmed 08/01/24] Furosemide 40 mg [Lasix 40 MG] 40 mg PO DAILY 14 Days #14 tablet 03/23/20 [Rx Confirmed 08/01/24] Potassium Chloride [Klor-Con 10] 10 meq PO BID 12/11/20 [History Confirmed 08/01/24] Venlafaxine HCl ER 75 mg [Effexor XR 75 MG] 150 mg PO DAILY 12/11/20 [History Confirmed 08/01/24] ARIPiprazole [Abilify] 5 mg PO QHS 12/12/20 [History Confirmed 08/01/24] Buspirone HCl 5 mg [Buspar 5 mg] 15 mg PO BID 12/28/22 [History Confirmed 08/01/24] Famotidine 20 mg [Pepcid 20 MG] 40 mg PO HS 12/28/22 [History Confirmed 08/01/24] Losartan Potassium [Cozaar] 25 mg PO DAILY 12/28/22 [History Confirmed 08/01/24] Albuterol 8 gm Mdi Hfa [Ventolin Hfa MDI] 1 puff PO Q4HPRN PRN 05/27/23 [History Confirmed 08/01/24] Fluticasone/Umeclidin/Vilanter [Trelegy Ellipta 100-62.5-25] 1 puff PO DAILY 05/27/23 [History Confirmed 08/01/24] Metoprolol Succinate 100 mg [Toprol Xl 100 MG] 1 tab PO HS 05/27/23 [History Confirmed 08/01/24] Varenicline Tartrate [Chantix] 1 tab PO BID 05/27/23 [History Confirmed 08/01/24] Azithromycin 250 mg [Zithromax 250 MG TABLET] 250 mg PO ZPACK #6 tablet 07/30/24 [Rx Confirmed 08/01/24] Allergies/Adverse Reactions: Allergies Allergy/AdvReac Type Severity Reaction Status Date / Time codeine Allergy Mild Nausea Verified 08/01/24 01:19 ceftriaxone [From Rocephin] AdvReac Intermediate Verified 08/01/24 01:19 vancomycin AdvReac Unknown Verified 08/01/24 01:19 - Past Medical History Past Medical History: Yes Neurological History: Stroke ENT History: Cataracts Cardiac History: High Cholesterol, Hypertension Respiratory History: CHF, COPD Endocrine Medical History: No Pertinent History Musculoskelatal History: Osteoarthritis GI Medical History: Diverticulitis, Diverticulosis, Gallbladder Disease, Other History: No Pertinent History Pyscho-Social History: Depression Reproductive Disorders: No Pertinent History Comment: BRAIN ANEURYSM 2009, STM LOSS. - Past Surgical History Past Surgical History: Yes Neuro Surgical History: Brain Shunt Cardiac History: No Pertinent History Respiratory Surgery: No Pertinent History GI Surgical History: Bowel Surgery, Cholecystectomy Genitourinary Surgical Hx: No Pertinent History Musculskeletal Surgical Hx: No Pertinent History Female Surgical History: Hysterectomy Other Surgical History: ileostomy and ileostomy reversal Significant Family History: no pertinent family hx - Social History Smoking Status: Current every day smoker How long have you smoked: 40 years Exposure to second hand smoke: Yes Alcohol: None Drug Use: none - Social Determinants of Health Will the patient participate in the screening: Yes Do you worry about a steady place to live?: No Do you have any problems with any of the following?: No known problems In the past 12 months,have you had to go without utilities?: No Have you or anyone in your house had to go without enough: No Transportation Issues: No Has anyone in your support network made you feel unsafe?: No Does the patient want assistance with any of the above?: No - Physical Exam Vital Signs: Vital Signs - 24 hr Temp Pulse Resp BP BP Pulse Ox 08/01/24 04:55 98.9 F 136 H 25 H 135/92 90 L 08/01/24 04:27 95 08/01/24 04:23 122 H 32 H 95 08/01/24 04:00 129 H 30 H 120/65 94 L 08/01/24 03:31 120 H 37 H 133/61 95 08/01/24 03:00 127 H 26 H 147/81 95 08/01/24 02:30 128 H 26 H 150/93 95 08/01/24 02:23 133 H 139/87 93 L 08/01/24 02:22 93 L 08/01/24 02:20 93 L 08/01/24 02:15 27 H 94 L 08/01/24 01:30 127 H 38 H 130/76 96 08/01/24 01:20 98.7 F 134 H 38 H 118/80 94 L 08/01/24 01:04 125 H 39 H 118/80 94 L Additional Findings: 08/01/24 05:47 HEENT Middle aged, average built in resp distress on 3-4 liters NECK Supple,no thyromegaly, CVS S1+S2 + 0, no murmers RESP Bilateral equal air entry with Crepts/Wheezes heard GIT Soft non tender,non distended Skin, No rah, no Bruises LEGS No Edema PSYCH Normal,mood, judgement and insight NEURO AOX3, no focal deficit Results - Labs Lab/Micro Results: Lab Results-Last 24 Hours 08/01/24 08/01/24 08/01/24 Range/Units 01:15 01:15 01:20 WBC 13.9 H (3.98-10.04) x10^3/uL RBC 4.31 (3.93-5.22) x10^6/uL Hgb 13.4 (11.2-15.7) g/dL Hct 39.6 (34.1-44.9) % MCV 91.9 (79.4-94.8) fL MCH 31.1 (25.6-32.2) pg MCHC 33.8 (32.2-35.5) g/dL RDW 13.0 (11.7-14.4) % Plt Count 201 (182-369) x10^3/uL MPV 10.6 (9.4-12.3) fL Gran % 84.7 H (34.0-71.1) % Immature Gran % (Auto) 0.4 (0.001-0.429) % Nucleat RBC Rel Count 0.0 (0.00-0.2) % Eos # (Auto) 0 L (0.04-0.36) x10^3/uL Immature Gran # (Auto) 0.06 H (0.001-0.031) x10^3u/L Absolute Lymphs (auto) 1.05 L (1.18-3.74) x10^3/uL Absolute Monos (auto) 1.00 H (0.24-0.86) x10^3/uL Absolute Nucleated RBC 0.00 (0.00-0.012) x10^3u/L Lymphocytes % 7.5 L (19.3-51.7) % Monocytes % 7.2 (4.7-12.5) % Eosinophils % 0.0 L (0.7-5.8) % Basophils % 0.2 (0.1-1.2) % Absolute Granulocytes 11.80 H (1.56-6.13) x10^3/uL Basophils # 0.03 (0.01-0.08) x10^3/uL pO2/FiO2 Ratio 21.0 % VBG pH 7.41 (7.32-7.42) VBG pCO2 at Pat Temp 46 (42-55) mm/Hg VBG pO2 at Pat Temp 45 H (25-40) mm/Hg VBG HCO3 29.2 H* (22-28) meq/L VBG O2 Sat ([place]) 81.4 L (95-100) VBG Base Excess 3.8 H (-2.0-2.0) VBG Hemoglobin 13.9 VBG Carboxyhemoglobin 6.1 (0.0-6.9) % T HGB POC Potassium 3.4 L (3.5-5.1) Sodium (135-145) mmol/L Potassium (3.5-5.1) mmol/L Chloride (98-107) mmol/L Carbon Dioxide (22-30) mmol/L Anion Gap (5-15) MEQ/L BUN (7-17) mg/dL Creatinine (0.52-1.04) mg/dL Estimated GFR ML/MIN Glucose (74-106) mg/dL Lactic Acid 2.9 H (0.4-2.0) Calcium (8.4-10.2) mg/dL Magnesium (1.6-2.3) mg/dL Total Bilirubin (0.2-1.3) mg/dL AST (14-36) U/L ALT (0-35) U/L Alkaline Phosphatase (38-126) U/L Serum Total Protein (6.3-8.2) g/dL Albumin (3.5-5.0) g/dL 08/01/24 08/01/24 Range/Units 01:20 04:15 WBC (3.98-10.04) x10^3/uL RBC (3.93-5.22) x10^6/uL Hgb (11.2-15.7) g/dL Hct (34.1-44.9) % MCV (79.4-94.8) fL MCH (25.6-32.2) pg MCHC (32.2-35.5) g/dL RDW (11.7-14.4) % Plt Count (182-369) x10^3/uL MPV (9.4-12.3) fL Gran % (34.0-71.1) % Immature Gran % (Auto) (0.001-0.429) % Nucleat RBC Rel Count (0.00-0.2) % Eos # (Auto) (0.04-0.36) x10^3/uL Immature Gran # (Auto) (0.001-0.031) x10^3u/L Absolute Lymphs (auto) (1.18-3.74) x10^3/uL Absolute Monos (auto) (0.24-0.86) x10^3/uL Absolute Nucleated RBC (0.00-0.012) x10^3u/L Lymphocytes % (19.3-51.7) % Monocytes % (4.7-12.5) % Eosinophils % (0.7-5.8) % Basophils % (0.1-1.2) % Absolute Granulocytes (1.56-6.13) x10^3/uL Basophils # (0.01-0.08) x10^3/uL pO2/FiO2 Ratio % VBG pH (7.32-7.42) VBG pCO2 at Pat Temp (42-55) mm/Hg VBG pO2 at Pat Temp (25-40) mm/Hg VBG HCO3 (22-28) meq/L VBG O2 Sat ([place]) (95-100) VBG Base Excess (-2.0-2.0) VBG Hemoglobin VBG Carboxyhemoglobin (0.0-6.9) % T HGB POC Potassium (3.5-5.1) Sodium 135 (135-145) mmol/L Potassium 3.4 L (3.5-5.1) mmol/L Chloride 101 (98-107) mmol/L Carbon Dioxide 25 (22-30) mmol/L Anion Gap 12.2 (5-15) MEQ/L BUN 16 (7-17) mg/dL Creatinine 1.17 H (0.52-1.04) mg/dL Estimated GFR 51.1 ML/MIN Glucose 135 H (74-106) mg/dL Lactic Acid 1.3 (0.4-2.0) Calcium 9.7 (8.4-10.2) mg/dL Magnesium 1.5 L (1.6-2.3) mg/dL Total Bilirubin 0.20 (0.2-1.3) mg/dL AST 57 H (14-36) U/L ALT 48 H (0-35) U/L Alkaline Phosphatase 87 (38-126) U/L Serum Total Protein 7.6 (6.3-8.2) g/dL Albumin 4.4 (3.5-5.0) g/dL - Radiology Impressions Radiology Exams & Impressions: Radiology Procedures Category Date Time Status CHEST WITH CONTRAST [CT] Stat Exams 08/01/24 02:06 Completed - Other Procedures and Tests Respiratory Therapy 08/01/24 04:22 Oxygen Nasal Cannula 2 lpm 08/01/24 04:23 Respiratory Therapy Assessment DAILY 08/01/24 05:28 Smoking Cessation Education ONCE Assessment/Plan (1) Acute hypoxemic respiratory failure Current Visit: Yes Status: Acute Code(s): J96.01 - ACUTE RESPIRATORY FAILURE WITH HYPOXIA (2) COPD exacerbation Current Visit: Yes Status: Acute Code(s): J44.1 - CHRONIC OBSTRUCTIVE PULMONARY DISEASE W (ACUTE) EXACERBATION (3) Hypomagnesemia Current Visit: Yes Status: Acute Code(s): E83.42 - HYPOMAGNESEMIA (4) Anxiety Current Visit: No Status: Chronic Code(s): F41.9 - ANXIETY DISORDER, UNSPECIFIED (5) Pneumonia Current Visit: No Status: Acute Code(s): J18.9 - PNEUMONIA, UNSPECIFIED ORGANISM Telemedicine Encounter - Telemedicine Encounter Telemedicine Encounter: The entirety of this encounter was performed via Telemedicine"This visit was performed using real-time audio and video connection between my location and thepatients locationwith the assistance of a surrogateat the patients location. Written or verbal consent was obtained from the patient/guardian to perform this visit using[facility] technology. Any patient questions regarding the telemedicine interaction were answered. Acute hypoxemic respiratory failure Due to COPD/pneumonia Patient is currently 3 to 4 L oxygen to keep saturation more than 90% ABG reviewed, she is not retaining right now Continue oxygen supplements, patient is low risk to be placed on BiPAP in case of further respiratory decline Acute COPD exacerbation Will Continue breathing therapy Will add Pulmicort Will continue steroids Continue antibiotics Pneumonia/atypical As per CT findings bilateral groundglass opacities opacities noticed Will check for strep pneumonia and Legionella Continue levofloxacin for now Sepsis present upon admission Patient was tachycardic, high white cell count, lactate more than 2 Due to underlying pneumonia Continue antibiotics Keep following up cultures Hypertension Blood pressure stable Will resume home blood pressure meds Remote history of stroke Without any residual patient Continue aspirin and statins Anxiety/depression Will resume home meds including Hyperlipidemia Continue atorvastatin Gout Continue allopurinol DVT prophylaxis SCD/Lovenox GI prophylaxis pantoprazole CODE STATUS full Discharge planning pending clinical stability. Patient is high risk for imminent damage and decline to body function due to tenuous his respiratory status. Time spent in the care of this sick patient was more than 40 minutes. I have reviewed patient labs and imaging in detail all question and concerns were addressed
[2024-08-01] MEDS ORDERED: NORCO 5/325 MG PO PRN (05:56)
[2024-08-01] MEDS ORDERED: APRESOLINE 20 MG/ML INJ IV PRN (05:56)
[2024-08-01] MEDS ORDERED: Tessalon Perles 100 MG PO PRN (05:58)
[2024-08-01] MEDS: Advair Hfa 115/21 Common canister IH SCH (05:59)
[2024-08-01] MEDS ORDERED: Zofran 4 MG/2 ML VIAL IV PRN (05:59)
[2024-08-01] MEDS: DUONEB 0.5-3 MG/3 ml Neb IH SCH (06:31)
[2024-08-01] MEDS: PROTONIX 40 MG IV IV SCH (06:35)
[2024-08-01] MEDS: solu-MEDROL IV SCH ×2 (07:16→09:48)
[2024-08-01] MEDS ORDERED: MEDICATION INTERVENTION MC SCH ×2 (08:00)
[2024-08-01] MEDS: Toprol Xl 100 MG PO SCH (08:01)
[2024-08-01] MEDS: Klor Con PO SCH (08:01)
[2024-08-01] MEDS: PULMICORT 0.5 MG/2 ML RESPULES IH SCH (08:23)
[2024-08-01] MEDS: BUSPAR 5 MG PO SCH (09:46)
[2024-08-01] MEDS: ENOXAPARIN SODIUM SQ SCH (09:47)
[2024-08-01] MEDS: LYRICA 75 MG CAP PO SCH (09:47)
[2024-08-01] MEDS: THERAGRAN MULTIVITAMIN PO SCH (09:47)
[2024-08-01] MEDS: ZYLOPRIM 100 MG PO SCH (09:47)
[2024-08-01] MEDS: Effexor XR 75 MG PO SCH (09:47)
[2024-08-01] MEDS: Cozaar 50 MG PO SCH (09:47)
[2024-08-01] MEDS: ECOTRIN 81 MG PO SCH (09:47)
[2024-08-01] MEDS ORDERED: NON-FORMULARY ITEM (Losartan Potassium [Cozaar] 25 MG Tablet) PO SCH (10:00)
[2024-08-01] MEDS ORDERED: LEVOFLOXACIN 750MG/150ML D5W 750 MG/150 ML BAG IV SCH (10:00)
[2024-08-01] MEDS ORDERED: NON-FORMULARY ITEM (Aspirin [Aspirin] 81 MG Tablet) PO SCH (10:00)
[2024-08-01] MEDS ORDERED: NON-FORMULARY ITEM (Varenicline Tartrate [Chantix] 1 MG Tablet) PO SCH (10:00)
[2024-08-01] MEDS ORDERED: Lyrica 25 MG PO SCH (10:00)
[2024-08-01] MEDS ORDERED: NON-FORMULARY ITEM (Fluticasone/Umeclidin/Vilanter [Trelegy Ellipta 100-62.5-25] 1 EACH Bl PO SCH (10:00)
[2024-08-01] MEDS ORDERED: NON-FORMULARY ITEM (Multivitamin [Multivitamins] 1 EACH Capsule) PO SCH (10:00)
[2024-08-01] MEDS ORDERED: solu-MEDROL 40 MG, Sterile H2O 10 ml 1 ML IV SCH ×2 (14:00→18:00)
[2024-08-01] MEDS: solu-MEDROL 60 MG, Sterile H2O 10 ml 1 ML IV SCH (17:12)
[2024-08-01] MEDS ORDERED: NON-FORMULARY ITEM (Rosuvastatin Calcium [Crestor] 20 MG Tablet) PO SCH (22:00)
[2024-08-01] MEDS ORDERED: NON-FORMULARY ITEM (Aripiprazole [Abilify] 5 MG Tablet) PO SCH (22:00)
[2024-08-01] MEDS ORDERED: Toprol Xl 100 MG PO SCH (22:00)
[2024-08-01] MEDS ORDERED: NON-FORMULARY ITEM (Calcium Carbonate [Calcium] 600 MG Tablet) PO SCH (22:00)
[2024-08-01] MEDS: CLONIDINE 0.1 MG TABLET PO SCH (22:02)
[2024-08-01] MEDS: Tums EX 750 MG PO SCH (22:02)
[2024-08-01] MEDS: Abilify 10 MG PO SCH (22:03)
[2024-08-01] MEDS: ZOCOR 20MG PO SCH (22:03)
[2024-08-02 06:25] LABS: Hemoglobin 11.7 g/dL (11.2-15.7); Mean Corpuscular Hemoglobin 30.9 pg (25.6-32.2); Mean Corpuscular Hgb Concent. 32.5 g/dL (32.2-35.5); Mean Platelet Volume 10.5 fL (9.4-12.3); Platelet Count 187 x10^3/uL (182-369); Red Blood Count 3.79 x10^6/uL (3.93-5.22); Red Cell Distribution Width 13.4 % (11.7-14.4); White Blood Count 13.1 x10^3/uL (3.98-10.04)
[2024-08-02 06:45] LABS: ANION GAP 11.2 MEQ/L (5-15); Creatinine 1 1.05 mg/dL (0.52-1.04); EST GLOMERULAR FILTRATION RATE 58.2 ML/MIN; MAGNESIUM 2.3 mg/dL (1.6-2.3); Potassium 4.3 mmol/L (3.5-5.1)
[2024-08-02] MEDS: TYLENOL 325 MG PO PRN (08:13)
[2024-08-02] MEDS: PROTONIX 40 MG IV IV SCH (10:30)
--- NOTE | 2024-08-02 12:01 | PCM.NOTE ---
Date and Time: 08/02/24 1151 Subjective Assessment: Patient reports dyspnea improved. She has cough which is severe at times but is dry. No fever. No chest pain. Appetite is decreased but no abdominal pain, nausea or vomiting. No diarrhea. No urinary complaints. - Review of Systems Constitutional: No Symptoms, No Fever, No Chills Eyes: No Symptoms Ears, Nose, & Throat: No Symptoms, No Throat Pain Respiratory: Cough, Short Of Breath Cardiac: No Symptoms, No Chest Pain, No Edema, No Palpitations Abdominal/Gastrointestinal: No Symptoms, No Abdominal Pain, No Nausea, No Vomiting, No Diarrhea Genitourinary Symptoms: No Symptoms, No Dysuria, No Frequency, No Hematuria Musculoskeletal: No Symptoms Skin: No Symptoms Neurological: No Symptoms Psychological: No Symptoms Endocrine: No Symptoms Hematologic/Lymphatic: No Symptoms Immunological/Allergic: No Symptoms All Other Systems: Reviewed and Negative Objective Exam General Appearance: mild distress Neurologic Exam: alert, oriented x 3, cooperative Skin Exam: normal color, warm, dry Eye Exam: PERRL, EOMI, eyes nml inspection Ears, Nose, Throat Exam: normal ENT inspection Neck Exam: normal inspection, non-tender, supple Lymphatic Exam: No adenopathy Respiratory Exam: rhonchi, wheezing Cardiovascular Exam: regular rate/rhythm, normal heart sounds, normal peripheral pulses Gastrointestinal/Abdomen Exam: soft, normal bowel sounds, No tenderness, No distention, No guarding Extremity Exam: normal inspection Back Exam: normal inspection Pelvic Exam: deferred Rectal Exam: deferred Objective Data Vital Signs: Vital Signs - 24 hr Temp Pulse Resp BP Pulse Ox 08/02/24 11:33 96.7 F 93 H 17 123/61 94 L 08/02/24 10:50 88 20 96 08/02/24 07:06 83 22 92 L 08/02/24 06:50 96.4 F 84 17 122/66 95 08/02/24 04:00 88 08/02/24 03:09 84 22 94 L 08/02/24 00:00 96.5 F 95 H 20 108/54 92 L 08/01/24 22:48 94 H 24 94 L 08/01/24 20:00 96.8 F 101 H 22 116/63 91 L 08/01/24 18:29 99 H 24 93 L 08/01/24 16:00 97.9 F 113 H 18 117/73 92 L 08/01/24 15:20 102 H 22 95 08/01/24 12:07 103 H 24 94 L Pain Assessment - Last Documented Pain Intensity 2 Pain Scale Used 0-10 Pain Scale Intake and Output: Intake & Output 07/30/24 07/31/24 08/01/24 08/02/24 11:59 11:59 11:59 11:59 Intake Total 1220 Output Total 100 800 Balance -100 420 Weight 91.6 kg Lab Results: Lab Results-Last 24 Hours 08/01/24 08/01/24 08/02/24 Range/Units 12:12 15:05 06:08 WBC 13.1 H (3.98-10.04) x10^3/uL RBC 3.79 L (3.93-5.22) x10^6/uL Hgb 11.7 (11.2-15.7) g/dL Hct 36.0 (34.1-44.9) % MCV 95.0 H (79.4-94.8) fL MCH 30.9 (25.6-32.2) pg MCHC 32.5 (32.2-35.5) g/dL RDW 13.4 (11.7-14.4) % Plt Count 187 (182-369) x10^3/uL MPV 10.5 (9.4-12.3) fL Sodium (135-145) mmol/L Potassium 4.9 D 5.1 (3.5-5.1) mmol/L Chloride (98-107) mmol/L Carbon Dioxide (22-30) mmol/L Anion Gap (5-15) MEQ/L BUN (7-17) mg/dL Creatinine (0.52-1.04) mg/dL Estimated GFR ML/MIN Glucose (74-106) mg/dL Calcium (8.4-10.2) mg/dL Magnesium (1.6-2.3) mg/dL 08/02/24 Range/Units 06:08 WBC (3.98-10.04) x10^3/uL RBC (3.93-5.22) x10^6/uL Hgb (11.2-15.7) g/dL Hct (34.1-44.9) % MCV (79.4-94.8) fL MCH (25.6-32.2) pg MCHC (32.2-35.5) g/dL RDW (11.7-14.4) % Plt Count (182-369) x10^3/uL MPV (9.4-12.3) fL Sodium 132 L (135-145) mmol/L Potassium 4.3 (3.5-5.1) mmol/L Chloride 103 (98-107) mmol/L Carbon Dioxide 22 (22-30) mmol/L Anion Gap 11.2 (5-15) MEQ/L BUN 19 H (7-17) mg/dL Creatinine 1.05 H (0.52-1.04) mg/dL Estimated GFR 58.2 ML/MIN Glucose 151 H (74-106) mg/dL Calcium 9.0 (8.4-10.2) mg/dL Magnesium 2.3 (1.6-2.3) mg/dL Radiology Exams: Radiology Procedures Category Date Time Status CHEST WITH CONTRAST [CT] Stat Exams 08/01/24 02:06 Completed Assessment/Plan (1) Acute hypoxemic respiratory failure Current Visit: Yes Status: Acute Assessment & Plan: Acute Respiratory Failure with Hypoxia -Hypoxia due to COPD and pneumonia -Continue supplemental oxygen as needed -CO2 is ok COPD with Acuge Exacerbation -Continue steroids, antibiotics and bronchodilators -Still wheezing Pneumonia -CT shows bilateral groundglass opacities -Continue levofloxacin for atypical pneumonia -COVID and Influenza negative Sepsis -Resolved Hypertension -Continue home mds Remote history of stroke -Without any residual -Continue aspirin and statins Anxiety/depression -Continue home meds Hyperlipidemia -Continue atorvastatin Gout -Continue allopurinol DVT prophylaxis -Lovenox Code(s): J96.01 - ACUTE RESPIRATORY FAILURE WITH HYPOXIA Telemedicine Encounter - Telemedicine Encounter Telemedicine Encounter: "The entirety of this encounter was performed via Telemedicine" This visit was performed using real-time audio and video connection between my l ocation and thepatients locationwith the assistance of a surrogateat the patients location. Written or verbal consent was obtained from the patient/guardian to perform this visit usings[facility]telemedicine technology. Any patient questions regarding the telemedicine interaction were answered.
[2024-08-02] MEDS: Wellbutrin XL 150 MG PO SCH (15:38)
[2024-08-02] MEDS: Lasix 40 MG PO SCH (15:38)
[2024-08-02] MEDS: Miralax Powder 17GM PACKET PO PRN (15:39)
[2024-08-02] MEDS ORDERED: Lasix 40 MG PO SCH (16:00)
[2024-08-02] MEDS: Levaquin 250MG/50ML D5W 250 MG/50 ML BAG IV SCH (21:39)
[2024-08-02] MEDS: Risperdal 1 MG PO SCH (21:39)
[2024-08-02] MEDS: Levofloxacin 500MG/100ML D5W 500 MG/100 ML BAG IV SCH (22:27)
--- NOTE | 2024-08-03 05:48 | PCM.NOTE ---
Date and Time: 08/03/24 0543 Subjective Assessment: is a 69 year old female.Very pleasant lady with PMH significant for hypertension, COPD, 2 L oxygen only at night, prior history of stroke 15 years ago without any deficient, anxiety/depression, gout presented to ED 08/01/24 with complaints of progressive. Patient was seen in ED 2 days prior for same symptoms and sent home with CPAP. Dyspnea got worse where patient was using oxygen 3 to 4 L during all day long. She also reports a non-productive cough. She denied having any fever. CT chest showed Patchy ground-glass attenuation within interlobular septal thickening is noted in both lungs, mainly in bilateral upper, right middle and left lower lobes. -as compared to prior study left upper lobe ground-glass opacities are slightly increased- appears atypical pneumonitis. Stable right lower lobe pneumatocele. Inital lab findings remarkable for white cell count 13.9 potassium 3.4 otherwise all negative. Her lactic acid reported 2.9 magnesium 1.5 Patient received breathing therapy Solu- Medrol levofloxacin ER and admitted for sepsis secondary to pneumonia. Patient receiving IP treatment with Levaquin, solu-medrol, budosenide, pulmicort, Advair, dounebs, and supplemental oxygen. 08/03/24: Met with patient bedside. Endorses improvement in dyspnea and cough. Now on 3L oxygen. Lung auscultation with increased aeration and exp wheezing. Will continue on abx. Change solumedrol to 40 q12H. - Review of Systems Constitutional: No Symptoms Eyes: No Symptoms Ears, Nose, & Throat: No Symptoms Respiratory: Cough, Short Of Breath, Wheezing Cardiac: No Symptoms Abdominal/Gastrointestinal: No Symptoms Genitourinary Symptoms: No Symptoms Musculoskeletal: No Symptoms Skin: No Symptoms Neurological: No Symptoms Psychological: No Symptoms Endocrine: No Symptoms Hematologic/Lymphatic: No Symptoms Immunological/Allergic: No Symptoms Objective Exam General Appearance: no apparent distress Neurologic Exam: alert, oriented x 3, cooperative Skin Exam: normal color Eye Exam: PERRL Ears, Nose, Throat Exam: normal ENT inspection Neck Exam: normal inspection Respiratory Exam: crackles/rales, wheezing Cardiovascular Exam: regular rate/rhythm, normal heart sounds Gastrointestinal/Abdomen Exam: soft, normal bowel sounds Extremity Exam: normal inspection Back Exam: normal inspection Pelvic Exam: deferred Rectal Exam: deferred Objective Data Vital Signs: Vital Signs - 24 hr Temp Pulse Resp BP Pulse Ox 08/03/24 04:00 97.3 F 89 18 116/67 94 L 08/03/24 02:59 90 18 96 08/03/24 00:00 97.3 F 88 18 114/72 97 08/02/24 22:50 85 16 95 08/02/24 20:00 97.1 F 91 H 20 120/63 93 L 08/02/24 19:03 93 H 18 93 L 08/02/24 17:46 88 24 93 L 08/02/24 16:00 96.7 F 83 17 116/71 94 L 08/02/24 14:59 83 22 95 08/02/24 11:33 96.7 F 93 H 17 123/61 94 L 08/02/24 10:50 88 20 96 08/02/24 07:06 83 22 92 L 08/02/24 06:50 96.4 F 84 17 122/66 95 Pain Assessment - Last Documented Pain Intensity 2 Pain Scale Used 0-10 Pain Scale Intake and Output: Intake & Output 07/31/24 08/01/24 08/02/24 08/03/24 11:59 11:59 11:59 11:59 Intake Total 1220 460 Output Total 100 800 Balance -100 420 460 Weight 91.6 kg Lab Results: Lab Results-Last 24 Hours 08/02/24 08/02/24 Range/Units 06:08 06:08 WBC 13.1 H (3.98-10.04) x10^3/uL RBC 3.79 L (3.93-5.22) x10^6/uL Hgb 11.7 (11.2-15.7) g/dL Hct 36.0 (34.1-44.9) % MCV 95.0 H (79.4-94.8) fL MCH 30.9 (25.6-32.2) pg MCHC 32.5 (32.2-35.5) g/dL RDW 13.4 (11.7-14.4) % Plt Count 187 (182-369) x10^3/uL MPV 10.5 (9.4-12.3) fL Sodium 132 L (135-145) mmol/L Potassium 4.3 (3.5-5.1) mmol/L Chloride 103 (98-107) mmol/L Carbon Dioxide 22 (22-30) mmol/L Anion Gap 11.2 (5-15) MEQ/L BUN 19 H (7-17) mg/dL Creatinine 1.05 H (0.52-1.04) mg/dL Estimated GFR 58.2 ML/MIN Glucose 151 H (74-106) mg/dL Calcium 9.0 (8.4-10.2) mg/dL Magnesium 2.3 (1.6-2.3) mg/dL Assessment/Plan (1) Sepsis Current Visit: Yes Status: Acute Assessment & Plan: -2/2 to pneumonia -CT reviewed showing bilateral groundglass opacities -supplemental oxygen with goal spo2 > 31% -Solu-medrol, duonebs, budosenide, levaquin -sputum and blood cultures pending -WBC reviewed at 13.6 - most likely secondary to steroids -change solumedrol to 40mg q12H (2) Pneumonia Current Visit: Yes Status: Acute Assessment & Plan: -see plan in sepsis Code(s): J18.9 - PNEUMONIA, UNSPECIFIED ORGANISM (3) Acute hypoxemic respiratory failure Current Visit: Yes Status: Acute Assessment & Plan: -2/2 to pneumonia - see plan in sepsis Code(s): J96.01 - ACUTE RESPIRATORY FAILURE WITH HYPOXIA (4) COPD exacerbation Current Visit: Yes Status: Acute Assessment & Plan: -see sepsis for plan 2/2 to pneumonia Code(s): J44.1 - CHRONIC OBSTRUCTIVE PULMONARY DISEASE W (ACUTE) EXACERBATION (5) HTN (hypertension) Current Visit: Yes Status: Acute Assessment & Plan: -stable continue home meds Code(s): I10 - ESSENTIAL (PRIMARY) HYPERTENSION (6) Remote history of stroke Current Visit: Yes Status: Acute Assessment & Plan: -noted, continue home meds Code(s): Z86.73 - PRSNL HX OF TIA (TIA), AND CEREB INFRC W/O RESID DEFICITS (7) Anxiety and depression Current Visit: Yes Status: Acute Assessment & Plan: -continue home meds Code(s): F41.9 - ANXIETY DISORDER, UNSPECIFIED; F32.A - DEPRESSION, UNSPECIFIED (8) HLD (hyperlipidemia) Current Visit: Yes Status: Acute Assessment & Plan: -continue statin Code(s): E78.5 - HYPERLIPIDEMIA, UNSPECIFIED (9) Gout Current Visit: Yes Status: Acute Assessment & Plan: -continue home allopurinol Code(s): M10.9 - GOUT, UNSPECIFIED
[2024-08-03 09:15] LABS: Absolute Neutrophil Ct (ANC) 12.23 x10^3/uL (1.56-6.13); BASOPHIL % 0.1 % (0.1-1.2); Basophil (Absolute #) 0.02 x10^3/uL (0.01-0.08); Eosinophil % 0.6 % (0.7-5.8); Eosinophil (Absolute #) 0.08 x10^3/uL (0.04-0.36); Hematocrit 37.6 % (34.1-44.9); Hemoglobin 12.6 g/dL (11.2-15.7); IMMATURE GRAN # 0.12 x10^3u/L (0.001-0.031); IMMATURE GRAN % 0.9 % (0.001-0.429); Lymphocyte (Absolute #) 0.57 x10^3/uL (1.18-3.74); Lymphocytes % 4.2 % (19.3-51.7); Mean Cell Volume 93.3 fL (79.4-94.8); Mean Corpuscular Hemoglobin 31.3 pg (25.6-32.2); Mean Corpuscular Hgb Concent. 33.5 g/dL (32.2-35.5); Mean Platelet Volume 10.6 fL (9.4-12.3); Monocyte (Absolute #) 0.55 x10^3/uL (0.24-0.86); Monocytes % 4.1 % (4.7-12.5); Neutrophil % 90.1 % (34.0-71.1); Platelet Count 209 x10^3/uL (182-369); Red Blood Count 4.03 x10^6/uL (3.93-5.22); Red Cell Distribution Width 13.4 % (11.7-14.4); White Blood Count 13.6 x10^3/uL (3.98-10.04)
[2024-08-03 09:29] LABS: ANION GAP 8.6 MEQ/L (5-15); BILIRUBIN,TOTAL 0.2 mg/dL (0.2-1.3); Calcium 9.4 mg/dL (8.4-10.2); Creatinine 1 1.04 mg/dL (0.52-1.04); EST GLOMERULAR FILTRATION RATE 58.9 ML/MIN; Potassium 4.3 mmol/L (3.5-5.1); Total Protein 7.3 g/dL (6.3-8.2)
[2024-08-03 10:14] LABS: Slide Review 1 YES
[2024-08-03] MEDS: solu-MEDROL 40 MG, Sterile H2O 10 ml 1 ML IV SCH (10:29)
[2024-08-03] MEDS: Docusate Sodium 100 MG PO PRN (10:29)
[2024-08-03 12:30] LABS: Appearance Clear (Clear); Bilirubin Negative (Negative); Blood Negative (Negative); Glucose, Urine Negative (Negative); Ketones Negative (Negative); Leukocyte Esterase Negative (Negative); Nitrite Negative (Negative); Ph 5.5 (4.6-8.0); Protein,Urine Dip Negative (Negative); Specific Gravity <=1.005 (1.005-1.030); Urobilinogen 0.2 mg/dL (0.2)
[2024-08-03 13:00] LABS: Bacteria None Seen /HPF (None Seen); Epithelial Cells Rare /HPF (None Seen); RBC 0-2 /HPF (0-5); WBC 0-2 /HPF (0-5)
[2024-08-04 06:10] LABS: Absolute Neutrophil Ct (ANC) 9.49 x10^3/uL (1.56-6.13); BASOPHIL % 0.3 % (0.1-1.2); Basophil (Absolute #) 0.03 x10^3/uL (0.01-0.08); Eosinophil (Absolute #) 0 x10^3/uL (0.04-0.36); Hematocrit 37.8 % (34.1-44.9); Hemoglobin 12.4 g/dL (11.2-15.7); IMMATURE GRAN # 0.16 x10^3u/L (0.001-0.031); IMMATURE GRAN % 1.4 % (0.001-0.429); Lymphocyte (Absolute #) 0.79 x10^3/uL (1.18-3.74); Lymphocytes % 7.1 % (19.3-51.7); Mean Cell Volume 92.9 fL (79.4-94.8); Mean Corpuscular Hemoglobin 30.5 pg (25.6-32.2); Mean Corpuscular Hgb Concent. 32.8 g/dL (32.2-35.5); Mean Platelet Volume 10.8 fL (9.4-12.3); Monocyte (Absolute #) 0.69 x10^3/uL (0.24-0.86); Monocytes % 6.2 % (4.7-12.5); Platelet Count 215 x10^3/uL (182-369); Red Blood Count 4.07 x10^6/uL (3.93-5.22); Red Cell Distribution Width 13.2 % (11.7-14.4); White Blood Count 11.2 x10^3/uL (3.98-10.04)
[2024-08-04 06:15] LABS: ALBUMIN 3.8 g/dL (3.5-5.0); ANION GAP 10.2 MEQ/L (5-15); BILIRUBIN,TOTAL 0.3 mg/dL (0.2-1.3); Calcium 9.2 mg/dL (8.4-10.2); Creatinine 1 1.02 mg/dL (0.52-1.04); EST GLOMERULAR FILTRATION RATE 60.3 ML/MIN; Potassium 4.1 mmol/L (3.5-5.1); Total Protein 6.9 g/dL (6.3-8.2)
[2024-08-04] MEDS: Tamiflu 75MG Capsule PO SCH (11:54)
[2024-08-04] MEDS: Mucinex 600MG ER Tabs PO SCH (11:54)
--- NOTE | 2024-08-04 14:24 | PCM.NOTE ---
Date and Time: 08/04/24 141 Subjective Assessment: 08/04/24 is a 69 year old female. Very pleasant lady with PMH significant for hypertension, COPD, 2 L oxygen only at night, prior history of stroke 15 years ago without any deficient, anxiety/depression, gout. She presented to ED 08/01/24 with complaints of progressive SOB. Patient was seen in ED 2 days prior for same symptoms and sent home with CPAP. Dyspnea got worse where patient was using oxygen 3 to 4 L during all day long. She also reports a non-productive cough. She denied having any fever. CT chest showed Patchy ground-glass attenuation within interlobular septal thickening is noted in both lungs, mainly in bilateral upper, right middle and left lower lobes. -as compared to prior study left upper lobe ground-glass opacities are slightly increased- appears atypical pneumonitis. Stable right lower lobe pneumatocele. Inital lab findings remarkable for white cell count 13.9 potassium 3.4 otherwise all negative. Her lactic acid reported 2.9 magnesium 1.5 Patient received breathing therapy Solu- Medrol levofloxacin ER and admitted for sepsis secondary to pneumonia. Patient r eceiving IP treatment with Levaquin, solu-medrol, budosenide, pulmicort, Advair, dounebs, and supplemental oxygen. Today pt endorses improvement in dyspnea and cough. Now on 2L oxygen 94%. Baseline is 2lNC at night PRN. Lung auscultation with increased aeration and exp wheezing. Will continue on abx. and solumedrol to 40 q12H. Added mucinex and tamiflu as she is Flu A +. She will likely need 1 more day and will be able to d/c tomorrow. - Review of Systems Constitutional: No Fever, No Chills Eyes: No Symptoms Ears, Nose, & Throat: No Symptoms Respiratory: Cough, Short Of Breath Cardiac: No Chest Pain, No Edema, No Syncope Abdominal/Gastrointestinal: No Abdominal Pain, No Nausea, No Vomiting, No Diarrhea Genitourinary Symptoms: No Dysuria Musculoskeletal: No Back Pain, No Neck Pain Skin: No Rash Neurological: No Dizziness, No Focal Weakness, No Sensory Changes Psychological: No Symptoms Endocrine: No Symptoms Hematologic/Lymphatic: No Symptoms Immunological/Allergic: No Symptoms Objective Exam General Appearance: no apparent distress, alert, obese Neurologic Exam: alert, oriented x 3, cooperative, normal mood/affect, nml cerebellar function, sensation nml, No motor deficits Skin Exam: normal color, warm, dry Eye Exam: PERRL, EOMI, eyes nml inspection Ears, Nose, Throat Exam: normal ENT inspection, pharynx normal, moist mucous membranes Neck Exam: normal inspection, non-tender, supple, full range of motion Respiratory Exam: wheezing, No respiratory distress Cardiovascular Exam: regular rate/rhythm, normal heart sounds Gastrointestinal/Abdomen Exam: soft, No tenderness, No mass Extremity Exam: normal inspection, normal range of motion Back Exam: normal inspection, normal range of motion, No CVA tenderness, No vertebral tenderness Pelvic Exam: deferred Rectal Exam: deferred Objective Data Vital Signs: Vital Signs - 24 hr Temp Pulse Resp BP Pulse Ox 08/04/24 11:10 98.0 F 93 H 16 123/80 95 08/04/24 10:41 92 H 20 97 08/04/24 07:13 94 L 08/04/24 06:55 97.8 F 95 H 17 133/76 98 08/04/24 05:34 92 H 20 08/04/24 04:00 97.3 F 92 H 20 152/72 93 L 08/04/24 03:50 86 16 92 L 08/04/24 00:01 85 18 95 08/04/24 00:00 98.0 F 86 20 133/67 95 08/03/24 22:14 80 18 97 08/03/24 20:00 97.1 F 88 18 146/82 95 08/03/24 16:20 84 18 97 08/03/24 16:00 96.3 F 83 17 140/78 100 Pain Assessment - Last Documented Pain Intensity 0 Pain Scale Used 0-10 Pain Scale Intake and Output: Intake & Output 08/02/24 08/03/24 08/04/24 08/05/24 11:59 11:59 11:59 11:59 Intake Total 9412 644 4602 580 Output Total 800 700 Balance 420 800 580 580 Lab Results: Lab Results-Last 24 Hours 08/04/24 08/04/24 Range/Units 04:50 04:50 WBC 11.2 H (3.98-10.04) x10^3/uL RBC 4.07 (3.93-5.22) x10^6/uL Hgb 12.4 (11.2-15.7) g/dL Hct 37.8 (34.1-44.9) % MCV 92.9 (79.4-94.8) fL MCH 30.5 (25.6-32.2) pg MCHC 32.8 (32.2-35.5) g/dL RDW 13.2 (11.7-14.4) % Plt Count 215 (182-369) x10^3/uL MPV 10.8 (9.4-12.3) fL Gran % 85.0 H (34.0-71.1) % Immature Gran % (Auto) 1.4 H (0.001-0.429) % Nucleat RBC Rel Count 0.0 (0.00-0.2) % Eos # (Auto) 0 L (0.04-0.36) x10^3/uL Immature Gran # (Auto) 0.16 H (0.001-0.031) x10^3u/L Absolute Lymphs (auto) 0.79 L (1.18-3.74) x10^3/uL Absolute Monos (auto) 0.69 (0.24-0.86) x10^3/uL Absolute Nucleated RBC 0.00 (0.00-0.012) x10^3u/L Lymphocytes % 7.1 L (19.3-51.7) % Monocytes % 6.2 (4.7-12.5) % Eosinophils % 0.0 L (0.7-5.8) % Basophils % 0.3 (0.1-1.2) % Absolute Granulocytes 9.49 H (1.56-6.13) x10^3/uL Basophils # 0.03 (0.01-0.08) x10^3/uL Sodium 137 (135-145) mmol/L Potassium 4.1 (3.5-5.1) mmol/L Chloride 104 (98-107) mmol/L Carbon Dioxide 26 (22-30) mmol/L Anion Gap 10.2 (5-15) MEQ/L BUN 22 H (7-17) mg/dL Creatinine 1.02 (0.52-1.04) mg/dL Estimated GFR 60.3 ML/MIN Glucose 154 H (74-106) mg/dL Calcium 9.2 (8.4-10.2) mg/dL Total Bilirubin 0.30 (0.2-1.3) mg/dL AST 46 H (14-36) U/L ALT 48 H (0-35) U/L Alkaline Phosphatase 75 (38-126) U/L Serum Total Protein 6.9 (6.3-8.2) g/dL Albumin 3.8 (3.5-5.0) g/dL Assessment/Plan (1) Sepsis Current Visit: Yes Status: Acute (2) Pneumonia Current Visit: No Status: Acute Code(s): J18.9 - PNEUMONIA, UNSPECIFIED ORGANISM (3) Acute hypoxemic respiratory failure Current Visit: Yes Status: Acute Code(s): J96.01 - ACUTE RESPIRATORY FAILURE WITH HYPOXIA (4) COPD exacerbation Current Visit: Yes Status: Acute Code(s): J44.1 - CHRONIC OBSTRUCTIVE PULMONARY DISEASE W (ACUTE) EXACERBATION (5) HTN (hypertension) Current Visit: Yes Status: Acute Code(s): I10 - ESSENTIAL (PRIMARY) HYPERTENSION (6) Remote history of stroke Current Visit: Yes Status: Acute Code(s): Z86.73 - PRSNL HX OF TIA (TIA), AND CEREB INFRC W/O RESID DEFICITS (7) Anxiety and depression Current Visit: Yes Status: Acute Code(s): F41.9 - ANXIETY DISORDER, UNSPECIFIED; F32.A - DEPRESSION, UNSPECIFIED (8) HLD (hyperlipidemia) Current Visit: No Status: Acute Code(s): E78.5 - HYPERLIPIDEMIA, UNSPECIFIED (9) Gout Current Visit: Yes Status: Acute Assessment & Plan: (1) Sepsis Current Visit: Yes Status: Acute Assessment & Plan: -2/2 to pneumonia -CT reviewed showing bilateral groundglass opacities -supplemental oxygen with goal spo2 > 31% -Solu-medrol, duonebs, budosenide, levaquin -sputum and blood cultures pending -WBC reviewed at 13.6 - most likely secondary to steroids -solumedrol to 40mg q12H (2) Pneumonia Current Visit: Yes Status: Acute Assessment & Plan: -see plan in sepsis - Mucinex added - CBC, CMP reviewed - On 2lNC - Baseline 2LNC at [facility] PRN Code(s): J18.9 - PNEUMONIA, UNSPECIFIED ORGANISM (3) Acute hypoxemic respiratory failure Current Visit: Yes Status: Acute Assessment & Plan: -2/2 to pneumonia - see plan in sepsis Code(s): J96.01 - ACUTE RESPIRATORY FAILURE WITH HYPOXIA (4) COPD exacerbation Current Visit: Yes Status: Acute Assessment & Plan: -see sepsis for plan 2/2 to pneumonia Code(s): J44.1 - CHRONIC OBSTRUCTIVE PULMONARY DISEASE W (ACUTE) EXACERBATION (5) HTN (hypertension) Current Visit: Yes Status: Acute Assessment & Plan: -stable continue home meds Code(s): I10 - ESSENTIAL (PRIMARY) HYPERTENSION (6) Remote history of stroke Current Visit: Yes Status: Acute Assessment & Plan: -noted, continue home meds Code(s): Z86.73 - PRSNL HX OF TIA (TIA), AND CEREB INFRC W/O RESID DEFICITS (7) Anxiety and depression Current Visit: Yes Status: Acute Assessment & Plan: -continue home meds Code(s): F41.9 - ANXIETY DISORDER, UNSPECIFIED; F32.A - DEPRESSION, UNSPECIFIED (8) HLD (hyperlipidemia) Current Visit: Yes Status: Acute Assessment & Plan: -continue statin Code(s): E78.5 - HYPERLIPIDEMIA, UNSPECIFIED (9) Gout Current Visit: Yes Status: Acute Assessment & Plan: -continue home allopurinol Code(s): M10.9 - GOUT, UNSPECIFIED Code(s): M10.9 - GOUT, UNSPECIFIED (10) Influenza A Current Visit: Yes Status: Acute Assessment & Plan: - Tamiflu started - Pt states flu sxs started just prior to admission. VTE: Lovenox PPI: Protonix Next of KIN: Spouse Chuy Dejesus, D/C plan: tomorrow Code status: Full Code(s): J10.1 - FLU DUE TO OTH IDENT INFLUENZA VIRUS W OTH RESP MANIFEST
[2024-08-04] MEDS: LEVOFLOXACIN 750MG/150ML D5W 750 MG/150 ML BAG IV SCH (21:35)
[2024-08-05 04:56] LABS: Hematocrit 36.7 % (34.1-44.9); Hemoglobin 12.2 g/dL (11.2-15.7); Red Blood Count 3.99 x10^6/uL (3.93-5.22)
[2024-08-05 04:57] LABS: Mean Corpuscular Hemoglobin 30.6 pg (25.6-32.2); Mean Corpuscular Hgb Concent. 33.2 g/dL (32.2-35.5); Mean Platelet Volume 10.7 fL (9.4-12.3); Platelet Count 220 x10^3/uL (182-369); Red Cell Distribution Width 13.2 % (11.7-14.4)
[2024-08-05 05:13] LABS: ALBUMIN 3.7 g/dL (3.5-5.0); ANION GAP 7.5 MEQ/L (5-15); BILIRUBIN,TOTAL 0.3 mg/dL (0.2-1.3); Creatinine 1 0.95 mg/dL (0.52-1.04); EST GLOMERULAR FILTRATION RATE 65.7 ML/MIN; Total Protein 6.6 g/dL (6.3-8.2)
[2024-08-05 07:33] VITALS: RESP 16
[2024-08-05 11:14] VITALS: BP 141/73; PULSE 85; TEMP 97.9; O2SAT 93
--- NOTE | 2024-08-05 11:29 | PCM.DS ---
Discharge Summary Date of Admission: 08/01/24 04:16 Date of Discharge: 08/05/24 Admitting Physician: MIKE DENTON MD Primary Care Provider: MARIA ELENA RUSSO Allergies Allergies codeine Allergy (Mild, Verified 08/01/24 01:19) Nausea ceftriaxone [From Rocephin] Adverse Reaction (Intermediate, Verified 08/01/24 01:19) states it made her go out of her head vancomycin Adverse Reaction (Unknown, Verified 08/01/24 01:19) confusion Hospital Summary - Hospital Course Hospital Course: This is a patient who was admitted to the hospital with influenza, pneumonia and COPD exacerbation. At baseline, the patient requires 2 LPM O2 and is still requiring this flow rate. She has overall improved, however, and will be recommended to continue this flow rate until reassessment. She follows with Dr. Ervin. - Vitals & Intake/Output Vital Signs: Vital Signs Temperature 97.9 F 08/05/24 11:13 Pulse Rate 85 08/05/24 11:13 Respiratory Rate 16 08/05/24 11:13 Blood Pressure 141/73 08/05/24 11:13 O2 Sat by Pulse Oximetry 93 L 08/05/24 11:13 Intake & Output: Intake & Output 08/02/24 08/03/24 08/04/24 08/05/24 11:59 11:59 11:59 11:59 Intake Total 0447 430 4397 1979 Output Total 800 700 Balance 420 673 081 4477 Weight 91.6 kg - Lab Result Diagrams: 08/05/24 04:32 08/05/24 04:32 Lab Results-Last 24 Hrs: Lab Results-Last 24 Hours 08/05/24 08/05/24 Range/Units 04:32 04:32 WBC 11.0 H (3.98-10.04) x10^3/uL RBC 3.99 (3.93-5.22) x10^6/uL Hgb 12.2 (11.2-15.7) g/dL Hct 36.7 (34.1-44.9) % MCV 92.0 (79.4-94.8) fL MCH 30.6 (25.6-32.2) pg MCHC 33.2 (32.2-35.5) g/dL RDW 13.2 (11.7-14.4) % Plt Count 220 (182-369) x10^3/uL MPV 10.7 (9.4-12.3) fL Sodium 136 (135-145) mmol/L Potassium 4.0 (3.5-5.1) mmol/L Chloride 101 (98-107) mmol/L Carbon Dioxide 32 H (22-30) mmol/L Anion Gap 7.5 (5-15) MEQ/L BUN 20 H (7-17) mg/dL Creatinine 0.95 (0.52-1.04) mg/dL Estimated GFR 65.7 ML/MIN Glucose 124 H (74-106) mg/dL Calcium 9.0 (8.4-10.2) mg/dL Total Bilirubin 0.30 (0.2-1.3) mg/dL AST 40 H (14-36) U/L ALT 46 H (0-35) U/L Alkaline Phosphatase 72 (38-126) U/L Serum Total Protein 6.6 (6.3-8.2) g/dL Albumin 3.7 (3.5-5.0) g/dL Micro Results-Entire Visit: Microbiology 08/01/24 01:55 Blood Culture - Final Blood 08/01/24 01:47 Blood Culture - Final Blood - Procedures and Test Procedures and Tests throughout Hospitalization: Therapy Orders & Screens 08/01/24 04:22 Oxygen Nasal Cannula 2 lpm Comment: Respiratory Therapy Consult ONCE Comment: Reason For Exam: 08/01/24 04:23 Respiratory Therapy Assessment DAILY Comment: 08/01/24 05:28 RT Screen per Nursing Assess ONCE Comment: Protocol Order Physician Instructions: Greater than 3 points order RT Admission Screen Reason For Exam: Triggered on Admission Diagnosis: Flu A, pneu, COPD exac, resp failure Diagnosis: Flu A, pneu, COPD exac, resp failure Pneumonia: Yes Home O2: Yes: 2L at HS Asthma: No CHF: Yes Home CPAP/BIPAP: No Home Nebs/MDI: Yes Total Points: 16 Smoking Cessation Education ONCE Comment: Diagnosis: Flu A, pneu, COPD exac, resp failure Smoking Status: Current every day smoker How long have you smoked: 40 years Have you smoked in the past 12 months: Yes Approximately how many cigarettes per day: 1 ppd Do you dip or chew tobacco: No 08/01/24 05:58 Respiratory MDI UD Comment: Diagnosis: Flu A, pneu, COPD exac, resp failure 08/01/24 09:07 FLUTTER [Flutter Therapy] UD Comment: Diagnosis: Flu A, pneu, COPD exac, resp failure Discharge Exam General Appearance: no apparent distress, alert Neurologic Exam: alert, oriented x 3, cooperative, financial aid administrator II-XII nml as tested, normal mood/affect Eye Exam: PERRL, EOMI, eyes nml inspection Ears, Nose, Throat Exam: normal ENT inspection Neck Exam: normal inspection, non-tender, supple, full range of motion Respiratory Exam: normal breath sounds, lungs clear Cardiovascular Exam: regular rate/rhythm, normal heart sounds Gastrointestinal/Abdomen Exam: soft, normal bowel sounds Back Exam: normal range of motion Extremity Exam: normal inspection, normal range of motion Skin Exam: normal color, warm Telemedicine Encounter - Telemedicine Encounter Telemedicine Encounter: "The entirety of this encounter was performed via Telemedicine" This visit was performed using real-time audio and video connection between my location and thepatients locationwith the assistance of a surrogateat the patients location. Written or verbal consent was obtained from the patient/guardian to perform this visit usingFabulyzer technology. Any patient questions regarding the telemedicine interaction were answered. Please note that this discharge required 42 minutes to complete. - Discharge Disposition: Home, Self-Care Condition: Stable Prescriptions: New Prednisone 10 mg [Deltasone 10 mg] 0 mg PO DAILY 7 Days #25 tablet Albuterol/Ipratropium 3ml Neb* [DUONEB 0.5-3 MG/3 ml Neb] 3 ml IH Q4HRT 30 Days #30 Levofloxacin [Levofloxacin 750Mg/150Ml D5w] 750 mg IV Q48H 3 Days #3 Oseltamivir 75 mg [Tamiflu 75MG Capsule] 75 mg PO BID 2 Days #4 cap Continue Aspirin 81 mg PO DAILY Pregabalin [Lyrica] 75 mg PO DAILY Multivitamin [Multivitamins] 1 each PO DAILY Allopurinol 100 mg [Zyloprim 100 mg] 100 mg PO DAILY Rosuvastatin Calcium [Crestor] 20 mg PO QHS Furosemide 40 mg [Lasix 40 MG] 40 mg PO DAILY 14 Days #14 tablet Venlafaxine HCl ER 75 mg [Effexor XR 75 MG] 150 mg PO DAILY Potassium Chloride [Klor-Con 10] 10 meq PO BID Buspirone HCl 5 mg [Buspar 5 mg] 15 mg PO BID Losartan Potassium [Cozaar] 25 mg PO DAILY Famotidine 20 mg [Pepcid 20 MG] 40 mg PO HS Metoprolol Succinate 100 mg [Toprol Xl 100 MG] 100 mg PO HS Fluticasone/Umeclidin/Vilanter [Trelegy Ellipta 100-62.5-25] 1 puff PO DAILY Albuterol 8 gm Mdi Hfa [Ventolin Hfa MDI] 1 puff PO Q4HPRN PRN PRN Reason: Shortness Of Breath Azithromycin 250 mg [Zithromax 250 MG TABLET] 250 mg PO ZPACK #6 tablet Bupropion HCl Xl 150 mg [Wellbutrin XL 150 MG] 150 mg PO DAILY Risperidone 1 mg [Risperdal 1 MG] 1 mg PO BID Additional Instructions: Avoid strenuous activity until follow up. Continue 2 LPM oxygen all day until reassessment. Follow up with: MARIA ELENA RUSSO MD [Primary Care Provider] -
== END 2024-08-05 14:05 | disposition home or self-care (01) | DRG 189 ==
LOC: ED 00:59 → MED SURG 04:16 → OBSVTOIN 04:16
PROVIDERS: ADMIT Internal Medicine; ATTEND Internal Medicine
DX: J96.01 Acute respiratory failure with hypoxia (principal); J18.9 Pneumonia, unspecified organism; A41.9 Sepsis, unspecified organism; J44.1 Chronic obstructive pulmonary disease with (acute) exacerbation; E83.42 Hypomagnesemia; F41.9 Anxiety disorder, unspecified; I10 Essential (primary) hypertension; Z86.73 Personal history of transient ischemic attack (TIA), and cerebral infarction without residual deficits; E78.5 Hyperlipidemia, unspecified; M10.9 Gout, unspecified; F32.A Depression, unspecified; J10.1 Influenza due to other identified influenza virus with other respiratory manifestations; Z79.899 Other long term (current) drug therapy
CPT/HCPCS: 36415; 71260; 80048; 80053; 81001; 82805; 83605; 83735; 84132; 84145; 85025; 85027; 87040; 93041; 94640; 94667; 94668; 94762; 96360; 96361; 96365; 96367; 96374; 96375; 99285; Q3014; J1650; J1956; J2919; J3475; A9270-GY